=== PATIENT | female | born 1960 | race African-American/Black ===

== ENCOUNTER 2016-09-12 05:47 | Inpatient (IN) | payer OTHER, MEDICARE ==
[~2016-09-12] VITALS: Ht 162.6 cm; Wt 112.7 kg
[~2016-09-12 05:47] MED LIST: ARIP400P IM; BENZ1TAB PO; IBUP400T20 PO; LITH300 PO; NAPR500 PO; Patient Own Medication IM
--- NOTE | 2016-09-12 05:53 | PD ---
HPI Chief Complaint: confusion Time Seen by Provider: 05:49 Travel History International Travel<30 days: No Contact w/Intl Traveler<30days: No History of Present Illness HPI This is a 56-year-old female who has a history of schizophrenia who presents to the emergency department having recently been admitted to [facility] and discharged to a mcc. The mcc called the ambulance because at 448 this morning the house managers woke up to a bloodcurdling scream. The patient was very upset and tearful. The patient is unable to provide any history and reports that the universe is ending, she hasn't seen her family in a long time and that animal spirits love her. PFSH Past Medical History Arthritis: Yes Blood Disorders: No Cancer: No Cardiovascular Problems: Yes Diabetes: No Endocrine: No Gastrointestinal Disorders: No Genitourinary: No Headaches: Yes Hypertension: Yes Immune Disorder: No Musculoskeletal: Yes Neurologic: Yes Psychiatric: Yes (Schizophrenia) Reproductive: No Respiratory: No Seizures: No Past Surgical History Abdominal Surgery: No Cardiac Surgery: No Ear Surgery: No Endocrine Surgery: No Eye Surgery: No Genitourinary Surgery: No Gynecologic Surgery: No Hysterectomy: Yes Neurologic Surgery: No Oral Surgery: Yes (POOR DENTITION) Thoracic Surgery: No Other Surgery: Yes Social History Alcohol Use: No Tobacco Use: No Substance Use: No Allergies-Medications (Allergen,Severity, Reaction): Coded Allergies: Iodine (Unverified Allergy, Unknown, 09/12/16) Penicillin (Unverified Allergy, Unknown, 09/12/16) Reported Meds & Prescriptions Reported Meds & Active Scripts Active [Patient Own Medication] 1 EA Ea 400 Ea IM EVERY MONTH due on or before 01/26/15 Reported [Invega] IM MONTHLY Pantoprazole (Pantoprazole Sodium) 40 Mg Tab 40 Mg PO DAILY Perphenazine 4 Mg Tab 8 Mg PO HS Perphenazine 4 Mg Tab 4 Mg PO DAILY Review of Systems ROS Limitations: Psychotic Physical Exam Narrative GENERAL:Well appearing, no acute distress SKIN: Warm and dry. HEAD: Atraumatic. Normocephalic. EYES: Pupils equal and round. No injection or drainage. ENT: Moist mucous membranes NECK: Trachea midline. CARDIOVASCULAR: Regular rate and rhythm. No murmur appreciated. RESPIRATORY: Clear to auscultation. Breath sounds equal bilaterally. GASTROINTESTINAL: Abdomen soft, non-tender, nondistended. MUSCULOSKELETAL: No obvious deformities. NEUROLOGICAL: Awake and alert. No obvious cranial nerve deficits. Moving all extremities. PSYCHIATRIC: Tearful, tangential with depressed mood and some synagogue preoccupation.. Data Data Last Documented VS Vital Signs Date Time Temp Pulse Resp B/P Pulse Ox O2 Delivery O2 Flow Rate FiO2 09/12/16 05:59 98.0 78 14 113/58 100 Orders Complete Blood Count With Diff (09/12/16 05:49) Basic Metabolic Panel (Bmp) (09/12/16 05:49) Alcohol (Ethanol) (09/12/16 05:49) Drug Screen, Random Urine (09/12/16 05:49) Psych Screen (09/12/16 05:49) Diet Regular Basic (09/12/16 Breakfast) Labs Laboratory Tests Test 09/12/16 06:00 White Blood Count 5.0 TH/MM3 Red Blood Count 4.05 MIL/MM3 Hemoglobin 12.4 GM/DL Hematocrit 37.3 % Mean Corpuscular Volume 92.1 FL Mean Corpuscular Hemoglobin 30.5 PG Mean Corpuscular Hemoglobin 33.1 % Concent Red Cell Distribution Width 14.3 % Platelet Count 287 TH/MM3 Mean Platelet Volume 8.8 FL Neutrophils (%) (Auto) 61.3 % Lymphocytes (%) (Auto) 29.4 % Monocytes (%) (Auto) 8.2 % Eosinophils (%) (Auto) 0.2 % Basophils (%) (Auto) 0.9 % Neutrophils # (Auto) 3.1 TH/MM3 Lymphocytes # (Auto) 1.5 TH/MM3 Monocytes # (Auto) 0.4 TH/MM3 Eosinophils # (Auto) 0.0 TH/MM3 Basophils # (Auto) 0.0 TH/MM3 CBC Comment DIFF FINAL Differential Comment Urine Opiates Screen NEG Urine Barbiturates Screen NEG Urine Amphetamines Screen NEG Urine Benzodiazepines Screen NEG Urine Cocaine Screen NEG Urine Cannabinoids Screen NEG MDM Medical Decision Making Medical Screen Exam Complete: Yes Emergency Medical Condition: Yes Interpretation(s) No leukocytosis Drug screen is negative Differential Diagnosis Schizophrenia, psychosis, drug intoxication Narrative Course This is a 56-year-old female who presents to the emergency department with a history of schizophrenia with disorganized behavior at a mcc she is new to. It appears that this is likely the patient's baseline. Labs were obtained which were reassuring. It seems like this is more of a placement issue than an acute psychiatric issue, as the patient is currently in a m[facility] and likely requires a higher level of care. Patient will be evaluated by the psychiatry team. Marie Sams MD Sep 12, 2016 05:53
[2016-09-12 05:59] VITALS: BP 113/58; PULSE 78; RESP 14; TEMP 98; O2SAT 100
[2016-09-12] MEDS ORDERED: INVEGA IM (06:29)
[2016-09-12] MEDS ORDERED: PERP4TAB8 PO ×2 (06:29)
[2016-09-12] MEDS ORDERED: PANT40TA3 PO (06:29)
[2016-09-12 06:30] LABS: AUTOMATED NEUTROPHIL # 3.1 TH/MM3 (1.8-7.7); BASOPHIL % 0.9 % (0.0-2.0); EOSINOPHIL % 0.2 % (0.0-4.0); HEMATOCRIT 37.3 % (35.0-46.0); HEMO FLAGS DIFF FINAL; LYMPH % 29.4 % (9.0-44.0); LYMPHOCYTE # 1.5 TH/MM3 (1.0-4.8); MEAN CELL VOLUME 92.1 FL (80.0-100.0); MEAN CORPUSCULAR HEMOGLOBIN 30.5 PG (27.0-34.0); MEAN CORPUSCULAR HGB CONC 33.1 % (32.0-36.0); MONO % 8.2 % (0.0-8.0); NEUT % 61.3 % (16.0-70.0); PLATELET COUNT 287 TH/MM3 (150-450); RED BLOOD COUNT 4.05 MIL/MM3 (4.00-5.30); RED CELL DISTRIBUTION WIDTH 14.3 % (11.6-17.2)
[2016-09-12 06:43] LABS: AMPHETAMINE, URINE NEG (NEG); BARBITURATES, URINE NEG (NEG); COCAINE, URINE NEG (NEG)
[2016-09-12 07:12] LABS: ANION GAP 8 MEQ/L (5-15); BICARBONATE 25.1 MEQ/L (21.0-32.0); BLOOD UREA NITROGEN 10 MG/DL (7-18); CHLORIDE 106 MEQ/L (98-107); GLOMERULAR FILTRATION RATE 75 ML/MIN (>89); SODIUM (NA) 139 MEQ/L (136-145)
[2016-09-12 07:15] LABS: POTASSIUM 4.5 MEQ/L (3.5-5.1)
[2016-09-12 08:03] VITALS: BP 115/55; PULSE 72; RESP 18; O2SAT 99
[2016-09-12 13:14] VITALS: BP 124/58; PULSE 70; RESP 18; O2SAT 99
[2016-09-12 18:35] VITALS: BP 119/55; PULSE 74; RESP 18; O2SAT 97
[2016-09-12 22:15] VITALS: BP 101/70; PULSE 82; RESP 18; TEMP 98.7; O2SAT 96
[2016-09-12] MEDS: LORazepam 1 MG TAB PO PRN (23:15)
[2016-09-12] MEDS: diphenhydrAMINE HCL 50 MG CAP - HS PRN PO (23:16)
[2016-09-13 06:00] VITALS: BP 169/71; PULSE 80; RESP 18; TEMP 97.7; O2SAT 99
[2016-09-13] MEDS: PANTOPRAZOLE SOD 40 MG DELAYED RELEASE TAB PO SCH (08:21)
[2016-09-13 08:39] LABS: AUTOMATED NEUTROPHIL # 1.8 TH/MM3 (1.8-7.7); BASOPHIL % 0.5 % (0.0-2.0); HEMATOCRIT 36.3 % (35.0-46.0); HEMO FLAGS DIFF FINAL; LYMPH % 49.2 % (9.0-44.0); LYMPHOCYTE # 2.1 TH/MM3 (1.0-4.8); MEAN CELL VOLUME 91.9 FL (80.0-100.0); MEAN CORPUSCULAR HEMOGLOBIN 31.1 PG (27.0-34.0); MEAN CORPUSCULAR HGB CONC 33.8 % (32.0-36.0); MONO % 8.9 % (0.0-8.0); NEUT % 41.4 % (16.0-70.0); PLATELET COUNT 260 TH/MM3 (150-450); RED BLOOD COUNT 3.94 MIL/MM3 (4.00-5.30); RED CELL DISTRIBUTION WIDTH 14.5 % (11.6-17.2); WHITE BLOOD COUNT 4.3 TH/MM3 (4.0-11.0)
[2016-09-13 08:58] LABS: ANION GAP 10 MEQ/L (5-15); AST (GOT) 16 U/L (15-37); BICARBONATE 24.2 MEQ/L (21.0-32.0); BLOOD UREA NITROGEN 9 MG/DL (7-18); CHLORIDE 102 MEQ/L (98-107); GLOMERULAR FILTRATION RATE 90 ML/MIN (>89); MAGNESIUM 1.9 MG/DL (1.5-2.5); POTASSIUM 3.9 MEQ/L (3.5-5.1); SODIUM (NA) 136 MEQ/L (136-145)
--- NOTE | 2016-09-13 09:14 | HHI.HP ---
Provisional Diagnosis Admission Date Sep 12, 2016 at 21:34 Kula I. History of schizophrenic disorder chronic paranoid type acute exacerbation Kula II. No diagnosis Kula III. Please see the emergency room evaluation Kula IV. Moderate stress difficulty coping Kula V. GAF of 40 Certification of Person's Competence To Provide Express and Informed Consent I have personally examined Sheila DeanJr , a person being served at [facility] on, Sep 13, 2016 09:07. Express and informed consent means consent voluntarily given in writing, by a competent person, after sufficient explanation and disclosure of the subject matter involved to enable the person to make a knowing and willful decision without any element of force, fraud, deceit, duress, or other form of constraint or coercion. This person is 18 years of age or older, is not now known to be incompetent to consent to treatment with a guardian advocate, and does not have a health care surrogate or proxy currently making medical treatment decisions. I have found this person to be one of the following: [x] Competent to provide express and informed consent, as defined above, for voluntary admission to this facility and is competent to provide express and informed consent for treatment. He/she has the consistent capacity to make well reasoned, willful, and knowing decisions concerning his or her medical or mental health treatment. The person fully and consistently understands the purpose of the admission for examination/placement and is fully capable of personally exercising all rights assured under [place] [] Incompetent to provide express and informed consent to voluntary admission, and this is incompetent to provide express and informed consent to treatment. The person must be transferred to involuntary status and a petition for a guardian advocate filed with the Circuit Court. [] Refusing to provide express and informed consent to voluntary admission but is competent to provide express and informed consent for treatment. The person must be discharged or transferred to involuntary status. Form shall be completed within 24 hours of a person's arrival at the receiving facility and filed in the clinical record of each person: 1. Admitted on a voluntary basis 2. Permitted to provide express and informed consent to his/her own treatment 3. Allowed to transfer from involuntary to voluntary status 4. Prior to permitting a person to consent to his or her own treatment after having been previously found incompetent to consent to treatment. History of Present Illness Capacity: Has Capacity HPI This is a 56-year-old black female who came to the emergency room from [place] where she was found screaming loud was psychotic responding to internal stimuli was paranoid talking to herself and was also talking about wanting to be with the Lord and was sensing .. Patient also reported that she wants her age back. She also was talking about being and none and having plenty of children sometimes she did not make any sense. She was recently discharged from [facility] and was placed at the [facility] but now I understand that he cannot she cannot return back to that place and will her to find a new place for her. It' s questionable regarding her compliance in taking medication Review of Systems Except as stated in HPI: all other systems reviewed are Neg Psychiatric: COMPLAINS OF: Confusion, Mood changes, Depression, Hallucinations , Delusions Past Psych History Psychological trauma history Patient denies any physical verbal or sexual abuse growing up but the because of patient's mental status is questionable Violence risk - others (6 mos) Patient denies but sometimes she becomes easily agitated and yells Violence risk - self (6 mos) Patient denies any suicidal ideation intentions or plan but she claimed that she is sensing and wants to be with Lord no plan to harm herself Substance Abuse History Drugs/Alcohol past 12 months Patient denies any alcohol or drug abuse Past Family Social History Coded Allergies: Iodine (Unverified Allergy, Unknown, 09/12/16) Penicillin (Unverified Allergy, Unknown, 09/12/16) Reported Medications [Invega] No Conflict Check Im Monthly 09/12/16 Pantoprazole 40 Mg Tab40 Mg PO DAILY #30 TAB Ref 0 09/12/16 Perphenazine 4 Mg Tab8 Mg PO HS #30 TAB Ref 0 09/12/16 Perphenazine 4 Mg Tab4 Mg PO DAILY #30 TAB Ref 0 09/12/16 Discontinued Scripts [Patient Own Medication] 1 EA EA No Conflict [id number] Ea IM every month due on or before 01/26/15 Prov:Ayana Marks MD 01/11/15 Current Medications Medications (Trade) Dose Ordered Sig/Jeremias Route Start Time Stop Time Status Last Admin (Ativan) 1 mg Q6H PRN PO 09/12/16 22:00 09/12/16 23:15 (Ativan Inj) 1 mg Q6H PRN IM 3/11/17 22:00 (Benadryl) 50 mg HS PRN PO 09/12/16 22:00 09/12/16 23:16 (Benadryl Inj) 50 mg HS PRN IM 09/12/16 22:00 (Tylenol) 650 mg Q4H PRN PO 09/12/16 22:00 (Milk Of Magnesia Liq) 30 ml DAILY PRN PO 09/12/16 22:00 (Mag-Al Plus Susp Liq) 30 ml Q6H PRN PO 09/12/16 22:00 (Trilafon) 8 mg HS PO 09/13/16 21:00 (Protonix) 40 mg DAILY PO 09/13/16 09:00 09/13/16 08:21 Family History Positive for mental illness Social History Patient was born in [facility]. She has 4 brothers but then again patient is not sure however patient denied any physical verbal or sexual abuse growing up. She did claimed that she finished high school and 1 year of college. Patient was unable to provide any meaningful information at this time Patient's Strengths (min. 2) Patient is cooperative and willing to take the medication Physical Exam Please see the emergency room evaluation Vital Signs Vital Signs Date Time Temp Pulse Resp B/P Pulse Ox O2 Delivery O2 Flow Rate FiO2 09/13/16 06:00 97.7 80 18 169/71 99 09/12/16 20:51 Room Air I/O 09/12/16 09/12/16 09/13/16 08:00 16:00 00:00 Intake Total 240 ml 240 ml Balance 240 ml 240 ml Mental Status Examination This is a 56-year-old black overweight female was alert oriented 1 or 2 cooperative but sometimes becoming easily agitated. She was also internally stimulated and sometimes talking to herself and saying things that did not make any sense that she isn't none she has plenty of children she wants her age back she wants to be with Lord but no plan to harm herself. She seems to be of low average intelligence with poor recent memory her insight is limited and her judgment seems to be questionable her fund of knowledge is less than average her gait is normal her concentration is poor Assessment & Plan Problem List: (1) schizoaffective disorder depressed Assessment & Plan Estimated LOS: 5 days. This is a 56-year-old black female with a history of schizoaffective disorder was admitted because she decompensated and was psychotic and responding to internal stimuli and was paranoid and preoccupied about Tawnya and . We will stabilize her on the medication.. Admitted to observe and evaluate and treatment. She will participate in all the therapeutic activity on the floor. Will request social welfare administrator to assist in aftercare and discharge planning. We will resume her medication. Side effect another alternative treatment were explained to the patient. Vital signs every shift. Request HC Surrog/Guard Advoc?: No Brent Hernandez MD Sep 13, 2016 09:14
[2016-09-13 09:24] LABS: ALKALINE PHOSPHATASE 77 U/L (45-117); ALT (GPT) 18 U/L (10-53); CREATINE KINASE 180 U/L (26-192); FREE T4 1.22 NG/DL (0.76-1.46); HDL CHOLESTEROL 57.4 MG/DL (40.0-60.0); LDL CHOLESTEROL 40 MG/DL (0-99); TOTAL BILIRUBIN ADULT 0.2 MG/DL (0.2-1.0); URIC ACID 3.5 MG/DL (2.6-6.0)
[2016-09-13 10:26] LABS: HEMOGLOBIN A1a 0.9 %; HEMOGLOBIN A1b 1.1 %; HEMOGLOBIN Ao 85.8 %; HEMOGLOBIN LA1C 1.9 %; HEMOGLOBIN P3 3.4 %
[2016-09-13 20:26] VITALS: BP 168/84; PULSE 110; TEMP 98.4; O2SAT 99
[2016-09-13] MEDS: PERPHENAZINE 4 MG TAB PO SCH (20:28)
[2016-09-13] MEDS: ACETAMINOPHEN 325 MG TAB PO PRN (21:20)
[2016-09-14] MEDS: diphenhydrAMINE HCL 50 MG CAP - HS PRN PO (00:04)
[2016-09-14] MEDS: LORazepam 1 MG TAB PO PRN (00:05)
[2016-09-14] MEDS: HALOPERIDOL 10 MG TAB PO PRN ×2 (03:22→22:07)
[2016-09-14] MEDS: LORazepam 2 MG/ML VIAL IM PRN (04:04)
[2016-09-14] MEDS: PANTOPRAZOLE SOD 40 MG DELAYED RELEASE TAB PO SCH (09:27)
--- NOTE | 2016-09-14 16:13 | HHI.PYPN ---
Subjective Remarks Patient discussed with treatment team. 7. Patient continues somewhat vigilant towards been somewhat irritable, though compliant medications. It appears her behaviors so out of control that she is not welcome back at her prior placement. For now continue medication no change Review of Systems Except as stated in HPI: all other systems reviewed are Neg Objective Alert: Yes [place]: Person, Place Mood: Anxious, Calm Affect: Labile, Restricted Memory Intact: Comment Hallucinations: Other (very poor denies that times appears to be responding to internal stimuli) Delusions: Yes Delusion Type: Paranoid (vigilant lately), Other Suicidal: Ideation (denies) Homicidal: Ideation (denies) Insight/Judgement Very poor Vitals/IOs Vital Signs Date Time Temp Pulse Resp B/P Pulse Ox O2 Delivery O2 Flow Rate FiO2 09/13/16 20:26 98.4 110 168/84 99 09/13/16 06:00 18 09/12/16 20:51 Room Air Intake and Output 09/13/16 09/13/16 09/14/16 08:00 16:00 00:00 Intake Total 240 ml 2040 ml Balance 240 ml 2040 ml Assessment & Plan Problem List: (1) schizoaffective disorder depressed Assessment & Plan Estimated LOS: da patient remained psychotic somewhat irritable labile. Compliant medications. For now continue treatment Justification for Cont. Inpt. At this time patient decompensate the placed a lower level of care Discharge Planning To be determined Request HC Surrog/Guard Advoc?: No Deacon Israel MD Sep 14, 2016 16:13
[2016-09-14 18:34] VITALS: BP 115/59; PULSE 98; RESP 18; TEMP 97.4; O2SAT 99
[2016-09-14] MEDS: PERPHENAZINE 4 MG TAB PO SCH (20:58)
[2016-09-14] MEDS: ACETAMINOPHEN 325 MG TAB PO PRN (22:47)
[2016-09-15] MEDS: LORazepam 1 MG TAB PO PRN (00:14)
[2016-09-15] MEDS: diphenhydrAMINE HCL 50 MG CAP - HS PRN PO (00:14)
[2016-09-15] MEDS: PANTOPRAZOLE SOD 40 MG DELAYED RELEASE TAB PO SCH (09:22)
--- NOTE | 2016-09-15 11:09 | HHI.PYPN ---
Subjective Remarks Patient seen in day room with nurse Logan, medical student Ly, [facility] patient did recognize me from prior contact. Is calm at this time though acknowledges auditory hallucinations of a somewhat command nature. Staff shared with me though that patient is shown bizarre psychotic behaviors towards evening no less restrictive settings including calling 911 inappropriately. Patient compliant medications. We are attempting to find patient's next due date for her and vague about sustain a injection Review of Systems Except as stated in HPI: all other systems reviewed are Neg Objective Alert: Yes [place]: Person, Place Mood: Anxious, Calm Affect: Labile, Restricted Memory Intact: Comment (fair) Hallucinations: Auditory Delusions: Yes Delusion Type: Paranoid (vigilant lately) Suicidal: Ideation (denies) Homicidal: Ideation (denies) Insight/Judgement Very poor Vitals/IOs Vital Signs Date Time Temp Pulse Resp B/P Pulse Ox O2 Delivery O2 Flow Rate FiO2 09/14/16 18:34 97.4 98 18 115/59 99 09/12/16 20:51 Room Air Intake and Output 09/14/16 09/14/16 09/15/16 08:00 16:00 00:00 Intake Total 720 ml 720 ml 1080 ml Balance 720 ml 720 ml 1080 ml Assessment & Plan Problem List: (1) schizoaffective disorder depressed Assessment & Plan Estimated LOS: days patient continue psychotic and irritable "calm at the present time. She continues to hear the auditory hallucinations of a somewhat command nature. For now continue treatment Justification for Cont. Inpt. At this time patient will decompensate if placed in the lower level of care Discharge Planning To be determined Request HC Surrog/Guard Advoc?: No Deacon Israel MD Sep 15, 2016 11:09
[2016-09-15] MEDS ORDERED: HALOPERIDOL LACTATE 5 MG/ML AMP ONE (15:30)
[2016-09-15] MEDS ORDERED: diphenhydrAMINE HCL 50 MG/ML VIAL IM ONE (15:45)
[2016-09-15] MEDS ORDERED: HALOPERIDOL LACTATE 5 MG/ML AMP IM ONE (15:45)
[2016-09-15] MEDS ORDERED: LORazepam 2 MG/ML VIAL IM ONE (15:45)
[2016-09-15] MEDS: PERPHENAZINE 4 MG TAB PO SCH (20:03)
[2016-09-16] MEDS: ALUMINUM/MAGNESIUM/SIMETH 30 ML CUP PO PRN (02:40)
[2016-09-16 05:40] VITALS: BP 134/74; PULSE 90; RESP 20; TEMP 98.3; O2SAT 97
[2016-09-16] MEDS: PANTOPRAZOLE SOD 40 MG DELAYED RELEASE TAB PO SCH (09:02)
--- NOTE | 2016-09-16 12:57 | HHI.PYPN ---
Subjective Remarks Patient seen in day room with nurse Clare and family practice resident Kyle. Patient eating lunch. Calm pleasant with me though continues to verify auditory hallucinations are somewhat decreased Patient no significant behavioral problems. Will increase at bedtime Trilafon to 10 mg Review of Systems Except as stated in HPI: all other systems reviewed are Neg Objective Alert: Yes [place]: Person, Place Mood: Anxious, Calm Affect: Labile, Restricted (somewhat less restricted) Memory Intact: Comment (fair) Hallucinations: Auditory (but slightly less) Delusions: Yes Delusion Type: Paranoid (vigilant lately) Suicidal: Ideation (denies) Homicidal: Ideation (denies) Insight/Judgement Very poor Vitals/IOs Vital Signs Date Time Temp Pulse Resp B/P Pulse Ox O2 Delivery O2 Flow Rate FiO2 09/16/16 05:40 98.3 90 20 134/74 97 09/12/16 20:51 Room Air Intake and Output 09/15/16 09/15/16 09/16/16 08:00 16:00 00:00 Intake Total 600 ml 1080 ml Balance 600 ml 1080 ml Assessment & Plan Problem List: (1) schizoaffective disorder depressed Assessment & Plan Estimated LOS: days patient remained psychotic though behaviors of softened somewhat voices diminished somewhat. Will increase Trilafon to 10 mg at at bedtime. Justification for Cont. Inpt. At this time patient will decompensate if placed in a lower level of care Discharge Planning To be determined Request HC Surrog/Guard Advoc?: No Deacon Israel MD Sep 16, 2016 12:56
[2016-09-16] MEDS ORDERED: PILL SPLITTER OTHER PRN (13:15)
[2016-09-16 19:02] VITALS: BP 130/75; PULSE 87; RESP 18; TEMP 98.4; O2SAT 99
[2016-09-16] MEDS: diphenhydrAMINE HCL 50 MG CAP - HS PRN PO (20:38)
[2016-09-16] MEDS: HALOPERIDOL 10 MG TAB PO PRN (20:38)
[2016-09-16] MEDS ORDERED: PERPHENAZINE 4 MG TAB PO SCH (21:00)
[2016-09-16] MEDS: ACETAMINOPHEN 325 MG TAB PO PRN (22:36)
[2016-09-17] MEDS: LORazepam 2 MG/ML VIAL IM PRN (04:34)
[2016-09-17 05:58] VITALS: BP 136/63; PULSE 90; RESP 18; TEMP 97.8
[2016-09-17] MEDS: PANTOPRAZOLE SOD 40 MG DELAYED RELEASE TAB PO SCH (08:54)
[2016-09-17] MEDS ORDERED: HALOPERIDOL 10 MG TAB PO SCH (10:30)
--- NOTE | 2016-09-17 10:30 | HHI.PYPN ---
Subjective Remarks Patient seen in dayroom with nurse Logan. Patient needed a when necessary of Haldol last night due to her yelling screaming and agitation. At this time I feel the Trilafon is not able to control patient's behavior we'll discontinue the Trilafon order Haldol 10 mg twice a day in its place. Patient overall compliant medications. Today while making eye contact with me and nodding appropriately remains selectively mute. Patient was noted eating her breakfast this morning with gusto Review of Systems Except as stated in HPI: all other systems reviewed are Neg Objective Alert: Yes [place]: Person, Place Mood: Anxious, Calm Affect: Labile, Restricted Memory Intact: Comment (fair) Hallucinations: Auditory Delusions: Yes Delusion Type: Paranoid (vigilant lately) Suicidal: Ideation (denies) Homicidal: Ideation (denies) Insight/Judgement Very poor Vitals/IOs Vital Signs Date Time Temp Pulse Resp B/P Pulse Ox O2 Delivery O2 Flow Rate FiO2 09/17/16 05:58 97.8 90 18 136/63 09/16/16 19:02 99 Intake and Output 09/16/16 09/16/16 09/17/16 08:00 16:00 00:00 Intake Total 360 ml 960 ml 840 ml Balance 360 ml 960 ml 840 ml Assessment & Plan Problem List: (1) schizoaffective disorder depressed Assessment & Plan Estimated LOS: days patient remained psychotic with behavioral disturbances more towards the evening. Please see medication adjustments above. Patient continues to. We responding to internal stimuli though she, in a somewhat childlike manner, denies voices Justification for Cont. Inpt. At this time patient will decompensate if placed in a lower level of care Discharge Planning To be determined Request HC Surrog/Guard Advoc?: No Deacon Israel MD Sep 17, 2016 10:30
[2016-09-17] MEDS ORDERED: HALOPERIDOL LACTATE 5 MG/ML AMP IM SCH (11:00)
--- NOTE | 2016-09-17 11:03 | HHI.PYPN ---
Subjective Remarks Patient seen by me on unit with nurse Logan. Chart review. Those are progress note dictated by me earlier today that should've been dictated on another patient that was inadvertently dictated on this patient please ignore that progress note. Patient seen today was calm cooperative has been compliant with her medication. She denies any voices or visions at this time though she did have some behavioral issues last night. We'll continue to observe no change in medication at this time Review of Systems Except as stated in HPI: all other systems reviewed are Neg Objective Alert: Yes [place]: Person, Place Mood: Anxious, Calm Affect: Labile, Restricted Memory Intact: Comment (fair) Hallucinations: Auditory Delusions: Yes Delusion Type: Paranoid (vigilant lately) Suicidal: Ideation (denies) Homicidal: Ideation (denies) Insight/Judgement Poor Vitals/IOs Vital Signs Date Time Temp Pulse Resp B/P Pulse Ox O2 Delivery O2 Flow Rate FiO2 09/17/16 05:58 97.8 90 18 136/63 09/16/16 19:02 99 Intake and Output 09/16/16 09/16/16 09/16/16 07:59 15:59 23:59 Intake Total 360 ml 960 ml 840 ml Balance 360 ml 960 ml 840 ml Assessment & Plan Problem List: (1) schizoaffective disorder depressed Assessment & Plan Estimated LOS: days patient continues psychotic but softer, compliant medications, though she did have outburst last night we'll continue to monitor no change in medication at this time Justification for Cont. Inpt. At this time patient will decompensate in place to the lower level of care Discharge Planning To be determined Request HC Surrog/Guard Advoc?: No Deacon Israel MD Sep 17, 2016 11:03
[2016-09-17] MEDS: PERPHENAZINE 4 MG TAB PO SCH (20:55)
[2016-09-18 05:19] VITALS: BP 151/84; PULSE 111; RESP 18; TEMP 97.9; O2SAT 95
[2016-09-18 06:06] VITALS: PULSE 90
[2016-09-18] MEDS: PANTOPRAZOLE SOD 40 MG DELAYED RELEASE TAB PO SCH (08:14)
--- NOTE | 2016-09-18 10:23 | HHI.PYPN ---
Subjective Remarks Patient seen in her room with nurse Desmond. Patient calm. We'll somewhat vigilant with me. States the voices are "winding down" states she slept well last night. Patient compliant with medications. Review of Systems Except as stated in HPI: all other systems reviewed are Neg Objective Alert: Yes [place]: Person, Place Mood: Anxious, Calm Affect: Labile, Restricted Memory Intact: Comment (fair) Hallucinations: Auditory (slowly diminishing) Delusions: Yes Delusion Type: Paranoid (vigilant lately) Suicidal: Ideation (denies) Homicidal: Ideation (denies) Insight/Judgement Poor Vitals/IOs Vital Signs Date Time Temp Pulse Resp B/P Pulse Ox O2 Delivery O2 Flow Rate FiO2 09/18/16 06:06 90 09/18/16 05:19 97.9 18 151/84 95 Intake and Output 09/17/16 09/17/16 09/18/16 08:00 16:00 00:00 Intake Total 240 ml 1200 ml Balance 240 ml 1200 ml Assessment & Plan Problem List: (1) schizoaffective disorder depressed Assessment & Plan Estimated LOS: days patient remained psychotic with slight decrease in auditory hallucinations. Compliant medications. For now continue treatment Justification for Cont. Inpt. At this time patient will decompensate if placed on lower level of care Discharge Planning To be determined Request HC Surrog/Guard Advoc?: No Deacon Israel MD Sep 18, 2016 10:23
[2016-09-18 18:34] VITALS: BP 131/77; PULSE 84; RESP 18; TEMP 97.5; O2SAT 97
[2016-09-18] MEDS: PERPHENAZINE 4 MG TAB PO SCH (20:42)
[2016-09-19] MEDS: ACETAMINOPHEN 325 MG TAB PO PRN ×2 (05:08→09:37)
[2016-09-19 05:55] VITALS: BP 151/82; PULSE 85; RESP 16; TEMP 98.4; O2SAT 98
[2016-09-19] MEDS: PANTOPRAZOLE SOD 40 MG DELAYED RELEASE TAB PO SCH (09:11)
--- NOTE | 2016-09-19 14:01 | HHI.PYPN ---
Subjective Remarks Pt seen and discussed with staff. Pt has been engaging in bizarre behavior such as giving herself facials with toothpaste and barrier cream. She told RN this morning that there was a computer in her ear telling her that "mission impossible is over". She also stated that she was an "intergenerational fighter for the nation." She is pleasant and cooperative with care and compliant with medications. She reports that she is tolerating medications without side effects and feels that they are helpful. "I've been able to relieve all of the waste that was clinging to body because of the medications." She presented a copy of her will to staff that was consisted of highly disorganized writing and bequests of several million dollars to various entities and individuals. She denies SI/HI. Review of Systems Psychiatric: COMPLAINS OF: Hallucinations, Delusions Objective Alert: Yes [place]: Person, Place Mood: Calm Affect: Restricted Memory Intact: Comment (fair) Hallucinations: Auditory (computers in ear) Delusions: Yes Delusion Type: Paranoid, Other (bizarre, anabaptism) Suicidal: Ideation (denies) Homicidal: Ideation (denies) Insight/Judgement poor Vitals/IOs Vital Signs Date Time Temp Pulse Resp B/P Pulse Ox O2 Delivery O2 Flow Rate FiO2 09/19/16 05:55 98.4 85 16 151/82 98 Intake and Output 09/18/16 09/18/16 09/19/16 08:00 16:00 00:00 Intake Total 280 ml 3360 ml Balance 280 ml 3360 ml Assessment & Plan Problem List: (1) schizoaffective disorder depressed Assessment & Plan Continue current tx plan. Pt is improving. Estimated LOS: days Justification for Cont. Inpt. impairments in reality construction. Request HC Surrog/Guard Advoc?: Ana Maria Wilson MD Sep 19, 2016 14:01
[2016-09-19] MEDS: PERPHENAZINE 4 MG TAB PO SCH (20:37)
[2016-09-20 06:00] VITALS: BP 146/56; PULSE 98; RESP 18; TEMP 97.4; O2SAT 96
[2016-09-20] MEDS: PANTOPRAZOLE SOD 40 MG DELAYED RELEASE TAB PO SCH (08:49)
--- NOTE | 2016-09-20 14:48 | HHI.PYPN ---
Subjective Remarks Pt seen and discussed with staff. She was labile last night and yelling on unit , "The dam broke!" She has been compliant with medications and denies side effects. Today she has been less intrusive but remains delusional and religiously preoccupied. No SI/HI. Objective Alert: Yes [place]: Person, Place Mood: Calm Affect: Restricted Memory Intact: Comment (fair) Hallucinations: Auditory (computers in ear) Delusions: Yes Delusion Type: Paranoid, Other (bizarre, sabianist) Suicidal: Ideation (denies) Homicidal: Ideation (denies) Insight/Judgement poor Vitals/IOs Vital Signs Date Time Temp Pulse Resp B/P Pulse Ox O2 Delivery O2 Flow Rate FiO2 09/20/16 06:00 97.4 98 18 146/56 96 Intake and Output 09/19/16 09/19/16 09/20/16 08:00 16:00 00:00 Intake Total 480 ml 1440 ml Balance 480 ml 1440 ml Assessment & Plan Problem List: (1) schizoaffective disorder depressed Assessment & Plan Continue current tx plan. Estimated LOS: days Justification for Cont. Inpt. impairments in reality construction Request HC Surrog/Guard Advoc?: No Ana Maria Toscano MD Sep 20, 2016 14:48
[2016-09-20 18:13] VITALS: BP 130/71; PULSE 68; RESP 17; TEMP 97.7; O2SAT 97
[2016-09-20] MEDS: PERPHENAZINE 4 MG TAB PO SCH (20:33)
[2016-09-21 05:43] VITALS: BP 143/88; PULSE 85; RESP 16; TEMP 97.7; O2SAT 97
[2016-09-21] MEDS: PANTOPRAZOLE SOD 40 MG DELAYED RELEASE TAB PO SCH (09:22)
--- NOTE | 2016-09-21 15:10 | HHI.PYPN ---
Subjective Remarks Patient discussed with treatment team, chart reviewed, patient seen on unit, patient remains delusional irritable somewhat paranoid and labile. Will increase perphenazine to 10 mg twice a day Review of Systems Except as stated in HPI: all other systems reviewed are Neg Objective Alert: Yes [place]: Person, Place Mood: Agitated, Calm Affect: Labile, Restricted Memory Intact: Comment (fair) Hallucinations: Auditory (computers in ear) Delusions: Yes Delusion Type: Paranoid, Other (bizarre, hoahaoism) Suicidal: Ideation (denies) Homicidal: Ideation (denies) Insight/Judgement Very poor Vitals/IOs Vital Signs Date Time Temp Pulse Resp B/P Pulse Ox O2 Delivery O2 Flow Rate FiO2 09/21/16 05:43 97.7 85 16 143/88 97 Intake and Output 09/20/16 09/20/16 09/21/16 08:00 16:00 00:00 Intake Total 880 ml 720 ml Balance 880 ml 720 ml Assessment & Plan Problem List: (1) schizoaffective disorder depressed Assessment & Plan Estimated LOS: days patient continue psychotic labile and irritable please see medication adjustments above Justification for Cont. Inpt. At this time patient will decompensate placed in the lower level of care Discharge Planning To be determined Request HC Surrog/Guard Advoc?: No Deacon Israel MD Sep 21, 2016 15:10
[2016-09-21] MEDS ORDERED: PILL SPLITTER OTHER PRN (15:30)
[2016-09-21 18:46] VITALS: BP 140/78; PULSE 71; RESP 18; TEMP 98.7; O2SAT 97
[2016-09-21] MEDS: PERPHENAZINE 4 MG TAB PO SCH (21:03)
[2016-09-21] MEDS: LORazepam 1 MG TAB PO PRN (23:46)
[2016-09-21] MEDS: diphenhydrAMINE HCL 50 MG CAP - HS PRN PO (23:46)
[2016-09-22] MEDS: ACETAMINOPHEN 325 MG TAB PO PRN ×3 (01:17→23:01)
[2016-09-22 06:05] VITALS: BP 146/70; PULSE 94; RESP 17; TEMP 97.6; O2SAT 94
[2016-09-22] MEDS: PERPHENAZINE 4 MG TAB PO SCH ×2 (09:15→21:37)
[2016-09-22] MEDS: PANTOPRAZOLE SOD 40 MG DELAYED RELEASE TAB PO SCH (09:15)
--- NOTE | 2016-09-22 09:23 | HHI.PYPN ---
Subjective Remarks Patient seen in her room with nurse Desmond, after breakfast patient in bed with covers to her chin. Staff states the patient showed some dyscontrol last night she was wandering the halls with diaper over her head saying that her room was "contaminated" she also only slept about 1 hour last night. Today patient is somewhat disorganized attempting to describe what happened last night she appears to responding somewhat more to internal stimuli today. Will continue Trilafon at 10 mg the morning though increase the bedtime dose to 20 mg Review of Systems Except as stated in HPI: all other systems reviewed are Neg Objective Alert: Yes [place]: Person, Place Mood: Agitated, Calm Affect: Labile, Restricted Memory Intact: Comment (fair) Hallucinations: Auditory (computers in ear) Delusions: Yes Delusion Type: Paranoid, Other (bizarre, anabaptist) Suicidal: Ideation (denies) Homicidal: Ideation (denies) Insight/Judgement Very poor Vitals/IOs Vital Signs Date Time Temp Pulse Resp B/P Pulse Ox O2 Delivery O2 Flow Rate FiO2 09/22/16 06:05 97.6 94 17 146/70 94 Intake and Output 09/21/16 09/21/16 09/22/16 08:00 16:00 00:00 Intake Total 1440 ml Balance 1440 ml Assessment & Plan Problem List: (1) schizoaffective disorder depressed Assessment & Plan Estimated LOS: days she continues quite psychotic and delusional, also somewhat aroused. Please see medication adjustment about Justification for Cont. Inpt. At this time patient will decompensate if placed in a lower level of care Discharge Planning To be determined Request HC Surrog/Guard Advoc?: No Deacon Israel MD Sep 22, 2016 09:23
[2016-09-22] MEDS: ALUMINUM/MAGNESIUM/SIMETH 30 ML CUP PO PRN (23:00)
[2016-09-22] MEDS: diphenhydrAMINE HCL 50 MG CAP - HS PRN PO (23:01)
[2016-09-23] MEDS: ACETAMINOPHEN 325 MG TAB PO PRN ×3 (03:07→20:20)
[2016-09-23 05:51] VITALS: BP 117/65; PULSE 67; RESP 16; TEMP 98.4; O2SAT 96
[2016-09-23] MEDS: PANTOPRAZOLE SOD 40 MG DELAYED RELEASE TAB PO SCH (09:33)
[2016-09-23] MEDS: PERPHENAZINE 4 MG TAB PO SCH ×2 (09:33→20:19)
--- NOTE | 2016-09-23 11:59 | HHI.PYPN ---
Subjective Remarks Patient discussed with treatment team including medications, behaviors, recommendations, and discharge planning. Patient seen on unit. Patient continues markedly disorganized psychotic, delusional. Stating she thinks her sister put a baby in the oven. Patient compliant medications. For now continue treatment Review of Systems Except as stated in HPI: all other systems reviewed are Neg Objective Alert: Yes [place]: Person, Place Mood: Calm Affect: Labile (decreased), Restricted Memory Intact: Comment (fair) Hallucinations: Auditory (computers in ear) Delusions: Yes Delusion Type: Paranoid, Other (bizarre, rastafarian) Suicidal: Ideation (denies) Homicidal: Ideation (denies) Insight/Judgement Poor Vitals/IOs Vital Signs Date Time Temp Pulse Resp B/P Pulse Ox O2 Delivery O2 Flow Rate FiO2 09/23/16 05:51 98.4 67 16 117/65 96 Intake and Output 09/22/16 09/22/16 09/22/16 07:59 15:59 23:59 Intake Total 840 ml 1110 ml Balance 840 ml 1110 ml Assessment & Plan Problem List: (1) schizoaffective disorder depressed Assessment & Plan Estimated LOS: days patient continue psychotic paranoid, this time there is no behavior problems noted. Patient compliant medications Justification for Cont. Inpt. At this time patient will decompensate if placed in a lower level of care Discharge Planning To be determined Request HC Surrog/Guard Advoc?: Deacon Moreau MD Sep 23, 2016 11:58
[2016-09-23 19:53] VITALS: BP 133/78; PULSE 75; RESP 18; TEMP 97.9; O2SAT 97
[2016-09-24] MEDS: ACETAMINOPHEN 325 MG TAB PO PRN ×3 (00:35→20:14)
[2016-09-24] MEDS: LORazepam 1 MG TAB PO PRN (00:52)
[2016-09-24] MEDS: diphenhydrAMINE HCL 50 MG CAP - HS PRN PO (00:52)
[2016-09-24 06:25] VITALS: BP 96/67; PULSE 85; RESP 16; TEMP 97.5; O2SAT 95
[2016-09-24] MEDS: PANTOPRAZOLE SOD 40 MG DELAYED RELEASE TAB PO SCH (09:03)
[2016-09-24] MEDS: PERPHENAZINE 4 MG TAB PO SCH ×2 (09:03→20:14)
--- NOTE | 2016-09-24 11:42 | HHI.PYPN ---
Subjective Remarks Patient seen in day room with nurse Demetrice, chart reviewed. Patient continues disorganized delusional and psychotic. Making confusing statements related to her family, was also noted last night to be eating soap. Patient compliant with medications. Patient compliant medications for now continue treatment Review of Systems Except as stated in HPI: all other systems reviewed are Neg Objective Alert: Yes [place]: Person, Place Mood: Calm Affect: Labile (decreased), Restricted Memory Intact: Comment (fair) Hallucinations: Auditory (computers in ear) Delusions: Yes Delusion Type: Paranoid, Other (bizarre, denominational) Suicidal: Ideation (denies) Homicidal: Ideation (denies) Insight/Judgement Poor Vitals/IOs Vital Signs Date Time Temp Pulse Resp B/P Pulse Ox O2 Delivery O2 Flow Rate FiO2 09/24/16 06:25 97.5 85 16 96/67 95 Intake and Output 09/23/16 09/23/16 09/24/16 08:00 16:00 00:00 Intake Total 720 ml Balance 720 ml Assessment & Plan Problem List: (1) schizoaffective disorder depressed Assessment & Plan Estimated LOS: days patient continue psychotic somewhat labile and irritable. Compliant medications. For now continue treatment, need to consider adjustment of the Trilafon and perhaps addition of a second generation at at bedtime Justification for Cont. Inpt. At this time patient will decompensate placed in the lower level of care Discharge Planning To be determined Request HC Surrog/Guard Advoc?: No Deacon Israel MD Sep 24, 2016 11:41
[2016-09-24] MEDS: LORazepam 2 MG/ML VIAL IM PRN (12:35)
[2016-09-25] MEDS: ACETAMINOPHEN 325 MG TAB PO PRN (05:30)
[2016-09-25 05:59] VITALS: BP 153/75; PULSE 76; RESP 17; TEMP 98.1
[2016-09-25] MEDS: PERPHENAZINE 4 MG TAB PO SCH ×2 (09:39→21:29)
[2016-09-25] MEDS: PANTOPRAZOLE SOD 40 MG DELAYED RELEASE TAB PO SCH (09:40)
--- NOTE | 2016-09-25 14:45 | HHI.PYPN ---
Subjective Remarks Patient seen in dayroom with floor staff, patient somewhat calmer and more pleasant with me. Though she still remains quite psychotic delusional and disorganized. Compliant medications. For now continue treatment Review of Systems Except as stated in HPI: all other systems reviewed are Neg Objective Alert: Yes [place]: Person, Place Mood: Calm Affect: Labile (decreased), Restricted Memory Intact: Comment (fair) Hallucinations: Auditory (computers in ear) Delusions: Yes Delusion Type: Paranoid, Other (bizarre, muslim) Suicidal: Ideation (denies) Homicidal: Ideation (denies) Insight/Judgement Very poor Vitals/IOs Vital Signs Date Time Temp Pulse Resp B/P Pulse Ox O2 Delivery O2 Flow Rate FiO2 09/25/16 05:59 98.1 76 17 153/75 09/24/16 06:25 95 Intake and Output 09/24/16 09/24/16 09/25/16 08:00 16:00 00:00 Intake Total 0 ml 240 ml 720 ml Balance 0 ml 240 ml 720 ml Assessment & Plan Problem List: (1) schizoaffective disorder depressed Assessment & Plan Estimated LOS: days patient continue psychotic and delusional. Compliant medications. For now continue treatment Justification for Cont. Inpt. At this time patient will decompensate if placed in a lower level of care Discharge Planning To be determined Request HC Surrog/Guard Advoc?: No Deacon Israel MD Sep 25, 2016 14:45
[2016-09-25 18:00] VITALS: BP 129/60; PULSE 79; RESP 17; TEMP 99.4; O2SAT 98
[2016-09-26] MEDS: ACETAMINOPHEN 325 MG TAB PO PRN ×2 (04:37→14:52)
[2016-09-26 04:57] VITALS: BP 146/88; PULSE 84; RESP 18; TEMP 97.1; O2SAT 100
[2016-09-26] MEDS: PERPHENAZINE 4 MG TAB PO SCH ×2 (09:00→21:54)
[2016-09-26] MEDS: PANTOPRAZOLE SOD 40 MG DELAYED RELEASE TAB PO SCH (09:00)
--- NOTE | 2016-09-26 12:40 | HHI.PYPN ---
Subjective Remarks Patient was seen and case discussed with nursing. Patient remains elevated and intrusive. Making various inappropriate comments. She is however alert and oriented 3. She is disheveled with poor insight. He denies auditory visual hallucinations. Thought processes tangential. Compliant with medications Objective Alert: Yes [place]: Person, Place Mood: Calm Affect: Labile (decreased), Restricted Memory Intact: Comment (fair) Hallucinations: Auditory (computers in ear) Delusions: Yes Delusion Type: Paranoid, Other (bizarre, yazdanism) Suicidal: Ideation (denies) Homicidal: Ideation (denies) Insight/Judgement Poor Vitals/IOs Vital Signs Date Time Temp Pulse Resp B/P Pulse Ox O2 Delivery O2 Flow Rate FiO2 09/26/16 04:57 97.1 84 18 146/88 100 Intake and Output 09/25/16 09/25/16 09/26/16 08:00 16:00 00:00 Intake Total 480 ml 360 ml Balance 480 ml 360 ml Assessment & Plan Problem List: (1) schizoaffective disorder depressed Assessment & Plan Continue current treatment plan Justification for Cont. Inpt. Patient will decompensate Request HC Surrog/Guard Advoc?: No John Winters DO Sep 26, 2016 12:40
[2016-09-26 18:40] VITALS: BP 196/85; PULSE 68; RESP 18; TEMP 97.7; O2SAT 97
[2016-09-26 20:45] VITALS: BP 134/79; PULSE 77
[2016-09-26] MEDS: LORazepam 1 MG TAB PO PRN (23:35)
[2016-09-26] MEDS: diphenhydrAMINE HCL 50 MG CAP - HS PRN PO (23:35)
[2016-09-27] MEDS: ACETAMINOPHEN 325 MG TAB PO PRN ×4 (03:00→23:48)
[2016-09-27 07:40] VITALS: BP 136/68; PULSE 86; RESP 18; TEMP 97.9; O2SAT 97
[2016-09-27] MEDS: PERPHENAZINE 4 MG TAB PO SCH ×2 (09:02→22:05)
[2016-09-27] MEDS: PANTOPRAZOLE SOD 40 MG DELAYED RELEASE TAB PO SCH (09:02)
--- NOTE | 2016-09-27 11:17 | HHI.PYPN ---
Subjective Remarks Patient was seen and case discussed with nursing. Patient remains psychotic with various bizarre delusions. Thinking computers are out to get her, the room is contaminated, that she is actually the color yellow. Responding to internal stimuli and hallucinations but cannot tell me what they are saying. She has a towel in her head because she put lotion in her hair Objective Alert: Yes [place]: Person Mood: Happy Affect: Labile Memory Intact: Comment (not tested) Hallucinations: Auditory (computers in ear) Delusions: Yes Delusion Type: Paranoid (various bizarre delusions) Suicidal: Ideation (denies) Homicidal: Ideation (denies) Insight/Judgement Poor Vitals/IOs Vital Signs Date Time Temp Pulse Resp B/P Pulse Ox O2 Delivery O2 Flow Rate FiO2 09/27/16 07:40 97.9 86 18 136/68 97 Intake and Output 09/26/16 09/26/16 09/27/16 08:00 16:00 00:00 Intake Total 360 ml 1320 ml 720 ml Balance 360 ml 1320 ml 720 ml Assessment & Plan Problem List: (1) schizoaffective disorder depressed Assessment & Plan Continue current treatment plan Justification for Cont. Inpt. Patient will decompensate in a less restrictive setting Request HC Surrog/Guard Advoc?: No John Winters DO Sep 27, 2016 11:17
[2016-09-27 18:56] VITALS: BP 167/82; PULSE 84; RESP 19; TEMP 99.1; O2SAT 97
[2016-09-27] MEDS: diphenhydrAMINE HCL 50 MG CAP - HS PRN PO (23:44)
[2016-09-27] MEDS: LORazepam 1 MG TAB PO PRN (23:44)
[2016-09-28 05:42] VITALS: BP 136/78; PULSE 82; RESP 16; TEMP 97.6; O2SAT 97
[2016-09-28] MEDS: PANTOPRAZOLE SOD 40 MG DELAYED RELEASE TAB PO SCH (09:11)
[2016-09-28] MEDS: PERPHENAZINE 4 MG TAB PO SCH ×2 (09:11→21:38)
[2016-09-28] MEDS: ACETAMINOPHEN 325 MG TAB PO PRN (15:16)
[2016-09-28] MEDS: LORazepam 1 MG TAB PO PRN (15:16)
--- NOTE | 2016-09-28 15:57 | HHI.PYPN ---
Subjective Remarks Patient discussed with treatment team, chart reviewed, patient seen on unit. Patient calm though continues markedly delusional somewhat grandiose and at times silly. Will increase a.m. Trilafon to 15 mg continue H his dose no change Review of Systems Except as stated in HPI: all other systems reviewed are Neg Objective Alert: Yes [place]: Person Mood: Happy Affect: Labile Memory Intact: Comment (not tested) Hallucinations: Auditory (computers in ear) Delusions: Yes Delusion Type: Paranoid (various bizarre delusions) Suicidal: Ideation (denies) Homicidal: Ideation (denies) Insight/Judgement Very poor Vitals/IOs Vital Signs Date Time Temp Pulse Resp B/P Pulse Ox O2 Delivery O2 Flow Rate FiO2 09/28/16 05:42 97.6 82 16 136/78 97 Intake and Output 09/27/16 09/27/16 09/28/16 08:00 16:00 00:00 Intake Total 600 ml 840 ml Balance 600 ml 840 ml Assessment & Plan Problem List: (1) schizoaffective disorder depressed Assessment & Plan Estimated LOS: days patient continues somewhat delusional and psychotic, though no significant behavior problems noted at this time. See medication adjustments above Justification for Cont. Inpt. At this time patient will decompensate if placed in a lower level of care Discharge Planning To be determined Request HC Surrog/Guard Advoc?: No Deacon Israel MD Sep 28, 2016 15:57
[2016-09-28 18:00] VITALS: BP 141/83; PULSE 76; RESP 18; TEMP 98.1; O2SAT 98
[2016-09-28] MEDS: LORazepam 2 MG/ML VIAL IM PRN (23:17)
[2016-09-28] MEDS: diphenhydrAMINE HCL 50 MG/ML VIAL - HS PRN IM (23:17)
[2016-09-28] MEDS ORDERED: ZIPRASIDONE MESYLATE 20 MG VIAL IM ONE ×2 (23:49→23:54)
[2016-09-29] MEDS: PERPHENAZINE 4 MG TAB PO SCH ×2 (09:00→21:03)
[2016-09-29] MEDS: PANTOPRAZOLE SOD 40 MG DELAYED RELEASE TAB PO SCH (09:37)
[2016-09-29] MEDS: ACETAMINOPHEN 325 MG TAB PO PRN (09:37)
--- NOTE | 2016-09-29 15:09 | HHI.PYPN ---
Subjective Remarks Patient seen on unit with nurse Logan, patient calm though somewhat superficial today and silly showing delusional ideation stating her feet were cut off and then reattached. Also appears patient had a very poor night last night not sleeping at all. And was aggressive towards floor staff. We'll add trazodone 50 mg at at bedtime Review of Systems Except as stated in HPI: all other systems reviewed are Neg Objective Alert: Yes [place]: Person Mood: Happy Affect: Labile Memory Intact: Comment (not tested) Hallucinations: Auditory (computers in ear) Delusions: Yes Delusion Type: Paranoid (various bizarre delusions) Suicidal: Ideation (denies) Homicidal: Ideation (denies) Insight/Judgement Very poor Vitals/IOs Vital Signs Date Time Temp Pulse Resp B/P Pulse Ox O2 Delivery O2 Flow Rate FiO2 09/28/16 18:00 98.1 76 18 141/83 98 Intake and Output 09/28/16 09/28/16 09/29/16 08:00 16:00 00:00 Intake Total 480 ml 960 ml 720 ml Balance 480 ml 960 ml 720 ml Assessment & Plan Problem List: (1) schizoaffective disorder depressed Assessment & Plan Estimated LOS: days patient continue psychotic irritable and aggressive with poor sleep. See medication adjustment above Justification for Cont. Inpt. At this time patient will decompensate if placed in a lower level of care Discharge Planning Be determined Request HC Surrog/Guard Advoc?: No Deacon Israel MD Sep 29, 2016 15:09
[2016-09-29] MEDS: LORazepam 1 MG TAB PO PRN ×2 (16:03→22:56)
[2016-09-29] MEDS: diphenhydrAMINE HCL 50 MG CAP - HS PRN PO (21:02)
[2016-09-29] MEDS: traZODone HCL 50 MG TAB PO SCH (21:03)
[2016-09-30 05:26] VITALS: BP 157/74; PULSE 82; RESP 18; TEMP 97.9; O2SAT 98
[2016-09-30] MEDS: PERPHENAZINE 4 MG TAB PO SCH ×2 (09:25→21:10)
[2016-09-30] MEDS: PANTOPRAZOLE SOD 40 MG DELAYED RELEASE TAB PO SCH (09:26)
--- NOTE | 2016-09-30 11:02 | HHI.PYPN ---
Subjective Remarks Patient seen in her room with nurse Araceli and family practice resident titi. Chart reviewed. Patient continues delusional psychotic with bizarre statements about family placement, also made statements thinking that she may be and that she is 24 years old. Will increase Trilafon to 20 mg twice a day. Review of Systems Except as stated in HPI: all other systems reviewed are Neg Objective Alert: Yes [place]: Person Mood: Happy Affect: Labile Memory Intact: Comment (not tested) Hallucinations: Auditory (computers in ear) Delusions: Yes Delusion Type: Paranoid (various bizarre delusions) Suicidal: Ideation (denies) Homicidal: Ideation (denies) Insight/Judgement Very poor Vitals/IOs Vital Signs Date Time Temp Pulse Resp B/P Pulse Ox O2 Delivery O2 Flow Rate FiO2 09/30/16 05:26 97.9 82 18 157/74 98 Intake and Output 09/29/16 09/29/16 09/30/16 08:00 16:00 00:00 Intake Total 0 ml 660 ml Balance 0 ml 660 ml Assessment & Plan Problem List: (1) schizoaffective disorder depressed Assessment & Plan Estimated LOS: days patient continue psychotic and delusional, appears have somewhat better behavior recently. Will increase Trilafon to 20 mg twice a day Justification for Cont. Inpt. At this time patient will decompensate if placed in the lower level of care Discharge Planning To be determined Request HC Surrog/Guard Advoc?: No Deacon Israel MD Sep 30, 2016 11:02
[2016-09-30] MEDS: ACETAMINOPHEN 325 MG TAB PO PRN ×2 (14:17→22:42)
[2016-09-30] MEDS: MAGNESIUM HYDROXIDE SUSP 30 ML CUP PO PRN (17:30)
[2016-09-30 18:52] VITALS: BP 146/95; PULSE 71; RESP 16; TEMP 97.6; O2SAT 97
[2016-09-30] MEDS: traZODone HCL 50 MG TAB PO SCH (21:10)
[2016-09-30] MEDS: diphenhydrAMINE HCL 50 MG CAP - HS PRN PO (22:43)
[2016-10-01] MEDS: ACETAMINOPHEN 325 MG TAB PO PRN (03:16)
[2016-10-01] MEDS: LORazepam 1 MG TAB PO PRN ×2 (04:14→19:47)
[2016-10-01 05:27] VITALS: BP 145/79; PULSE 78; RESP 18; TEMP 97.3
[2016-10-01] MEDS: PANTOPRAZOLE SOD 40 MG DELAYED RELEASE TAB PO SCH (08:29)
[2016-10-01] MEDS: PERPHENAZINE 4 MG TAB PO SCH ×2 (08:30→20:55)
--- NOTE | 2016-10-01 15:18 | HHI.PYPN ---
Subjective Remarks Patient seen in her room with nurse Clare, chart review, patient somewhat calmer more focused today discussed possible placement after discharge she stating she wishes to back to her own place with a friend helping her. However this seems to be delusional component to this though her affect is showing good range of motion intensity. She acknowledges continued auditory hallucinations. Staff states she is only slept 4 hours last night. Will increase at bedtime trazodone to 75 mg Review of Systems Except as stated in HPI: all other systems reviewed are Neg Objective Alert: Yes [place]: Person Mood: Happy Affect: Labile Memory Intact: Comment (not tested) Hallucinations: Auditory (computers in ear) Delusions: Yes Delusion Type: Paranoid (various bizarre delusions) Suicidal: Ideation (denies) Homicidal: Ideation (denies) Insight/Judgement Very poor Vitals/IOs Vital Signs Date Time Temp Pulse Resp B/P Pulse Ox O2 Delivery O2 Flow Rate FiO2 10/01/16 05:27 97.3 78 18 145/79 09/30/16 18:52 97 Intake and Output 09/30/16 09/30/16 10/01/16 08:00 16:00 00:00 Intake Total 480 ml 960 ml 240 ml Balance 480 ml 960 ml 240 ml Assessment & Plan Problem List: (1) schizoaffective disorder depressed Assessment & Plan Estimated LOS: days patient continue psychotic, the behaviors have softened somewhat. Sleep is still poor. See medication adjustment above Justification for Cont. Inpt. At this time patient will decompensate and placed in the lower level of care Discharge Planning To be determined Request HC Surrog/Guard Advoc?: No Deacon Israel MD Oct 01, 2016 15:18
[2016-10-01 18:02] VITALS: BP 115/61; PULSE 78; RESP 18; TEMP 97.5; O2SAT 96
[2016-10-01] MEDS: traZODone HCL 50 MG TAB PO SCH (20:54)
[2016-10-02] MEDS: ACETAMINOPHEN 325 MG TAB PO PRN ×2 (00:53→11:37)
[2016-10-02] MEDS: LORazepam 1 MG TAB PO PRN (04:07)
[2016-10-02 05:07] VITALS: BP 113/67; PULSE 77; RESP 16; TEMP 98.6; O2SAT 98
[2016-10-02] MEDS: PANTOPRAZOLE SOD 40 MG DELAYED RELEASE TAB PO SCH (09:21)
[2016-10-02] MEDS: PERPHENAZINE 4 MG TAB PO SCH ×2 (09:22→20:56)
--- NOTE | 2016-10-02 12:56 | HHI.PYPN ---
Subjective Remarks Patient seen in her room with nurse Desmond. Chart reviewed. Patient continues somewhat disorganized delusional, though less intense. Compliant medications. For now continue treatment Review of Systems Except as stated in HPI: all other systems reviewed are Neg Objective Alert: Yes [place]: Person Mood: Happy Affect: Labile Memory Intact: Comment (not tested) Hallucinations: Auditory (computers in ear) Delusions: Yes Delusion Type: Paranoid (various bizarre delusions) Suicidal: Ideation (denies) Homicidal: Ideation (denies) Insight/Judgement Very poor Vitals/IOs Vital Signs Date Time Temp Pulse Resp B/P Pulse Ox O2 Delivery O2 Flow Rate FiO2 10/02/16 05:07 98.6 77 16 113/67 98 Intake and Output 10/01/16 10/01/16 10/02/16 08:00 16:00 00:00 Intake Total 120 ml 600 ml 960 ml Balance 120 ml 600 ml 960 ml Assessment & Plan Problem List: (1) schizoaffective disorder depressed Assessment & Plan Estimated LOS: days patient continue psychotic, delusional, low compliant medications. For now continue treatment Justification for Cont. Inpt. At this time the patient will decompensate if placed in a lower level of care Discharge Planning To be determined Request HC Surrog/Guard Advoc?: No Deacon Israel MD Oct 02, 2016 12:56
[2016-10-02 17:45] VITALS: BP 125/67; PULSE 84; RESP 18; TEMP 98.7; O2SAT 99
[2016-10-02 19:17] VITALS: BP 125/67; PULSE 84; RESP 18; TEMP 98.7; O2SAT 99
[2016-10-02] MEDS: traZODone HCL 50 MG TAB PO SCH (20:56)
[2016-10-03] MEDS: ACETAMINOPHEN 325 MG TAB PO PRN ×2 (05:18→21:35)
[2016-10-03 06:20] VITALS: BP_SYST 125; BP_DIAS 69; BP_DIAS 74; PULSE 94; RESP 17; TEMP 97.9; O2SAT 94
[2016-10-03] MEDS: PANTOPRAZOLE SOD 40 MG DELAYED RELEASE TAB PO SCH (08:53)
[2016-10-03] MEDS: PERPHENAZINE 4 MG TAB PO SCH ×2 (08:57→21:14)
--- NOTE | 2016-10-03 14:32 | HHI.PYPN ---
Subjective Remarks Pt seen and discussed with staff. She has been seclusive to her room for most of morning. She remains religiously preoccupied and talks extensively about getting communication from spirits and that her mood is a product of the spirit world. She was arguing with [facility] staff earlier in the day due to mu-ism preoccupation. NO SI/HI. Medication compliant. No SI/HI Objective Alert: Yes [place]: Person Mood: Calm Affect: Restricted Memory Intact: Comment (fair) Hallucinations: Auditory (spirits communicating with her) Delusions: Yes Delusion Type: Paranoid (various bizarre delusions), Other (mu-ism) Suicidal: Ideation (denies) Homicidal: Ideation (denies) Insight/Judgement poor Vitals/IOs Vital Signs Date Time Temp Pulse Resp B/P Pulse Ox O2 Delivery O2 Flow Rate FiO2 10/03/16 06:20 97.9 94 17 125/69 94 Intake and Output 10/02/16 10/02/16 10/03/16 08:00 16:00 00:00 Intake Total 120 ml 1220 ml 1320 ml Balance 120 ml 1220 ml 1320 ml Assessment & Plan Problem List: (1) schizoaffective disorder depressed Assessment & Plan Estimated LOS: days Justification for Cont. Inpt. Continue current tx plan. Discharge Planning impairments in relaity construction and self care Request HC Surrog/Guard Advoc?: Ana Maria Wilson MD Oct 03, 2016 14:32
[2016-10-03 21:07] VITALS: BP 117/73; PULSE 79; TEMP 96.9; O2SAT 100
[2016-10-03] MEDS: diphenhydrAMINE HCL 50 MG CAP - HS PRN PO (21:13)
[2016-10-03] MEDS: traZODone HCL 50 MG TAB PO SCH (21:14)
[2016-10-03] MEDS: LORazepam 1 MG TAB PO PRN (23:08)
[2016-10-04] MEDS: ACETAMINOPHEN 325 MG TAB PO PRN ×3 (03:34→20:19)
[2016-10-04 05:20] VITALS: BP 132/65; PULSE 80; RESP 18; TEMP 98.6; O2SAT 100
[2016-10-04] MEDS: PERPHENAZINE 4 MG TAB PO SCH ×2 (08:36→20:46)
[2016-10-04] MEDS: LORazepam 1 MG TAB PO PRN ×2 (08:37→20:16)
[2016-10-04] MEDS: PANTOPRAZOLE SOD 40 MG DELAYED RELEASE TAB PO SCH (08:38)
--- NOTE | 2016-10-04 16:02 | HHI.PYPN ---
Subjective Remarks Pt seen and discussed with staff. She has been labile today and making derogatory statements to staff. She states that her sisters have kidnapped her parents and she is a virgin for the universe, not the generation. She is compliant with medications. No SI/HI. Review of Systems Psychiatric: COMPLAINS OF: Delusions Objective Alert: Yes [place]: Person Mood: Anxious Affect: Other (congruent) Memory Intact: Comment (fair) Hallucinations: Auditory (spirits communicating with her) Delusions: Yes Delusion Type: Paranoid (various bizarre delusions), Other (religion) Suicidal: Ideation (denies) Homicidal: Ideation (denies) Insight/Judgement poor Vitals/IOs Vital Signs Date Time Temp Pulse Resp B/P Pulse Ox O2 Delivery O2 Flow Rate FiO2 10/04/16 05:20 98.6 80 18 132/65 100 Intake and Output 10/03/16 10/03/16 10/04/16 08:00 16:00 00:00 Intake Total 360 ml 1320 ml 720 ml Balance 360 ml 1320 ml 720 ml Assessment & Plan Problem List: (1) schizoaffective disorder depressed Assessment & Plan Continue current tx plan. Estimated LOS: days Justification for Cont. Inpt. impairments in reality testing and self care Request HC Surrog/Guard Advoc?: Ana Maria Wilson MD Oct 04, 2016 4:02 pm
[2016-10-04 19:27] VITALS: BP 123/66; PULSE 99; RESP 16; TEMP 98.6; O2SAT 100
[2016-10-04] MEDS: traZODone HCL 50 MG TAB PO SCH (20:45)
[2016-10-04] MEDS: diphenhydrAMINE HCL 50 MG CAP - HS PRN PO (20:46)
[2016-10-05] MEDS: ACETAMINOPHEN 325 MG TAB PO PRN (00:33)
[2016-10-05] MEDS: LORazepam 1 MG TAB PO PRN ×2 (01:58→23:03)
[2016-10-05] MEDS: PANTOPRAZOLE SOD 40 MG DELAYED RELEASE TAB PO SCH (08:49)
[2016-10-05] MEDS: PERPHENAZINE 4 MG TAB PO SCH (08:49)
[2016-10-05 16:37] VITALS: BP 153/65; PULSE 64; RESP 18; TEMP 97.4; O2SAT 97
--- NOTE | 2016-10-05 17:17 | HHI.PYPN ---
Subjective Remarks Patient discussed with treatment team, chart reviewed, patient seen on unit floor staff. Patient complaining of severe sedation in the a.m. with her medication. Will change Loxitane to 4 PM and 10 PM. Patient still somewhat grandiose delusional with a spiritual type emphasis Review of Systems Except as stated in HPI: all other systems reviewed are Neg Objective Alert: Yes [place]: Person Mood: Anxious Affect: Other (congruent) Memory Intact: Comment (fair) Hallucinations: Auditory (spirits communicating with her) Delusions: Yes Delusion Type: Paranoid (various bizarre delusions), Other (hoahaoism) Suicidal: Ideation (denies) Homicidal: Ideation (denies) Insight/Judgement Poor Vitals/IOs Vital Signs Date Time Temp Pulse Resp B/P Pulse Ox O2 Delivery O2 Flow Rate FiO2 10/05/16 16:37 97.4 64 18 153/65 97 Intake and Output 10/04/16 10/04/16 10/05/16 08:00 16:00 00:00 Intake Total 360 ml 1320 ml 720 ml Balance 360 ml 1320 ml 720 ml Assessment & Plan Problem List: (1) schizoaffective disorder depressed Assessment & Plan Estimated LOS: days patient continues delusional and psychotic with a hyper hoahaoism flavor. She medication adjustments above Justification for Cont. Inpt. At this time patient will decompensate if placed on the lower level of care Discharge Planning To be determined Request HC Surrog/Guard Advoc?: No Deacon Israel MD Oct 05, 2016 17:17
[2016-10-05] MEDS: traZODone HCL 50 MG TAB PO SCH (20:48)
[2016-10-06] MEDS: ACETAMINOPHEN 325 MG TAB PO PRN (05:25)
[2016-10-06 06:15] VITALS: BP 129/83; PULSE 80; RESP 18; TEMP 98.2; O2SAT 96
[2016-10-06] MEDS: PANTOPRAZOLE SOD 40 MG DELAYED RELEASE TAB PO SCH (08:38)
--- NOTE | 2016-10-06 14:47 | HHI.PYPN ---
Subjective Remarks Patient seen in her room with nurse Tamiko, patient continues somewhat intense superficial silly in at times somewhat childlike. She is still also somewhat grandiose, and acknowledges continued auditory hallucinations perhaps with a spiritual component. We'll continue with the adjustment of the Trilafon as noted yesterday Review of Systems Except as stated in HPI: all other systems reviewed are Neg Objective Alert: Yes [place]: Person Mood: Anxious Affect: Other (congruent) Memory Intact: Comment (fair) Hallucinations: Auditory (spirits communicating with her) Delusions: Yes Delusion Type: Paranoid (various bizarre delusions), Other (yazidi) Suicidal: Ideation (denies) Homicidal: Ideation (denies) Insight/Judgement Poor Vitals/IOs Vital Signs Date Time Temp Pulse Resp B/P Pulse Ox O2 Delivery O2 Flow Rate FiO2 10/06/16 06:15 98.2 80 18 129/83 96 Intake and Output 10/05/16 10/05/16 10/06/16 08:00 16:00 00:00 Intake Total 360 ml 2140 ml Balance 360 ml 2140 ml Assessment & Plan Problem List: (1) schizoaffective disorder depressed Assessment & Plan Estimated LOS: days patient remains psychotic and somewhat delusional, compliant medications Justification for Cont. Inpt. At this time patient will decompensate if placed in a lower level of care Discharge Planning To be determined Request HC Surrog/Guard Advoc?: Deacon Moreau MD Oct 06, 2016 14:47
[2016-10-06] MEDS: PERPHENAZINE 4 MG TAB PO SCH ×2 (16:00→20:00)
[2016-10-06] MEDS ORDERED: PERPHENAZINE 4 MG TAB PO SCH (16:00)
[2016-10-06 18:13] VITALS: BP 164/79; PULSE 109; RESP 18; TEMP 98; O2SAT 96
[2016-10-06] MEDS: traZODone HCL 50 MG TAB PO SCH (20:32)
[2016-10-07] MEDS: LORazepam 1 MG TAB PO PRN ×3 (00:34→15:59)
[2016-10-07] MEDS: ACETAMINOPHEN 325 MG TAB PO PRN ×2 (00:34→19:40)
[2016-10-07 06:00] VITALS: BP 127/62; PULSE 97; RESP 18; TEMP 97.6; O2SAT 97
[2016-10-07] MEDS: PANTOPRAZOLE SOD 40 MG DELAYED RELEASE TAB PO SCH (08:04)
--- NOTE | 2016-10-07 14:52 | HHI.PYPN ---
Subjective Remarks Patient discussed with treatment team, chart reviewed, patient seen on unit with nurse Shahram and counselor Leena. Patient continues delusional but somewhat spiritual orientation today stating "I got a Román baby, one year old , who is a medical device sales representative" however patient is no behavioral problem, has been compliant with her medications. Review of Systems Except as stated in HPI: all other systems reviewed are Neg Objective Alert: Yes [place]: Person Mood: Anxious Affect: Other (congruent) Memory Intact: Comment (fair) Hallucinations: Auditory (spirits communicating with her) Delusions: Yes Delusion Type: Paranoid (various bizarre delusions), Other (mosque) Suicidal: Ideation (denies) Homicidal: Ideation (denies) Insight/Judgement Very poor Vitals/IOs Vital Signs Date Time Temp Pulse Resp B/P Pulse Ox O2 Delivery O2 Flow Rate FiO2 10/07/16 06:00 97.6 97 18 127/62 97 Intake and Output 10/06/16 10/06/16 10/07/16 08:00 16:00 00:00 Intake Total 600 ml 960 ml Balance 600 ml 960 ml Assessment & Plan Problem List: (1) schizoaffective disorder depressed Assessment & Plan Estimated LOS: days patient continues delusional somewhat psychotic, though no behavioral problems. Compliant medications. For now continue treatment Justification for Cont. Inpt. At this time patient will decompensate if placed in a lower level of care Discharge Planning To be determined Request HC Surrog/Guard Advoc?: No Deacon Israel MD Oct 07, 2016 14:52
[2016-10-07] MEDS: PERPHENAZINE 4 MG TAB PO SCH ×2 (16:01→19:43)
[2016-10-07] MEDS ORDERED: HALOPERIDOL LACTATE 5 MG/ML AMP IM STA (16:11)
[2016-10-07] MEDS ORDERED: HALOPERIDOL LACTATE 5 MG/ML AMP ONE (16:14)
[2016-10-07] MEDS ORDERED: LORazepam 2 MG/ML VIAL ONE (16:14)
[2016-10-07] MEDS ORDERED: diphenhydrAMINE HCL 50 MG/ML VIAL IM ONE (16:15)
[2016-10-07] MEDS ORDERED: LORazepam 2 MG/ML VIAL IM ONE (17:00)
[2016-10-07 20:00] VITALS: BP 122/85; PULSE 99; RESP 18; TEMP 97; O2SAT 97
[2016-10-07] MEDS: traZODone HCL 50 MG TAB PO SCH (20:55)
[2016-10-07] MEDS: diphenhydrAMINE HCL 50 MG CAP - HS PRN PO (20:55)
[2016-10-08] MEDS: LORazepam 1 MG TAB PO PRN ×2 (01:01→13:27)
[2016-10-08] MEDS: ACETAMINOPHEN 325 MG TAB PO PRN ×3 (01:02→20:50)
[2016-10-08 06:00] VITALS: BP 133/78; PULSE 88; RESP 16; TEMP 98; O2SAT 100
[2016-10-08] MEDS: PANTOPRAZOLE SOD 40 MG DELAYED RELEASE TAB PO SCH (09:00)
[2016-10-08] MEDS: ALUMINUM/MAGNESIUM/SIMETH 30 ML CUP PO PRN (09:20)
--- NOTE | 2016-10-08 09:39 | HHI.PYPN ---
Subjective Remarks Patient seen in dayroom with nurse Peyton, chart reviewed, patient continues delusional somewhat grandiose and hyperreligious. Pointing of focusing [place] [id number] Patient continue psychotic and delusional. Though she is compliant with medications. Review of Systems Except as stated in HPI: all other systems reviewed are Neg Objective Alert: Yes [place]: Person Mood: Anxious Affect: Other (congruent) Memory Intact: Comment (fair) Hallucinations: Auditory (spirits communicating with her) Delusions: Yes Delusion Type: Paranoid (various bizarre delusions), Other (judaism) Suicidal: Ideation (denies) Homicidal: Ideation (denies) Insight/Judgement Very poor Vitals/IOs Vital Signs Date Time Temp Pulse Resp B/P Pulse Ox O2 Delivery O2 Flow Rate FiO2 10/08/16 06:00 98.0 88 16 133/78 100 Intake and Output 10/07/16 10/07/16 10/08/16 08:00 16:00 00:00 Intake Total 480 ml 0 ml Balance 480 ml 0 ml Assessment & Plan Problem List: (1) schizoaffective disorder depressed Assessment & Plan Estimated LOS: days patient continue psychotic grandiose and delusional. Compliant medications. For now continue treatment Justification for Cont. Inpt. At this time patient will decompensate the placed in a lower level of care Discharge Planning To be determined Request HC Surrog/Guard Advoc?: Deacon Moreau MD Oct 08, 2016 09:39
[2016-10-08] MEDS: PERPHENAZINE 4 MG TAB PO SCH ×2 (16:00→20:00)
[2016-10-08 19:44] VITALS: BP 133/78; PULSE 84; RESP 17; TEMP 98.5; O2SAT 100
[2016-10-08] MEDS: diphenhydrAMINE HCL 50 MG CAP - HS PRN PO (20:33)
[2016-10-08] MEDS: traZODone HCL 50 MG TAB PO SCH (20:33)
[2016-10-09] MEDS: ACETAMINOPHEN 325 MG TAB PO PRN (06:13)
[2016-10-09 06:22] VITALS: BP 133/74; PULSE 70; RESP 18; TEMP 98.9
[2016-10-09] MEDS: PANTOPRAZOLE SOD 40 MG DELAYED RELEASE TAB PO SCH (08:19)
[2016-10-09] MEDS: PERPHENAZINE 4 MG TAB PO SCH ×2 (16:00→20:00)
--- NOTE | 2016-10-09 16:48 | HHI.PYPN ---
Subjective Remarks Patient seen in the day room with nurse Loagn, chart review, patient states "just fine" "wants to be with family". Patient compliant medications still remained somewhat delusional. The no significant behavioral problems at this time Review of Systems Except as stated in HPI: all other systems reviewed are Neg Objective Alert: Yes [place]: Person Mood: Anxious Affect: Other (congruent) Memory Intact: Comment (fair) Hallucinations: Auditory (spirits communicating with her) Delusions: Yes Delusion Type: Paranoid (various bizarre delusions), Other (taoism) Suicidal: Ideation (denies) Homicidal: Ideation (denies) Insight/Judgment Very poor Vitals/IOs Vital Signs Date Time Temp Pulse Resp B/P Pulse Ox O2 Delivery O2 Flow Rate FiO2 10/09/16 06:22 98.9 70 18 133/74 10/08/16 19:44 100 Intake and Output 10/08/16 10/08/16 10/09/16 08:00 16:00 00:00 Intake Total 240 ml 240 ml 240 ml Balance 240 ml 240 ml 240 ml Assessment & Plan Problem List: (1) schizoaffective disorder depressed Assessment & Plan Estimated LOS: days patient continues to isolate, mildly paranoid, and delusional compliant medications. Justification for Cont. Inpt. At this time patient will decompensate if placement lower level of care Discharge Planning To be determined Request HC Surrog/Guard Advoc?: Deacon Moreau MD Oct 09, 2016 16:48
[2016-10-09 19:20] VITALS: BP 133/69; PULSE 78; RESP 18; TEMP 98.5; O2SAT 100
[2016-10-09] MEDS: LORazepam 1 MG TAB PO PRN (19:47)
[2016-10-09] MEDS: traZODone HCL 50 MG TAB PO SCH (20:58)
[2016-10-10] MEDS: diphenhydrAMINE HCL 50 MG CAP - HS PRN PO (00:07)
[2016-10-10] MEDS: ACETAMINOPHEN 325 MG TAB PO PRN ×2 (03:01→09:10)
[2016-10-10] MEDS: LORazepam 1 MG TAB PO PRN ×2 (03:02→19:46)
[2016-10-10 06:19] VITALS: BP 142/77; PULSE 74; RESP 17; TEMP 97.6; O2SAT 96
[2016-10-10] MEDS: PANTOPRAZOLE SOD 40 MG DELAYED RELEASE TAB PO SCH (09:06)
--- NOTE | 2016-10-10 12:45 | HHI.PYPN ---
Subjective Remarks Patient was seen and case discussed with nursing. Patient is quite delusional today. She describes an active conversation with God and is receiving faith messages. She appears guarded and flat. She is paranoid that her ex- is following her. Compliant with her medications. Denies suicidal ideation intent or plan Objective Alert: Yes [place]: Person, Place Mood: Oppositional Affect: Blunted Memory Intact: Comment (fair) Hallucinations: Auditory (messages from God) Delusions: Yes Delusion Type: Paranoid (ex- following her), Other (faith) Suicidal: Ideation (denies) Homicidal: Ideation (denies) Insight/Judgment Poor Vitals/IOs Vital Signs Date Time Temp Pulse Resp B/P Pulse Ox O2 Delivery O2 Flow Rate FiO2 10/10/16 06:19 97.6 74 17 142/77 96 Intake and Output 10/09/16 10/09/16 10/10/16 08:00 16:00 00:00 Intake Total 240 ml 960 ml 1080 ml Output Total 2 ml Balance 240 ml 960 ml 1078 ml Assessment & Plan Problem List: (1) schizoaffective disorder depressed Assessment & Plan Continue current treatment plan Justification for Cont. Inpt. Patient will decompensate in a less restrictive setting Request HC Surrog/Guard Advoc?: No John Winters DO Oct 10, 2016 12:45
[2016-10-10] MEDS: PERPHENAZINE 4 MG TAB PO SCH ×2 (14:31→20:00)
[2016-10-10 18:00] VITALS: BP 136/58; PULSE 80; TEMP 99.2; O2SAT 98
[2016-10-10] MEDS: traZODone HCL 50 MG TAB PO SCH (20:19)
[2016-10-11] MEDS: ACETAMINOPHEN 325 MG TAB PO PRN ×2 (01:37→20:02)
[2016-10-11] MEDS: LORazepam 2 MG/ML VIAL IM PRN (04:35)
[2016-10-11] MEDS: PANTOPRAZOLE SOD 40 MG DELAYED RELEASE TAB PO SCH (09:47)
--- NOTE | 2016-10-11 15:07 | HHI.PYPN ---
Subjective Remarks Patient was seen and case discussed with nursing. Patient remains various bizarre delusions. She has written a detailed 4 page letter to the government about how they can improve [place] minds. Says she gets messages from God and that she will use of being and take control of the solar system. Mood is stable. Denies suicidal ideation intent or plan. Compliant with medications Objective Alert: Yes [place]: Person, Place Mood: Calm Affect: Flat Memory Intact: Comment (not tested) Hallucinations: Auditory (messages from God) Delusions: Yes Delusion Type: Paranoid (bizarre delusions) Suicidal: Ideation (denies) Homicidal: Ideation (denies) Insight/Judgment Poor Vitals/IOs Vital Signs Date Time Temp Pulse Resp B/P Pulse Ox O2 Delivery O2 Flow Rate FiO2 10/10/16 18:00 99.2 80 136/58 98 10/10/16 06:19 17 Intake and Output 10/10/16 10/10/16 10/11/16 08:00 16:00 00:00 Intake Total 840 ml 550 ml Balance 840 ml 550 ml Assessment & Plan Problem List: (1) schizoaffective disorder depressed Assessment & Plan Continue current treatment plan Justification for Cont. Inpt. Patient will decompensate in a less restrictive setting Request HC Surrog/Guard Advoc?: No John Winters DO Oct 11, 2016 15:07
[2016-10-11] MEDS: PERPHENAZINE 4 MG TAB PO SCH ×2 (17:37→20:00)
[2016-10-11] MEDS: traZODone HCL 50 MG TAB PO SCH (20:02)
[2016-10-11 20:33] VITALS: BP 113/56; PULSE 87; RESP 17; TEMP 98.2; O2SAT 94
[2016-10-12 06:42] VITALS: BP 131/75; PULSE 92; RESP 17; TEMP 98.7; O2SAT 98
[2016-10-12] MEDS: ACETAMINOPHEN 325 MG TAB PO PRN ×2 (09:22→18:27)
[2016-10-12] MEDS: PANTOPRAZOLE SOD 40 MG DELAYED RELEASE TAB PO SCH (09:22)
--- NOTE | 2016-10-12 13:50 | HHI.PYPN ---
Subjective Remarks Patient discussed with treatment team, chart review, seen on unit. A patient somewhat calmer less paranoid and intrusive she remains quite delusional and grandiose, compliant medications Review of Systems Except as stated in HPI: all other systems reviewed are Neg Objective Alert: Yes [place]: Person, Place Mood: Calm Affect: Flat Memory Intact: Comment (not tested) Hallucinations: Auditory (messages from God) Delusions: Yes Delusion Type: Paranoid (bizarre delusions) Suicidal: Ideation (denies) Homicidal: Ideation (denies) Insight/Judgment Very poor Vitals/IOs Vital Signs Date Time Temp Pulse Resp B/P Pulse Ox O2 Delivery O2 Flow Rate FiO2 10/12/16 06:42 98.7 92 17 131/75 98 Intake and Output 10/11/16 10/11/16 10/12/16 08:00 16:00 00:00 Intake Total 1030 ml 840 ml 720 ml Balance 1030 ml 840 ml 720 ml Assessment & Plan Problem List: (1) schizoaffective disorder depressed Assessment & Plan Estimated LOS: days patient continues quite psychotic and delusional. Does not seem to be responding as I would like to the increase in the Trilafon. Need to consider perhaps changing to a different antipsychotic Justification for Cont. Inpt. At this time patient will decompensate if placed in the lower level of care Discharge Planning To be determined Request HC Surrog/Guard Advoc?: Deacon Moreau MD Oct 12, 2016 13:50
[2016-10-12] MEDS: LORazepam 1 MG TAB PO PRN (15:36)
[2016-10-12] MEDS: PERPHENAZINE 4 MG TAB PO SCH ×2 (17:16→20:00)
[2016-10-12] MEDS: traZODone HCL 50 MG TAB PO SCH (20:56)
[2016-10-12] MEDS: LORazepam 2 MG/ML VIAL IM PRN (22:52)
[2016-10-12] MEDS: diphenhydrAMINE HCL 50 MG/ML VIAL - HS PRN IM (22:52)
[2016-10-13] MEDS ORDERED: HALOPERIDOL LACTATE 5 MG/ML AMP ONE (03:27)
[2016-10-13] MEDS ORDERED: HALOPERIDOL LACTATE 5 MG/ML AMP IM ONE (03:30)
[2016-10-13] MEDS ORDERED: diphenhydrAMINE HCL 50 MG/ML VIAL IM ONE (03:45)
[2016-10-13] MEDS: PANTOPRAZOLE SOD 40 MG DELAYED RELEASE TAB PO SCH (09:25)
--- NOTE | 2016-10-13 13:51 | HHI.PYPN ---
Subjective Remarks Patient seen in her room with nurse Natty, it appears patient was somewhat out of control last night needing various ETO loose including Ativan and Haldol. Will discontinue the at bedtime trazodone and and Zyprexa Zydis 15 mg at at bedtime. We will change the timing of the Loxitane to noon and 4 PM Review of Systems Except as stated in HPI: all other systems reviewed are Neg Objective Alert: Yes [place]: Person, Place Mood: Calm Affect: Flat Memory Intact: Comment (not tested) Hallucinations: Auditory (messages from God) Delusions: Yes Delusion Type: Paranoid (bizarre delusions) Suicidal: Ideation (denies) Homicidal: Ideation (denies) Insight/Judgment Very poor Vitals/IOs Vital Signs Date Time Temp Pulse Resp B/P Pulse Ox O2 Delivery O2 Flow Rate FiO2 10/12/16 06:42 98.7 92 17 131/75 98 Intake and Output 10/12/16 10/12/16 10/13/16 08:00 16:00 00:00 Intake Total 720 ml Balance 720 ml Assessment & Plan Problem List: (1) schizoaffective disorder depressed Assessment & Plan Estimated LOS: days patient remained psychotic, with significant behavioral issues towards late evening. See medication adjustments about Justification for Cont. Inpt. At this time patient will decompensate placed in the lower level of care Discharge Planning To be determined Request HC Surrog/Guard Advoc?: Deacon Moreau MD Oct 13, 2016 13:51
[2016-10-13] MEDS: PERPHENAZINE 4 MG TAB PO SCH (16:00)
[2016-10-13] MEDS: diphenhydrAMINE HCL 50 MG CAP - HS PRN PO (20:30)
[2016-10-13] MEDS: LORazepam 1 MG TAB PO PRN (20:30)
[2016-10-13] MEDS: OLANZapine ODT 15 MG TAB PO SCH (21:00)
[2016-10-14] MEDS ORDERED: clonazePAM 1 MG TAB PO ONE (00:37)
[2016-10-14] MEDS ORDERED: HALOPERIDOL LACTATE 5 MG/ML AMP ONE (00:40)
[2016-10-14] MEDS ORDERED: HALOPERIDOL LACTATE 5 MG/ML AMP IM ONE (00:45)
[2016-10-14] MEDS ORDERED: LORazepam 2 MG/ML VIAL IM ONE (00:45)
[2016-10-14] MEDS: PANTOPRAZOLE SOD 40 MG DELAYED RELEASE TAB PO SCH (10:17)
[2016-10-14] MEDS: PERPHENAZINE 4 MG TAB PO SCH ×2 (12:00→16:00)
[2016-10-14] MEDS: ACETAMINOPHEN 325 MG TAB PO PRN ×2 (13:03→20:53)
--- NOTE | 2016-10-14 14:39 | HHI.PYPN ---
Subjective Remarks Patient discussed with treatment team, chart reviewed, patient seen on unit. Patient remained psychotic somewhat delusional and grandiose. Compliant medications. Still some more difficult behaviors noted towards late evening and nighttime. For now continue treatment Review of Systems Except as stated in HPI: all other systems reviewed are Neg Objective Alert: Yes [place]: Person, Place Mood: Calm Affect: Flat Memory Intact: Comment (not tested) Hallucinations: Auditory (messages from God) Delusions: Yes Delusion Type: Paranoid (bizarre delusions) Suicidal: Ideation (denies) Homicidal: Ideation (denies) Insight/Judgment Very poor Vitals/IOs Vital Signs Date Time Temp Pulse Resp B/P Pulse Ox O2 Delivery O2 Flow Rate FiO2 10/12/16 06:42 98.7 92 17 131/75 98 Intake and Output 10/13/16 10/13/16 10/14/16 08:00 16:00 00:00 Intake Total 0 ml 540 ml Balance 0 ml 540 ml Assessment & Plan Problem List: (1) schizoaffective disorder depressed Assessment & Plan Estimated LOS: days patient remained psychotic delusional paranoid, for now continue treatment Justification for Cont. Inpt. At this time patient will decompensate if placed in a lower level of care Discharge Planning To be determined Request HC Surrog/Guard Advoc?: No Deacon Israel MD Oct 14, 2016 14:39
[2016-10-14 18:00] VITALS: BP 121/74; PULSE 84; RESP 17; TEMP 99; O2SAT 97
[2016-10-14] MEDS: OLANZapine ODT 15 MG TAB PO SCH (20:52)
[2016-10-14] MEDS: LORazepam 1 MG TAB PO PRN (21:55)
[2016-10-14] MEDS: diphenhydrAMINE HCL 50 MG CAP - HS PRN PO (21:55)
[2016-10-15] MEDS: LORazepam 1 MG TAB PO PRN ×3 (03:42→22:23)
[2016-10-15 06:00] VITALS: BP 167/84; PULSE 81; RESP 18; TEMP 98.2
[2016-10-15] MEDS: ACETAMINOPHEN 325 MG TAB PO PRN ×3 (06:26→22:23)
[2016-10-15] MEDS: PANTOPRAZOLE SOD 40 MG DELAYED RELEASE TAB PO SCH (08:33)
--- NOTE | 2016-10-15 10:59 | HHI.PYPN ---
Subjective Remarks Patient seen in day room with nurse Kyle, patient continues delusional now states she needs to go to her children and her . It appears patient continues with poor sleep habits was up most of last night, needed when necessary medication. Will increase at bedtime Zyprexa to 20 mg Review of Systems Except as stated in HPI: all other systems reviewed are Neg Objective Alert: Yes [place]: Person, Place Mood: Calm Affect: Flat Memory Intact: Comment (not tested) Hallucinations: Auditory (messages from God) Delusions: Yes Delusion Type: Paranoid (bizarre delusions) Suicidal: Ideation (denies) Homicidal: Ideation (denies) Insight/Judgment Very poor Vitals/IOs Vital Signs Date Time Temp Pulse Resp B/P Pulse Ox O2 Delivery O2 Flow Rate FiO2 10/15/16 06:00 98.2 81 18 167/84 10/14/16 18:00 97 Intake and Output 10/14/16 10/14/16 10/15/16 08:00 16:00 00:00 Intake Total 240 ml 480 ml 1060 ml Output Total 960 ml Balance 240 ml -480 ml 1060 ml Assessment & Plan Problem List: (1) schizoaffective disorder depressed Assessment & Plan Estimated LOS: days patient continues delusional and psychotic, with very poor sleep habits. See medication adjustment above Justification for Cont. Inpt. At this time patient will decompensate if placed in a lower level of care Discharge Planning To be determined Request HC Surrog/Guard Advoc?: No Deacon Israel MD Oct 15, 2016 10:59
[2016-10-15] MEDS: PERPHENAZINE 4 MG TAB PO SCH ×2 (12:00→16:00)
[2016-10-15 19:23] VITALS: BP 160/76; PULSE 77; RESP 17; TEMP 98.6
[2016-10-15] MEDS: OLANZapine ODT 20 MG TAB PO SCH (21:00)
[2016-10-15] MEDS: diphenhydrAMINE HCL 50 MG CAP - HS PRN PO (22:23)
[2016-10-16] MEDS ORDERED: LORazepam 2 MG/ML VIAL IM ONE (01:00)
[2016-10-16] MEDS ORDERED: diphenhydrAMINE HCL 50 MG/ML VIAL IM ONE (01:00)
[2016-10-16] MEDS ORDERED: HALOPERIDOL LACTATE 5 MG/ML AMP IM ONE (01:00)
[2016-10-16 06:52] VITALS: BP 117/67; PULSE 91; RESP 16; TEMP 98.3; O2SAT 91
--- NOTE | 2016-10-16 09:22 | HHI.PYPN ---
Subjective Remarks Very agitated again last night. Medications have not been working well and were changed today. This physician started clonazepam 2 mg by mouth daily at bedtime. Patient remains on Zyprexa and Trilafon. She is complaining of bowel difficulties. It is believed if she responds to benzodiazepine therapy, she will not need Benadryl which is likely causing constipation. Review of Systems ROS Limitations: Clinical Condition Except as stated in HPI: all other systems reviewed are Neg Objective Alert: Yes [place]: Person, Place Mood: Agitated Affect: Labile, Flat Memory Intact: Comment (not tested) Hallucinations: Auditory (messages from God) Delusions: Yes Delusion Type: Paranoid (bizarre delusions) Suicidal: Ideation (denies) Homicidal: Ideation (denies) Insight/Judgment Impaired Vitals/IOs Vital Signs Date Time Temp Pulse Resp B/P Pulse Ox O2 Delivery O2 Flow Rate FiO2 10/16/16 06:52 98.3 91 16 117/67 91 Intake and Output 10/15/16 10/15/16 10/16/16 08:00 16:00 00:00 Intake Total 480 ml 720 ml Balance 480 ml 720 ml Assessment & Plan Problem List: (1) schizoaffective disorder depressed Assessment & Plan Estimated LOS: 7 days patient continues to be unstable and has not adequately responded to medication therapies. She is easily agitated and aggressive. This physician will continue the modulation of her medication management in order to hopefully stabilize her impulsivity and emotional lability. Justification for Cont. Inpt. Unable to care for self. Request HC Surrog/Guard Advoc?: No Chris Butler MD Oct 16, 2016 09:21
[2016-10-16] MEDS: ACETAMINOPHEN 325 MG TAB PO PRN ×2 (09:43→15:45)
[2016-10-16] MEDS: PANTOPRAZOLE SOD 40 MG DELAYED RELEASE TAB PO SCH (09:43)
[2016-10-16] MEDS: LORazepam 1 MG TAB PO PRN (09:43)
[2016-10-16] MEDS: PERPHENAZINE 4 MG TAB PO SCH ×2 (12:00→15:44)
[2016-10-16] MEDS: diphenhydrAMINE HCL 50 MG CAP - HS PRN PO (20:00)
[2016-10-16] MEDS: clonazePAM 1 MG TAB PO SCH (21:00)
[2016-10-16] MEDS: OLANZapine ODT 20 MG TAB PO SCH (21:00)
[2016-10-17] MEDS: LORazepam 2 MG/ML VIAL IM PRN (01:00)
[2016-10-17] MEDS: PANTOPRAZOLE SOD 40 MG DELAYED RELEASE TAB PO SCH (10:09)
[2016-10-17] MEDS: ACETAMINOPHEN 325 MG TAB PO PRN ×2 (12:01→23:00)
[2016-10-17] MEDS: PERPHENAZINE 4 MG TAB PO SCH ×2 (12:07→17:28)
--- NOTE | 2016-10-17 18:53 | HHI.PYPN ---
Subjective Remarks Pt seen and discussed with staff. She has been less agitated and intrusive today. She is writing a list that she describes as different ways to fast which outlines a litany of payments and rewards for fasting including "a million dollar check" and "mansion [place]". No medication side effects. Objective Alert: Yes [place]: Person, Place Mood: Calm Affect: Flat Memory Intact: Comment (fair) Hallucinations: Auditory (messages from God) Delusions: Yes Delusion Type: Paranoid (bizarre delusions) Suicidal: Ideation (denies) Homicidal: Ideation (denies) Insight/Judgment poor Vitals/IOs Vital Signs Date Time Temp Pulse Resp B/P Pulse Ox O2 Delivery O2 Flow Rate FiO2 10/16/16 06:52 98.3 91 16 117/67 91 Intake and Output 10/16/16 10/16/16 10/17/16 08:00 16:00 00:00 Intake Total 240 ml 1920 ml 720 ml Balance 240 ml 1920 ml 720 ml Assessment & Plan Problem List: (1) schizoaffective disorder depressed Assessment & Plan Continue current tx plan. Estimated LOS: days Justification for Cont. Inpt. impairments in reality construction Request HC Surrog/Guard Advoc?: Ana Maria Wilson MD Oct 17, 2016 18:52
[2016-10-17 20:00] VITALS: BP 138/67; PULSE 94; TEMP 97.9; O2SAT 100
[2016-10-17] MEDS: OLANZapine ODT 20 MG TAB PO SCH (21:00)
[2016-10-17] MEDS: clonazePAM 1 MG TAB PO SCH (21:33)
[2016-10-17] MEDS: diphenhydrAMINE HCL 50 MG CAP - HS PRN PO (21:34)
[2016-10-18] MEDS: LORazepam 1 MG TAB PO PRN (02:29)
[2016-10-18] MEDS: ACETAMINOPHEN 325 MG TAB PO PRN ×2 (02:30→18:42)
[2016-10-18 05:36] VITALS: BP 168/91; PULSE 100; RESP 18; TEMP 97.7
[2016-10-18] MEDS: PANTOPRAZOLE SOD 40 MG DELAYED RELEASE TAB PO SCH (10:03)
[2016-10-18] MEDS: PERPHENAZINE 4 MG TAB PO SCH ×2 (12:27→16:00)
[2016-10-18 18:00] VITALS: BP 154/70; PULSE 73; RESP 18; TEMP 97.9; O2SAT 100
--- NOTE | 2016-10-18 20:17 | HHI.PYPN ---
Subjective Remarks Pt seen and discussed with staff. Pt gave RN a handwritten letter filled with disorganized writing and delusional content. No aggression or agitation today. Compliant with medications and denies side effects. No SI/HI Objective Alert: Yes [place]: Person, Place Mood: Calm Affect: Flat Memory Intact: Comment (fair) Hallucinations: Auditory Delusions: Yes Delusion Type: Paranoid (bizarre delusions) Suicidal: Ideation (denies) Homicidal: Ideation (denies) Insight/Judgment poor Vitals/IOs Vital Signs Date Time Temp Pulse Resp B/P Pulse Ox O2 Delivery O2 Flow Rate FiO2 10/18/16 18:00 97.9 73 18 154/70 100 Intake and Output 10/17/16 10/17/16 10/18/16 08:00 16:00 00:00 Intake Total 720 ml Balance 720 ml Assessment & Plan Problem List: (1) schizoaffective disorder depressed Assessment & Plan Continue current tx plan. Estimated LOS: days Justification for Cont. Inpt. impairments in reality testing. Request HC Surrog/Guard Advoc?: Ana Maria Wilson MD Oct 18, 2016 20:17
[2016-10-18] MEDS: diphenhydrAMINE HCL 50 MG CAP - HS PRN PO (20:53)
[2016-10-18] MEDS: clonazePAM 1 MG TAB PO SCH (20:53)
[2016-10-18] MEDS: OLANZapine ODT 20 MG TAB PO SCH (20:53)
[2016-10-19] MEDS: ACETAMINOPHEN 325 MG TAB PO PRN ×3 (02:06→21:10)
[2016-10-19] MEDS: PANTOPRAZOLE SOD 40 MG DELAYED RELEASE TAB PO SCH (10:04)
[2016-10-19] MEDS: PERPHENAZINE 4 MG TAB PO SCH ×2 (12:00→16:00)
--- NOTE | 2016-10-19 16:35 | HHI.PYPN ---
Subjective Remarks Patient discussed with treatment team, chart review, patient seen on unit with floor staff. She continues delusional with psychotic features. A somewhat softer and less intense and less intrusive. Compliant medications Review of Systems Except as stated in HPI: all other systems reviewed are Neg Objective Alert: Yes [place]: Person, Place Mood: Calm Affect: Flat Memory Intact: Comment (fair) Hallucinations: Auditory Delusions: Yes Delusion Type: Paranoid (bizarre delusions) Suicidal: Ideation (denies) Homicidal: Ideation (denies) Insight/Judgment Very poor Vitals/IOs Vital Signs Date Time Temp Pulse Resp B/P Pulse Ox O2 Delivery O2 Flow Rate FiO2 10/18/16 18:00 97.9 73 18 154/70 100 Intake and Output 10/18/16 10/18/16 10/19/16 08:00 16:00 00:00 Intake Total 320 ml 1680 ml 480 ml Balance 320 ml 1680 ml 480 ml Assessment & Plan Problem List: (1) schizoaffective disorder depressed Assessment & Plan Estimated LOS: days patient continue psychotic and delusional, though somewhat softer in its intensity. Compliant medications. For now continue treatment Justification for Cont. Inpt. At this time patient will decompensate if placed in a lower level of care Discharge Planning To be determined Request HC Surrog/Guard Advoc?: No Deacon Israel MD Oct 19, 2016 16:35
[2016-10-19 18:00] VITALS: BP 99/64; RESP 18; TEMP 97.8; O2SAT 98
[2016-10-19] MEDS: clonazePAM 1 MG TAB PO SCH (20:24)
[2016-10-19] MEDS: OLANZapine ODT 20 MG TAB PO SCH (20:26)
[2016-10-19] MEDS: diphenhydrAMINE HCL 50 MG CAP - HS PRN PO (21:12)
[2016-10-20] MEDS: ACETAMINOPHEN 325 MG TAB PO PRN ×2 (02:00→19:58)
[2016-10-20] MEDS: PANTOPRAZOLE SOD 40 MG DELAYED RELEASE TAB PO SCH (09:15)
[2016-10-20] MEDS: PERPHENAZINE 4 MG TAB PO SCH ×2 (12:00→16:00)
--- NOTE | 2016-10-20 14:43 | HHI.PYPN ---
Subjective Remarks Patient seen in her room with nurse Natty, chart reviewed. Patient remains delusional and somewhat confused. She admits to continued auditory hallucinations though she calls them "pretty good" "I can make it if I try" patient compliant medications. Will increase patient's Trilafon to 28 mg twice a day Review of Systems Except as stated in HPI: all other systems reviewed are Neg Objective Alert: Yes [place]: Person, Place Mood: Calm Affect: Flat Memory Intact: Comment (fair) Hallucinations: Auditory Delusions: Yes Delusion Type: Paranoid (bizarre delusions) Suicidal: Ideation (denies) Homicidal: Ideation (denies) Insight/Judgment Poor Vitals/IOs Vital Signs Date Time Temp Pulse Resp B/P Pulse Ox O2 Delivery O2 Flow Rate FiO2 10/20/16 06:38 20 10/19/16 18:00 97.8 99/64 98 10/18/16 18:00 73 Intake and Output 10/19/16 10/19/16 10/20/16 08:00 16:00 00:00 Intake Total 550 ml 600 ml 1320 ml Balance 550 ml 600 ml 1320 ml Assessment & Plan Problem List: (1) schizoaffective disorder depressed Assessment & Plan Estimated LOS: days patient continues psychotic and delusional see medication adjustments above Justification for Cont. Inpt. At this time patient will decompensate if placed in a lower level of care Discharge Planning To be determined Request HC Surrog/Guard Advoc?: No Deacon Israel MD Oct 20, 2016 14:43
[2016-10-20 18:04] VITALS: BP 123/71; PULSE 84; RESP 18; TEMP 96.8; O2SAT 98
[2016-10-20] MEDS: diphenhydrAMINE HCL 50 MG CAP - HS PRN PO (20:17)
[2016-10-20] MEDS: clonazePAM 1 MG TAB PO SCH (20:17)
[2016-10-20] MEDS: OLANZapine ODT 20 MG TAB PO SCH (20:17)
[2016-10-20] MEDS: LORazepam 1 MG TAB PO PRN (22:24)
[2016-10-21 05:16] VITALS: BP 155/95; PULSE 88; RESP 16; TEMP 98.1; O2SAT 99
[2016-10-21] MEDS: PANTOPRAZOLE SOD 40 MG DELAYED RELEASE TAB PO SCH (08:46)
[2016-10-21] MEDS: PERPHENAZINE 4 MG TAB PO SCH ×2 (12:00→16:00)
--- NOTE | 2016-10-21 13:12 | HHI.PYPN ---
Subjective Remarks Patient seen in day room sitting in chair, patient alert calm though continues diffusely confused, today some vague spirituality in her comments Review of Systems Except as stated in HPI: all other systems reviewed are Neg Objective Alert: Yes [place]: Person, Place Mood: Calm Affect: Flat Memory Intact: Comment (fair) Hallucinations: Auditory Delusions: Yes Delusion Type: Paranoid (bizarre delusions) Suicidal: Ideation (denies) Homicidal: Ideation (denies) Insight/Judgment Very poor Vitals/IOs Vital Signs Date Time Temp Pulse Resp B/P Pulse Ox O2 Delivery O2 Flow Rate FiO2 10/21/16 05:16 98.1 88 16 155/95 99 Intake and Output 10/20/16 10/20/16 10/21/16 08:00 16:00 00:00 Intake Total 840 ml 720 ml Balance 840 ml 720 ml Assessment & Plan Problem List: (1) schizoaffective disorder depressed Assessment & Plan Estimated LOS: days patient continues psychotic though today her mood and affect are somewhat decreased. Compliant medications. Continue somewhat psychotic/delusional Justification for Cont. Inpt. At this time patient will decompensate if placed in the lower level of care Discharge Planning To be determined Request HC Surrog/Guard Advoc?: No Deacon Israel MD Oct 21, 2016 13:12
[2016-10-21 18:00] VITALS: BP 134/75; PULSE 85; RESP 16; TEMP 98.2; O2SAT 94
[2016-10-21] MEDS: ACETAMINOPHEN 325 MG TAB PO PRN (19:32)
[2016-10-21] MEDS: clonazePAM 1 MG TAB PO SCH (20:20)
[2016-10-21] MEDS: diphenhydrAMINE HCL 50 MG CAP - HS PRN PO (20:20)
[2016-10-21] MEDS: OLANZapine ODT 20 MG TAB PO SCH (20:20)
[2016-10-22] MEDS: LORazepam 1 MG TAB PO PRN ×3 (01:45→22:00)
[2016-10-22] MEDS: ACETAMINOPHEN 325 MG TAB PO PRN ×3 (01:45→22:01)
[2016-10-22 05:50] VITALS: BP 137/70; PULSE 84; RESP 17; TEMP 97.8; O2SAT 97
[2016-10-22] MEDS: PANTOPRAZOLE SOD 40 MG DELAYED RELEASE TAB PO SCH (09:22)
--- NOTE | 2016-10-22 11:44 | HHI.PYPN ---
Subjective Remarks Patient seen in her room with nurse Peyton. Patient calmer today somewhat less delusional less focusing on spiritual type topics. Compliant medication. For now continue treatment Review of Systems Except as stated in HPI: all other systems reviewed are Neg Objective Alert: Yes [place]: Person, Place Mood: Calm Affect: Flat Memory Intact: Comment (fair) Hallucinations: Auditory Delusions: Yes Delusion Type: Paranoid (bizarre delusions) Suicidal: Ideation (denies) Homicidal: Ideation (denies) Insight/Judgment Poor Vitals/IOs Vital Signs Date Time Temp Pulse Resp B/P Pulse Ox O2 Delivery O2 Flow Rate FiO2 10/22/16 05:50 97.8 84 17 137/70 97 Intake and Output 10/21/16 10/21/16 10/22/16 08:00 16:00 00:00 Intake Total 360 ml 1080 ml Balance 360 ml 1080 ml Assessment & Plan Problem List: (1) schizoaffective disorder depressed Assessment & Plan Estimated LOS: days patient continues somewhat delusional, although softer, less paranoia today Justification for Cont. Inpt. At this time patient will decompensate and placed in a lower level of care Discharge Planning To be determined Request HC Surrog/Guard Advoc?: No Deacon Israel MD Oct 22, 2016 11:44
[2016-10-22] MEDS: PERPHENAZINE 4 MG TAB PO SCH ×2 (12:00→16:39)
[2016-10-22 19:36] VITALS: BP 128/63; PULSE 89; RESP 18; TEMP 98.3; O2SAT 99
[2016-10-22] MEDS: OLANZapine ODT 20 MG TAB PO SCH (21:00)
[2016-10-22] MEDS: clonazePAM 1 MG TAB PO SCH (21:33)
[2016-10-23] MEDS: LORazepam 1 MG TAB PO PRN ×2 (03:00→23:55)
[2016-10-23] MEDS: diphenhydrAMINE HCL 50 MG CAP - HS PRN PO ×2 (03:00→23:55)
[2016-10-23 06:28] VITALS: BP 173/81; PULSE 95; RESP 17; TEMP 97.9; O2SAT 97
--- NOTE | 2016-10-23 09:02 | HHI.PYPN ---
Subjective Remarks Patient seen in day room with nurse Peyton, patient calm pleasant with me. Is somewhat vague about auditory hallucinations though she said the voices were "hard last night". Compliant medications Review of Systems Except as stated in HPI: all other systems reviewed are Neg Objective Alert: Yes [place]: Person, Place Mood: Calm Affect: Flat Memory Intact: Comment (fair) Hallucinations: Auditory Delusions: Yes Delusion Type: Paranoid (bizarre delusions) Suicidal: Ideation (denies) Homicidal: Ideation (denies) Insight/Judgment Poor Vitals/IOs Vital Signs Date Time Temp Pulse Resp B/P Pulse Ox O2 Delivery O2 Flow Rate FiO2 10/23/16 06:28 97.9 95 17 173/81 97 Intake and Output 10/22/16 10/22/16 10/23/16 08:00 16:00 00:00 Intake Total 240 ml 360 ml 1320 ml Balance 240 ml 360 ml 1320 ml Assessment & Plan Problem List: (1) schizoaffective disorder depressed Assessment & Plan Estimated LOS: days patient continues somewhat psychotic though the intensity of her affect and irritability and guardedness have softened. For now continue treatment Justification for Cont. Inpt. At this time patient will decompensate if place to the lower level of care Request HC Surrog/Guard Advoc?: No Deacon Israel MD Oct 23, 2016 09:02
[2016-10-23] MEDS: PANTOPRAZOLE SOD 40 MG DELAYED RELEASE TAB PO SCH (09:56)
[2016-10-23] MEDS: PERPHENAZINE 4 MG TAB PO SCH ×2 (12:58→16:49)
[2016-10-23] MEDS: ACETAMINOPHEN 325 MG TAB PO PRN ×2 (15:37→22:01)
[2016-10-23 18:42] VITALS: BP 109/54; PULSE 71; RESP 18; TEMP 98.7; O2SAT 97
[2016-10-23] MEDS: clonazePAM 1 MG TAB PO SCH (21:15)
[2016-10-23] MEDS: OLANZapine ODT 20 MG TAB PO SCH (21:16)
[2016-10-24] MEDS: ACETAMINOPHEN 325 MG TAB PO PRN ×2 (03:36→09:24)
[2016-10-24 06:27] VITALS: BP 125/72; PULSE 80; RESP 18; TEMP 98.4; O2SAT 96
[2016-10-24] MEDS: PANTOPRAZOLE SOD 40 MG DELAYED RELEASE TAB PO SCH (08:44)
[2016-10-24] MEDS: LORazepam 1 MG TAB PO PRN (11:16)
[2016-10-24] MEDS: PERPHENAZINE 4 MG TAB PO SCH ×2 (12:00→16:00)
--- NOTE | 2016-10-24 12:31 | HHI.PYPN ---
Subjective Remarks Patient was seen and case discussed with nursing. Patient is labile and euphoric. She is laughing inappropriately. Said that her food was talking to her she is drinking tea to avoid evil spirits. Per nursing she is sleeping well. Continues to get messages from God Objective Alert: Yes [place]: Person, Place Mood: Other (euphoric) Affect: Manic Memory Intact: Comment (fair) Hallucinations: Auditory Delusions: Yes Delusion Type: Paranoid (bizarre delusions) Suicidal: Ideation (denies) Homicidal: Ideation (denies) Insight/Judgment Poor Vitals/IOs Vital Signs Date Time Temp Pulse Resp B/P Pulse Ox O2 Delivery O2 Flow Rate FiO2 10/24/16 06:27 98.4 80 18 125/72 96 Intake and Output 10/23/16 10/23/16 10/24/16 08:00 16:00 00:00 Intake Total 360 ml 960 ml 600 ml Balance 360 ml 960 ml 600 ml Assessment & Plan Problem List: (1) schizoaffective disorder depressed Assessment & Plan Continue current treatment plan Justification for Cont. Inpt. Patient will decompensate in a less restrictive setting Request HC Surrog/Guard Advoc?: No John Winters DO Oct 24, 2016 12:31
[2016-10-24 16:57] VITALS: BP 160/74; PULSE 106; RESP 16; TEMP 97.9; O2SAT 98
[2016-10-24] MEDS: OLANZapine ODT 20 MG TAB PO SCH (21:25)
[2016-10-24] MEDS: clonazePAM 1 MG TAB PO SCH (21:25)
[2016-10-25] MEDS: LORazepam 1 MG TAB PO PRN (01:13)
[2016-10-25] MEDS: diphenhydrAMINE HCL 50 MG CAP - HS PRN PO ×2 (01:13→21:51)
[2016-10-25 06:39] VITALS: BP 134/74; PULSE 85; RESP 16; TEMP 97.4; O2SAT 97
[2016-10-25] MEDS: PANTOPRAZOLE SOD 40 MG DELAYED RELEASE TAB PO SCH (10:00)
--- NOTE | 2016-10-25 12:19 | HHI.PYPN ---
Subjective Remarks Patient was seen and case discussed with nursing. Patient remains elevated and expansive. However, less so compared to yesterday. Denies any auditory hallucinations at this time. She believes that she is being discharged today. Compliant with her medications. Her long letter to somebody named Dr. Li. When speaking with nurses singing. Objective Alert: Yes [place]: Person, Place Mood: Other (euphoric) Affect: Labile Memory Intact: Comment (not tested) Hallucinations: Auditory (denies today) Delusions: Yes Delusion Type: Paranoid (no delusions elicited today) Suicidal: Ideation (denies) Homicidal: Ideation (denies) Insight/Judgment Poor Vitals/IOs Vital Signs Date Time Temp Pulse Resp B/P Pulse Ox O2 Delivery O2 Flow Rate FiO2 10/25/16 06:39 97.4 85 16 134/74 97 Intake and Output 10/24/16 10/24/16 10/25/16 08:00 16:00 00:00 Intake Total 720 ml 720 ml 600 ml Balance 720 ml 720 ml 600 ml Assessment & Plan Problem List: (1) schizoaffective disorder depressed Assessment & Plan Continue current treatment plan Justification for Cont. Inpt. Patient will decompensate in the less restrictive setting Request HC Surrog/Guard Advoc?: No John Winters DO Oct 25, 2016 12:19
[2016-10-25] MEDS: PERPHENAZINE 4 MG TAB PO SCH ×2 (13:34→16:00)
[2016-10-25] MEDS ORDERED: PADIMATE (CHAPSTICK) 4.5 GM TUBE TOPICAL PRN (16:30)
[2016-10-25] MEDS: ALUMINUM/MAGNESIUM/SIMETH 30 ML CUP PO PRN (17:56)
[2016-10-25] MEDS: ACETAMINOPHEN 325 MG TAB PO PRN (18:16)
[2016-10-25 21:33] VITALS: BP 168/103; PULSE 92; RESP 16; TEMP 96.8; O2SAT 96
[2016-10-25] MEDS: clonazePAM 1 MG TAB PO SCH (21:51)
[2016-10-25] MEDS: OLANZapine ODT 20 MG TAB PO SCH (21:51)
[2016-10-26] MEDS: LORazepam 2 MG/ML VIAL IM PRN (01:10)
[2016-10-26 01:20] VITALS: BP 132/73; PULSE 90; RESP 20; TEMP 97.4; O2SAT 96
[2016-10-26 02:40] VITALS: BP 125/75; PULSE 85; RESP 20; TEMP 97.4; O2SAT 95
[2016-10-26 06:09] VITALS: BP 121/75; PULSE 80; RESP 18; TEMP 97.5; O2SAT 96
[2016-10-26] MEDS: LORazepam 1 MG TAB PO PRN ×2 (09:14→20:28)
[2016-10-26] MEDS: PANTOPRAZOLE SOD 40 MG DELAYED RELEASE TAB PO SCH (09:14)
[2016-10-26] MEDS: PERPHENAZINE 4 MG TAB PO SCH ×2 (12:00→16:00)
[2016-10-26] MEDS: ACETAMINOPHEN 325 MG TAB PO PRN (13:14)
--- NOTE | 2016-10-26 16:16 | HHI.PYPN ---
Subjective Remarks Patient seen and examined with nurse. Chart reviewed. Case discussed with nursing staff who reports patient continues to act out behaviorally at times, for example screaming at one of the behavioral health technicians. On my examination today, the patient complains of pain around her left knee of about the last day's duration as near as I can tell. No SI or HI voiced. Denies side effects from medications. No other issues noted. Review of Systems ROS Limitations: Poor Historian Except as stated in HPI: all other systems reviewed are Neg Objective Alert: Yes [place]: Person, Place Mood: Calm (presently calm) Affect: Blunted Memory Intact: Comment (not formally assessed) Hallucinations: Other (No reported AVH) Delusions: No Delusion Type: Other (no delusions elicited today) Suicidal: Ideation (no SI) Homicidal: Ideation (no HI) Insight/Judgment Poor Remarks No abnormal motor movements noted. No calf swelling on the left, no tenderness to palpation, no palpable cord, no erythema. I do note a small area of excoriation on the medial aspect of the left knee, and the patient reports that this area is somewhat pruritic. Labs Labs reviewed. Vitals/IOs Vital Signs Date Time Temp Pulse Resp B/P Pulse Ox O2 Delivery O2 Flow Rate FiO2 10/26/16 06:09 97.5 80 18 121/75 96 Intake and Output 10/25/16 10/25/16 10/26/16 08:00 16:00 00:00 Intake Total 600 ml 1200 ml 720 ml Balance 600 ml 1200 ml 720 ml Assessment & Plan Problem List: (1) Schizoaffective disorder ICD Code: F25.9 Assessment & Plan Continue current psychotropics as ordered. I will order some hydrocortisone cream for the pruritic area at the knee. I will check an updated [facility] in the morning. Continue to monitor on the inpatient unit. Continue other medications and care as ordered. Justification for Cont. Inpt. High risk for decompensation in a restrictive environment Discharge Planning Patient requires placement Problem Qualifiers (1) Schizoaffective disorder: Qualified Code: F25.1 - Schizoaffective disorder, depressive type Ryley Lund MD Oct 26, 2016 16:16
[2016-10-26 20:25] VITALS: BP 118/66; PULSE 92; RESP 20; TEMP 98.3; O2SAT 97
[2016-10-26] MEDS: diphenhydrAMINE HCL 50 MG CAP - HS PRN PO (20:28)
[2016-10-26] MEDS: clonazePAM 1 MG TAB PO SCH (20:28)
[2016-10-26] MEDS: OLANZapine ODT 20 MG TAB PO SCH (20:29)
[2016-10-27 06:21] VITALS: BP 129/75; PULSE 81; RESP 20; TEMP 98.2; O2SAT 95
[2016-10-27] MEDS: PANTOPRAZOLE SOD 40 MG DELAYED RELEASE TAB PO SCH (08:52)
[2016-10-27] MEDS: HYDROCORTISONE 1% CREAM 30 GM TOPICAL SCH (08:52)
[2016-10-27 09:29] LABS: AUTOMATED NEUTROPHIL # 2.2 TH/MM3 (1.8-7.7); BASOPHIL % 0.6 % (0.0-2.0); EOSINOPHIL % 0.3 % (0.0-4.0); HEMO FLAGS DIFF FINAL; LYMPH % 42.5 % (9.0-44.0); MEAN CORPUSCULAR HEMOGLOBIN 30.1 PG (27.0-34.0); MEAN CORPUSCULAR HGB CONC 33.4 % (32.0-36.0); MONO % 10.8 % (0.0-8.0); NEUT % 45.8 % (16.0-70.0); PLATELET COUNT 284 TH/MM3 (150-450); RED BLOOD COUNT 4.22 MIL/MM3 (4.00-5.30); RED CELL DISTRIBUTION WIDTH 14.2 % (11.6-17.2); WHITE BLOOD COUNT 4.8 TH/MM3 (4.0-11.0)
[2016-10-27 10:09] LABS: ALKALINE PHOSPHATASE 91 U/L (45-117); ALT (GPT) 30 U/L (10-53); ANION GAP 10 MEQ/L (5-15); AST (GOT) 41 U/L (15-37); BICARBONATE 25.4 MEQ/L (21.0-32.0); BLOOD UREA NITROGEN 18 MG/DL (7-18); CHLORIDE 106 MEQ/L (98-107); GLOMERULAR FILTRATION RATE 87 ML/MIN (>89); POTASSIUM 4.1 MEQ/L (3.5-5.1); SODIUM (NA) 141 MEQ/L (136-145); TOTAL BILIRUBIN ADULT LESS THAN 0.1 MG/DL (0.2-1.0)
--- NOTE | 2016-10-27 10:26 | HHI.PYPN ---
Subjective Remarks Continues to be very mcknight and irritable. Multiple somatic complaints, primarily centered around pain in her joints. Continues to act out with staff and is oftentimes rude, demanding and unreasonable. Remains paranoid. Review of Systems ROS Limitations: Clinical Condition Objective Alert: Yes [place]: Person, Place Mood: Calm (presently calm) Affect: Blunted Memory Intact: Comment (not formally assessed) Hallucinations: Other (No reported AVH) Delusions: No Delusion Type: Paranoid, Other (no delusions elicited today) Suicidal: Ideation (no SI) Homicidal: Ideation (no HI) Insight/Judgment Impaired Labs Test 10/27/16 08:48 White Blood Count 4.8 TH/MM3 Red Blood Count 4.22 MIL/MM3 Hemoglobin 12.7 GM/DL Hematocrit 38.0 % Mean Corpuscular Volume 90.0 FL Mean Corpuscular Hemoglobin 30.1 PG Mean Corpuscular Hemoglobin 33.4 % Concent Red Cell Distribution Width 14.2 % Platelet Count 284 TH/MM3 Mean Platelet Volume 8.4 FL Neutrophils (%) (Auto) 45.8 % Lymphocytes (%) (Auto) 42.5 % Monocytes (%) (Auto) 10.8 % Eosinophils (%) (Auto) 0.3 % Basophils (%) (Auto) 0.6 % Neutrophils # (Auto) 2.2 TH/MM3 Lymphocytes # (Auto) 2.0 TH/MM3 Monocytes # (Auto) 0.5 TH/MM3 Eosinophils # (Auto) 0.0 TH/MM3 Basophils # (Auto) 0.0 TH/MM3 CBC Comment DIFF FINAL Differential Comment Sodium Level 141 MEQ/L Potassium Level 4.1 MEQ/L Chloride Level 106 MEQ/L Carbon Dioxide Level 25.4 MEQ/L Anion Gap 10 MEQ/L Blood Urea Nitrogen 18 MG/DL Creatinine 0.82 MG/DL Estimat Glomerular Filtration 87 ML/MIN Rate Random Glucose 86 MG/DL Calcium Level 8.9 MG/DL Total Bilirubin LESS THAN 0.1 MG/DL Aspartate Amino Transf 41 U/L (AST/SGOT) Alanine Aminotransferase 30 U/L (ALT/SGPT) Alkaline Phosphatase 91 U/L Total Protein 7.8 GM/DL Albumin 3.7 GM/DL Vitals/IOs Vital Signs Date Time Temp Pulse Resp B/P Pulse Ox O2 Delivery O2 Flow Rate FiO2 10/27/16 06:21 98.2 81 20 129/75 95 Intake and Output 10/26/16 10/26/16 10/27/16 08:00 16:00 00:00 Intake Total 360 ml Balance 360 ml Assessment & Plan Problem List: (1) Schizoaffective disorder ICD Code: F25.9 Assessment & Plan Estimated LOS: 3 days patient continues to require more time stabilizing on current antipsychotic medication. However, this physician spoke to her about imminent discharge later this week. Justification for Cont. Inpt. Will decompensate without this level of care. Problem Qualifiers (1) Schizoaffective disorder: Qualified Code: F25.1 - Schizoaffective disorder, depressive type Chris Butler MD Oct 27, 2016 10:26
[2016-10-27] MEDS: PERPHENAZINE 4 MG TAB PO SCH ×2 (12:30→17:00)
[2016-10-27 20:00] VITALS: BP 124/66; PULSE 84; RESP 18; TEMP 98.4
[2016-10-27] MEDS: clonazePAM 1 MG TAB PO SCH (20:58)
[2016-10-27] MEDS: diphenhydrAMINE HCL 50 MG CAP - HS PRN PO (21:00)
[2016-10-27] MEDS: OLANZapine ODT 20 MG TAB PO SCH (21:00)
[2016-10-27] MEDS: LORazepam 1 MG TAB PO PRN (23:51)
[2016-10-27] MEDS: ACETAMINOPHEN 325 MG TAB PO PRN (23:51)
[2016-10-28] MEDS: HYDROCORTISONE 1% CREAM 30 GM TOPICAL SCH (08:38)
[2016-10-28] MEDS: PANTOPRAZOLE SOD 40 MG DELAYED RELEASE TAB PO SCH (08:38)
[2016-10-28] MEDS: PERPHENAZINE 4 MG TAB PO SCH ×2 (12:00→16:00)
[2016-10-28] MEDS: ALUMINUM/MAGNESIUM/SIMETH 30 ML CUP PO PRN (13:10)
[2016-10-28] MEDS: ACETAMINOPHEN 325 MG TAB PO PRN (13:10)
[2016-10-28] MEDS: LORazepam 1 MG TAB PO PRN (18:26)
[2016-10-28 18:38] VITALS: BP 163/105; PULSE 100; RESP 20; TEMP 97.6; O2SAT 96
[2016-10-28] MEDS: clonazePAM 1 MG TAB PO SCH (20:24)
[2016-10-28] MEDS: OLANZapine ODT 20 MG TAB PO SCH (20:25)
[2016-10-29] MEDS: ACETAMINOPHEN 325 MG TAB PO PRN ×2 (05:05→22:19)
[2016-10-29 06:14] VITALS: BP 149/73; PULSE 103; RESP 18; TEMP 98.2; O2SAT 98
[2016-10-29] MEDS: PANTOPRAZOLE SOD 40 MG DELAYED RELEASE TAB PO SCH (08:46)
[2016-10-29] MEDS: HYDROCORTISONE 1% CREAM 30 GM TOPICAL SCH (08:48)
--- NOTE | 2016-10-29 12:33 | HHI.PYPN ---
Subjective Remarks This is the progress note for 10/28/2016. Remains delusional, paranoid with limited insight. Demonstrates poor judgment in her inability to care for herself or take her medicines compliantly. Review of Systems ROS Limitations: Clinical Condition Except as stated in HPI: all other systems reviewed are Neg Objective Alert: Yes [place]: Person, Place Mood: Calm (presently calm) Affect: Blunted Memory Intact: Comment (not formally assessed) Hallucinations: Other (No reported AVH) Delusions: No Delusion Type: Paranoid, Other (no delusions elicited today) Suicidal: Ideation (no SI) Homicidal: Ideation (no HI) Insight/Judgment Poor Vitals/IOs Vital Signs Date Time Temp Pulse Resp B/P Pulse Ox O2 Delivery O2 Flow Rate FiO2 10/29/16 06:14 98.2 103 18 149/73 98 Assessment & Plan Problem List: (1) Schizoaffective disorder ICD Code: F25.9 Assessment & Plan Estimated LOS: 7 days patient continues to need more time on antipsychotic medication. She remains delusional, with impaired insight and judgment, and unable to care for self. Justification for Cont. Inpt. Likely did decompensate at lower level of care. Problem Qualifiers (1) Schizoaffective disorder: Qualified Code: F25.1 - Schizoaffective disorder, depressive type Chris Butler MD Oct 29, 2016 12:33
--- NOTE | 2016-10-29 12:36 | HHI.PYPN ---
Subjective Remarks Remains rather depressed and delusional. Still paranoid about staff trying to harm her. Needs more time on current antipsychotic medication. Review of Systems ROS Limitations: Clinical Condition Objective Alert: Yes [place]: Person, Place Mood: Calm (presently calm) Affect: Blunted Memory Intact: Comment (not formally assessed) Hallucinations: Other (No reported AVH) Delusions: Yes Delusion Type: Paranoid, Other (no delusions elicited today) Suicidal: Ideation (no SI) Homicidal: Ideation (no HI) Insight/Judgment Impaired. Vitals/IOs Vital Signs Date Time Temp Pulse Resp B/P Pulse Ox O2 Delivery O2 Flow Rate FiO2 10/29/16 06:14 98.2 103 18 149/73 98 Assessment & Plan Problem List: (1) Schizoaffective disorder ICD Code: F25.9 Assessment & Plan Estimated LOS: 5 days patient beginning to respond to Zyprexa 20 mg by mouth daily. This physician instituted Klonopin 2 mg at bedtime to help with sleep and anxiety. Justification for Cont. Inpt. Patient very likely to decompensate at lower level of care. Problem Qualifiers (1) Schizoaffective disorder: Qualified Code: F25.1 - Schizoaffective disorder, depressive type Chris Butler MD Oct 29, 2016 12:36
[2016-10-29] MEDS: PERPHENAZINE 4 MG TAB PO SCH ×2 (12:39→15:42)
[2016-10-29 19:31] VITALS: BP 118/75; PULSE 97; RESP 17; TEMP 98.1; O2SAT 97
[2016-10-29] MEDS: OLANZapine ODT 20 MG TAB PO SCH (21:09)
[2016-10-29] MEDS: clonazePAM 1 MG TAB PO SCH (21:09)
[2016-10-29] MEDS: diphenhydrAMINE HCL 50 MG CAP - HS PRN PO (22:19)
[2016-10-30] MEDS: LORazepam 1 MG TAB PO PRN ×3 (02:38→17:43)
[2016-10-30] MEDS ORDERED: HALOPERIDOL LACTATE 5 MG/ML AMP IM STA (02:47)
[2016-10-30] MEDS ORDERED: LORazepam 2 MG/ML VIAL IM ONE (03:00)
[2016-10-30] MEDS ORDERED: diphenhydrAMINE HCL 50 MG/ML VIAL IM ONE (03:00)
[2016-10-30] MEDS ORDERED: HALOPERIDOL LACTATE 5 MG/ML AMP IM PRN (04:00)
[2016-10-30 06:16] VITALS: BP 148/69; PULSE 78; RESP 18; TEMP 97.5; O2SAT 95
[2016-10-30] MEDS: PANTOPRAZOLE SOD 40 MG DELAYED RELEASE TAB PO SCH (08:52)
[2016-10-30] MEDS: HYDROCORTISONE 1% CREAM 30 GM TOPICAL SCH (09:00)
[2016-10-30] MEDS: ACETAMINOPHEN 325 MG TAB PO PRN ×2 (11:25→17:43)
[2016-10-30] MEDS: PERPHENAZINE 4 MG TAB PO SCH ×2 (11:26→17:41)
--- NOTE | 2016-10-30 14:46 | HHI.PYPN ---
Subjective Remarks Patient seen and examined. Chart reviewed. I did give and order as the doc refrigerated national truck driver for [employer] overnight for agitation. Case discussed with nursing staff. On my examination today, patient sitting calmly in the day area. Denies AVH but appears internally preoccupied. Thought process somewhat disorganized. When I discuss one of her other doctors, she perseverates on his name, "Dr. Toussaint, Dr. Toussaint, Dr. BUSH, etc." Says something about "hypnosis missing" that is difficult to follow. Denies side effects from meds. Review of Systems ROS Limitations: Psychotic, Poor Historian Except as stated in HPI: all other systems reviewed are Neg Objective Alert: Yes [place]: Person, Place Mood: Calm Affect: Blunted Memory Intact: Comment (not assessed) Hallucinations: Other (denies AVH but appears internally preoccupied) Delusions: No Delusion Type: Other (no delusional material) Suicidal: Ideation (no SI voiced) Homicidal: Ideation (no HI voiced) Insight/Judgment Poor Remarks Thought process somewhat disorganized. Speech rambling. No motor abnormalities noted. Labs Labs reviewed. Recent CBC and CMP fairly unremarkable. Vitals/IOs Vital Signs Date Time Temp Pulse Resp B/P Pulse Ox O2 Delivery O2 Flow Rate FiO2 10/30/16 06:16 97.5 78 18 148/69 95 Assessment & Plan Problem List: (1) Schizoaffective disorder ICD Code: F25.9 Assessment & Plan Continue current psychotropics as ordered. Could consider titrating psychotropics to target periodic agitation, but I am told by nursing staff that this is chiefly behavioral, and the patient is already on a robust amount of medication. Continue to monitor on the inpatient unit. Continue other medications and care as ordered. Justification for Cont. Inpt. Impairment in reality construction. Impairment in social function. High risk for decompensation in a less restrictive environment. Discharge Planning Pending psychiatric stabilization Problem Qualifiers (1) Schizoaffective disorder: Qualified Code: F25.1 - Schizoaffective disorder, depressive type Ryley Lund MD Oct 30, 2016 14:46
[2016-10-30 18:00] VITALS: BP 107/65; PULSE 82; RESP 18; TEMP 97.9; O2SAT 96
[2016-10-30] MEDS: clonazePAM 1 MG TAB PO SCH (22:04)
[2016-10-30] MEDS: OLANZapine ODT 20 MG TAB PO SCH (22:04)
[2016-10-30] MEDS: diphenhydrAMINE HCL 50 MG CAP - HS PRN PO (22:04)
[2016-10-31 06:27] VITALS: BP 131/74; PULSE 99; RESP 16; TEMP 98.1; O2SAT 98
[2016-10-31] MEDS: PANTOPRAZOLE SOD 40 MG DELAYED RELEASE TAB PO SCH (08:34)
[2016-10-31] MEDS: HYDROCORTISONE 1% CREAM 30 GM TOPICAL SCH (08:34)
--- NOTE | 2016-10-31 11:42 | HHI.PYPN ---
Subjective Remarks Pt seen and discussed with staff. Pt has been less disruptive on unit and has been cooperative with care. She remains delusional and has been reporting to staff that her brain is being sucked out of her head. She states that God has blessed her with her who lives two floors up. (pt is single). No SI/HI Objective Alert: Yes [place]: Person, Place Mood: Calm Affect: Flat Memory Intact: Comment (fair) Hallucinations: Other (internally preoccupied) Delusions: No Delusion Type: Other (no delusional material) Suicidal: Ideation (no SI voiced) Homicidal: Ideation (no HI voiced) Insight/Judgment poor Vitals/IOs Vital Signs Date Time Temp Pulse Resp B/P Pulse Ox O2 Delivery O2 Flow Rate FiO2 10/31/16 06:27 98.1 99 16 131/74 98 Intake and Output 10/30/16 10/30/16 10/31/16 08:00 16:00 00:00 Intake Total 0 ml 480 ml Balance 0 ml 480 ml Assessment & Plan Problem List: (1) Schizoaffective disorder ICD Code: F25.9 Assessment & Plan Continue current tx plan. Estimated LOS: days Justification for Cont. Inpt. impairments in reality construction, risk of decompensation Problem Qualifiers (1) Schizoaffective disorder: Qualified Code: F25.1 - Schizoaffective disorder, depressive type Ana Maria Toscano MD Oct 31, 2016 11:42
[2016-10-31] MEDS: PERPHENAZINE 4 MG TAB PO SCH ×2 (12:00→16:00)
[2016-10-31] MEDS: ACETAMINOPHEN 325 MG TAB PO PRN ×2 (14:29→23:21)
[2016-10-31 18:11] VITALS: BP 126/64; PULSE 93; RESP 18; TEMP 98.2; O2SAT 95
[2016-10-31] MEDS: OLANZapine ODT 20 MG TAB PO SCH (21:20)
[2016-10-31] MEDS: clonazePAM 1 MG TAB PO SCH (21:20)
[2016-10-31] MEDS: diphenhydrAMINE HCL 50 MG CAP - HS PRN PO (21:21)
[2016-11-01] MEDS: PANTOPRAZOLE SOD 40 MG DELAYED RELEASE TAB PO SCH (08:28)
[2016-11-01] MEDS: LORazepam 1 MG TAB PO PRN ×2 (08:28→21:58)
[2016-11-01] MEDS: ACETAMINOPHEN 325 MG TAB PO PRN ×2 (08:28→16:00)
[2016-11-01] MEDS: HYDROCORTISONE 1% CREAM 30 GM TOPICAL SCH (08:42)
[2016-11-01] MEDS: PERPHENAZINE 4 MG TAB PO SCH ×2 (12:00→16:00)
--- NOTE | 2016-11-01 12:34 | HHI.PYPN ---
Subjective Remarks Pt seen and discussed with staff. She is disorganized and anxious. She reports that cameras are watching and speaking to her. No SI/HI Objective Alert: Yes [place]: Person, Place Mood: Anxious Affect: Restricted Memory Intact: Comment (fair) Hallucinations: Auditory, Other (internally preoccupied) Delusions: Yes Delusion Type: Paranoid Suicidal: Ideation (no SI voiced) Homicidal: Ideation (no HI voiced) Insight/Judgment poor Vitals/IOs Vital Signs Date Time Temp Pulse Resp B/P Pulse Ox O2 Delivery O2 Flow Rate FiO2 10/31/16 18:11 98.2 93 18 126/64 95 Intake and Output 10/31/16 10/31/16 11/01/16 08:00 16:00 00:00 Intake Total 240 ml 1680 ml Balance 240 ml 1680 ml Assessment & Plan Problem List: (1) Schizoaffective disorder ICD Code: F25.9 Assessment & Plan Continue current tx plan. Estimated LOS: days Justification for Cont. Inpt. impairments in reality construction. risk of decompensation Problem Qualifiers (1) Schizoaffective disorder: Qualified Code: F25.1 - Schizoaffective disorder, depressive type Ana Maria Toscano MD Nov 01, 2016 12:34
[2016-11-01 19:27] VITALS: BP 140/73; PULSE 80; RESP 18; TEMP 97.6
[2016-11-01] MEDS: diphenhydrAMINE HCL 50 MG CAP - HS PRN PO (20:45)
[2016-11-01] MEDS: OLANZapine ODT 20 MG TAB PO SCH (20:45)
[2016-11-01] MEDS: clonazePAM 1 MG TAB PO SCH (20:45)
[2016-11-02 06:00] VITALS: BP 136/77; PULSE 87; RESP 18; TEMP 97.5
[2016-11-02] MEDS: HYDROCORTISONE 1% CREAM 30 GM TOPICAL SCH (09:00)
[2016-11-02] MEDS: PANTOPRAZOLE SOD 40 MG DELAYED RELEASE TAB PO SCH (09:00)
--- NOTE | 2016-11-02 11:35 | HHI.PYPN ---
Subjective Remarks Patient seen and examined. Chart reviewed. Case discussed with nursing staff. On my examination today, patient presents as somewhat anxious and dramatic. Some paranoia present. No evident side effects from medications. No other issues noted. Review of Systems ROS Limitations: Psychotic, Poor Historian Except as stated in HPI: all other systems reviewed are Neg Objective Alert: Yes [place]: Person, Place Mood: Anxious (remains anxious) Affect: Restricted Memory Intact: Comment (fair) Hallucinations: Other (remains internally stimulated) Delusions: Yes Delusion Type: Paranoid Suicidal: Ideation (no SI) Homicidal: Ideation (no HI) Insight/Judgment Poor Remarks No motor abnormalities noted Labs Labs reviewed Vitals/IOs Vital Signs Date Time Temp Pulse Resp B/P Pulse Ox O2 Delivery O2 Flow Rate FiO2 11/02/16 06:00 97.5 87 18 136/77 10/31/16 18:11 95 Intake and Output 11/01/16 11/01/16 11/02/16 08:00 16:00 00:00 Intake Total 1040 ml Balance 1040 ml Assessment & Plan Problem List: (1) Schizoaffective disorder ICD Code: F25.9 Assessment & Plan I will add a small daytime dose of Klonopin to target anxiety. Otherwise, continue current psychotropics as ordered. Continue other medications and care as ordered. Continue to monitor on the inpatient psychiatric unit. Justification for Cont. Inpt. Impairment in reality construction. High risk for decompensation in a less restrictive environment. Discharge Planning Pending psychiatric stabilization. Problem Qualifiers (1) Schizoaffective disorder: Qualified Code: F25.1 - Schizoaffective disorder, depressive type Ryley Lund MD November 02, 2016 11:35
[2016-11-02] MEDS: PERPHENAZINE 4 MG TAB PO SCH ×2 (12:00→16:00)
[2016-11-02 18:00] VITALS: BP 130/92; PULSE 88; RESP 19; TEMP 97.8; O2SAT 98
[2016-11-02] MEDS: diphenhydrAMINE HCL 50 MG CAP - HS PRN PO (21:08)
[2016-11-02] MEDS: clonazePAM 1 MG TAB PO SCH (21:08)
[2016-11-02] MEDS: OLANZapine ODT 20 MG TAB PO SCH (21:08)
[2016-11-03] MEDS: ACETAMINOPHEN 325 MG TAB PO PRN ×2 (00:04→22:24)
[2016-11-03] MEDS: PANTOPRAZOLE SOD 40 MG DELAYED RELEASE TAB PO SCH (08:40)
[2016-11-03] MEDS: clonazePAM 1 MG TAB PO SCH ×2 (08:40→20:17)
[2016-11-03] MEDS: HYDROCORTISONE 1% CREAM 30 GM TOPICAL SCH (08:41)
--- NOTE | 2016-11-03 10:19 | HHI.PYPN ---
Subjective Remarks Patient seen and examined with counselor and nurse. Chart reviewed. Case discussed with nurse, counselor and recreation therapist in treatment team. Per nursing staff, the patient made an offhand comment this morning about needing "to find a pimp to make some money." She was also reportedly trying to drink mouthwash "because it makes me feel better," and this was confiscated. Recreation therapist notes that the patient will come out for groups with considerable encouragement. On my examination today, the patient is in good spirits. She says that she is excited about the future. She seems less anxious today. She says that she is going to be to her fiance Brandie Long, who apparently resides somewhere in the hospital. Denies side effects from medications. No other issues noted. Review of Systems ROS Limitations: Psychotic, Poor Historian Except as stated in HPI: all other systems reviewed are Neg Objective Alert: Yes [place]: Person, Place Mood: Calm Affect: Euthymic Memory Intact: Comment (not formally assessed) Hallucinations: Other (internally preoccupied) Delusions: Yes Delusion Type: Paranoid Suicidal: Ideation (no SI) Homicidal: Ideation (no HI) Insight/Judgment Poor Remarks No motor abnormalities noted. Speech somewhat rambling. Thought process somewhat disorganized. Labs Labs reviewed. No new labs. Vitals/IOs Vital Signs Date Time Temp Pulse Resp B/P Pulse Ox O2 Delivery O2 Flow Rate FiO2 11/02/16 18:00 97.8 88 19 130/92 98 Intake and Output 11/02/16 11/02/16 11/03/16 08:00 16:00 00:00 Intake Total 240 ml 360 ml 1440 ml Balance 240 ml 360 ml 1440 ml Assessment & Plan Problem List: (1) Schizoaffective disorder ICD Code: F25.9 Assessment & Plan Continue current psychotropics as ordered. Continue to monitor on the inpatient unit. Continue other medications and care as ordered. Justification for Cont. Inpt. Impairment in reality construction. High risk for decompensation in a less restrictive environment. Discharge Planning Counselor plans to initiate 3 new assisted living facility referrals today. Problem Qualifiers (1) Schizoaffective disorder: Qualified Code: F25.1 - Schizoaffective disorder, depressive type Ryley Lund MD November 03, 2016 10:19
[2016-11-03] MEDS: PERPHENAZINE 4 MG TAB PO SCH ×2 (13:51→16:00)
[2016-11-03 18:00] VITALS: BP 154/74; PULSE 95; RESP 18; TEMP 98; O2SAT 99
[2016-11-03] MEDS: OLANZapine ODT 20 MG TAB PO SCH (20:17)
[2016-11-03] MEDS: diphenhydrAMINE HCL 50 MG CAP - HS PRN PO (22:24)
[2016-11-04] MEDS: LORazepam 1 MG TAB PO PRN (01:46)
[2016-11-04 05:25] VITALS: BP 130/69; PULSE 94; RESP 17; TEMP 97.5; O2SAT 97
[2016-11-04] MEDS: PANTOPRAZOLE SOD 40 MG DELAYED RELEASE TAB PO SCH (08:13)
[2016-11-04] MEDS: clonazePAM 1 MG TAB PO SCH ×2 (08:13→20:37)
[2016-11-04] MEDS: HYDROCORTISONE 1% CREAM 30 GM TOPICAL SCH (08:20)
--- NOTE | 2016-11-04 11:37 | HHI.PYPN ---
Subjective Remarks Patient seen and examined with counselor and nurse. Chart reviewed. Case discussed with nursing staff reports the patient has been no behavioral problem. On my examination today, the patient is in good spirits. She says that she has met with representatives from assisted living facility but is interested in taking her on as a resident. She is hopeful regarding the placement and says that she plans to send her fictive , Mr. Long, to go investigate the place. She does feel like she has " spirits behind me here " but also believes that she can leave these spirits here at the hospital with her when she goes to her assisted living facility so that she can make a new start. She denies side effects from medications. Review of Systems ROS Limitations: Psychotic, Poor Historian Except as stated in HPI: all other systems reviewed are Neg Objective Alert: Yes [place]: Person, Place Mood: Calm Affect: Euthymic (remains euthymic) Memory Intact: Comment (not assessed) Hallucinations: Other (remains somewhat internally preoccupied) Delusions: Yes Delusion Type: Paranoid (regarding spirits as above) Suicidal: Ideation (no SI) Homicidal: Ideation (no HI) Insight/Judgment Poor, likely chronically so Remarks Grooming and hygiene fair. No motor abnormalities noted. Labs Labs reviewed. Vitals/IOs Vital Signs Date Time Temp Pulse Resp B/P Pulse Ox O2 Delivery O2 Flow Rate FiO2 11/04/16 05:25 97.5 94 17 130/69 97 Intake and Output 11/03/16 11/03/16 11/03/16 07:59 15:59 23:59 Intake Total 840 ml 2130 ml Balance 840 ml 2130 ml Assessment & Plan Problem List: (1) Schizoaffective disorder ICD Code: F25.9 Assessment & Plan Continue current psychotropics as ordered. Continue other medications and care as ordered. Justification for Cont. Inpt. Risk for decompensation. Impairment in reality construction. Discharge Planning Patient has been accepted at [facility], and counselor is filing the necessary paperwork. Discharge to [facility] once PASRR completed. Problem Qualifiers (1) Schizoaffective disorder: Qualified Code: F25.1 - Schizoaffective disorder, depressive type Ryley Lund MD November 04, 2016 11:37
[2016-11-04] MEDS: PERPHENAZINE 4 MG TAB PO SCH ×2 (12:00→16:00)
[2016-11-04 16:39] VITALS: BP 147/66; PULSE 90; RESP 16; TEMP 97.6
[2016-11-04] MEDS: OLANZapine ODT 20 MG TAB PO SCH (20:37)
[2016-11-04] MEDS: diphenhydrAMINE HCL 50 MG CAP - HS PRN PO (20:38)
[2016-11-05 05:28] VITALS: BP 109/63; PULSE 98; RESP 18; TEMP 98.1; O2SAT 100
[2016-11-05] MEDS: LORazepam 2 MG/ML VIAL IM PRN (05:39)
[2016-11-05] MEDS: PANTOPRAZOLE SOD 40 MG DELAYED RELEASE TAB PO SCH (09:20)
[2016-11-05] MEDS: clonazePAM 1 MG TAB PO SCH ×2 (09:23→20:58)
[2016-11-05] MEDS: HYDROCORTISONE 1% CREAM 30 GM TOPICAL SCH (09:23)
[2016-11-05] MEDS: PERPHENAZINE 4 MG TAB PO SCH ×2 (12:54→16:34)
[2016-11-05] MEDS: ACETAMINOPHEN 325 MG TAB PO PRN (13:09)
--- NOTE | 2016-11-05 13:45 | HHI.PYPN ---
Subjective Remarks Patient seen and examined. Chart reviewed. Case discussed with nursing staff reports the patient has been calm and in good behavioral control. For me today , the patient is indeed sitting calmly in the day area. She remains delusional telling me for example, "I think the whole world is on fire. I need to back up into the future. I been in this solar system for too long." She also notes that her right leg is paralyzed, even as she moves it freely to demonstrate. Denies side effects from medications. Review of Systems ROS Limitations: Psychotic, Poor Historian Except as stated in HPI: all other systems reviewed are Neg Objective Alert: Yes [place]: Person, Place Mood: Calm Affect: Blunted Memory Intact: Comment (not assessed) Hallucinations: Other (Int stim) Delusions: Yes Delusion Type: Paranoid (and bizarre) Suicidal: Ideation (no SI) Homicidal: Ideation (no HI) Insight/Judgment Poor Remarks No motor abnormalities noted. Speech somewhat rambling. Labs Labs reviewed. Vitals/IOs Vital Signs Date Time Temp Pulse Resp B/P Pulse Ox O2 Delivery O2 Flow Rate FiO2 11/05/16 05:28 98.1 98 18 109/63 100 Intake and Output 11/04/16 11/04/16 11/05/16 08:00 16:00 00:00 Intake Total 240 ml 1200 ml 2040 ml Balance 240 ml 1200 ml 2040 ml Assessment & Plan Problem List: (1) Schizoaffective disorder ICD Code: F25.9 Assessment & Plan Continue current psychotropics as ordered. Continue to monitor on the inpatient psychiatric unit. Continue other medications and care as ordered. Justification for Cont. Inpt. Impairment in reality construction. High risk for decompensation in a restrictive environment. Discharge Planning Placement, hopefully before the end of the week. Problem Qualifiers (1) Schizoaffective disorder: Qualified Code: F25.1 - Schizoaffective disorder, depressive type Ryley Lund MD November 05, 2016 13:44
[2016-11-05 19:30] VITALS: BP 133/83; PULSE 97; RESP 19; TEMP 96.9
[2016-11-05] MEDS: diphenhydrAMINE HCL 50 MG CAP - HS PRN PO (20:58)
[2016-11-05] MEDS: OLANZapine ODT 20 MG TAB PO SCH (20:58)
[2016-11-06 05:52] VITALS: BP 120/73; PULSE 82; RESP 18; TEMP 97.1; O2SAT 96
[2016-11-06] MEDS: clonazePAM 1 MG TAB PO SCH ×2 (10:09→21:52)
[2016-11-06] MEDS: HYDROCORTISONE 1% CREAM 30 GM TOPICAL SCH (10:09)
[2016-11-06] MEDS: PANTOPRAZOLE SOD 40 MG DELAYED RELEASE TAB PO SCH (10:09)
[2016-11-06] MEDS: PERPHENAZINE 4 MG TAB PO SCH ×2 (12:49→17:29)
--- NOTE | 2016-11-06 12:54 | HHI.PYPN ---
Subjective Remarks Patient seen and examined. Chart reviewed. Case discussed with nursing staff. On my examination today, the patient remains delusional but calm. She tells me, somewhat conspiratorially that "I'm the genie looking for the weather report." She has produced a letter with close, disorganized writing and a drawing of a beaker with a smiling face on it. Denies side effects from medications. Review of Systems ROS Limitations: Psychotic, Poor Historian Except as stated in HPI: all other systems reviewed are Neg Objective Alert: Yes [place]: Person, Place Mood: Calm Affect: Blunted Memory Intact: Comment (not assessed) Hallucinations: Other (remains somewhat internally preoccupied) Delusions: Yes Delusion Type: Paranoid Suicidal: Ideation (no SI) Homicidal: Ideation (no HI) Insight/Judgment Poor Remarks No motor abnormalities noted. Ambulating around the unit with walker. Labs Labs reviewed. Vitals/IOs Vital Signs Date Time Temp Pulse Resp B/P Pulse Ox O2 Delivery O2 Flow Rate FiO2 11/06/16 05:52 97.1 82 18 120/73 96 Intake and Output 11/05/16 11/05/16 11/06/16 08:00 16:00 00:00 Intake Total 360 ml 600 ml Balance 360 ml 600 ml Assessment & Plan Problem List: (1) Schizoaffective disorder ICD Code: F25.9 Assessment & Plan Continue current psychiatric medications as ordered. Continue other medications and care as ordered. Justification for Cont. Inpt. Impairment in reality construction. High risk for decompensation in a restrictive environment. Discharge Planning Patient has [facility] placement and we are waiting for completion of PASRR level 2. Problem Qualifiers (1) Schizoaffective disorder: Qualified Code: F25.1 - Schizoaffective disorder, depressive type Ryley Lund MD November 06, 2016 12:54
[2016-11-06] MEDS: ACETAMINOPHEN 325 MG TAB PO PRN ×2 (14:58→21:52)
[2016-11-06 18:48] VITALS: BP 110/70; PULSE 94; RESP 18; TEMP 97.9; O2SAT 97
[2016-11-06] MEDS: OLANZapine ODT 20 MG TAB PO SCH (21:51)
[2016-11-07] MEDS: LORazepam 1 MG TAB PO PRN (01:16)
[2016-11-07] MEDS: diphenhydrAMINE HCL 50 MG CAP - HS PRN PO (01:16)
[2016-11-07 05:54] VITALS: BP 121/72; PULSE 80; RESP 16; TEMP 97; O2SAT 95
[2016-11-07] MEDS: PANTOPRAZOLE SOD 40 MG DELAYED RELEASE TAB PO SCH (08:47)
[2016-11-07] MEDS: clonazePAM 1 MG TAB PO SCH ×2 (08:47→22:06)
[2016-11-07] MEDS: HYDROCORTISONE 1% CREAM 30 GM TOPICAL SCH (08:48)
--- NOTE | 2016-11-07 12:58 | HHI.PYPN ---
Subjective Remarks Patient was seen and case discussed with nursing. Patient remains delusional and disorganized. Aniceto used to think that a 26-year-old man will be marrying her. His compliant with medications and behaving well on the unit. She is less hyperverbal and hyperactive compared to our last visit. Compliant with medications Objective Alert: Yes [place]: Person, Place Mood: Calm Affect: Restricted Memory Intact: Comment (not assessed) Hallucinations: Other (remains somewhat internally preoccupied) Delusions: Yes Delusion Type: Paranoid Suicidal: Ideation (no SI) Homicidal: Ideation (no HI) Insight/Judgment Poor Vitals/IOs Vital Signs Date Time Temp Pulse Resp B/P Pulse Ox O2 Delivery O2 Flow Rate FiO2 11/07/16 05:54 97.0 80 16 121/72 95 Intake and Output 11/06/16 11/06/16 11/07/16 08:00 16:00 00:00 Intake Total 600 ml 360 ml 480 ml Balance 600 ml 360 ml 480 ml Assessment & Plan Problem List: (1) Schizoaffective disorder ICD Code: F25.9 Assessment & Plan Continue current treatment plan Justification for Cont. Inpt. Patient will decompensate in a less restrictive setting Problem Qualifiers (1) Schizoaffective disorder: Qualified Code: F25.1 - Schizoaffective disorder, depressive type John Winters DO November 07, 2016 12:58
[2016-11-07] MEDS: PERPHENAZINE 4 MG TAB PO SCH ×2 (13:08→17:18)
[2016-11-07] MEDS: OLANZapine ODT 20 MG TAB PO SCH (22:06)
[2016-11-08] MEDS: diphenhydrAMINE HCL 50 MG CAP - HS PRN PO ×2 (00:31→21:04)
[2016-11-08] MEDS: LORazepam 1 MG TAB PO PRN (00:31)
[2016-11-08 06:42] VITALS: BP 131/58; PULSE 89; RESP 18; TEMP 96.5; O2SAT 96
[2016-11-08] MEDS: HYDROCORTISONE 1% CREAM 30 GM TOPICAL SCH (08:49)
[2016-11-08] MEDS: PANTOPRAZOLE SOD 40 MG DELAYED RELEASE TAB PO SCH (08:49)
[2016-11-08] MEDS: clonazePAM 1 MG TAB PO SCH ×2 (08:49→21:04)
--- NOTE | 2016-11-08 10:09 | HHI.PYPN ---
Subjective Remarks Patient was seen and case discussed with nursing. Patient remains bizarre and disorganized. Makes various bizarre statements such as she worked hears she was 3 years old. She walks along the hallway making a [place] dropping tissues on the floor. Continues to have messages from God. She is well behaved on the unit, compliant with medications Objective Alert: Yes [place]: Person, Place Mood: Calm Affect: Labile Memory Intact: Comment (not assessed) Hallucinations: Other (remains somewhat internally preoccupied) Delusions: Yes Delusion Type: Paranoid (bizarre) Suicidal: Ideation (no SI) Homicidal: Ideation (no HI) Insight/Judgment Poor Vitals/IOs Vital Signs Date Time Temp Pulse Resp B/P Pulse Ox O2 Delivery O2 Flow Rate FiO2 11/08/16 06:42 96.5 89 18 131/58 96 Intake and Output 11/07/16 11/07/16 11/08/16 08:00 16:00 00:00 Intake Total 0 ml 3080 ml Balance 0 ml 3080 ml Assessment & Plan Problem List: (1) Schizoaffective disorder ICD Code: F25.9 Assessment & Plan Continue current treatment plan Justification for Cont. Inpt. Patient will decompensate in a less restrictive setting Problem Qualifiers (1) Schizoaffective disorder: Qualified Code: F25.1 - Schizoaffective disorder, depressive type John Winters DO November 08, 2016 10:09
[2016-11-08] MEDS: PERPHENAZINE 4 MG TAB PO SCH ×2 (12:54→17:05)
[2016-11-08] MEDS: ACETAMINOPHEN 325 MG TAB PO PRN ×2 (17:05→21:08)
[2016-11-08 18:23] VITALS: BP 136/71; PULSE 87; RESP 18; TEMP 96.8
[2016-11-08] MEDS: OLANZapine ODT 20 MG TAB PO SCH (21:04)
[2016-11-09] MEDS: PANTOPRAZOLE SOD 40 MG DELAYED RELEASE TAB PO SCH (09:12)
[2016-11-09] MEDS: HYDROCORTISONE 1% CREAM 30 GM TOPICAL SCH (09:12)
[2016-11-09] MEDS: clonazePAM 1 MG TAB PO SCH ×2 (09:13→21:00)
--- NOTE | 2016-11-09 12:00 | HHI.PYPN ---
Subjective Remarks Patient seen and examined. Chart reviewed. Case discussed with nursing staff who reports the patient has been in very good behavioral control, and nurses note that the patient was pleasant even with a staff member overnight whom she has previously intensely disliked for unclear reasons. On my examination today , the patient is ambulating around the unit with her walker. She tells me that she is trying to be "busy, busy, busy as a bee. Trying to see what the devil has on me." No SI/HI. No side effects from medications. Review of Systems ROS Limitations: Psychotic, Poor Historian Except as stated in HPI: all other systems reviewed are Neg Objective Alert: Yes [place]: Person, Place Mood: Calm Affect: Blunted Memory Intact: Comment (not assessed) Hallucinations: Other (int stim) Delusions: Yes Delusion Type: Paranoid Suicidal: Ideation (no SI) Homicidal: Ideation (no HI) Insight/Judgment Poor Remarks No abnormal motor movements noted. Labs Labs reviewed. Vitals/IOs Vital Signs Date Time Temp Pulse Resp B/P Pulse Ox O2 Delivery O2 Flow Rate FiO2 11/08/16 18:23 96.8 87 18 136/71 11/08/16 06:42 96 Intake and Output 11/08/16 11/08/16 11/08/16 07:59 15:59 23:59 Intake Total 240 ml 720 ml 600 ml Balance 240 ml 720 ml 600 ml Assessment & Plan Problem List: (1) Schizoaffective disorder ICD Code: F25.9 Assessment & Plan Continue current psychotropics as ordered. Continue to monitor on the inpatient unit. Continue other medications and care as ordered. Justification for Cont. Inpt. Impairment in reality construction. High risk for decompensation in a restrictive environment. Discharge Planning Patient has a bed at [facility]. We are waiting on completion of PASRR level 2 by the state. Hopeful for d/c to facility middle of this week. Problem Qualifiers (1) Schizoaffective disorder: Qualified Code: F25.1 - Schizoaffective disorder, depressive type Ryley Lund MD November 09, 2016 12:00
[2016-11-09] MEDS: PERPHENAZINE 4 MG TAB PO SCH ×2 (13:31→16:55)
[2016-11-09 18:59] VITALS: BP 141/65; PULSE 78; RESP 18; TEMP 97.2
[2016-11-09] MEDS: ACETAMINOPHEN 325 MG TAB PO PRN ×2 (18:59→22:39)
[2016-11-09] MEDS: diphenhydrAMINE HCL 50 MG CAP - HS PRN PO (21:00)
[2016-11-09] MEDS: OLANZapine ODT 20 MG TAB PO SCH (21:00)
[2016-11-09] MEDS: LORazepam 1 MG TAB PO PRN (22:23)
[2016-11-10 05:29] VITALS: BP 117/66; PULSE 87; RESP 18; TEMP 97.3; O2SAT 97
[2016-11-10] MEDS: PANTOPRAZOLE SOD 40 MG DELAYED RELEASE TAB PO SCH (10:14)
[2016-11-10] MEDS: HYDROCORTISONE 1% CREAM 30 GM TOPICAL SCH (10:14)
[2016-11-10] MEDS: clonazePAM 1 MG TAB PO SCH ×2 (10:14→20:21)
--- NOTE | 2016-11-10 12:24 | HHI.PYPN ---
Subjective Remarks Patient seen in day room with nurse Logan, chart reviewed. Patient remained somewhat psychotic and disorganized she is overall calmer more focused. At this time she is no behavioral problem. She is vague about persistent auditory hallucinations. Patient compliant with her medications. For now continue treatment Review of Systems Except as stated in HPI: all other systems reviewed are Neg Objective Alert: Yes [place]: Person, Place Mood: Calm Affect: Blunted Memory Intact: Comment (not assessed) Hallucinations: Other (int stim) Delusions: Yes Delusion Type: Paranoid Suicidal: Ideation (no SI) Homicidal: Ideation (no HI) Insight/Judgment Poor Vitals/IOs Vital Signs Date Time Temp Pulse Resp B/P Pulse Ox O2 Delivery O2 Flow Rate FiO2 11/10/16 05:29 97.3 87 18 117/66 97 Intake and Output 11/09/16 11/09/16 11/09/16 07:59 15:59 23:59 Intake Total 480 ml 240 ml 360 ml Output Total 960 ml Balance 480 ml -720 ml 360 ml Assessment & Plan Problem List: (1) Schizoaffective disorder ICD Code: F25.9 Assessment & Plan Estimated LOS: days patient remains somewhat psychotic but behaviors have calm , she is more cooperative. Compliant medications Justification for Cont. Inpt. If this time patient will decompensate the place the lower level of care Discharge Planning To be determined Problem Qualifiers (1) Schizoaffective disorder: Qualified Code: F25.1 - Schizoaffective disorder, depressive type Deacon Israel MD November 10, 2016 12:24
[2016-11-10] MEDS: PERPHENAZINE 4 MG TAB PO SCH ×2 (12:35→16:10)
[2016-11-10 20:00] VITALS: BP 131/82; PULSE 80; RESP 18
[2016-11-10] MEDS: diphenhydrAMINE HCL 50 MG CAP - HS PRN PO (20:22)
[2016-11-10] MEDS: OLANZapine ODT 20 MG TAB PO SCH (20:22)
[2016-11-11] MEDS: LORazepam 2 MG/ML VIAL IM PRN (01:25)
[2016-11-11 05:55] VITALS: BP 152/70; PULSE 95; RESP 18; TEMP 98.8
[2016-11-11] MEDS: PANTOPRAZOLE SOD 40 MG DELAYED RELEASE TAB PO SCH (09:00)
[2016-11-11] MEDS: clonazePAM 1 MG TAB PO SCH ×2 (09:00→20:55)
[2016-11-11] MEDS: HYDROCORTISONE 1% CREAM 30 GM TOPICAL SCH (09:00)
[2016-11-11] MEDS: PERPHENAZINE 4 MG TAB PO SCH ×2 (12:00→16:00)
--- NOTE | 2016-11-11 15:40 | HHI.PYPN ---
Subjective Remarks Patient seen in her room with nurse Clare, chart review, patient continues to isolate this afternoon seems somewhat sad, will decrease affect, still feels she may have 700 baby is in her. Compliant medications. No other significant behavioral problems noted, compliant medications Review of Systems Except as stated in HPI: all other systems reviewed are Neg Objective Alert: Yes [place]: Person, Place Mood: Calm Affect: Blunted Memory Intact: Comment (not assessed) Hallucinations: Other (int stim) Delusions: Yes Delusion Type: Paranoid Suicidal: Ideation (no SI) Homicidal: Ideation (no HI) Insight/Judgment Very poor Vitals/IOs Vital Signs Date Time Temp Pulse Resp B/P Pulse Ox O2 Delivery O2 Flow Rate FiO2 11/11/16 05:55 98.8 95 18 152/70 11/10/16 05:29 97 Intake and Output 11/10/16 11/10/16 11/11/16 08:00 16:00 00:00 Intake Total 1200 ml 600 ml Balance 1200 ml 600 ml Assessment & Plan Problem List: (1) Schizoaffective disorder ICD Code: F25.9 Assessment & Plan Estimated LOS: days patient continue somewhat psychotic no significant behavioral problems. Continues to isolate Justification for Cont. Inpt. At this time patient will decompensate placed in the lower level of care Discharge Planning To be determined Problem Qualifiers (1) Schizoaffective disorder: Qualified Code: F25.1 - Schizoaffective disorder, depressive type Deacon Israel MD November 11, 2016 15:40
[2016-11-11 17:30] VITALS: BP 132/66; PULSE 86; RESP 16; TEMP 98.5; O2SAT 97
[2016-11-11] MEDS: OLANZapine ODT 20 MG TAB PO SCH (20:55)
[2016-11-12 05:33] VITALS: BP 110/64; PULSE 96; RESP 18; TEMP 97.2
[2016-11-12 06:00] VITALS: BP 110/64; PULSE 96; RESP 18; TEMP 97.2; O2SAT 98
[2016-11-12] MEDS: PANTOPRAZOLE SOD 40 MG DELAYED RELEASE TAB PO SCH (09:01)
[2016-11-12] MEDS: clonazePAM 1 MG TAB PO SCH ×2 (09:01→21:30)
[2016-11-12] MEDS: HYDROCORTISONE 1% CREAM 30 GM TOPICAL SCH (09:01)
[2016-11-12] MEDS: PERPHENAZINE 4 MG TAB PO SCH ×2 (12:38→15:52)
--- NOTE | 2016-11-12 15:07 | HHI.PYPN ---
Subjective Remarks Patient seen in [place] with nurse Winnie, patient using walker she appears more alert and focused today though continues quite psychotic. Today stating that her visited her in her room last night. Compliant medications Review of Systems Except as stated in HPI: all other systems reviewed are Neg Objective Alert: Yes [place]: Person, Place Mood: Calm Affect: Blunted Memory Intact: Comment (not assessed) Hallucinations: Visual (patient states she had visit from her in her room last night), Other (int stim) Delusions: Yes Delusion Type: Paranoid Suicidal: Ideation (no SI) Homicidal: Ideation (no HI) Insight/Judgment Very poor Vitals/IOs Vital Signs Date Time Temp Pulse Resp B/P Pulse Ox O2 Delivery O2 Flow Rate FiO2 11/12/16 06:00 97.2 96 18 110/64 98 Intake and Output 11/11/16 11/11/16 11/11/16 07:59 15:59 23:59 Intake Total 240 ml 1200 ml Balance 240 ml 1200 ml Assessment & Plan Problem List: (1) Schizoaffective disorder ICD Code: F25.9 Assessment & Plan Estimated LOS: days patient continues quite psychotic and delusional, compliant medications. For now continue treatment Justification for Cont. Inpt. At this time patient will decompensate if placed in a lower level of care Discharge Planning To be determined Problem Qualifiers (1) Schizoaffective disorder: Qualified Code: F25.1 - Schizoaffective disorder, depressive type Deacon Israel MD November 12, 2016 15:07
[2016-11-12] MEDS: LORazepam 1 MG TAB PO PRN (15:52)
[2016-11-12 17:22] VITALS: BP 112/62; PULSE 82; RESP 20; TEMP 97.4
[2016-11-12] MEDS: OLANZapine ODT 20 MG TAB PO SCH (21:30)
[2016-11-12] MEDS: diphenhydrAMINE HCL 50 MG CAP - HS PRN PO (21:30)
[2016-11-13 06:48] VITALS: BP 146/78; PULSE 81; RESP 16; TEMP 97.9; O2SAT 97
[2016-11-13] MEDS: PANTOPRAZOLE SOD 40 MG DELAYED RELEASE TAB PO SCH (09:00)
[2016-11-13] MEDS: clonazePAM 1 MG TAB PO SCH ×2 (09:00→20:55)
[2016-11-13] MEDS: HYDROCORTISONE 1% CREAM 30 GM TOPICAL SCH (09:00)
[2016-11-13] MEDS: PERPHENAZINE 4 MG TAB PO SCH ×2 (12:00→16:00)
--- NOTE | 2016-11-13 12:42 | HHI.PYPN ---
Subjective Remarks Patient seen in her bed with nurse Clare present, chart reviewed. Patient continues to show signs of psychosis and delusions stating her visited her again last night. Compliant medications. For now continue treatment Review of Systems Except as stated in HPI: all other systems reviewed are Neg Objective Alert: Yes [place]: Person, Place Mood: Calm Affect: Blunted Memory Intact: Comment (not assessed) Hallucinations: Visual (patient states she had visit from her in her room last night), Other (int stim) Delusions: Yes Delusion Type: Paranoid Suicidal: Ideation (no SI) Homicidal: Ideation (no HI) Insight/Judgment Poor Vitals/IOs Vital Signs Date Time Temp Pulse Resp B/P Pulse Ox O2 Delivery O2 Flow Rate FiO2 11/13/16 06:48 97.9 81 16 146/78 97 Intake and Output 11/12/16 11/12/16 11/13/16 08:00 16:00 00:00 Intake Total 240 ml 360 ml 640 ml Balance 240 ml 360 ml 640 ml Assessment & Plan Problem List: (1) Schizoaffective disorder ICD Code: F25.9 Assessment & Plan Estimated LOS: days patient continue psychotic and isolating. Compliant medications. Placement continues to be quite problematic Justification for Cont. Inpt. At this time patient will decompensate in place to the lower level of care Discharge Planning To be determined Problem Qualifiers (1) Schizoaffective disorder: Qualified Code: F25.1 - Schizoaffective disorder, depressive type Deacon Israel MD November 13, 2016 12:42
[2016-11-13] MEDS: LORazepam 1 MG TAB PO PRN (14:37)
[2016-11-13 18:20] VITALS: BP 156/56; PULSE 94; RESP 18; TEMP 99
[2016-11-13] MEDS: OLANZapine ODT 20 MG TAB PO SCH (20:55)
[2016-11-13] MEDS: ACETAMINOPHEN 325 MG TAB PO PRN (23:05)
[2016-11-14 06:48] VITALS: BP 146/84; PULSE 83; RESP 18; TEMP 97.4; O2SAT 98
--- NOTE | 2016-11-14 10:10 | HHI.PYPN ---
Subjective Remarks Patient seen and examined with nursing staff in weekend coverage. Chart reviewed. Case discussed with nursing staff who reports patient remains delusional but no behavioral problem. For me today, the patient tells me "food woke me up. They need to put on their thinking caps." Remains delusional regarding . No side effects from meds. C/o chronic arthritic pain but no other physical complaints. Review of Systems ROS Limitations: Poor Historian Except as stated in HPI: all other systems reviewed are Neg Objective Alert: Yes [place]: Person, Place Mood: Calm Affect: Blunted (remains fairly blunted) Memory Intact: Comment (not formally assessed) Hallucinations: Other (no AVH reported) Delusions: Yes Delusion Type: Paranoid Suicidal: Ideation (no SI) Homicidal: Ideation (no HI) Insight/Judgment Poor Remarks No motor abnormalities noted Labs Labs reviewed Vitals/IOs Vital Signs Date Time Temp Pulse Resp B/P Pulse Ox O2 Delivery O2 Flow Rate FiO2 11/14/16 06:48 97.4 83 18 146/84 98 Intake and Output 11/13/16 11/13/16 11/14/16 08:00 16:00 00:00 Intake Total 840 ml 960 ml 480 ml Balance 840 ml 960 ml 480 ml Assessment & Plan Problem List: (1) Schizoaffective disorder ICD Code: F25.9 Assessment & Plan Continue current psychiatric medications as ordered. Continue to monitor on the inpatient unit. Continue other medications and care as ordered. Justification for Cont. Inpt. Impairment in reality construction. High risk for decompensation in a less restrictive environment. Discharge Planning Per Dr. Israel Problem Qualifiers (1) Schizoaffective disorder: Qualified Code: F25.1 - Schizoaffective disorder, depressive type Ryley Lund MD November 14, 2016 10:10
[2016-11-14] MEDS: PANTOPRAZOLE SOD 40 MG DELAYED RELEASE TAB PO SCH (11:02)
[2016-11-14] MEDS: clonazePAM 1 MG TAB PO SCH ×2 (11:02→23:02)
[2016-11-14] MEDS: PERPHENAZINE 4 MG TAB PO SCH ×2 (12:51→16:00)
[2016-11-14] MEDS: HYDROCORTISONE 1% CREAM 30 GM TOPICAL SCH (12:53)
[2016-11-14] MEDS: ALUMINUM/MAGNESIUM/SIMETH 30 ML CUP PO PRN (12:56)
[2016-11-14 19:23] VITALS: BP 144/67; PULSE 89; TEMP 97.3; O2SAT 97
[2016-11-14] MEDS: OLANZapine ODT 20 MG TAB PO SCH (23:02)
[2016-11-14] MEDS: diphenhydrAMINE HCL 50 MG CAP - HS PRN PO (23:02)
[2016-11-14] MEDS: LORazepam 1 MG TAB PO PRN (23:02)
[2016-11-15] MEDS: ACETAMINOPHEN 325 MG TAB PO PRN ×2 (01:02→16:04)
[2016-11-15 05:45] VITALS: BP 106/61; PULSE 60; RESP 18; TEMP 97.8; O2SAT 96
[2016-11-15 05:47] VITALS: BP 158/75; PULSE 82; RESP 16; TEMP 96.8; O2SAT 97
[2016-11-15] MEDS: PANTOPRAZOLE SOD 40 MG DELAYED RELEASE TAB PO SCH (08:48)
[2016-11-15] MEDS: HYDROCORTISONE 1% CREAM 30 GM TOPICAL SCH (08:49)
[2016-11-15] MEDS: clonazePAM 1 MG TAB PO SCH ×2 (08:49→21:00)
[2016-11-15] MEDS: PERPHENAZINE 4 MG TAB PO SCH ×2 (12:46→16:00)
--- NOTE | 2016-11-15 13:02 | HHI.PYPN ---
Subjective Remarks Patient was seen for psychiatric reevaluation today, patient says that she is doing fine, she says that she has been preoccupied due to her high blood pressure, she is a little bit disorganized, religiously preoccupied, however, oriented 3, she denies depression, she denies suicidal and homicidal ideation, she denies visual and auditory hallucinations. Patient has been fully compliant with medications, no significant side effects. No agitation, no aggressive behavior, no restlessness reported. Review of Systems Other No somatic complaints Objective Alert: Yes [place]: Person, Place, Date Mood: Calm Affect: Appropriate Memory Intact: Comment (not formally assessed) Hallucinations: Other (no AVH reported) Delusions: Yes Delusion Type: Paranoid Suicidal: Ideation (no SI) Homicidal: Ideation (no HI) Insight/Judgment fair Vitals/IOs Vital Signs Date Time Temp Pulse Resp B/P Pulse Ox O2 Delivery O2 Flow Rate FiO2 11/15/16 05:47 96.8 82 16 158/75 97 Intake and Output 11/14/16 11/14/16 11/15/16 08:00 16:00 00:00 Intake Total 720 ml 1560 ml Balance 720 ml 1560 ml Assessment & Plan Problem List: (1) Schizoaffective disorder ICD Code: F25.9 Assessment & Plan Estimated LOS: days Justification for Cont. Inpt. Patient will easily decompensate in a lower level of care Problem Qualifiers (1) Schizoaffective disorder: Qualified Code: F25.1 - Schizoaffective disorder, depressive type Alejandro Rock MD November 15, 2016 13:02
[2016-11-15 20:45] VITALS: BP 142/66; PULSE 80; RESP 17; TEMP 96.8; O2SAT 96
[2016-11-15] MEDS: OLANZapine ODT 20 MG TAB PO SCH (21:00)
[2016-11-16] MEDS: LORazepam 1 MG TAB PO PRN (01:01)
[2016-11-16 05:35] VITALS: BP 160/92; PULSE 80; RESP 18; TEMP 97.9
[2016-11-16] MEDS: PANTOPRAZOLE SOD 40 MG DELAYED RELEASE TAB PO SCH (08:37)
[2016-11-16] MEDS: clonazePAM 1 MG TAB PO SCH ×2 (08:37→21:09)
[2016-11-16] MEDS: HYDROCORTISONE 1% CREAM 30 GM TOPICAL SCH (08:37)
[2016-11-16] MEDS: PERPHENAZINE 4 MG TAB PO SCH ×2 (12:00→16:00)
--- NOTE | 2016-11-16 16:50 | HHI.PYPN ---
Subjective Remarks Patient seen in day room, patient calm with me though continues disorganized confused continued delusional referring to 's visiting her, compliant medications Review of Systems Except as stated in HPI: all other systems reviewed are Neg Objective Alert: Yes [place]: Person, Place, Date Mood: Calm Affect: Appropriate Memory Intact: Comment (not formally assessed) Hallucinations: Other (no AVH reported) Delusions: Yes Delusion Type: Paranoid Suicidal: Ideation (no SI) Homicidal: Ideation (no HI) Insight/Judgment Very poor Vitals/IOs Vital Signs Date Time Temp Pulse Resp B/P Pulse Ox O2 Delivery O2 Flow Rate FiO2 11/16/16 05:35 97.9 80 18 160/92 11/15/16 20:45 96 Intake and Output 11/15/16 11/15/16 11/16/16 08:00 16:00 00:00 Intake Total 240 ml 720 ml 240 ml Balance 240 ml 720 ml 240 ml Assessment & Plan Problem List: (1) Schizoaffective disorder ICD Code: F25.9 Assessment & Plan Estimated LOS: days patient continue psychotic and delusional, compliant medications Justification for Cont. Inpt. At this time patient will decompensate his place to the lower level of care Discharge Planning To be determined Problem Qualifiers (1) Schizoaffective disorder: Qualified Code: F25.1 - Schizoaffective disorder, depressive type Deacon Israel MD November 16, 2016 16:50
[2016-11-16 19:48] VITALS: BP 109/58; PULSE 93; RESP 18; TEMP 97.3; O2SAT 98
[2016-11-16] MEDS: OLANZapine ODT 20 MG TAB PO SCH (21:09)
[2016-11-16] MEDS: diphenhydrAMINE HCL 50 MG CAP - HS PRN PO (21:09)
[2016-11-17 05:18] VITALS: BP 142/84; PULSE 98; RESP 16; TEMP 98.3; O2SAT 95
[2016-11-17] MEDS: PANTOPRAZOLE SOD 40 MG DELAYED RELEASE TAB PO SCH (08:50)
[2016-11-17] MEDS: HYDROCORTISONE 1% CREAM 30 GM TOPICAL SCH (08:50)
[2016-11-17] MEDS: clonazePAM 1 MG TAB PO SCH ×2 (08:50→20:41)
[2016-11-17] MEDS: PERPHENAZINE 4 MG TAB PO SCH ×2 (12:00→16:00)
--- NOTE | 2016-11-17 14:27 | HHI.PYPN ---
Subjective Remarks Patient seen in her room, continues somewhat vigilant paranoid and suspicious though no significant behavioral problems, compliant medications Review of Systems Except as stated in HPI: all other systems reviewed are Neg Objective Alert: Yes [place]: Person, Place, Date Mood: Calm Affect: Appropriate Memory Intact: Comment (not formally assessed) Hallucinations: Other (no AVH reported) Delusions: Yes Delusion Type: Paranoid Suicidal: Ideation (no SI) Homicidal: Ideation (no HI) Insight/Judgment Very poor Vitals/IOs Vital Signs Date Time Temp Pulse Resp B/P Pulse Ox O2 Delivery O2 Flow Rate FiO2 11/17/16 05:18 98.3 98 16 142/84 95 Intake and Output 11/16/16 11/16/16 11/16/16 07:59 15:59 23:59 Intake Total 860 ml 720 ml Balance 860 ml 720 ml Assessment & Plan Problem List: (1) Schizoaffective disorder ICD Code: F25.9 Assessment & Plan Estimated LOS: days patient continues somewhat suspicious and vigilant, compliant medication, no behavior problems at this time Justification for Cont. Inpt. At this time patient decompensate if placed in a lower level of care Discharge Planning To be determined Problem Qualifiers (1) Schizoaffective disorder: Qualified Code: F25.1 - Schizoaffective disorder, depressive type Deacon Israel MD November 17, 2016 14:27
[2016-11-17 19:42] VITALS: BP 116/77; PULSE 85; RESP 16; TEMP 97.6; O2SAT 97
[2016-11-17] MEDS: ACETAMINOPHEN 325 MG TAB PO PRN (20:41)
[2016-11-17] MEDS: OLANZapine ODT 20 MG TAB PO SCH (20:41)
[2016-11-18] MEDS: ACETAMINOPHEN 325 MG TAB PO PRN (03:08)
[2016-11-18 05:44] VITALS: BP 105/57; PULSE 84; RESP 19; TEMP 98.2; O2SAT 99
[2016-11-18] MEDS: clonazePAM 1 MG TAB PO SCH ×2 (09:30→21:29)
[2016-11-18] MEDS: PANTOPRAZOLE SOD 40 MG DELAYED RELEASE TAB PO SCH (09:30)
[2016-11-18] MEDS: HYDROCORTISONE 1% CREAM 30 GM TOPICAL SCH (09:31)
--- NOTE | 2016-11-18 09:51 | HHI.PYPN ---
Subjective Remarks Patient seen in day room with nurse Araceli, chart reviewed. Patient compliant medications. Patient remains quite delusional continues to state she is having visits with her , most recently last night. Otherwise patient no behavioral problems. For now continue treatment Review of Systems Except as stated in HPI: all other systems reviewed are Neg Objective Alert: Yes [place]: Person, Place, Date Mood: Calm Affect: Appropriate Memory Intact: Comment (not formally assessed) Hallucinations: Other (no AVH reported) Delusions: Yes Delusion Type: Paranoid Suicidal: Ideation (no SI) Homicidal: Ideation (no HI) Insight/Judgment Poor Vitals/IOs Vital Signs Date Time Temp Pulse Resp B/P Pulse Ox O2 Delivery O2 Flow Rate FiO2 11/18/16 05:44 98.2 84 19 105/57 99 Intake and Output 11/17/16 11/17/16 11/18/16 08:00 16:00 00:00 Intake Total 1920 ml Balance 1920 ml Assessment & Plan Problem List: (1) Schizoaffective disorder ICD Code: F25.9 Assessment & Plan Estimated LOS: days patient remained psychotic and delusional, compliant medications. Though no significant behavioral problems Justification for Cont. Inpt. At this time patient will decompensate if placed in a lower level of care Discharge Planning To be determined Problem Qualifiers (1) Schizoaffective disorder: Qualified Code: F25.1 - Schizoaffective disorder, depressive type Deacon Israel MD November 18, 2016 09:51
[2016-11-18] MEDS: PERPHENAZINE 4 MG TAB PO SCH ×2 (12:00→16:00)
[2016-11-18 16:00] VITALS: BP 158/107; PULSE 84; RESP 18; TEMP 97.3; O2SAT 98
[2016-11-18] MEDS: OLANZapine ODT 20 MG TAB PO SCH (21:29)
[2016-11-18] MEDS: diphenhydrAMINE HCL 50 MG CAP - HS PRN PO (21:29)
[2016-11-18] MEDS: LORazepam 1 MG TAB PO PRN (23:27)
[2016-11-19 05:30] VITALS: BP 133/76; PULSE 92; RESP 18; TEMP 98.1
[2016-11-19] MEDS: clonazePAM 1 MG TAB PO SCH ×2 (08:58→20:59)
[2016-11-19] MEDS: PANTOPRAZOLE SOD 40 MG DELAYED RELEASE TAB PO SCH (08:58)
[2016-11-19] MEDS: HYDROCORTISONE 1% CREAM 30 GM TOPICAL SCH (08:58)
--- NOTE | 2016-11-19 12:37 | HHI.PYPN ---
Subjective Remarks Patient seen in dayroom with floor staff, patient continues delusional or grandiose related to relationship with her and seeing her . Compliant medications. For now continue treatment Review of Systems Except as stated in HPI: all other systems reviewed are Neg Objective Alert: Yes [place]: Person, Place, Date Mood: Calm Affect: Appropriate Memory Intact: Comment (not formally assessed) Hallucinations: Other (no AVH reported) Delusions: Yes Delusion Type: Paranoid Suicidal: Ideation (no SI) Homicidal: Ideation (no HI) Insight/Judgment Very poor Vitals/IOs Vital Signs Date Time Temp Pulse Resp B/P Pulse Ox O2 Delivery O2 Flow Rate FiO2 11/19/16 05:30 98.1 92 18 133/76 11/18/16 16:00 98 Intake and Output 11/18/16 11/18/16 11/19/16 08:00 16:00 00:00 Intake Total 600 ml Balance 600 ml Assessment & Plan Problem List: (1) Schizoaffective disorder ICD Code: F25.9 Assessment & Plan Estimated LOS: days patient continues paranoid and delusional, but no significant behavioral problems. Compliant medications Justification for Cont. Inpt. This time patient will decompensate the placed in a lower level of care Discharge Planning To be determined Problem Qualifiers (1) Schizoaffective disorder: Qualified Code: F25.1 - Schizoaffective disorder, depressive type Deacon Israel MD November 19, 2016 12:37
[2016-11-19] MEDS: PERPHENAZINE 4 MG TAB PO SCH ×2 (13:03→16:00)
[2016-11-19 17:58] VITALS: BP 114/62; PULSE 96; RESP 17; TEMP 98.7; O2SAT 97
[2016-11-19] MEDS: OLANZapine ODT 20 MG TAB PO SCH (20:59)
[2016-11-19] MEDS: diphenhydrAMINE HCL 50 MG CAP - HS PRN PO (21:00)
[2016-11-19] MEDS: LORazepam 1 MG TAB PO PRN (23:06)
[2016-11-20 05:46] VITALS: BP 140/89; PULSE 82; RESP 17; TEMP 98.5; O2SAT 96
[2016-11-20] MEDS: clonazePAM 1 MG TAB PO SCH ×2 (09:36→21:00)
[2016-11-20] MEDS: HYDROCORTISONE 1% CREAM 30 GM TOPICAL SCH (09:36)
[2016-11-20] MEDS: PANTOPRAZOLE SOD 40 MG DELAYED RELEASE TAB PO SCH (09:36)
--- NOTE | 2016-11-20 10:33 | HHI.PYPN ---
Subjective Remarks Patient seen in day room and floor staff, chart reviewed, patient continues delusional with us somewhat intrusive labile. However its noted by staff the patient was up most of the night last night intrusive and loud. Will increase at bedtime Zyprexa to 30 mg. Continue other medications no change Review of Systems Except as stated in HPI: all other systems reviewed are Neg Objective Alert: Yes [place]: Person, Place, Date Mood: Calm Affect: Appropriate Memory Intact: Comment (not formally assessed) Hallucinations: Other (no AVH reported) Delusions: Yes Delusion Type: Paranoid Suicidal: Ideation (no SI) Homicidal: Ideation (no HI) Insight/Judgment Poor Vitals/IOs Vital Signs Date Time Temp Pulse Resp B/P Pulse Ox O2 Delivery O2 Flow Rate FiO2 11/20/16 05:46 98.5 82 17 140/89 96 Intake and Output 11/19/16 11/19/16 11/20/16 08:00 16:00 00:00 Intake Total 240 ml 960 ml 1080 ml Balance 240 ml 960 ml 1080 ml Assessment & Plan Problem List: (1) Schizoaffective disorder ICD Code: F25.9 Assessment & Plan Estimated LOS: days patient continue psychotic with increased behavior issues towards bedtime and through night will increase at bedtime Zyprexa to 30 mg Justification for Cont. Inpt. At this time patient would decompensate if place to the lower level of care Discharge Planning To be determined Problem Qualifiers (1) Schizoaffective disorder: Qualified Code: F25.1 - Schizoaffective disorder, depressive type Deacon Israel MD November 20, 2016 10:33
[2016-11-20] MEDS: ACETAMINOPHEN 325 MG TAB PO PRN (10:43)
[2016-11-20] MEDS: PERPHENAZINE 4 MG TAB PO SCH ×2 (12:00→16:00)
[2016-11-20 17:41] VITALS: BP 115/72; PULSE 94; RESP 16; TEMP 97.8; O2SAT 98
[2016-11-20] MEDS: OLANZapine ODT 15 MG TAB PO SCH (21:00)
[2016-11-21] MEDS: ACETAMINOPHEN 325 MG TAB PO PRN (01:39)
[2016-11-21 05:32] VITALS: BP 132/78; PULSE 87; RESP 16; TEMP 97.3; O2SAT 94
[2016-11-21] MEDS: HYDROCORTISONE 1% CREAM 30 GM TOPICAL SCH (09:00)
[2016-11-21] MEDS: clonazePAM 1 MG TAB PO SCH ×3 (09:17→21:00)
[2016-11-21] MEDS: PANTOPRAZOLE SOD 40 MG DELAYED RELEASE TAB PO SCH (09:17)
--- NOTE | 2016-11-21 11:53 | HHI.PYPN ---
Subjective Remarks Patient was seen and case discussed with nursing. Patient is pleasant and cooperative with exam. Easily engaged for the interview. When asked about hallucinations or messages from God she says "it has slowed down." She appears less internally stimulated compared to her last meeting. No longer elated. Alert and oriented 3. Compliant with medications Objective Alert: Yes [place]: Person, Place, Date Mood: Calm Affect: Appropriate Memory Intact: Comment (not formally assessed) Hallucinations: Other (no AVH reported) Delusions: Yes Delusion Type: Paranoid Suicidal: Ideation (no SI) Homicidal: Ideation (no HI) Insight/Judgment Poor Vitals/IOs Vital Signs Date Time Temp Pulse Resp B/P Pulse Ox O2 Delivery O2 Flow Rate FiO2 11/21/16 05:32 97.3 87 16 132/78 94 Intake and Output 11/20/16 11/20/16 11/21/16 08:00 16:00 00:00 Intake Total 840 ml 1320 ml 2040 ml Balance 840 ml 1320 ml 2040 ml Assessment & Plan Problem List: (1) Schizoaffective disorder ICD Code: F25.9 Assessment & Plan Continue current treatment plan Justification for Cont. Inpt. Patient will decompensate in a less restrictive setting Problem Qualifiers (1) Schizoaffective disorder: Qualified Code: F25.1 - Schizoaffective disorder, depressive type John Winters DO November 21, 2016 11:53
[2016-11-21] MEDS: PERPHENAZINE 4 MG TAB PO SCH ×2 (12:00→16:00)
[2016-11-21 18:00] VITALS: BP 126/68; PULSE 76; TEMP 97.1; O2SAT 100
[2016-11-21] MEDS: diphenhydrAMINE HCL 50 MG CAP - HS PRN PO (20:55)
[2016-11-21] MEDS: OLANZapine ODT 15 MG TAB PO SCH ×2 (20:55→21:00)
[2016-11-21] MEDS: LORazepam 1 MG TAB PO PRN (20:55)
[2016-11-22 05:59] VITALS: BP 114/66; PULSE 85; RESP 20; TEMP 97.3; O2SAT 97
[2016-11-22] MEDS: PANTOPRAZOLE SOD 40 MG DELAYED RELEASE TAB PO SCH (08:50)
[2016-11-22] MEDS: clonazePAM 1 MG TAB PO SCH ×2 (08:50→21:44)
[2016-11-22] MEDS: ACETAMINOPHEN 325 MG TAB PO PRN (08:57)
[2016-11-22] MEDS: HYDROCORTISONE 1% CREAM 30 GM TOPICAL SCH (09:00)
--- NOTE | 2016-11-22 12:08 | HHI.PYPN ---
Subjective Remarks Patient was seen and case discussed with nursing. The patient refused her medications last night. Reason that she said made her sleepy. Psychoeducation was done with medication is more than just for sleep. Fear to show understanding and says she will take her medications from now on. Remains somewhat internally preoccupied. Does deny auditory visual hallucinations or messages from God Objective Alert: Yes [place]: Person, Place, Date Mood: Calm Affect: Appropriate Memory Intact: Comment (not formally assessed) Hallucinations: Other (no AVH reported) Delusions: Yes Delusion Type: Paranoid Suicidal: Ideation (no SI) Homicidal: Ideation (no HI) Insight/Judgment Fair Vitals/IOs Vital Signs Date Time Temp Pulse Resp B/P Pulse Ox O2 Delivery O2 Flow Rate FiO2 11/22/16 05:59 97.3 85 20 114/66 97 Intake and Output 11/21/16 11/21/16 11/22/16 08:00 16:00 00:00 Intake Total 720 ml 1440 ml Balance 720 ml 1440 ml Assessment & Plan Problem List: (1) Schizoaffective disorder ICD Code: F25.9 Assessment & Plan Continue current treatment plan Justification for Cont. Inpt. Patient will decompensate in a less restrictive setting Problem Qualifiers (1) Schizoaffective disorder: Qualified Code: F25.1 - Schizoaffective disorder, depressive type John Winters DO November 22, 2016 12:08
[2016-11-22] MEDS: PERPHENAZINE 4 MG TAB PO SCH ×2 (12:15→16:00)
[2016-11-22 20:12] VITALS: BP 132/67; PULSE 77; RESP 18; TEMP 97.9; O2SAT 95
[2016-11-22] MEDS: OLANZapine ODT 15 MG TAB PO SCH (21:00)
[2016-11-23 06:43] VITALS: BP 139/62; PULSE 82; RESP 20; TEMP 98.1; O2SAT 96
[2016-11-23] MEDS: PANTOPRAZOLE SOD 40 MG DELAYED RELEASE TAB PO SCH (09:52)
[2016-11-23] MEDS: HYDROCORTISONE 1% CREAM 30 GM TOPICAL SCH (09:52)
[2016-11-23] MEDS: clonazePAM 1 MG TAB PO SCH ×2 (09:52→22:07)
--- NOTE | 2016-11-23 12:53 | HHI.PYPN ---
Subjective Remarks Patient seen in day room using walker seen with nurse Peyton today patient stated "ready to go to [facility] in [place]" stating her mother and father made reservations for her there. Patient showing no insight into her disease, continues disorganized and isolating. Review of Systems Except as stated in HPI: all other systems reviewed are Neg Objective Alert: Yes [place]: Person, Place, Date Mood: Calm Affect: Appropriate Memory Intact: Comment (not formally assessed) Hallucinations: Other (no AVH reported) Delusions: Yes Delusion Type: Paranoid Suicidal: Ideation (no SI) Homicidal: Ideation (no HI) Insight/Judgment Very poor Vitals/IOs Vital Signs Date Time Temp Pulse Resp B/P Pulse Ox O2 Delivery O2 Flow Rate FiO2 11/23/16 06:43 98.1 82 20 139/62 96 Intake and Output 11/22/16 11/22/16 11/22/16 07:59 15:59 23:59 Intake Total 480 ml 1440 ml 840 ml Balance 480 ml 1440 ml 840 ml Assessment & Plan Problem List: (1) Schizoaffective disorder ICD Code: F25.9 Assessment & Plan Estimated LOS: days patient remained psychotic and delusional, but no significant behavior problems. Justification for Cont. Inpt. At this time patient will decompensate placed a lower level of care Discharge Planning To be determined Problem Qualifiers (1) Schizoaffective disorder: Qualified Code: F25.1 - Schizoaffective disorder, depressive type Deacon Israel MD November 23, 2016 12:53
[2016-11-23] MEDS: PERPHENAZINE 4 MG TAB PO SCH ×2 (13:31→16:00)
[2016-11-23 17:00] VITALS: BP 143/82; PULSE 80; RESP 18; TEMP 97
[2016-11-23] MEDS: OLANZapine ODT 15 MG TAB PO SCH (22:09)
[2016-11-24 06:00] VITALS: BP 122/73; PULSE 82; RESP 20; TEMP 97.9; O2SAT 95
[2016-11-24] MEDS: PANTOPRAZOLE SOD 40 MG DELAYED RELEASE TAB PO SCH (09:00)
[2016-11-24] MEDS: clonazePAM 1 MG TAB PO SCH ×2 (10:13→21:20)
[2016-11-24] MEDS: HYDROCORTISONE 1% CREAM 30 GM TOPICAL SCH (10:14)
[2016-11-24] MEDS: PERPHENAZINE 4 MG TAB PO SCH ×2 (12:00→16:00)
--- NOTE | 2016-11-24 16:21 | HHI.PYPN ---
Subjective Remarks Patient seen in day room with nurse Logan, patient continues markedly delusional psychotic though no significant behavioral problems. Continues to feel she is being visited by her . Compliant medications Review of Systems Except as stated in HPI: all other systems reviewed are Neg Objective Alert: Yes [place]: Person, Place, Date Mood: Calm Affect: Appropriate Memory Intact: Comment (not formally assessed) Hallucinations: Other (no AVH reported) Delusions: Yes Delusion Type: Paranoid Suicidal: Ideation (no SI) Homicidal: Ideation (no HI) Insight/Judgment Very poor Vitals/IOs Vital Signs Date Time Temp Pulse Resp B/P Pulse Ox O2 Delivery O2 Flow Rate FiO2 11/24/16 06:00 97.9 82 20 122/73 95 Intake and Output 11/23/16 11/23/16 11/23/16 07:59 15:59 23:59 Intake Total 1680 ml 660 ml Balance 1680 ml 660 ml Assessment & Plan Problem List: (1) Schizoaffective disorder ICD Code: F25.9 Assessment & Plan Estimated LOS: days patient continue psychotic and delusional, though no behavior problems. For now continue treatment Justification for Cont. Inpt. At this time patient will decompensate the place to the lower level of care Discharge Planning To be determined Problem Qualifiers (1) Schizoaffective disorder: Qualified Code: F25.1 - Schizoaffective disorder, depressive type Deacon Israel MD November 24, 2016 16:21
[2016-11-24 18:23] VITALS: BP 140/70; PULSE 88; RESP 16; TEMP 98.3; O2SAT 98
[2016-11-24] MEDS: OLANZapine ODT 15 MG TAB PO SCH (21:00)
[2016-11-25 05:32] VITALS: BP 150/89; PULSE 78; RESP 18; TEMP 97.3; O2SAT 96
[2016-11-25] MEDS: PANTOPRAZOLE SOD 40 MG DELAYED RELEASE TAB PO SCH (09:15)
[2016-11-25] MEDS: HYDROCORTISONE 1% CREAM 30 GM TOPICAL SCH (09:15)
[2016-11-25] MEDS: clonazePAM 1 MG TAB PO SCH ×2 (09:15→21:32)
--- NOTE | 2016-11-25 09:52 | HHI.PYPN ---
Subjective Remarks Patient seen in day room with nurse Clare, chart reviewed. Patient continues delusional, though no behavioral problems, continues at times to isolate in room. Continues to have the delusion that her is alive and visiting her.. For now continue treatment Review of Systems Except as stated in HPI: all other systems reviewed are Neg Objective Alert: Yes [place]: Person, Place, Date Mood: Calm Affect: Appropriate Memory Intact: Comment (not formally assessed) Hallucinations: Other (no AVH reported) Delusions: Yes Delusion Type: Paranoid Suicidal: Ideation (no SI) Homicidal: Ideation (no HI) Insight/Judgment Very poor Vitals/IOs Vital Signs Date Time Temp Pulse Resp B/P Pulse Ox O2 Delivery O2 Flow Rate FiO2 11/25/16 05:32 97.3 78 18 150/89 96 Intake and Output 11/24/16 11/24/16 11/25/16 08:00 16:00 00:00 Intake Total 720 ml 3480 ml 720 ml Balance 720 ml 3480 ml 720 ml Assessment & Plan Problem List: (1) Schizoaffective disorder ICD Code: F25.9 Assessment & Plan Estimated LOS: days patient continues delusional, [place] behavioral problems. Compliant medications. Justification for Cont. Inpt. At this time patient will decompensate placed in a lower level of care Discharge Planning To be determined Problem Qualifiers (1) Schizoaffective disorder: Qualified Code: F25.1 - Schizoaffective disorder, depressive type Deacon Israel MD November 25, 2016 09:52
[2016-11-25] MEDS ORDERED: PANT40TA3 PO (10:08)
[2016-11-25] MEDS ORDERED: PERP16TA6 PO (10:08)
[2016-11-25] MEDS ORDERED: OLANZ15 PO (10:08)
[2016-11-25] MEDS ORDERED: CLON1 PO ×2 (10:08)
--- NOTE | 2016-11-25 10:23 | HHI.DS ---
Psychiatry Discharge Summary Inpatient Psychiatric care?: Yes Advance Directive: No Reason Not Provided: Due to Patient Condition Mental Health AdvanceDirective: No Health Care Proxy: No Admission Admission Date Sep 12, 2016 at 21:34 Admission Diagnosis: (1) schizoaffective disorder depressed Brief History This is a 56-year-old black female who came to the emergency room from [place] where she was found screaming loud was psychotic responding to internal stimuli was paranoid talking to herself and was also talking about wanting to be with the Lord and was sensing .. Patient also reported that she wants her age back. She also was talking about being and none and having plenty of children sometimes she did not make any sense. She was recently discharged from [facility] and was placed at the [facility] but now I understand that he cannot she cannot return back to that place and will her to find a new place for her. It' s questionable regarding her compliance in taking medication Tobacco Use In Past 30 Days: No Tobacco Past 30 Days Alcohol Use: Monthly or Less Hospital Course Patient hospital course was somewhat long and chaotic her psychosis while softening persist to some extent. However she is been compliant with medications has been through various trials of medication. She has no significant behavioral problems. At this time I feel patient is met maximum benefit of this hospitalization. It appears she said [facility] and rehabilitation as a bed available for further willing to accept her to their program. Thus patient be discharged today on her schedule medications. The only adjustment being increase of her perphenazine from 28-32 mg daily to help with compliance patient follow-up with services through that facility Results Blood Pressure 150 / 89 Vital Signs Date Time Temp Pulse Resp B/P Pulse Ox O2 Delivery O2 Flow Rate FiO2 11/25/16 05:32 97.3 78 18 150/89 96 Urine toxicology negative Summary of Procedures None done Pending results at discharge: No Medications # of Antipsychotic meds at D/C: 2 Appropriate >1 Antipsych meds?: 1 Approp Antipsych med options 1 - Minimum of three failed multiple trials of monotherapy. 2 - Documented plan to taper to monotherapy due to previous use of multiple meds OR cross-taper in progress at D/C. 3 - Documentation of augmentation of Clozapine. 4 - Justification other than those listed in allowable values 1-3, document here : Discharge Discharge Date: November 25, 2016 Discharge Diagnosis: (1) schizoaffective disorder depressed Diagnosis: Principal Mental Status Exam at Disch Alert oriented [place] female, patient normoactive walking with a walker, mood is somewhat restricted to at times somewhat irritable affect show slight increase intensity decreased range speech rate and rhythm her somewhat slow but is tangential circumstantial, though auditory hallucinations there are some persistent delusions who somewhat paranoid in nature, insight and judgment is poor cognition grossly intact Pt Condition on Discharge: Stable Discharge Disposition: Rehab Inpatient Discharge Instructions Diet Instructions: As Tolerated, No Restrictions Activities you can perform: Regular-No Restrictions Scheduled Appointment: [facility] Discharge Time > 30 minutes Discharge/Advance Care Plan Health Problems: (1) Schizoaffective disorder Goals to promote your health * To prevent worsening of your condition and complications * To maintain your health at the optimal level Directions to meet your goals Take your medications as prescribed Follow your dietary instruction Follow activity as directed Keep your appointments as scheduled Take your immunizations and boosters as scheduled If your symptoms worsen call your PCP, if no PCP go to Urgent Care Center or Emergency Room For 25/01 questions related to your inpatient stay or results of tests pending at discharge, please contact Dr. Deacon Israel at Smoking is Dangerous to Your Health. Avoid second hand smoking Deacon Israel MD November 25, 2016 10:22
[2016-11-25] MEDS: PERPHENAZINE 4 MG TAB PO SCH ×2 (12:27→17:14)
[2016-11-25 16:00] VITALS: BP 124/72; PULSE 91; RESP 20; TEMP 98.4; O2SAT 96
[2016-11-25] MEDS: OLANZapine ODT 15 MG TAB PO SCH (21:00)
[2016-11-25] MEDS: diphenhydrAMINE HCL 50 MG CAP - HS PRN PO (21:33)
[2016-11-26 05:30] VITALS: BP 127/78; PULSE 90; RESP 18; TEMP 98.4
[2016-11-26] MEDS: clonazePAM 1 MG TAB PO SCH ×2 (08:49→20:50)
[2016-11-26] MEDS: HYDROCORTISONE 1% CREAM 30 GM TOPICAL SCH (08:50)
[2016-11-26] MEDS: PANTOPRAZOLE SOD 40 MG DELAYED RELEASE TAB PO SCH (08:50)
[2016-11-26] MEDS: PERPHENAZINE 4 MG TAB PO SCH ×2 (12:00→16:00)
--- NOTE | 2016-11-26 15:25 | HHI.PYPN ---
Subjective Remarks Patient seen in day room with nurse Clare, chart reviewed. Patient no behavioral problems, though she appears to be delusional focusing somewhat on family and . We continue to wait word from placement. For now continue treatment Review of Systems Except as stated in HPI: all other systems reviewed are Neg Objective Alert: Yes [place]: Person, Place, Date Mood: Calm Affect: Appropriate Memory Intact: Comment (not formally assessed) Hallucinations: Other (no AVH reported) Delusions: Yes Delusion Type: Paranoid Suicidal: Ideation (no SI) Homicidal: Ideation (no HI) Insight/Judgment Very poor Vitals/IOs Vital Signs Date Time Temp Pulse Resp B/P Pulse Ox O2 Delivery O2 Flow Rate FiO2 11/26/16 05:30 98.4 90 18 127/78 11/25/16 16:00 96 Intake and Output 11/25/16 11/25/16 11/26/16 08:00 16:00 00:00 Intake Total 720 ml 1800 ml 1350 ml Balance 720 ml 1800 ml 1350 ml Assessment & Plan Problem List: (1) Schizoaffective disorder ICD Code: F25.9 Assessment & Plan Estimated LOS: days patient continue psychotic and delusional, though no behavioral problems. Compliant medications Justification for Cont. Inpt. At this time patient will decompensate the placed on a lower level of care Discharge Planning To be determined Problem Qualifiers (1) Schizoaffective disorder: Qualified Code: F25.1 - Schizoaffective disorder, depressive type Deacon Israel MD November 26, 2016 15:25
[2016-11-26 17:35] VITALS: BP 128/73; PULSE 77; RESP 18; TEMP 98.7; O2SAT 99
[2016-11-26] MEDS: diphenhydrAMINE HCL 50 MG CAP - HS PRN PO (20:51)
[2016-11-26] MEDS: OLANZapine ODT 15 MG TAB PO SCH (20:52)
[2016-11-26] MEDS: ACETAMINOPHEN 325 MG TAB PO PRN (22:06)
[2016-11-27 06:49] VITALS: BP 115/67; PULSE 89; RESP 17; TEMP 97.6; O2SAT 99
[2016-11-27] MEDS: HYDROCORTISONE 1% CREAM 30 GM TOPICAL SCH (09:45)
[2016-11-27] MEDS: PANTOPRAZOLE SOD 40 MG DELAYED RELEASE TAB PO SCH (09:45)
[2016-11-27] MEDS: clonazePAM 1 MG TAB PO SCH ×2 (09:45→21:05)
[2016-11-27] MEDS: PERPHENAZINE 4 MG TAB PO SCH ×2 (12:00→16:00)
--- NOTE | 2016-11-27 12:47 | HHI.PYPN ---
Subjective Remarks Patient seen in day room, with floor staff, patient continues calm cooperative though delusional. Patient no behavioral issues. Compliant with medication. For now continue treatment Review of Systems Except as stated in HPI: all other systems reviewed are Neg Objective Alert: Yes [place]: Person, Place, Date Mood: Calm Affect: Appropriate Memory Intact: Comment (not formally assessed) Hallucinations: Other (no AVH reported) Delusions: Yes Delusion Type: Paranoid Suicidal: Ideation (no SI) Homicidal: Ideation (no HI) Insight/Judgment Very poor Vitals/IOs Vital Signs Date Time Temp Pulse Resp B/P Pulse Ox O2 Delivery O2 Flow Rate FiO2 11/27/16 06:49 97.6 89 17 115/67 99 Intake and Output 11/26/16 11/26/16 11/27/16 08:00 16:00 00:00 Intake Total 750 ml Balance 750 ml Assessment & Plan Problem List: (1) Schizoaffective disorder ICD Code: F25.9 Assessment & Plan Estimated LOS: days patient continues confused though behaviors and somewhat. Compliant medication. For now continue treatment Justification for Cont. Inpt. At this time patient will decompensate the placed on lower level of care Discharge Planning To be determined Problem Qualifiers (1) Schizoaffective disorder: Qualified Code: F25.1 - Schizoaffective disorder, depressive type Deacon Israel MD November 27, 2016 12:47
[2016-11-27 17:49] VITALS: BP 153/70; PULSE 90; RESP 19; TEMP 98.9; O2SAT 95
[2016-11-27] MEDS: OLANZapine ODT 15 MG TAB PO SCH (21:00)
[2016-11-27] MEDS: diphenhydrAMINE HCL 50 MG CAP - HS PRN PO (21:05)
[2016-11-28 06:00] VITALS: BP 134/81; PULSE 80; RESP 16; TEMP 97.9
[2016-11-28] MEDS: PANTOPRAZOLE SOD 40 MG DELAYED RELEASE TAB PO SCH (08:45)
[2016-11-28] MEDS: clonazePAM 1 MG TAB PO SCH ×2 (08:45→20:32)
[2016-11-28] MEDS: HYDROCORTISONE 1% CREAM 30 GM TOPICAL SCH (08:46)
[2016-11-28] MEDS: PERPHENAZINE 4 MG TAB PO SCH ×2 (12:00→16:00)
--- NOTE | 2016-11-28 12:06 | HHI.PYPN ---
Subjective Remarks Pt seen and discussed with staff. Pt has been cooperative with treatment and denies medication side effects. She remains delusional and states that she has been communicating with people who are trying to hurt themselves via hypnosis. No SI/HI Objective Alert: Yes [place]: Person, Place, Date Mood: Calm Affect: Restricted Memory Intact: Comment (fiar) Hallucinations: Other (no AVH reported) Delusions: Yes Delusion Type: Paranoid Suicidal: Ideation (no SI) Homicidal: Ideation (no HI) Insight/Judgment poor Vitals/IOs Vital Signs Date Time Temp Pulse Resp B/P Pulse Ox O2 Delivery O2 Flow Rate FiO2 11/28/16 06:00 97.9 80 16 134/81 11/27/16 17:49 95 Intake and Output 11/27/16 11/27/16 11/28/16 08:00 16:00 00:00 Intake Total 240 ml 1440 ml 1800 ml Balance 240 ml 1440 ml 1800 ml Assessment & Plan Problem List: (1) Schizoaffective disorder ICD Code: F25.9 Assessment & Plan Continue current tx plan. Estimated LOS: days Justification for Cont. Inpt. impairments in self-care secondary to impairments in reality construction Problem Qualifiers (1) Schizoaffective disorder: Qualified Code: F25.1 - Schizoaffective disorder, depressive type Ana Maria Toscano MD November 28, 2016 12:06
[2016-11-28 18:00] VITALS: BP 130/71; PULSE 89; RESP 17; TEMP 98.2; O2SAT 98
[2016-11-28] MEDS: OLANZapine ODT 15 MG TAB PO SCH (20:33)
[2016-11-28] MEDS: diphenhydrAMINE HCL 50 MG CAP - HS PRN PO ×2 (21:24→22:38)
[2016-11-29] MEDS: ACETAMINOPHEN 325 MG TAB PO PRN (00:18)
[2016-11-29 06:14] VITALS: BP 111/59; PULSE 78; RESP 18; TEMP 98.2; O2SAT 96
[2016-11-29] MEDS: HYDROCORTISONE 1% CREAM 30 GM TOPICAL SCH (09:21)
[2016-11-29] MEDS: PANTOPRAZOLE SOD 40 MG DELAYED RELEASE TAB PO SCH (09:21)
[2016-11-29] MEDS: clonazePAM 1 MG TAB PO SCH ×2 (09:21→21:17)
[2016-11-29] MEDS: PERPHENAZINE 4 MG TAB PO SCH ×2 (12:00→16:00)
--- NOTE | 2016-11-29 13:21 | HHI.PYPN ---
Subjective Remarks Pt seen and discussed with staff. She remains paranoid and delusional. Speech is rambling. Compliant with medications and tolerating without side effects. No SI/HI Objective Alert: Yes [place]: Person, Place, Date Mood: Calm Affect: Restricted Memory Intact: Comment (fiar) Hallucinations: Other (no AVH reported) Delusions: Yes Delusion Type: Paranoid Suicidal: Ideation (no SI) Homicidal: Ideation (no HI) Insight/Judgment poor Vitals/IOs Vital Signs Date Time Temp Pulse Resp B/P Pulse Ox O2 Delivery O2 Flow Rate FiO2 11/29/16 06:14 98.2 78 18 111/59 96 Intake and Output 11/28/16 11/28/16 11/29/16 08:00 16:00 00:00 Intake Total 480 ml 240 ml 1320 ml Balance 480 ml 240 ml 1320 ml Assessment & Plan Problem List: (1) Schizoaffective disorder ICD Code: F25.9 Assessment & Plan Continue current tx plan. Estimated LOS: days Justification for Cont. Inpt. impairments in reality testing and self care Problem Qualifiers (1) Schizoaffective disorder: Qualified Code: F25.1 - Schizoaffective disorder, depressive type Ana Maria Toscano MD November 29, 2016 1:21 pm
[2016-11-29 20:02] VITALS: BP 122/64; PULSE 79; RESP 18; TEMP 98.2; O2SAT 100
[2016-11-29] MEDS: LORazepam 1 MG TAB PO PRN (23:35)
[2016-11-29] MEDS: OLANZapine ODT 15 MG TAB PO SCH (23:37)
[2016-11-30] MEDS: ACETAMINOPHEN 325 MG TAB PO PRN ×2 (02:52→16:31)
[2016-11-30 05:42] VITALS: BP 152/69; PULSE 88; RESP 20; TEMP 98.5; O2SAT 98
[2016-11-30] MEDS: HYDROCORTISONE 1% CREAM 30 GM TOPICAL SCH (08:30)
[2016-11-30] MEDS: clonazePAM 1 MG TAB PO SCH ×2 (08:30→21:28)
[2016-11-30] MEDS: PANTOPRAZOLE SOD 40 MG DELAYED RELEASE TAB PO SCH (08:30)
--- NOTE | 2016-11-30 09:26 | HHI.PYPN ---
Subjective Remarks Patient seen in dayroom the floor staff, patient calm cooperative with me. Continues to voice statements about her visiting her in taking care of her stating this occurred last night when he helped her clean her "front and back". Compliant medications. No significant behavioral problems Review of Systems Except as stated in HPI: all other systems reviewed are Neg Objective Alert: Yes [place]: Person, Place, Date Mood: Calm Affect: Restricted Memory Intact: Comment (fiar) Hallucinations: Other (no AVH reported) Delusions: Yes Delusion Type: Paranoid Suicidal: Ideation (no SI) Homicidal: Ideation (no HI) Insight/Judgment Poor Vitals/IOs Vital Signs Date Time Temp Pulse Resp B/P Pulse Ox O2 Delivery O2 Flow Rate FiO2 11/30/16 05:42 98.5 88 20 152/69 98 Intake and Output 11/29/16 11/29/16 11/30/16 08:00 16:00 00:00 Intake Total 360 ml 1080 ml 480 ml Balance 360 ml 1080 ml 480 ml Assessment & Plan Problem List: (1) Schizoaffective disorder ICD Code: F25.9 Assessment & Plan Estimated LOS: days patient is calm but psychotic, no behavior problems. Compliant medications. Justification for Cont. Inpt. At this time patient will decompensate if placed in a lower level of care Discharge Planning To be determined Problem Qualifiers (1) Schizoaffective disorder: Qualified Code: F25.1 - Schizoaffective disorder, depressive type Deacon Israel MD November 30, 2016 09:26
[2016-11-30] MEDS: PERPHENAZINE 4 MG TAB PO SCH ×2 (12:00→16:00)
[2016-11-30 18:26] VITALS: BP 150/97; PULSE 84; RESP 19; TEMP 98.7; O2SAT 99
[2016-11-30] MEDS: OLANZapine ODT 15 MG TAB PO SCH (21:00)
[2016-11-30] MEDS: diphenhydrAMINE HCL 50 MG CAP - HS PRN PO (21:28)
[2016-12-01] MEDS: ACETAMINOPHEN 325 MG TAB PO PRN ×2 (03:02→22:42)
[2016-12-01 06:12] VITALS: BP 122/53; PULSE 88; RESP 22; TEMP 97.9; O2SAT 100
[2016-12-01] MEDS: LORazepam 1 MG TAB PO PRN (06:13)
[2016-12-01] MEDS: clonazePAM 1 MG TAB PO SCH ×2 (09:00→21:17)
[2016-12-01] MEDS: HYDROCORTISONE 1% CREAM 30 GM TOPICAL SCH (09:00)
[2016-12-01] MEDS: PANTOPRAZOLE SOD 40 MG DELAYED RELEASE TAB PO SCH (09:00)
[2016-12-01] MEDS: PERPHENAZINE 4 MG TAB PO SCH ×2 (12:00→16:00)
--- NOTE | 2016-12-01 14:53 | HHI.PYPN ---
Subjective Remarks Patient seen in day room with floor staff patient continues calm cooperative pleasant, though she also continues psychotic and delusional focusing primarily with her . She is compliant medications showing no behavioral issues Review of Systems Except as stated in HPI: all other systems reviewed are Neg Objective Alert: Yes [place]: Person, Place, Date Mood: Calm Affect: Restricted Memory Intact: Comment (fiar) Hallucinations: Other (no AVH reported) Delusions: Yes Delusion Type: Paranoid Suicidal: Ideation (no SI) Homicidal: Ideation (no HI) Insight/Judgment Very poor Vitals/IOs Vital Signs Date Time Temp Pulse Resp B/P Pulse Ox O2 Delivery O2 Flow Rate FiO2 12/01/16 06:12 97.9 88 22 122/53 100 Intake and Output 11/30/16 11/30/16 11/30/16 07:59 15:59 23:59 Intake Total 1320 ml 2190 ml Balance 1320 ml 2190 ml Assessment & Plan Problem List: (1) Schizoaffective disorder ICD Code: F25.9 Assessment & Plan Estimated LOS: days patient continue psychotic and delusional, compliant medications, no behavioral issues. For now continue treatment Justification for Cont. Inpt. At this time patient will decompensate if placed in a lower level of care Discharge Planning To be determined Problem Qualifiers (1) Schizoaffective disorder: Qualified Code: F25.1 - Schizoaffective disorder, depressive type Deacon Israel MD December 01, 2016 14:53
[2016-12-01 17:22] VITALS: BP 131/78; PULSE 87; RESP 18; TEMP 97.3
[2016-12-01] MEDS: OLANZapine ODT 15 MG TAB PO SCH (21:00)
[2016-12-01] MEDS: diphenhydrAMINE HCL 50 MG CAP - HS PRN PO (21:18)
[2016-12-02] MEDS: LORazepam 1 MG TAB PO PRN (01:18)
[2016-12-02 05:56] VITALS: BP 137/85; PULSE 85; RESP 18; TEMP 97.6; O2SAT 98
[2016-12-02] MEDS: ACETAMINOPHEN 325 MG TAB PO PRN (06:48)
[2016-12-02] MEDS: clonazePAM 1 MG TAB PO SCH ×2 (09:02→21:16)
[2016-12-02] MEDS: PANTOPRAZOLE SOD 40 MG DELAYED RELEASE TAB PO SCH (09:02)
[2016-12-02] MEDS: HYDROCORTISONE 1% CREAM 30 GM TOPICAL SCH (09:02)
[2016-12-02] MEDS: PERPHENAZINE 4 MG TAB PO SCH ×2 (12:00→16:00)
--- NOTE | 2016-12-02 16:30 | HHI.PYPN ---
Subjective Remarks Patient seen in [place] with floor staff. Chart reviewed. Patient continues delusional related to placement and going to an apartment with her . Though she showing no behavioral issues. Compliant medication Review of Systems Except as stated in HPI: all other systems reviewed are Neg Objective Alert: Yes [place]: Person, Place, Date Mood: Calm Affect: Restricted Memory Intact: Comment (fiar) Hallucinations: Other (no AVH reported) Delusions: Yes Delusion Type: Paranoid Suicidal: Ideation (no SI) Homicidal: Ideation (no HI) Insight/Judgment Very poor Vitals/IOs Vital Signs Date Time Temp Pulse Resp B/P Pulse Ox O2 Delivery O2 Flow Rate FiO2 12/02/16 05:56 97.6 85 18 137/85 98 Intake and Output 12/01/16 12/01/16 12/02/16 08:00 16:00 00:00 Intake Total 630 ml Balance 630 ml Assessment & Plan Problem List: (1) Schizoaffective disorder ICD Code: F25.9 Assessment & Plan Estimated LOS: days patient continue psychotic though no behavioral issues at this time. Compliant medications Justification for Cont. Inpt. At this time patient will decompensate if placed in the lower level of care Discharge Planning To be determined Problem Qualifiers (1) Schizoaffective disorder: Qualified Code: F25.1 - Schizoaffective disorder, depressive type Deacon Israel MD December 02, 2016 16:30
[2016-12-02] MEDS: OLANZapine ODT 15 MG TAB PO SCH (21:00)
[2016-12-03 05:19] VITALS: BP 130/89; PULSE 100; RESP 18; TEMP 98.3; O2SAT 96
--- NOTE | 2016-12-03 08:49 | HHI.PYPN ---
Subjective Remarks Patient seen in [place] with floor staff, patient continues calm also continues to focus on discharge will be friend of hers picking her up today. Patient however is no behavioral issues. For now continue treatment Review of Systems Except as stated in HPI: all other systems reviewed are Neg Objective Alert: Yes [place]: Person, Place, Date Mood: Calm Affect: Restricted Memory Intact: Comment (fiar) Hallucinations: Other (no AVH reported) Delusions: Yes Delusion Type: Paranoid Suicidal: Ideation (no SI) Homicidal: Ideation (no HI) Insight/Judgment Poor Vitals/IOs Vital Signs Date Time Temp Pulse Resp B/P Pulse Ox O2 Delivery O2 Flow Rate FiO2 12/03/16 05:19 98.3 100 18 130/89 96 Intake and Output 12/02/16 12/02/16 12/03/16 08:00 16:00 00:00 Intake Total 630 ml 960 ml 1080 ml Balance 630 ml 960 ml 1080 ml Assessment & Plan Problem List: (1) Schizoaffective disorder ICD Code: F25.9 Assessment & Plan Estimated LOS: days patient continues psychotic delusional, though no significant behavioral problems. Compliant medication Justification for Cont. Inpt. At this time patient would decompensate if placed in a lower level of care Discharge Planning To be determined Problem Qualifiers (1) Schizoaffective disorder: Qualified Code: F25.1 - Schizoaffective disorder, depressive type Deacon Israel MD Dec 03, 2016 08:49
[2016-12-03] MEDS: PANTOPRAZOLE SOD 40 MG DELAYED RELEASE TAB PO SCH (09:42)
[2016-12-03] MEDS: clonazePAM 1 MG TAB PO SCH ×2 (09:42→22:03)
[2016-12-03] MEDS: HYDROCORTISONE 1% CREAM 30 GM TOPICAL SCH (09:42)
[2016-12-03] MEDS: ACETAMINOPHEN 325 MG TAB PO PRN (11:18)
[2016-12-03] MEDS: PERPHENAZINE 4 MG TAB PO SCH ×2 (13:32→16:44)
[2016-12-03 18:00] VITALS: BP 117/78; PULSE 82; RESP 17; TEMP 98.3; O2SAT 100
[2016-12-03] MEDS: OLANZapine ODT 15 MG TAB PO SCH (21:00)
[2016-12-03] MEDS: NYSTATIN 100,000 U/GM PWD 15 GM BTL TOPICAL SCH (21:00)
[2016-12-04] MEDS: LORazepam 1 MG TAB PO PRN (01:11)
[2016-12-04] MEDS: ACETAMINOPHEN 325 MG TAB PO PRN ×2 (01:12→16:35)
[2016-12-04 06:00] VITALS: BP 128/82; PULSE 85; RESP 17; TEMP 97.8
[2016-12-04] MEDS: clonazePAM 1 MG TAB PO SCH ×2 (09:00→21:29)
[2016-12-04] MEDS: PANTOPRAZOLE SOD 40 MG DELAYED RELEASE TAB PO SCH (10:00)
[2016-12-04] MEDS: NYSTATIN 100,000 U/GM PWD 15 GM BTL TOPICAL SCH ×2 (10:01→21:29)
[2016-12-04] MEDS: HYDROCORTISONE 1% CREAM 30 GM TOPICAL SCH (10:02)
[2016-12-04] MEDS: PERPHENAZINE 4 MG TAB PO SCH ×2 (12:00→16:33)
--- NOTE | 2016-12-04 13:45 | HHI.PYPN ---
Subjective Remarks Patient seen in dayroom with floor staff, chart review, patient showing some mixed compliance medication today. Patient delusions related to her and family placement continue though she has no significant behavioral issues. For now continue treatment Review of Systems Except as stated in HPI: all other systems reviewed are Neg Objective Alert: Yes [place]: Person, Place, Date Mood: Calm Affect: Restricted Memory Intact: Comment (fiar) Hallucinations: Other (no AVH reported) Delusions: Yes Delusion Type: Paranoid Suicidal: Ideation (no SI) Homicidal: Ideation (no HI) Insight/Judgment Poor Vitals/IOs Vital Signs Date Time Temp Pulse Resp B/P Pulse Ox O2 Delivery O2 Flow Rate FiO2 12/04/16 06:00 97.8 85 17 128/82 12/03/16 18:00 100 Intake and Output 12/03/16 12/03/16 12/04/16 08:00 16:00 00:00 Intake Total 600 ml 960 ml 1440 ml Balance 600 ml 960 ml 1440 ml Assessment & Plan Problem List: (1) Schizoaffective disorder ICD Code: F25.9 Assessment & Plan Estimated LOS: days patient continues psychotic/delusional, though no significant behavioral problems. Compliant medications and is somewhat spotty Justification for Cont. Inpt. At this time patient will decompensate if placed on the lower level of care Discharge Planning To be determined Problem Qualifiers (1) Schizoaffective disorder: Qualified Code: F25.1 - Schizoaffective disorder, depressive type Deacon Israel MD Dec 04, 2016 13:45
[2016-12-04 19:31] VITALS: BP 126/86; PULSE 94; RESP 18; TEMP 98.4; O2SAT 98
[2016-12-04] MEDS: OLANZapine ODT 15 MG TAB PO SCH (21:29)
[2016-12-05 05:42] VITALS: BP 116/56; PULSE 87; RESP 18; TEMP 97.2; O2SAT 96
[2016-12-05] MEDS: HYDROCORTISONE 1% CREAM 30 GM TOPICAL SCH (09:19)
[2016-12-05] MEDS: clonazePAM 1 MG TAB PO SCH ×2 (09:19→21:28)
[2016-12-05] MEDS: PANTOPRAZOLE SOD 40 MG DELAYED RELEASE TAB PO SCH (09:19)
[2016-12-05] MEDS: NYSTATIN 100,000 U/GM PWD 15 GM BTL TOPICAL SCH ×2 (09:19→21:29)
[2016-12-05] MEDS: PERPHENAZINE 4 MG TAB PO SCH ×2 (12:00→16:00)
--- NOTE | 2016-12-05 14:19 | HHI.PYPN ---
Subjective Remarks Pt seen and discussed with staff. She has been pleasant and cooperative with staff. She presented RN with a letter featuring disorganized, bizarre writing. "Jackelyn had a baby. She was and he lived in [facility]" "THe wisdom Goat left and Bless this 17 year old 9-10 year old child" "Blessed Loza out of throat in the form of Blood and the Communion could presvent disease". Objective Alert: Yes [place]: Person, Place, Date Mood: Calm Affect: Restricted Memory Intact: Comment (fiar) Hallucinations: Other (no AVH reported) Delusions: Yes Delusion Type: Paranoid Suicidal: Ideation (no SI) Homicidal: Ideation (no HI) Insight/Judgment poor Vitals/IOs Vital Signs Date Time Temp Pulse Resp B/P Pulse Ox O2 Delivery O2 Flow Rate FiO2 12/05/16 05:42 97.2 87 18 116/56 96 Intake and Output 12/04/16 12/04/16 12/05/16 08:00 16:00 00:00 Intake Total 720 ml Balance 720 ml Assessment & Plan Problem List: (1) Schizoaffective disorder ICD Code: F25.9 Assessment & Plan continue current tx plan. Estimated LOS: days Justification for Cont. Inpt. impairments in reality constructiona nd self care Problem Qualifiers (1) Schizoaffective disorder: Qualified Code: F25.1 - Schizoaffective disorder, depressive type Ana Maria Toscano MD Dec 05, 2016 14:19
[2016-12-05 18:00] VITALS: BP 120/59; PULSE 86; RESP 18; TEMP 98; O2SAT 98
[2016-12-05] MEDS: OLANZapine ODT 15 MG TAB PO SCH (21:28)
[2016-12-05] MEDS: ACETAMINOPHEN 325 MG TAB PO PRN (21:29)
[2016-12-06] MEDS: diphenhydrAMINE HCL 50 MG CAP - HS PRN PO (00:10)
[2016-12-06] MEDS: ACETAMINOPHEN 325 MG TAB PO PRN ×2 (05:02→09:07)
[2016-12-06 06:00] VITALS: BP 125/58; PULSE 85; RESP 17; TEMP 97.7; O2SAT 97
[2016-12-06] MEDS: HYDROCORTISONE 1% CREAM 30 GM TOPICAL SCH (09:00)
[2016-12-06] MEDS: PANTOPRAZOLE SOD 40 MG DELAYED RELEASE TAB PO SCH (09:03)
[2016-12-06] MEDS: clonazePAM 1 MG TAB PO SCH ×2 (09:03→21:08)
[2016-12-06] MEDS: NYSTATIN 100,000 U/GM PWD 15 GM BTL TOPICAL SCH ×2 (09:09→21:08)
[2016-12-06] MEDS: PERPHENAZINE 4 MG TAB PO SCH ×2 (12:00→16:00)
--- NOTE | 2016-12-06 12:19 | HHI.PYPN ---
Subjective Remarks Pt seen and discussed with staff. She has not been agitated and cooperative with care. She remains highly delusional and psychotic. She states that AH are "all good things." No SI/HI Objective Alert: Yes [place]: Person, Place, Date Mood: Calm Affect: Restricted Memory Intact: Comment (fiar) Hallucinations: Other (internal stimulation) Delusions: Yes Delusion Type: Paranoid Suicidal: Ideation (no SI) Homicidal: Ideation (no HI) Insight/Judgment poor Vitals/IOs Vital Signs Date Time Temp Pulse Resp B/P Pulse Ox O2 Delivery O2 Flow Rate FiO2 12/06/16 06:00 97.7 85 17 125/58 97 Intake and Output 12/05/16 12/05/16 12/06/16 08:00 16:00 00:00 Intake Total 480 ml 720 ml 1590 ml Balance 480 ml 720 ml 1590 ml Assessment & Plan Problem List: (1) Schizoaffective disorder ICD Code: F25.9 Assessment & Plan Continue current tx plan. Estimated LOS: days Justification for Cont. Inpt. impairments in self care secondary to impairments in reality construction Problem Qualifiers (1) Schizoaffective disorder: Qualified Code: F25.1 - Schizoaffective disorder, depressive type Ana Maria Toscano MD Dec 06, 2016 12:19
[2016-12-06 18:55] VITALS: BP 133/76; PULSE 78; RESP 16; TEMP 98
[2016-12-06] MEDS: OLANZapine ODT 15 MG TAB PO SCH (21:08)
[2016-12-07] MEDS: diphenhydrAMINE HCL 50 MG CAP - HS PRN PO (01:12)
[2016-12-07] MEDS: LORazepam 1 MG TAB PO PRN (01:12)
[2016-12-07] MEDS: ACETAMINOPHEN 325 MG TAB PO PRN (01:21)
[2016-12-07 06:11] VITALS: BP 136/68; PULSE 72; RESP 20; TEMP 97.8; O2SAT 95
[2016-12-07] MEDS: PANTOPRAZOLE SOD 40 MG DELAYED RELEASE TAB PO SCH (11:16)
[2016-12-07] MEDS: NYSTATIN 100,000 U/GM PWD 15 GM BTL TOPICAL SCH ×2 (11:17→21:00)
[2016-12-07] MEDS: HYDROCORTISONE 1% CREAM 30 GM TOPICAL SCH (11:17)
[2016-12-07] MEDS: clonazePAM 1 MG TAB PO SCH ×2 (11:27→21:08)
--- NOTE | 2016-12-07 11:27 | PD.TTN ---
Present for Treatment Team Treatment Team Staff: Provider (Dr. Israel), Nurse (Peyton), Psych Therapist ( Praveena), Other (Apryl VANEGAS) Patient Problems 1. Discharge planning 2. Medication compliance 3. Knowledge deficit 4. Lack of coping skills Progress Toward Goals Provider Input: Patient has been medication compliant on the unit and has had some delusions in regards to "spirits" Nurse Input: Patient has had some behavioral issues, such as needing more snakcs and focusing on "spirits being in bed" and having difficulties going to sleep. Psych Therapist Input: Patient is pleasant and cooperative with minor internal stimuli. Counselor is working with Anna from [facility] for placement but insurance is an issue. Counselor also spoke with sister in regards to finacial aspect for placement. Ancillary Staff Input: Group Program Specalist Apryl Mello states patient does not attend group often. Praveena Arguello RMI Dec 07, 2016 11:27
[2016-12-07] MEDS: PERPHENAZINE 4 MG TAB PO SCH ×2 (12:50→16:05)
--- NOTE | 2016-12-07 15:41 | HHI.PYPN ---
Subjective Remarks Patient discussed with treatment team, patient seen on unit, chart review, patient compliant medication. Patient continues delusional having some slight increase somatic complaints especially about some diffuse pain in both lower legs. We'll have hospice consult was to assess that and make recommendations Review of Systems Except as stated in HPI: all other systems reviewed are Neg Objective Alert: Yes [place]: Person, Place, Date Mood: Calm Affect: Restricted Memory Intact: Comment (fiar) Hallucinations: Other (internal stimulation) Delusions: Yes Delusion Type: Paranoid Suicidal: Ideation (no SI) Homicidal: Ideation (no HI) Insight/Judgment Very poor Vitals/IOs Vital Signs Date Time Temp Pulse Resp B/P Pulse Ox O2 Delivery O2 Flow Rate FiO2 12/07/16 06:11 97.8 72 20 136/68 95 Intake and Output 12/06/16 12/06/16 12/07/16 08:00 16:00 00:00 Intake Total 480 ml 1920 ml 1020 ml Balance 480 ml 1920 ml 1020 ml Assessment & Plan Problem List: (1) Schizoaffective disorder ICD Code: F25.9 Assessment & Plan Estimated LOS: days patient continue psychotic and delusional. Some vague somatic complaints related to her lower legs. Level hospitalist consult Justification for Cont. Inpt. At this time patient will decompensate if placed on a lower level of care Discharge Planning To be determined Problem Qualifiers (1) Schizoaffective disorder: Qualified Code: F25.1 - Schizoaffective disorder, depressive type Deacon Israel MD Dec 07, 2016 15:40
[2016-12-07 18:00] VITALS: BP 132/71; PULSE 95; RESP 18; TEMP 97.9; O2SAT 99
--- NOTE | 2016-12-07 18:23 | PD.CONS ---
HPI Service [facility] Hospitalists Consult Requested By Dr. Israel Reason for Consult Long hospitalization, medical assessment and evaluation Primary Care Physician Martinez Johns M.D. Diagnoses: (1) Obesity (2) HTN (hypertension) (3) Schizoaffective disorder History of Present Illness Written by Becca Garza, acting as scribe for Dr. Gutiérrez on 12/07/16 at 18:18. Ms. Dean is a 56-year-old female patient with a known history of schizophrenia who presented to the hospital in September after a paranoid, psychotic episode of screaming and internal stimulation. Patient has been managed by Psychiatry. Hospitalist team has been consulted for medical management, assessment and evaluation due to long hospitalization and for any further recommendations in medical treatment. Patient seen and examined in psych unit 2500. Patient sitting in her room in a chair comfortably, no apparent distress. Patient has many somatic complaints such as generalized pain , aching in nature, and currently a 4/10 on pain scale, aggravated by walking. No lower extremity edema noted. Denies any recent trauma. Patient seems to have flight of ideas and was difficult to obtain accurate medical information. Medical records reviewed as well. Denies any recent fever, chills, cough, headache, dizziness, shortness of breath, abdominal pain, n/v or dysuria. Patient states "she is ready to get out of here". Is pleasantly confused. Following commands appropriately. Afebrile. VSS. Review of Systems Musculoskeletal: COMPLAINS OF: Muscle aches Psychiatric: COMPLAINS OF: Delusions Except as stated in HPI: all other systems reviewed are Neg Past Family Social History Allergies: Coded Allergies: Iodine (Unverified Allergy, Unknown, 09/12/16) Penicillin (Unverified Allergy, Unknown, 09/12/16) Past Medical History Schizophrenia with psychosis Hypertension Arthritis Migraine headaches Past Surgical History Patient denies any prior surgeries. Reported Medications Active Perphenazine 16 Mg Tab 16 Mg PO 2 HS Pantoprazole (Pantoprazole Sodium) 40 Mg Tab 40 Mg PO DAILY Zyprexa Zydis (Olanzapine) 15 Mg Tab 30 Mg PO 2 PO HS Klonopin (Clonazepam) 1 Mg Tab 2 Mg PO HS Klonopin (Clonazepam) 1 Mg Tab 1 Mg PO DAILY Reported [Invega] IM MONTHLY Pantoprazole (Pantoprazole Sodium) 40 Mg Tab 40 Mg PO DAILY Perphenazine 4 Mg Tab 8 Mg PO HS Perphenazine 4 Mg Tab 4 Mg PO DAILY Active Ordered Medications Current Medications Medications (Trade) Dose Ordered Sig/Jeremias Route Start Time Stop Time Status Last Admin (Ativan) 1 mg Q6H PRN PO 09/12/16 22:00 12/07/16 01:12 (Ativan Inj) 1 mg Q6H PRN IM 09/12/16 22:00 11/05/16 05:39 (Benadryl) 50 mg HS PRN PO 09/12/16 22:00 12/07/16 01:12 (Tylenol) 650 mg Q4H PRN PO 09/12/16 22:00 12/07/16 01:21 (Milk Of Magnesia Liq) 30 ml DAILY PRN PO 09/12/16 22:00 09/30/16 17:30 (Mag-Al Plus Susp Liq) 30 ml Q6H PRN PO 09/12/16 22:00 11/14/16 12:56 (Protonix) 40 mg DAILY PO 09/13/16 09:00 12/07/16 11:16 (Pill Splitter) 1 ea UNSCH PRN OTHER 09/21/16 15:30 (KlonoPIN) 2 mg HS PO 10/16/16 21:00 12/06/16 21:08 (Trilafon) 28 mg DAILY@12,16 PO 10/20/16 16:00 12/07/16 16:05 (Chapstick) 1 applic Q2H PRN TOPICAL 10/25/16 16:30 (Hydrocortisone 1% Cream) 1 applic DAILY TOPICAL 10/27/16 09:00 12/07/16 11:17 (KlonoPIN) 1 mg DAILY PO 11/03/16 09:00 12/07/16 11:27 (ZyPREXA ZYDIS ODT) 30 mg HS PO 11/20/16 21:00 12/06/16 21:08 (Mycostatin Powder) 1 applic Q12HR TOPICAL 12/03/16 21:00 12/07/16 11:17 Family History Patient questioned regarding significant family medical history, patient states "it is undercover". Unable to obtain any meaningful information. Social History Denies any past or present tobacco use. Denies any alcohol use. Denies any illicit drug use. Physical Exam Vital Signs Vital Signs Date Time Temp Pulse Resp B/P Pulse Ox O2 Delivery O2 Flow Rate FiO2 12/07/16 06:11 97.8 72 20 136/68 95 12/06/16 18:55 98.0 78 16 133/76 Physical Exam GENERAL: An obese, female patient, sitting in chair in no apparent distress. SKIN: No rashes, ecchymoses or lesions. Warm and dry. HEENT: Atraumatic. Normocephalic. No temporal or scalp tenderness. Pupils equal round and reactive. Extraocular motions intact. No scleral icterus. No injection or drainage. Nose without bleeding, purulent drainage or septal hematoma. Throat without erythema, tonsillar hypertrophy or exudate. Uvula midline. Airway patent. NECK: Trachea midline. No JVD. Supple. CARDIOVASCULAR: Regular rate and rhythm. No murmur appreciated. RESPIRATORY: Clear to auscultation. Breath sounds equal bilaterally. No wheezes , rales, or rhonchi. GASTROINTESTINAL: Abdomen soft, obese, non-tender, nondistended. No guarding. MUSCULOSKELETAL: Extremities without clubbing, cyanosis, or edema. No joint tenderness, effusion, or edema noted. NEUROLOGICAL: Awake and alert. Cranial nerves II through XII intact. Motor and sensory grossly within normal limits. Five out of 5 muscle strength in all muscle groups. Normal speech. Assessment and Plan Assessment and Plan Ms. Dean is a 56-year-old female patient with a known history of schizophrenia who presented to the hospital in September after a paranoid, psychotic episode of screaming and internal stimulation. Patient has been managed by Psychiatry. Hospitalist team has been consulted for medical management, assessment and evaluation due to long hospitalization and for any further recommendations in medical treatment. Schizophrenia with psychosis: Management per psychiatry team. Continue medication regimen. Hypertension, chronic: Stable at this time. Monitor. Arthritis, chronic: Complains of generalized aching and somatic complaints. Start Ibuprofen 600 mg PO Q6hr PRN per pain scale. Will consult PT for evaluation and treatment. Other chronic medical problems include migraine headaches and are stable at this time. DVT prophylaxis: Encourage ambulation. Thank you for this consult. Patient seen. No further recommendations at this time. Reconsult if needed. This note was transcribed by aria Garza. I, Dr. El Gutiérrez personally performed the history, physical exam, and medical decision making; and confirmed the accuracy of the information in the transcribed note. Authenticated by Dr. El Gutiérrez on 12/07/16 at 18:18. Code Status Full code Discussed Condition With Patient Problem Qualifiers (1) Schizoaffective disorder: Qualified Code: F25.1 - Schizoaffective disorder, depressive type Becca Garza Dec 07, 2016 18:23 El Gutiérrez MD Dec 07, 2016 18:30
[2016-12-07] MEDS: OLANZapine ODT 15 MG TAB PO SCH (21:00)
[2016-12-08] MEDS: ACETAMINOPHEN 325 MG TAB PO PRN (00:20)
[2016-12-08 05:50] VITALS: BP 135/65; PULSE 80; RESP 18; TEMP 98; O2SAT 97
[2016-12-08] MEDS: IBUPROFEN 600 MG TAB PO PRN ×2 (06:14→16:24)
[2016-12-08 07:48] LABS: AUTOMATED NEUTROPHIL # 2.1 TH/MM3 (1.8-7.7); BASOPHIL % 0.3 % (0.0-2.0); EOSINOPHIL % 0.1 % (0.0-4.0); HEMATOCRIT 37.5 % (35.0-46.0); HEMO FLAGS DIFF FINAL; LYMPHOCYTE # 2.5 TH/MM3 (1.0-4.8); MEAN CELL VOLUME 89.9 FL (80.0-100.0); MEAN CORPUSCULAR HEMOGLOBIN 30.4 PG (27.0-34.0); MEAN CORPUSCULAR HGB CONC 33.8 % (32.0-36.0); NEUT % 41.6 % (16.0-70.0); PLATELET COUNT 262 TH/MM3 (150-450); RED BLOOD COUNT 4.17 MIL/MM3 (4.00-5.30); RED CELL DISTRIBUTION WIDTH 13.6 % (11.6-17.2); WHITE BLOOD COUNT 5.1 TH/MM3 (4.0-11.0)
[2016-12-08 08:08] LABS: POTASSIUM 3.9 MEQ/L (3.5-5.1)
[2016-12-08] MEDS: PANTOPRAZOLE SOD 40 MG DELAYED RELEASE TAB PO SCH (09:01)
[2016-12-08] MEDS: clonazePAM 1 MG TAB PO SCH ×2 (09:01→20:45)
[2016-12-08] MEDS: NYSTATIN 100,000 U/GM PWD 15 GM BTL TOPICAL SCH ×2 (09:01→20:45)
[2016-12-08] MEDS: HYDROCORTISONE 1% CREAM 30 GM TOPICAL SCH (09:01)
[2016-12-08] MEDS: PERPHENAZINE 4 MG TAB PO SCH ×2 (12:36→16:16)
--- NOTE | 2016-12-08 13:32 | HHI.PYPN ---
Subjective Remarks Patient seen in dayroom eating lunch, patient calm cooperative pleasant with me though continues delusional stated that again her visited her last night. Patient no significant behavior problems with this and compliant with medications Review of Systems Except as stated in HPI: all other systems reviewed are Neg Objective Alert: Yes [place]: Person, Place, Date Mood: Calm Affect: Restricted Memory Intact: Comment (fiar) Hallucinations: Other (internal stimulation) Delusions: Yes Delusion Type: Paranoid Suicidal: Ideation (no SI) Homicidal: Ideation (no HI) Insight/Judgment Very poor Labs Test 12/08/16 06:43 White Blood Count 5.1 TH/MM3 Red Blood Count 4.17 MIL/MM3 Hemoglobin 12.7 GM/DL Hematocrit 37.5 % Mean Corpuscular Volume 89.9 FL Mean Corpuscular Hemoglobin 30.4 PG Mean Corpuscular Hemoglobin 33.8 % Concent Red Cell Distribution Width 13.6 % Platelet Count 262 TH/MM3 Mean Platelet Volume 8.5 FL Neutrophils (%) (Auto) 41.6 % Lymphocytes (%) (Auto) 49.0 % Monocytes (%) (Auto) 9.0 % Eosinophils (%) (Auto) 0.1 % Basophils (%) (Auto) 0.3 % Neutrophils # (Auto) 2.1 TH/MM3 Lymphocytes # (Auto) 2.5 TH/MM3 Monocytes # (Auto) 0.5 TH/MM3 Eosinophils # (Auto) 0.0 TH/MM3 Basophils # (Auto) 0.0 TH/MM3 CBC Comment DIFF FINAL Differential Comment Sodium Level 141 MEQ/L Potassium Level 3.9 MEQ/L Chloride Level 106 MEQ/L Carbon Dioxide Level 29.0 MEQ/L Anion Gap 6 MEQ/L Blood Urea Nitrogen 13 MG/DL Creatinine 0.80 MG/DL Estimat Glomerular Filtration 90 ML/MIN Rate Random Glucose 81 MG/DL Calcium Level 8.9 MG/DL Vitals/IOs Vital Signs Date Time Temp Pulse Resp B/P Pulse Ox O2 Delivery O2 Flow Rate FiO2 12/08/16 05:50 98.0 80 18 135/65 97 Intake and Output 12/07/16 12/07/16 12/07/16 07:59 15:59 23:59 Intake Total 240 ml 1800 ml 960 ml Balance 240 ml 1800 ml 960 ml Assessment & Plan Problem List: (1) Schizoaffective disorder ICD Code: F25.9 Assessment & Plan Estimated LOS: days patient continue psychotic, delusional. Compliant medications. Continues to isolate somewhat, but no behavioral issues. For now continue treatment Justification for Cont. Inpt. At this time patient will decompensate if placed on a lower level of care Discharge Planning To be determined Problem Qualifiers (1) Schizoaffective disorder: Qualified Code: F25.1 - Schizoaffective disorder, depressive type Deacon Israel MD Dec 08, 2016 13:32
[2016-12-08 18:03] VITALS: BP 143/82; PULSE 89; RESP 18; TEMP 98.2; O2SAT 100
[2016-12-08] MEDS: OLANZapine ODT 15 MG TAB PO SCH (20:45)
[2016-12-09] MEDS: diphenhydrAMINE HCL 50 MG CAP - HS PRN PO ×2 (00:24→20:25)
[2016-12-09] MEDS: IBUPROFEN 600 MG TAB PO PRN (00:24)
[2016-12-09 05:31] VITALS: BP 106/55; PULSE 76; RESP 18; TEMP 97.2; O2SAT 98
[2016-12-09] MEDS: HYDROCORTISONE 1% CREAM 30 GM TOPICAL SCH (09:00)
[2016-12-09] MEDS: NYSTATIN 100,000 U/GM PWD 15 GM BTL TOPICAL SCH ×2 (09:33→20:26)
[2016-12-09] MEDS: clonazePAM 1 MG TAB PO SCH ×2 (09:33→20:26)
[2016-12-09] MEDS: PANTOPRAZOLE SOD 40 MG DELAYED RELEASE TAB PO SCH (09:33)
--- NOTE | 2016-12-09 09:55 | HHI.PYPN ---
Subjective Remarks Patient seen in dayroom with floor staff, chart reviewed, patient compliant medications. She remains delusional, though no behavioral problems. Review of Systems Except as stated in HPI: all other systems reviewed are Neg Objective Alert: Yes [place]: Person, Place, Date Mood: Calm Affect: Restricted Memory Intact: Comment (fiar) Hallucinations: Other (internal stimulation) Delusions: Yes Delusion Type: Paranoid Suicidal: Ideation (no SI) Homicidal: Ideation (no HI) Insight/Judgment Very poor Vitals/IOs Vital Signs Date Time Temp Pulse Resp B/P Pulse Ox O2 Delivery O2 Flow Rate FiO2 12/09/16 05:31 97.2 76 18 106/55 98 Intake and Output 12/08/16 12/08/16 12/09/16 08:00 16:00 00:00 Intake Total 240 ml 480 ml Balance 240 ml 480 ml Assessment & Plan Problem List: (1) Schizoaffective disorder ICD Code: F25.9 Assessment & Plan Estimated LOS: days patient is confusion psychotic, delusional. But no behavioral problems Justification for Cont. Inpt. At this time patient will decompensate then placed in a lower level of care Discharge Planning To be determined Problem Qualifiers (1) Schizoaffective disorder: Qualified Code: F25.1 - Schizoaffective disorder, depressive type Deacon Israel MD Dec 09, 2016 09:55
[2016-12-09] MEDS: PERPHENAZINE 4 MG TAB PO SCH ×2 (12:00→16:00)
--- NOTE | 2016-12-09 13:34 | HHI.PR ---
Subjective Remarks Follow-up on patient with schizophrenia, hypertension, migraine headaches, and chronic arthritis. Patient seen and examined today. administrative aide brought to attention patient's been having increased swelling in the right upper extremity as well as both lower extremities. Patient complains of pain in both lower extremities. She also limitation in movement in the left shoulder but denies any associated pain. Patient denies any other complaints of fever or chills. No nausea vomiting or abdominal pain. No chest pain or shortness of breath. Objective Vitals Vital Signs Date Time Temp Pulse Resp B/P Pulse Ox O2 Delivery O2 Flow Rate FiO2 12/09/16 05:31 97.2 76 18 106/55 98 12/08/16 18:03 98.2 89 18 143/82 100 I/O 12/08/16 12/08/16 12/08/16 12/09/16 12/09/16 12/09/16 07:00 15:00 23:00 07:00 15:00 23:00 Intake Total 240 ml 480 ml 480 ml Balance 240 ml 480 ml 480 ml Intake Oral 240 ml 480 ml Oral Supplement 480 ml # Voids 2 2 2 Result Diagram: 12/08/1643 12/08/16 0643 Objective Remarks GENERAL: Well-nourished, well-developed patient in NAD. Sitting calmly in her chair in her room. Appears comfortable. SKIN: Warm and dry. No rash. HEENT: Normocephalic. Atraumatic. EOMI. MMM. CARDIOVASCULAR: Regular rate and rhythm. S1, S2 noted. No murmur appreciated. RESPIRATORY: No accessory muscle use. Clear to auscultation. Breath sounds equal bilaterally. GASTROINTESTINAL: Abdomen soft, non-tender, nondistended. Normoactive bowel sounds x4. MUSCULOSKELETAL: No obvious deformities. Extremities without clubbing or cyanosis. Right upper extremity does appear larger in comparison to the left although this may be due to more subcutaneous fat on the right side. Right upper extremity is nontender to palpation. She has good range of motion in all planes of the right shoulder. There is limitation in range of motion of the left shoulder especially with reaching overhead. Abduction limited on the left to about 70. Mild nonpitting edema noted in both lower extremities and in the right slightly more so than the left. (+)Tenderness elicited to palpation bilateral calves which are supple. NEUROLOGICAL: Awake and alert. No obvious cranial nerve deficits. Motor grossly within normal limits. 5/5 muscle strength in bilateral upper and lower extremities. Normal speech. PSYCHIATRIC: Appropriate mood and affect; insight and judgment normal. Medications and IVs Current Medications Medications (Trade) Dose Ordered Sig/Jeremias Route Start Time Stop Time Status Last Admin (Ativan) 1 mg Q6H PRN PO 09/12/16 22:00 12/07/16 01:12 (Ativan Inj) 1 mg Q6H PRN IM 09/12/16 22:00 11/05/16 05:39 (Benadryl) 50 mg HS PRN PO 09/12/16 22:00 12/09/16 00:24 (Tylenol) 650 mg Q4H PRN PO 09/12/16 22:00 12/08/16 00:20 (Milk Of Magnesia Liq) 30 ml DAILY PRN PO 09/12/16 22:00 09/30/16 17:30 (Mag-Al Plus Susp Liq) 30 ml Q6H PRN PO 09/12/16 22:00 11/14/16 12:56 (Protonix) 40 mg DAILY PO 09/13/16 09:00 12/09/16 09:33 (Pill Splitter) 1 ea UNSCH PRN OTHER 09/21/16 15:30 (KlonoPIN) 2 mg HS PO 10/16/16 21:00 12/08/16 20:45 (Trilafon) 28 mg DAILY@12,16 PO 10/20/16 16:00 12/09/16 12:00 (Chapstick) 1 applic Q2H PRN TOPICAL 10/25/16 16:30 (Hydrocortisone 1% Cream) 1 applic DAILY TOPICAL 10/27/16 09:00 12/08/16 09:01 (KlonoPIN) 1 mg DAILY PO 11/03/16 09:00 12/09/16 09:33 (ZyPREXA ZYDIS ODT) 30 mg HS PO 11/20/16 21:00 12/08/16 20:45 (Mycostatin Powder) 1 applic Q12HR TOPICAL 12/03/16 21:00 12/09/16 09:33 (Motrin) 600 mg Q8H PRN PO 12/07/16 18:30 12/09/16 00:24 A/P Problem List: (1) Obesity ICD Code: E66.9 Status: Acute (2) HTN (hypertension) ICD Code: I10 Status: Acute (3) Schizoaffective disorder ICD Code: F25.9 Status: Acute Assessment and Plan Ms. Dean is a 56-year-old female patient with a known history of schizophrenia who presented to the hospital in September after a paranoid, psychotic episode of screaming and internal stimulation. Patient has been managed by Psychiatry. Hospitalist team has been consulted for medical management, assessment and evaluation due to long hospitalization and for any further recommendations in medical treatment. Schizophrenia with psychosis: Management per psychiatry team. Continue medication regimen. Hypertension, chronic: Soft BP 106/55 this am otherwise BP is stable. Continue to monitor blood pressure off any antihypertensive medications Arthritis, chronic: No complaints of pain today. Continue Ibuprofen 600 mg PO Q6hr PRN per pain scale. Continue participation with PT. Limited ROM in LUE Suspect rotator cuff pathology Recommend follow-up with orthopedist as outpatient Edema right upper extremity and bilateral lower extremities Doppler ultrasound ruled out DVT Follow up on results Other chronic medical problems include migraine headaches and are stable at this time. DVT prophylaxis: Encourage ambulation. Discussed with nursing staff, patient and Dr. Willingham Problem Qualifiers (1) Schizoaffective disorder: Qualified Code: F25.1 - Schizoaffective disorder, depressive type Мария Boggs Dec 09, 2016 13:34
--- NOTE | 2016-12-09 17:16 | RADRPT ---
EXAM DATE/TIME: 12/09/2016 16:15 [facility] COMPARISON: No previous studies available for comparison. INDICATIONS : Bilateral leg swelling and pain. MEDICAL HISTORY : Hypertension. Arthritis. Schizophrenia. Depression. SURGICAL HISTORY : Hysterectomy. ENCOUNTER: Initial ACUITY: 1 day PAIN SCORE: 3/10 LOCATION: Bilateral legs. TECHNIQUE: Venous ultrasound of the left and right leg was performed from the inguinal ligament to the proximal calf. Real-time, color Doppler and spectral tracing, compression and augmentation techniques were us ed. FINDINGS: RIGHT LEG: There is normal compressibility of the deep venous system from the inguinal region to the proximal ca lf. No echogenic clot is seen in the lumen of the common femoral, femoral, popliteal, and posterior tibial veins. There is a normal response of the venous system to proximal and distal augmentation an d respiration. LEFT LEG: There is normal compressibility of the deep venous system from the inguinal region to the proximal ca lf. No echogenic clot is seen in the lumen of the common femoral, femoral, popliteal, and posterior tibial veins. There is a normal response of the venous system to proximal and distal augmentation an d respiration. CONCLUSION: 1. No DVT identified. Gee Sutton MD on December 09, 2016 at 17:14 Board Certified Radiologist. This report was verified electronically.
--- NOTE | 2016-12-09 17:19 | RADRPT ---
EXAM DATE/TIME: 12/09/2016 16:33 [facility] COMPARISON: US LEG BILATERAL VENOUS DOPPLER, December 09, 2016, 16:15. INDICATIONS : Right arm swelling. MEDICAL HISTORY : Hypertension. Arthritis. Schizophrenia. Depression. SURGICAL HISTORY : Hysterectomy. ENCOUNTER: Initial ACUITY: 1 day PAIN SCORE: 3/10 LOCATION: Right arm. FINDINGS: There is spontaneous flow documented in the brachial, basilic, cephalic, axillary, and subclavian vei ns. The vessels are compressible and augmentation response is documented. No filling defects are se en. The flow is phasic with respiration. Direction of flow in the jugular vein is caudal. CONCLUSION: 1. Negative examination. Gee Sutton MD on December 09, 2016 at 17:16 Board Certified Radiologist. This report was verified electronically.
[2016-12-09 19:49] VITALS: BP 152/70; PULSE 89; RESP 18; TEMP 98.2
[2016-12-09] MEDS: OLANZapine ODT 15 MG TAB PO SCH (20:25)
[2016-12-10 05:00] VITALS: BP 133/74; PULSE 92; RESP 17; TEMP 98; O2SAT 98
--- NOTE | 2016-12-10 08:09 | PD.TTN ---
Present for Treatment Team Treatment Team Staff: Provider (Dr. Israel), Nurse (Noreen), Psych Therapist (Praveena) Patient Problems 1. Discharge planning 2. Medication compliance 3. Knowledge deficit 4. Lack of coping skills Progress Toward Goals Provider Input: No change in baseline. patient is medication compliant. Nurse Input: No behavioral issues on unit. Patient writing letters but no issues and is semi appropriate with staff Psych Therapist Input: Patient is has fixed delusions that continue. Place is still issue. Praveena Arguello [facility] Dec 10, 2016 08:09
[2016-12-10] MEDS: HYDROCORTISONE 1% CREAM 30 GM TOPICAL SCH (08:13)
[2016-12-10] MEDS: clonazePAM 1 MG TAB PO SCH ×2 (08:13→20:18)
[2016-12-10] MEDS: PANTOPRAZOLE SOD 40 MG DELAYED RELEASE TAB PO SCH (08:13)
[2016-12-10] MEDS: NYSTATIN 100,000 U/GM PWD 15 GM BTL TOPICAL SCH ×2 (08:13→20:19)
--- NOTE | 2016-12-10 11:11 | HHI.PYPN ---
Subjective Remarks Patient seen in day room with nurse Noreen, chart reviewed, patient compliant medications. Patient continues no behavioral problem, though she still remains delusional stating that her was here last night and talk to her in bed. Today she is also stating that throughout [place] devices out there to help keep oral peace Review of Systems Except as stated in HPI: all other systems reviewed are Neg Objective Alert: Yes [place]: Person, Place, Date Mood: Calm Affect: Restricted Memory Intact: Comment (fiar) Hallucinations: Other (internal stimulation) Delusions: Yes Delusion Type: Paranoid Suicidal: Ideation (no SI) Homicidal: Ideation (no HI) Insight/Judgment Very poor Vitals/IOs Vital Signs Date Time Temp Pulse Resp B/P Pulse Ox O2 Delivery O2 Flow Rate FiO2 12/10/16 05:00 98.0 92 17 133/74 98 Intake and Output 12/09/16 12/09/16 12/10/16 08:00 16:00 00:00 Intake Total 240 ml 1200 ml 1470 ml Balance 240 ml 1200 ml 1470 ml Assessment & Plan Problem List: (1) Schizoaffective disorder ICD Code: F25.9 Assessment & Plan Estimated LOS: days patient continues psychotic and delusional, though no behavior problems, compliant medications. For now continue treatment Justification for Cont. Inpt. At this time patient will decompensate if placed on the lower level of care Discharge Planning To be determined Problem Qualifiers (1) Schizoaffective disorder: Qualified Code: F25.1 - Schizoaffective disorder, depressive type Deacon Israel MD Dec 10, 2016 11:11
[2016-12-10] MEDS: PERPHENAZINE 4 MG TAB PO SCH ×2 (11:23→16:00)
[2016-12-10] MEDS: IBUPROFEN 600 MG TAB PO PRN (11:23)
--- NOTE | 2016-12-10 15:39 | HHI.PR ---
Addendum to Inpatient Note Additional Information Chart reviewed. Dopplers negative for DVT. Patient medically stable. Will sign off for now. Please reconsult if needed. Discussed with Dr. Maulik Boggs,Мария FREED Dec 10, 2016 15:39
[2016-12-10 18:00] VITALS: BP 124/83; PULSE 86; RESP 18; TEMP 98.4; O2SAT 98
[2016-12-10] MEDS: OLANZapine ODT 15 MG TAB PO SCH (20:18)
[2016-12-10] MEDS: diphenhydrAMINE HCL 50 MG CAP - HS PRN PO (20:19)
[2016-12-10] MEDS: ACETAMINOPHEN 325 MG TAB PO PRN (23:35)
[2016-12-11 05:00] VITALS: BP 133/80; PULSE 84; RESP 18; TEMP 96.8; O2SAT 97
[2016-12-11] MEDS: NYSTATIN 100,000 U/GM PWD 15 GM BTL TOPICAL SCH ×2 (09:00→21:00)
[2016-12-11] MEDS: PANTOPRAZOLE SOD 40 MG DELAYED RELEASE TAB PO SCH (09:07)
[2016-12-11] MEDS: clonazePAM 1 MG TAB PO SCH ×2 (09:08→20:18)
[2016-12-11] MEDS: HYDROCORTISONE 1% CREAM 30 GM TOPICAL SCH (09:09)
--- NOTE | 2016-12-11 11:26 | HHI.PYPN ---
Subjective Remarks Patient seen in day room sitting in Jacquie chair, patient seen with nurse Gilbert, chart review, patient compliant medications. Patient continues delusional stating that her visit her again last night. Patient continues to show no insight into her disease. The delusions persist. For now continue treatment Review of Systems Except as stated in HPI: all other systems reviewed are Neg Objective Alert: Yes [place]: Person, Place, Date Mood: Calm Affect: Restricted Memory Intact: Comment (fiar) Hallucinations: Other (internal stimulation) Delusions: Yes Delusion Type: Paranoid Suicidal: Ideation (no SI) Homicidal: Ideation (no HI) Insight/Judgment Very poor Vitals/IOs Vital Signs Date Time Temp Pulse Resp B/P Pulse Ox O2 Delivery O2 Flow Rate FiO2 12/11/16 05:00 96.8 84 18 133/80 97 Intake and Output 12/10/16 12/10/16 12/10/16 07:59 15:59 23:59 Intake Total 240 ml 2520 ml 1260 ml Balance 240 ml 2520 ml 1260 ml Assessment & Plan Problem List: (1) Schizoaffective disorder ICD Code: F25.9 Assessment & Plan Estimated LOS: days patient continues psychotic and delusional, compliant medications, no behavioral problems. Justification for Cont. Inpt. At this time patient will decompensate the placed in a lower level of care Discharge Planning To be determined Problem Qualifiers (1) Schizoaffective disorder: Qualified Code: F25.1 - Schizoaffective disorder, depressive type Deacon Israel MD Dec 11, 2016 11:26
[2016-12-11] MEDS: PERPHENAZINE 4 MG TAB PO SCH ×2 (12:51→16:26)
[2016-12-11 17:36] VITALS: BP 142/87; PULSE 90; RESP 20; TEMP 97.8
[2016-12-11] MEDS: MAGNESIUM HYDROXIDE SUSP 30 ML CUP PO PRN (17:43)
[2016-12-11 18:09] VITALS: BP 142/87; PULSE 90; RESP 20; TEMP 97.8; O2SAT 100
[2016-12-11] MEDS: ALUMINUM/MAGNESIUM/SIMETH 30 ML CUP PO PRN (20:17)
[2016-12-11] MEDS: OLANZapine ODT 15 MG TAB PO SCH (20:18)
[2016-12-11] MEDS: IBUPROFEN 600 MG TAB PO PRN (20:18)
[2016-12-12] MEDS: LORazepam 1 MG TAB PO PRN (03:09)
[2016-12-12] MEDS: IBUPROFEN 600 MG TAB PO PRN ×3 (03:45→20:40)
[2016-12-12 05:54] VITALS: BP 135/65; PULSE 77; RESP 56; TEMP 97.8; O2SAT 97
[2016-12-12] MEDS: NYSTATIN 100,000 U/GM PWD 15 GM BTL TOPICAL SCH ×3 (09:00→20:42)
[2016-12-12] MEDS: PANTOPRAZOLE SOD 40 MG DELAYED RELEASE TAB PO SCH (09:32)
[2016-12-12] MEDS: clonazePAM 1 MG TAB PO SCH ×2 (09:32→20:39)
[2016-12-12] MEDS: HYDROCORTISONE 1% CREAM 30 GM TOPICAL SCH (09:34)
[2016-12-12] MEDS: PERPHENAZINE 4 MG TAB PO SCH ×2 (12:30→16:24)
--- NOTE | 2016-12-12 13:53 | HHI.PYPN ---
Subjective Remarks Patient remains delusional and disorganized. Patient says she stayed up all night because she is fighting the "cams." These are computer set up by the [place] in the [place] to control people's minds. Continues to get messages from God" the people below area" mood is pleasant and somewhat elevated. Compliant with medications Objective Alert: Yes [place]: Person, Place, Date Mood: Calm Affect: Blunted Memory Intact: Comment (fiar) Hallucinations: Auditory (messages from God), Other (internal stimulation) Delusions: Yes Delusion Type: Paranoid (bizarre delusions) Suicidal: Ideation (no SI) Homicidal: Ideation (no HI) Insight/Judgment Poor Vitals/IOs Vital Signs Date Time Temp Pulse Resp B/P Pulse Ox O2 Delivery O2 Flow Rate FiO2 12/12/16 05:54 97.8 77 56 135/65 97 Intake and Output 12/11/16 12/11/16 12/12/16 08:00 16:00 00:00 Intake Total 480 ml 1680 ml 1320 ml Balance 480 ml 1680 ml 1320 ml Assessment & Plan Problem List: (1) Schizoaffective disorder ICD Code: F25.9 Assessment & Plan Continue current treatment plan Justification for Cont. Inpt. Patient will decompensate in a less restrictive setting Problem Qualifiers (1) Schizoaffective disorder: Qualified Code: F25.1 - Schizoaffective disorder, depressive type John Winters DO Dec 12, 2016 13:53
[2016-12-12 18:00] VITALS: BP 116/57; PULSE 88; RESP 16; TEMP 97.5; O2SAT 99
[2016-12-12] MEDS: OLANZapine ODT 15 MG TAB PO SCH (20:40)
[2016-12-13 06:40] VITALS: BP 150/74; PULSE 92; RESP 18; TEMP 97.8; O2SAT 100
[2016-12-13] MEDS: clonazePAM 1 MG TAB PO SCH ×2 (09:20→20:20)
[2016-12-13] MEDS: PANTOPRAZOLE SOD 40 MG DELAYED RELEASE TAB PO SCH (09:20)
[2016-12-13] MEDS: NYSTATIN 100,000 U/GM PWD 15 GM BTL TOPICAL SCH ×2 (09:21→20:22)
[2016-12-13] MEDS: HYDROCORTISONE 1% CREAM 30 GM TOPICAL SCH (09:22)
--- NOTE | 2016-12-13 12:45 | HHI.PYPN ---
Subjective Remarks Patient was seen and case discussed with nursing. Patient is sleepy today after waking up at 4:30 AM last night and asking for food. She remains less psychotic and only discusses her delusions after being asked. His compliant with her medications and behaving well on the unit. Denies suicidal ideation intent or plan Objective Alert: Yes [place]: Person, Place, Date Mood: Calm Affect: Blunted Memory Intact: Comment (fiar) Hallucinations: Auditory (messages from God), Other (internal stimulation) Delusions: Yes Delusion Type: Paranoid (bizarre delusions) Suicidal: Ideation (no SI) Homicidal: Ideation (no HI) Insight/Judgment Poor Vitals/IOs Vital Signs Date Time Temp Pulse Resp B/P Pulse Ox O2 Delivery O2 Flow Rate FiO2 12/13/16 06:40 97.8 92 18 150/74 100 Intake and Output 12/12/16 12/12/16 12/13/16 08:00 16:00 00:00 Intake Total 0 ml 1320 ml 1200 ml Balance 0 ml 1320 ml 1200 ml Assessment & Plan Problem List: (1) Schizoaffective disorder ICD Code: F25.9 Assessment & Plan Continue current treatment plan Justification for Cont. Inpt. Patient will decompensate in a less restrictive setting Problem Qualifiers (1) Schizoaffective disorder: Qualified Code: F25.1 - Schizoaffective disorder, depressive type John Winters DO Dec 13, 2016 12:45
[2016-12-13] MEDS: PERPHENAZINE 4 MG TAB PO SCH ×2 (12:46→15:55)
[2016-12-13 20:00] VITALS: BP 116/65; PULSE 89; RESP 16; TEMP 97.8
[2016-12-13] MEDS: OLANZapine ODT 15 MG TAB PO SCH (20:21)
[2016-12-13] MEDS: IBUPROFEN 600 MG TAB PO PRN (20:21)
[2016-12-14] MEDS: ACETAMINOPHEN 325 MG TAB PO PRN ×4 (02:45→15:36)
[2016-12-14 05:57] VITALS: BP 106/51; PULSE 84; RESP 18; TEMP 96.2; O2SAT 96
[2016-12-14] MEDS: clonazePAM 1 MG TAB PO SCH ×2 (10:28→20:51)
[2016-12-14] MEDS: PANTOPRAZOLE SOD 40 MG DELAYED RELEASE TAB PO SCH (10:29)
[2016-12-14] MEDS: HYDROCORTISONE 1% CREAM 30 GM TOPICAL SCH (10:29)
[2016-12-14] MEDS: NYSTATIN 100,000 U/GM PWD 15 GM BTL TOPICAL SCH ×2 (10:30→20:51)
--- NOTE | 2016-12-14 11:52 | PD.TTN ---
Present for Treatment Team Treatment Team Staff: Provider (Dr. Israel), Psych Therapist (Leena Brewer), Other Clinician (rec. Apryl therapy) Patient Problems 1. Discharge planning 2. Medication compliance 3. Knowledge deficit 4. Lack of coping skills Progress Toward Goals Provider Input: Dr. Israel reported the patient's status remains unchanged. Psych Therapist Input: Counselor reported the patient remains oriented to person at least. She remains comliant with medications and in good behavioral control. [place] continues to report delusions that she is and her will be coming to pick her up today. Patient reported that she will be going to the [facility] to see her parents. Patient lacks insight into her mental illnes and appears to coping appropriately. Other Clinican Input: rec. Apryl therapy, reported the patient has become more withdrawn and is refusing to participate in group activities. Documentation Scribe: DANIS Ramirez Date Resolved: Dec 14, 2016 Leena BrewerJana Dec 14, 2016 11:52
[2016-12-14] MEDS: PERPHENAZINE 4 MG TAB PO SCH ×2 (12:48→15:41)
--- NOTE | 2016-12-14 14:03 | HHI.PYPN ---
Subjective Remarks Patient seen in her room with nurse Desmond. Patient saying she is resting at this time. Continues delusional stating her visit her again last night is ready to take her home today. Patient compliant medications. For now continue treatment Review of Systems Except as stated in HPI: all other systems reviewed are Neg Objective Alert: Yes [place]: Person, Place, Date Mood: Calm Affect: Blunted Memory Intact: Comment (fiar) Hallucinations: Auditory (messages from God), Other (internal stimulation) Delusions: Yes Delusion Type: Paranoid (bizarre delusions) Suicidal: Ideation (no SI) Homicidal: Ideation (no HI) Insight/Judgment Poor Vitals/IOs Vital Signs Date Time Temp Pulse Resp B/P Pulse Ox O2 Delivery O2 Flow Rate FiO2 12/14/16 05:57 96.2 84 18 106/51 96 Intake and Output 12/13/16 12/13/16 12/14/16 08:00 16:00 00:00 Intake Total 2640 ml 1080 ml Balance 2640 ml 1080 ml Assessment & Plan Problem List: (1) Schizoaffective disorder ICD Code: F25.9 Assessment & Plan Estimated LOS: days patient continues delusional and psychotic, but no behavioral problems. For now continue treatment Justification for Cont. Inpt. This time patient will decompensate if placed in a lower level of care Discharge Planning To be determined Problem Qualifiers (1) Schizoaffective disorder: Qualified Code: F25.1 - Schizoaffective disorder, depressive type Deacon Israel MD Dec 14, 2016 14:03
[2016-12-14 18:21] VITALS: BP 109/56; PULSE 80; RESP 18; TEMP 97.9; O2SAT 96
[2016-12-14] MEDS: OLANZapine ODT 15 MG TAB PO SCH (20:51)
[2016-12-14] MEDS: diphenhydrAMINE HCL 50 MG CAP - HS PRN PO (20:51)
[2016-12-14] MEDS: IBUPROFEN 600 MG TAB PO PRN (20:56)
[2016-12-15 06:18] VITALS: BP 138/87; PULSE 80; RESP 17; TEMP 98.6; O2SAT 100
[2016-12-15] MEDS: clonazePAM 1 MG TAB PO SCH (09:07)
[2016-12-15] MEDS: PANTOPRAZOLE SOD 40 MG DELAYED RELEASE TAB PO SCH (09:07)
[2016-12-15] MEDS: IBUPROFEN 600 MG TAB PO PRN (09:13)
[2016-12-15] MEDS: NYSTATIN 100,000 U/GM PWD 15 GM BTL TOPICAL SCH (09:16)
[2016-12-15] MEDS: HYDROCORTISONE 1% CREAM 30 GM TOPICAL SCH (09:16)
[2016-12-15] MEDS: PERPHENAZINE 4 MG TAB PO SCH (12:16)
--- NOTE | 2016-12-15 13:28 | HHI.PYPN ---
Subjective Remarks Patient seen in floor staff, chart reviewed. Patient continues somewhat delusional no behavior problems. It appears as a bed available today and [place] [facility]. At this medical patient issue maximum benefit of this hospitalization thus will be discharged today to that facility. I with dictated an addendum also on the discharge summary today get on 11/25 Review of Systems Except as stated in HPI: all other systems reviewed are Neg Objective Alert: Yes [place]: Person, Place, Date Mood: Calm Affect: Blunted Memory Intact: Comment (fiar) Hallucinations: Auditory (messages from God), Other (internal stimulation) Delusions: Yes Delusion Type: Paranoid (bizarre delusions) Suicidal: Ideation (no SI) Homicidal: Ideation (no HI) Insight/Judgment Very poor Vitals/IOs Vital Signs Date Time Temp Pulse Resp B/P Pulse Ox O2 Delivery O2 Flow Rate FiO2 12/15/16 06:18 98.6 80 17 138/87 100 Intake and Output 12/14/16 12/14/16 12/15/16 08:00 16:00 00:00 Intake Total 360 ml 2460 ml Balance 360 ml 2460 ml Assessment & Plan Problem List: (1) Schizoaffective disorder ICD Code: F25.9 Assessment & Plan Estimated LOS: days patient to be discharged today to see some health and rehabilitation Rx 1 month follow-up services through that facility Justification for Cont. Inpt. Patient to be discharged today Discharge Planning Discharge status she said health and rehabilitation Problem Qualifiers (1) Schizoaffective disorder: Qualified Code: F25.1 - Schizoaffective disorder, depressive type Deacon Israel MD Dec 15, 2016 13:28
== END 2016-12-15 15:05 | DRG 885 ==
LOC: NEPC 05:47 → NEDA 21:34 → H250 21:55 → H260 10-26 15:31 → H250 10-30 03:43
PROVIDERS: ADMIT Psychiatry & Neurology Psychiatry; ATTEND Psychiatry & Neurology Psychiatry
DX: F25.1 Schizoaffective disorder, depressive type (principal); Z68.41 Body mass index [BMI] 40.0-44.9, adult; I10 Essential (primary) hypertension; E66.9 Obesity, unspecified; M19.90 Unspecified osteoarthritis, unspecified site; G43.909 Migraine, unspecified, not intractable, without status migrainosus; R60.9 Edema, unspecified
CPT/HCPCS: 80048; 80053; 80061; 80307; 82306; 82550; 82607; 83036; 83735; 84100; 84439; 84443; 84550; 85025; 93970; 93971; 99285; J1200; J1630; J2060; J3486; Q0163; Q0175

== ENCOUNTER 2017-08-05 13:47 | Inpatient (IN) | payer MEDICARE, OTHER ==
[~2017-08-05] VITALS: Ht 165.1 cm; Wt 124.8 kg
[~2017-08-05 13:47] MED LIST changes: -ARIP400P IM; -BENZ1TAB PO; +CLON1 PO; -IBUP400T20 PO; +INVEGA IM; -LITH300 PO; -NAPR500 PO; +OLANZ15 PO; +PANT40TA3 PO; +PERP16TA6 PO; +PERP4TAB8 PO; -Patient Own Medication IM
[2017-08-05 13:59] VITALS: BP 114/56; PULSE 113; RESP 20; TEMP 98.3; O2SAT 100
[2017-08-05] MEDS ORDERED: MOBI7.5T PO (14:09)
[2017-08-05] MEDS ORDERED: TUMS500C CHEW (14:09)
[2017-08-05] MEDS ORDERED: PERP16TA6 PO (14:09)
[2017-08-05] MEDS ORDERED: MULTTAB67 PO (14:09)
[2017-08-05] MEDS ORDERED: LORA-474 PO (14:09)
[2017-08-05] MEDS ORDERED: AMAN100UDC PO (14:09)
[2017-08-05] MEDS ORDERED: BACT800T5 PO (14:09)
[2017-08-05] MEDS ORDERED: TRAM50TA PO (14:09)
[2017-08-05] MEDS ORDERED: VITA250C3 CHEW (14:09)
[2017-08-05] MEDS ORDERED: ZYPR15TA PO (14:10)
--- NOTE | 2017-08-05 15:05 | RADRPT ---
EXAM DATE/TIME: 08/05/2017 14:29 [facility] COMPARISON: CHEST SINGLE AP, June 07, 2014, 15:59. INDICATIONS : Shortness of breath, coughing, wheezing, and congestion. MEDICAL HISTORY : Hypertension. Arthritis. Schizophrenia. Depression. SURGICAL HISTORY : Hysterectomy. ENCOUNTER: Initial ACUITY: 3 days PAIN SCORE: 0/10 LOCATION: Bilateral chest FINDINGS: A single view of the chest demonstrates the lungs to be symmetrically aerated without evidence of mas s, infiltrate or effusion. The cardiomediastinal contours are unremarkable. Osseous structures are intact. CONCLUSION: No acute disease. El Mchugh MD on August 05, 2017 at 15:01 Board Certified Radiologist. This report was verified electronically.
[2017-08-05 16:49] VITALS: BP 144/69; PULSE 112; RESP 17; O2SAT 96
[2017-08-05] MEDS ORDERED: KETOROLAC TROMETHAMINE 30 MG/ML (IVP) VIAL IV PUSH ONE (17:45)
[2017-08-05] MEDS ORDERED: LIDOCAINE HCL 1% 50 ML VIAL INFIL ONE (17:45)
[2017-08-05] MEDS ORDERED: VANCOMYCIN INJ 2,200 MG in SODIUM CHLORID 0.9% 500 ML INJ 500 ML IV ONE (17:45)
--- NOTE | 2017-08-05 17:51 | PD ---
HPI Chief Complaint: Skin Problem Time Seen by Provider: 17:10 Travel History International Travel<30 days: No Contact w/Intl Traveler<30days: No Traveled to known affect area: No History of Present Illness HPI 57-year-old female presents to the emergency room from assisted living facility for evaluation of wound with surrounding redness on her left, backside of it started yesterday. According to custodial staff, the patient had a small lesion yesterday and it significantly worsened overnight. She was started on Bactrim yesterday. They state she has been febrile. Patient has history of schizophrenia and can provide no meaningful history. PFSH Past Medical History Arthritis: Yes Blood Disorders: No Cancer: No Cardiovascular Problems: Yes Diabetes: No Endocrine: No Gastrointestinal Disorders: No Genitourinary: No Headaches: Yes Hypertension: Yes Immune Disorder: No Implanted Vascular Access Dvce: No Musculoskeletal: Yes Neurologic: Yes Psychiatric: Yes (Yes- Schizophrenia) Reproductive: No Respiratory: No Immunizations Current: Yes Schizophrenia: Yes Seizures: No Past Surgical History Abdominal Surgery: No Cardiac Surgery: No Ear Surgery: No Endocrine Surgery: No Eye Surgery: No Genitourinary Surgery: No Gynecologic Surgery: No Hysterectomy: Yes Neurologic Surgery: No Oral Surgery: Yes (POOR DENTITION) Thoracic Surgery: No Other Surgery: Yes Social History Alcohol Use: No Tobacco Use: No Substance Use: No Allergies-Medications (Allergen,Severity, Reaction): Coded Allergies: iodine (Unverified Allergy, Unknown, 02/16/17) penicillin G (Unverified Allergy, Unknown, 02/16/17) potassium iodide (Unverified Allergy, Unknown, 02/16/17) povidone-iodine (Unverified Allergy, Unknown, 02/16/17) sodium iodide (Unverified Allergy, Unknown, 02/16/17) sodium iodide (Unverified Allergy, Unknown, 02/16/17) Reported Meds & Prescriptions Reported Meds & Active Scripts Active Klonopin (Clonazepam) 1 Mg Tab 2 Mg PO HS Klonopin (Clonazepam) 1 Mg Tab 1 Mg PO DAILY Reported Zyprexa (Olanzapine) 15 Mg Tab 30 Mg PO HS Vitamin C (Ascorbic Acid) 250 Mg Chew 250 Mg CHEW DAILY Tums (Calcium Carbonate (Antacid)) 500 Mg Chew 2 Tab CHEW Q4HR PRN Tramadol (Tramadol HCl) 50 Mg Tab 50 Mg PO Q12HR PRN Perphenazine 16 Mg Tab 32 Mg PO HS Multiple Vitamin 1 Tab 1 Tab PO DAILY Mobic (Meloxicam) 7.5 Mg Tab 7.5 Mg PO DAILY Bactrim DS (Sulfamethoxazole-Trimethoprim) 800-160 Mg Tab 1 Tab PO BID Ativan (Lorazepam) 1 Mg Tab 1 Mg PO Q8H PRN Amantadine Liq (Amantadine HCl) 50 Mg/5 Ml Soln 100 Mg PO BID Review of Systems Except as stated in HPI: all other systems reviewed are Neg Physical Exam Narrative GENERAL: Well-nourished, morbidly obese female in no acute distress. Afebrile. Ambulatory. SKIN: Focused skin assessment warm/dry. There is an indurated area in the left posterior thigh which measures about 8 cm in diameter. It is fluctuant but there with pointing and purulent drainage. There is a significant zone of inflammation around it but no lymphangitis. HEAD: Normocephalic. EYES: No scleral icterus. No injection or drainage. NECK: Supple, trachea midline. No JVD or lymphadenopathy. CARDIOVASCULAR: Regular rate and rhythm without murmurs, gallops, or rubs. RESPIRATORY: Breath sounds equal bilaterally. No accessory muscle use. MUSCULOSKELETAL: No cyanosis, or edema. Data Data Last Documented VS Vital Signs Date Time Temp Pulse Resp B/P (MAP) Pulse Ox O2 Delivery O2 Flow Rate FiO2 08/05/17 16:49 112 17 144/69 (94) 96 08/05/17 13:59 98.3 Orders Orders Sepsis Workup Initiated (08/05/17 ) Complete Blood Count With Diff (08/05/17 14:01) Comprehensive Metabolic Panel (08/05/17 14:01) Lactic Acid Sepsis Protocol (08/05/17 14:01) Blood Culture (08/05/17 14:01) Iv Access Insert/Monitor (08/05/17 14:01) Oxygen Administration (08/05/17 14:01) Oximetry (08/05/17 14:01) Chest, Single Ap (08/05/17 ) Wound Culture And Gram Stain (08/05/17 17:37) Lidocaine 1% Inj (50 Ml) (Xylocaine 1% I (08/05/17 17:45) Vancomycin Inj (Vancomycin Inj) (08/05/17 17:45) Ketorolac Inj (Toradol Inj) (08/05/17 17:45) Lidocaine 1% Inj (Xylocaine 1% Inj) (08/05/17 18:00) Sodium Chlor 0.9% 1000 Ml Inj (Ns 1000 M (08/05/17 18:30) Clindamycin Inj (Cleocin Inj) (08/05/17 18:30) Admit Order (Ed Use Only) (08/05/17 18:28) Labs Laboratory Tests Test 08/05/17 17:20 White Blood Count 23.1 TH/MM3 Red Blood Count 3.83 MIL/MM3 Hemoglobin 11.7 GM/DL Hematocrit 34.8 % Mean Corpuscular Volume 90.8 FL Mean Corpuscular Hemoglobin 30.6 PG Mean Corpuscular Hemoglobin Concent 33.7 % Red Cell Distribution Width 13.9 % Platelet Count 259 TH/MM3 Mean Platelet Volume 9.0 FL Neutrophils (%) (Auto) 80.4 % Lymphocytes (%) (Auto) 9.4 % Monocytes (%) (Auto) 9.2 % Eosinophils (%) (Auto) 0.8 % Basophils (%) (Auto) 0.2 % Neutrophils # (Auto) 18.6 TH/MM3 Lymphocytes # (Auto) 2.2 TH/MM3 Monocytes # (Auto) 2.1 TH/MM3 Eosinophils # (Auto) 0.2 TH/MM3 Basophils # (Auto) 0.0 TH/MM3 CBC Comment AUTO DIFF Differential Total Cells Counted 100 Neutrophils % (Manual) 64 % Band Neutrophils % 13 % Lymphocytes % 8 % Monocytes % 15 % Neutrophils # (Manual) 17.8 TH/MM3 Differential Comment FINAL DIFF MANUAL Toxic Vacuolation PRESENT Platelet Estimate NORMAL Platelet Morphology Comment NORMAL Blood Urea Nitrogen 18 MG/DL Creatinine 1.36 MG/DL Random Glucose 102 MG/DL Total Protein 7.7 GM/DL Albumin 2.4 GM/DL Calcium Level 8.7 MG/DL Alkaline Phosphatase 142 U/L Aspartate Amino Transf (AST/SGOT) 60 U/L Alanine Aminotransferase (ALT/SGPT) 48 U/L Total Bilirubin 0.4 MG/DL Sodium Level 127 MEQ/L Potassium Level 3.6 MEQ/L Chloride Level 93 MEQ/L Carbon Dioxide Level 26.2 MEQ/L Anion Gap 8 MEQ/L Estimat Glomerular Filtration Rate 48 ML/MIN Lactic Acid Level 2.0 mmol/L [facility] Medical Decision Making Medical Screen Exam Complete: Yes Emergency Medical Condition: Yes Medical Record Reviewed: Yes Differential Diagnosis Abscess, Cellulitis, sepsis, Narrative Course 57-year-old female with history of schizophrenia presents to the emergency room from a custodial for evaluation of infection to her left leg. Patient can provide no meaningful history. Per custodial report, patient developed a wound to her left posterior thigh yesterday. She was started on Bactrim. At significantly increased today. Patient was febrile at the custodial but has remained afebrile in the ED. Physical exam reveals significant induration, erythema, and spontaneous drainage of an abscess to the left posterior thigh. No lymphangitis. The area was outlined and purple marker. Abscess was enlarged and packing was placed. Patient was started on vancomycin and clindamycin. Patient has leukocytosis of 23.1. CMP is remarkable for hyponatremia and elevated creatinine. Patient was given 1 L of fluids. Lactic acid is 2.0. She is given Toradol for pain initially. After procedure she was given Lortab. She will be admitted to hospitalist service for IV antibiotics. Procedures Procedure Narrative INCISION AND DRAINAGE OF ABSCESS: The area was prepped. A subcutaneous wheal of 1% lidocaine with a total number 5 mL was used to anesthetize the area properly. A number 11 scalpel was used to make a 1 cm incision across the area of the abscess. The abscess was drained, complex loculations were broken down, and irrigated with normal saline. Cultures were obtained. Quarter inch iodoform packing was placed in the wound. Sterile dressing applied. Patient advised to have packing removed in two days. Diagnosis Primary Impression: Cellulitis and abscess of left leg Admitting Information Admitting Physician Requests: Admit Condition: Stable Lisette Velasco Aug 05, 2017 17:51
[2017-08-05 17:59] LABS: AUTOMATED NEUTROPHIL # 18.6 TH/MM3 (1.8-7.7); BASOPHIL % 0.2 % (0.0-2.0); EOSINOPHIL # 0.2 TH/MM3 (0-0.4); EOSINOPHIL % 0.8 % (0.0-4.0); HEMATOCRIT 34.8 % (35.0-46.0); HEMOGLOBIN 11.7 GM/DL (11.6-15.3); LYMPH % 9.4 % (9.0-44.0); LYMPHOCYTE # 2.2 TH/MM3 (1.0-4.8); MEAN CELL VOLUME 90.8 FL (80.0-100.0); MEAN CORPUSCULAR HEMOGLOBIN 30.6 PG (27.0-34.0); MEAN CORPUSCULAR HGB CONC 33.7 % (32.0-36.0); MONO % 9.2 % (0.0-8.0); MONOCYTE # 2.1 TH/MM3 (0-0.9); NEUT % 80.4 % (16.0-70.0); PLATELET COUNT 259 TH/MM3 (150-450); RED BLOOD COUNT 3.83 MIL/MM3 (4.00-5.30); RED CELL DISTRIBUTION WIDTH 13.9 % (11.6-17.2); WHITE BLOOD COUNT 23.1 TH/MM3 (4.0-11.0)
[2017-08-05] MEDS ORDERED: LIDOCAINE HCL 1% 30 ML VIAL INFIL ONE (18:00)
[2017-08-05 18:05] LABS: ALBUMIN 2.4 GM/DL (3.4-5.0); AST (GOT) 60 U/L (15-37); BICARBONATE 26.2 MEQ/L (21.0-32.0); BLOOD UREA NITROGEN 18 MG/DL (7-18); CALCIUM 8.7 MG/DL (8.5-10.1); CHLORIDE 93 MEQ/L (98-107); CREATININE 1.36 MG/DL (0.50-1.00); GLOMERULAR FILTRATION RATE 48 ML/MIN (>89); GLUCOSE,RANDOM 102 MG/DL (74-106); SODIUM (NA) 127 MEQ/L (136-145)
[2017-08-05 18:06] LABS: ALT (GPT) 48 U/L (10-53)
[2017-08-05 18:08] LABS: ALKALINE PHOSPHATASE 142 U/L (45-117); TOTAL BILIRUBIN ADULT 0.4 MG/DL (0.2-1.0); TOTAL PROTEIN 7.7 GM/DL (6.4-8.2)
[2017-08-05] MEDS ORDERED: SODIUM CHLOR 0.9% 1000 ML INJ 1,000 ML IV ONE (18:30)
[2017-08-05] MEDS ORDERED: CLINDAMYCIN INJ 900 MG in SODIUM CHLORIDE 0.9% INJ 100 ML IV ONE (18:30)
[2017-08-05 18:52] LABS: BANDS 13 % (0-6); LYMPHOCYTES 8 % (9-44); MONOCYTES 15 % (0-8); NEUTROPHIL # MANUAL DIFF 17.8 TH/MM3 (1.8-7.7); POLYS (SEG NEUTROPHILS) 64 % (16-70)
[2017-08-05 18:53] LABS: TOXIC VACUOLATION PRESENT (NONE SEEN)
[2017-08-05] MEDS: SODIUM CHLOR 0.9% 1000 ML INJ 1,000 ML IV SCH (19:47)
[2017-08-05] MEDS ORDERED: LACTULOSE SYRUP 20 GM/30 ML CUP PO PRN (20:00)
[2017-08-05] MEDS ORDERED: MAGNESIUM HYDROXIDE SUSP 30 ML CUP PO PRN (20:00)
[2017-08-05] MEDS ORDERED: Vancomycin Consult Pharmacy 1 EA OTHER SCH (20:00)
[2017-08-05] MEDS ORDERED: ONDANSETRON HCL 4 MG/2 ML VIAL IVP PRN (20:00)
[2017-08-05] MEDS ORDERED: BISACODYL 10 MG SUPP RECTAL PRN (20:00)
[2017-08-05] MEDS ORDERED: ACETAMINOPHEN 325 MG TAB PO PRN (20:00)
[2017-08-05] MEDS ORDERED: SODIUM CHLORIDE 0.9% FLUSH 10 ML FLUSH IV FLUSH PRN (20:00)
[2017-08-05] MEDS ORDERED: SENNOSIDES 8.6 MG TAB PO PRN (20:00)
[2017-08-05] MEDS ORDERED: NALOXONE HCL 0.4 MG/ML AMP IV PUSH PRN (20:00)
[2017-08-05] MEDS ORDERED: ACETAMINOPHEN/HYDROcodone 325 MG/5 MG TAB PO PRN (20:15)
[2017-08-05] MEDS ORDERED: MORPHINE SULFATE 2 MG/ML INJ IV PUSH PRN (20:15)
--- NOTE | 2017-08-05 20:39 | HHI.HP ---
HPI Service [facility] Primary Care Physician Unknown Admission Diagnosis cellulitis Diagnoses: Travel History International Travel<30 Days: No Contact w/Intl Traveler <30 Da: No Traveled to Known Affected Are: No History of Present Illness 57-year-old female with a past medical history significant for schizophrenia since to the emergency department from her assisted living facility for evaluation of worsening of left posterior thigh wound. The patient can provide no meaningful history. Per ED notes, the patient developed a wound to her left posterior thigh yesterday and was started on Bactrim. The area of the wound was significantly increased today with surrounding erythema and fluctuance. An incision and drainage of the abscess was performed in the emergency department and the patient was started on IV antibiotics. This time, the patient denies fever/chills. She denies pain anywhere except for at the wound site itself. Review of Systems Except as stated in HPI: all other systems reviewed are Neg Past Family Social History Past Medical History Schizophrenia Past Surgical History Unable to obtain secondary to patient's clinical condition Reported Medications Reported Meds & Active Scripts Active Klonopin (Clonazepam) 1 Mg Tab 2 Mg PO HS Klonopin (Clonazepam) 1 Mg Tab 1 Mg PO DAILY Reported Zyprexa (Olanzapine) 15 Mg Tab 30 Mg PO HS Vitamin C (Ascorbic Acid) 250 Mg Chew 250 Mg CHEW DAILY Tums (Calcium Carbonate (Antacid)) 500 Mg Chew 2 Tab CHEW Q4HR PRN Tramadol (Tramadol HCl) 50 Mg Tab 50 Mg PO Q12HR PRN Perphenazine 16 Mg Tab 32 Mg PO HS Multiple Vitamin 1 Tab 1 Tab PO DAILY Mobic (Meloxicam) 7.5 Mg Tab 7.5 Mg PO DAILY Bactrim DS (Sulfamethoxazole-Trimethoprim) 800-160 Mg Tab 1 Tab PO BID Ativan (Lorazepam) 1 Mg Tab 1 Mg PO Q8H PRN Amantadine Liq (Amantadine HCl) 50 Mg/5 Ml Soln 100 Mg PO BID Allergies: Coded Allergies: iodine (Unverified Allergy, Unknown, 02/16/17) penicillin G (Unverified Allergy, Unknown, 02/16/17) potassium iodide (Unverified Allergy, Unknown, 02/16/17) povidone-iodine (Unverified Allergy, Unknown, 02/16/17) sodium iodide (Unverified Allergy, Unknown, 02/16/17) sodium iodide (Unverified Allergy, Unknown, 02/16/17) Family History Patient does not know Social History Denies alcohol, tobacco and illicit drugs Physical Exam Vital Signs Vital Signs Date Time Temp Pulse Resp B/P (MAP) Pulse Ox O2 Delivery O2 Flow Rate FiO2 08/05/17 16:49 112 17 144/69 (94) 96 08/05/17 13:59 98.3 113 20 114/56 (75) 100 Physical Exam GENERAL: female lying in bed SKIN: 8 cm area of erythema and edema on posterior thigh status post I&D with purulent drainage and packing present. HEAD: Atraumatic. Normocephalic. No temporal or scalp tenderness. EYES: Pupils equal round and reactive. Extraocular motions intact. No scleral icterus. No injection or drainage. ENT: Nose without bleeding, purulent drainage or septal hematoma. Throat without erythema, tonsillar hypertrophy or exudate. Uvula midline. Airway patent. NECK: Trachea midline. No JVD or lymphadenopathy. Supple, nontender, no meningeal signs. CARDIOVASCULAR: Regular rate and rhythm without murmurs, gallops, or rubs. RESPIRATORY: Clear to auscultation. Breath sounds equal bilaterally. No wheezes , rales, or rhonchi. GASTROINTESTINAL: Abdomen soft, non-tender, nondistended. No hepato-splenomegaly , or palpable masses. No guarding. MUSCULOSKELETAL: Extremities without clubbing, cyanosis, or edema. No joint tenderness, effusion, or edema noted. No calf tenderness. NEUROLOGICAL: Awake and alert. Cranial nerves II through XII intact. Motor and sensory grossly within normal limits. Normal speech. Laboratory Laboratory Tests Test 08/05/17 17:20 White Blood Count 23.1 Red Blood Count 3.83 Hemoglobin 11.7 Hematocrit 34.8 Mean Corpuscular Volume 90.8 Mean Corpuscular Hemoglobin 30.6 Mean Corpuscular Hemoglobin Concent 33.7 Red Cell Distribution Width 13.9 Platelet Count 259 Mean Platelet Volume 9.0 Neutrophils (%) (Auto) 80.4 Lymphocytes (%) (Auto) 9.4 Monocytes (%) (Auto) 9.2 Eosinophils (%) (Auto) 0.8 Basophils (%) (Auto) 0.2 Neutrophils # (Auto) 18.6 Lymphocytes # (Auto) 2.2 Monocytes # (Auto) 2.1 Eosinophils # (Auto) 0.2 Basophils # (Auto) 0.0 CBC Comment AUTO DIFF Differential Total Cells Counted 100 Neutrophils % (Manual) 64 Band Neutrophils % 13 Lymphocytes % 8 Monocytes % 15 Neutrophils # (Manual) 17.8 Differential Comment FINAL DIFF MANUAL Toxic Vacuolation PRESENT Platelet Estimate NORMAL Platelet Morphology Comment NORMAL Blood Urea Nitrogen 18 Creatinine 1.36 Random Glucose 102 Total Protein 7.7 Albumin 2.4 Calcium Level 8.7 Alkaline Phosphatase 142 Aspartate Amino Transf (AST/SGOT) 60 Alanine Aminotransferase (ALT/SGPT) 48 Total Bilirubin 0.4 Sodium Level 127 Potassium Level 3.6 Chloride Level 93 Carbon Dioxide Level 26.2 Anion Gap 8 Estimat Glomerular Filtration Rate 48 Lactic Acid Level 2.0 Date/Time Source Procedure Growth Status 08/05/17 17:20 Blood Peripheral Aerobic Blood Culture Pending Received 08/05/17 17:20 Blood Peripheral Anaerobic Blood Culture Pending Received Result Diagram: 08/05/17 1720 08/05/17 1720 Caprini VTE Risk Assessment Caprini VTE Risk Assessment: No/Low Risk (score <= 1) Caprini Risk Assessment Model Point Value = 1 Point Value = 2 Point Value = 3 Point Value = 5 Age 41-60 Minor surgery BMI > 25 kg/m2 Swollen legs Varicose veins or History of unexplained or recurrent spontaneous Oral contraceptives or hormone replacement Sepsis (< 1 month) Serious lung disease, including pneumonia (< 1 month) Abnormal pulmonary function Acute myocardial infarction Congestive heart failure (< 1 month) History of inflammatory bowel disease Medical patient at bed rest Age 61-74 Arthroscopic surgery Major open surgery (> 45 min) Laparoscopic surgery (> 45 min) Malignancy Confined to bed (> 72 hours) Immobilizing plaster cast Central venous access Age >= 75 History of VTE Family history of VTE Factor V Leiden Prothrombin [id number] Lupus anticoagulant Anticardiolipin antibodies Elevated serum homocysteine Heparin-induced thrombocytopenia Other congenital or acquired thrombophilia Stroke (< 1 month) Elective arthroplasty Hip, pelvis, or leg fracture Acute spinal cord injury (< 1 month) Prophylaxis Regimen Total Risk Factor Score Risk Level Prophylaxis Regimen 0-1 Low Early ambulation 2 Moderate Order ONE of the following: *Sequential Compression Device (SCD) *Heparin 5000 units SQ BID 3-4 Higher Order ONE of the following medications: *Heparin 5000 units SQ TID *Enoxaparin/Lovenox 40 mg SQ daily (WT < 150 kg, CrCl > 30 mL/min) *Enoxaparin/Lovenox 30 mg SQ daily (WT < 150 kg, CrCl > 10-29 mL/min) *Enoxaparin/Lovenox 30 mg SQ BID (WT < 150 kg, CrCl > 30 mL/min) AND/OR *Sequential Compression Device (SCD) 5 or more Highest Order ONE of the following medications: *Heparin 5000 units SQ TID (Preferred with Epidurals) *Enoxaparin/Lovenox 40 mg SQ daily (WT < 150 kg, CrCl > 30 mL/min) *Enoxaparin/Lovenox 30 mg SQ daily (WT < 150 kg, CrCl > 10-29 mL/min) *Enoxaparin/Lovenox 30 mg SQ BID (WT < 150 kg, CrCl > 30 mL/min) AND *Sequential Compression Device (SCD) Assessment and Plan Assessment and Plan Assessment/plan: 1. Left posterior thigh cellulitis/abscess, sepsis Patient tachycardic with leukocytosis Status post incision and drainage of left posterior thigh abscess in the emergency department Vancomycin and cefepime Infectious disease consulted, appreciate recommendations Monitor for signs of shock 2. Hyponatremia Normal saline Fluid restriction Monitor BMP 3. Acute kidney injury Creatinine 1.36, baseline 0.80 IV fluid hydration Monitor renal function 4. Schizophrenia Continue home medications FEN Regular diet with fluid restriction Electrolytes: monitor and replete prn NS at 100 cc/hr Physician Certification 2 Midnight Certification Type: Admission for Inpatient Services Order for Inpatient Services The services are ordered in accordance with Medicare regulations or non- Medicare payer requirements, as applicable. In the case of services not specified as inpatient-only, they are appropriately provided as inpatient services in accordance with the 2-midnight benchmark. Estimated LOS (days): 2 2 days is the estimated time the patient will need to remain in the hospital, assuming treatment plan goals are met and no additional complications. Post-Hospital Plan: Not yet determined Demetrice Bill MD Aug 05, 2017 20:39
[2017-08-05 20:40] VITALS: BP 159/66; PULSE 88; RESP 20; O2SAT 97
[2017-08-05] MEDS ORDERED: PERPHENAZINE 16 MG PO SCH (21:00)
[2017-08-05 22:00] VITALS: BP 103/58; PULSE 112; RESP 18; TEMP 98.8; O2SAT 100
[2017-08-05] MEDS: clonazePAM 1 MG TAB PO SCH (23:31)
[2017-08-05] MEDS: CEFEPIME INJ 1,000 MG in SODIUM CHLORIDE 0.9% INJ 100 ML IV SCH (23:31)
[2017-08-05] MEDS: SODIUM CHLORIDE 0.9% FLUSH 10 ML FLUSH IV FLUSH SCH (23:33)
[2017-08-05 23:45] VITALS: BP 105/68; PULSE 121; RESP 20; TEMP 98; O2SAT 99
[2017-08-06] VITALS (10 sets, daily range): BP systolic 99–140; BP diastolic 51–83; PULSE 95–121; RESP 19–24; TEMP 97–101.9; O2SAT 93–97
[2017-08-06] MEDS ORDERED: VANCOMYCIN 1 GM/200 ML PREMIX IV ONE
[2017-08-06] MEDS: AMANTADINE HCL SOLN 100 MG/10 ML UDC PO SCH ×3 (00:27→22:03)
[2017-08-06] MEDS: ACETAMINOPHEN/HYDROcodone 325 MG/10 MG TAB PO PRN (02:04)
[2017-08-06 05:06] LABS: AUTOMATED NEUTROPHIL # 18.4 TH/MM3 (1.8-7.7); BASOPHIL # 0.1 TH/MM3 (0-0.2); BASOPHIL % 0.3 % (0.0-2.0); EOSINOPHIL # 0.2 TH/MM3 (0-0.4); EOSINOPHIL % 1.1 % (0.0-4.0); HEMATOCRIT 31.3 % (35.0-46.0); HEMOGLOBIN 10.6 GM/DL (11.6-15.3); LYMPH % 9.8 % (9.0-44.0); LYMPHOCYTE # 2.3 TH/MM3 (1.0-4.8); MEAN CELL VOLUME 90.5 FL (80.0-100.0); MEAN CORPUSCULAR HEMOGLOBIN 30.8 PG (27.0-34.0); MEAN PLATELET VOLUME 8.8 FL (7.0-11.0); MONOCYTE # 2.1 TH/MM3 (0-0.9); NEUT % 79.8 % (16.0-70.0); PLATELET COUNT 217 TH/MM3 (150-450); RED BLOOD COUNT 3.45 MIL/MM3 (4.00-5.30); RED CELL DISTRIBUTION WIDTH 14.1 % (11.6-17.2)
[2017-08-06 05:40] LABS: BICARBONATE 20.7 MEQ/L (21.0-32.0); CALCIUM 8.2 MG/DL (8.5-10.1); CREATININE 1.1 MG/DL (0.50-1.00)
[2017-08-06] MEDS: SODIUM CHLOR 0.9% 1000 ML INJ 1,000 ML IV SCH ×2 (05:47→22:04)
[2017-08-06] MEDS: CEFEPIME INJ 1,000 MG in SODIUM CHLORIDE 0.9% INJ 100 ML IV SCH ×3 (06:04→23:15)
[2017-08-06 07:15] LABS: BANDS 17 % (0-6); LYMPHOCYTES 9 % (9-44); MONOCYTES 7 % (0-8); NEUTROPHIL # MANUAL DIFF 18.9 TH/MM3 (1.8-7.7); POLYS (SEG NEUTROPHILS) 65 % (16-70)
[2017-08-06 07:17] LABS: TOXIC VACUOLATION PRESENT (NONE SEEN)
[2017-08-06] MEDS: SODIUM CHLORIDE 0.9% FLUSH 10 ML FLUSH IV FLUSH SCH ×2 (09:00→22:04)
[2017-08-06] MEDS: clonazePAM 1 MG TAB PO SCH ×2 (10:09→22:04)
[2017-08-06] MEDS ORDERED: POTASSIUM CHLORIDE 20 MEQ CONTROLLED RELEASE TAB PO ONE (16:00)
--- NOTE | 2017-08-06 16:01 | HHI.PR ---
Subjective Remarks Patient says she is feeling all right. Denies any chest pain or shortness of breath. Reports pain in her right leg continues. Objective Vital Signs Date Time Temp Pulse Resp B/P (MAP) Pulse Ox O2 Delivery O2 Flow Rate FiO2 08/06/17 12:00 97.7 114 19 106/74 (85) 96 08/06/17 08:00 97.0 101 19 103/59 (74) 97 08/06/17 07:59 101 08/06/17 04:27 101.9 117 24 99/51 (67) 93 08/06/17 04:00 115 08/06/17 00:00 115 08/05/17 23:45 98.0 121 20 105/68 (80) 99 08/05/17 22:00 98.8 112 18 103/58 (73) 100 08/05/17 21:07 08/05/17 20:40 88 20 159/66 (97) 97 Room Air 08/05/17 16:49 112 17 144/69 (94) 96 I/O 08/05/17 08/05/17 08/05/17 08/06/17 08/06/17 08/06/17 07:00 15:00 23:00 07:00 15:00 23:00 Intake Total 522 ml 720 ml Output Total 400 ml Balance 522 ml 320 ml Intake Oral 720 ml IV Total 522 ml Output Urine Total 400 ml # Bowel Movements 0 Result Diagram: 08/06/17 0418 08/06/17 0418 Objective Remarks GENERAL: Patient lying in bed. Appears comfortable. SKIN: Warm and dry. HEAD: Normocephalic. EYES: No scleral icterus. No injection or drainage. NECK: Supple, trachea midline. No JVD. CARDIOVASCULAR: Regular rate and rhythm without murmurs, gallops, or rubs. RESPIRATORY: Breath sounds equal bilaterally. No accessory muscle use. GASTROINTESTINAL: Abdomen soft, non-tender, nondistended. MUSCULOSKELETAL: No cyanosis, or edema. BACK: Nontender without obvious deformity. No CVA tenderness. A/P Assessment and Plan //Severe sepsis on admission. //Left posterior thigh cellulitis/abscess, sepsis Patient tachycardic with leukocytosis Status post incision and drainage of left posterior thigh abscess in the emergency department -Acute kidney injury. Creatinine 1.36 from baseline of 0.8. Lactate 2.0 on admission Vancomycin and cefepime Infectious disease consulted, appreciate recommendations Monitor for signs of shock = 2/2. Cultures positive for MRSA. Was on isolation. Continue antibiotics. ID following. Appreciate assistance. //Hyponatremia Normal saline Fluid restriction Monitor BMP = 2/2. Sodium 131. Improved from admission. Continue IV fluids. //Acute kidney injury Creatinine 1.36, baseline 0.80 IV fluid hydration Monitor renal function = Creatinine 1.1, improved from 1.36 on admission. Continue IV fluids. //Schizophrenia Continue home medications Regular diet with fluid restriction Electrolytes: monitor and replete prn NS at 100 cc/hr Discharge Planning inpatient treatment for sepsis pt consult Deangelo Zambrano MD Aug 06, 2017 16:00
[2017-08-06] MEDS ORDERED: SODIUM CHLOR 0.9% 1000 ML INJ 1,000 ML IV ONE (16:30)
[2017-08-06] MEDS ORDERED: PANTOPRAZOLE SOD 20 MG DELAYED RELEASE TAB PO ONE (16:45)
--- NOTE | 2017-08-06 17:53 | PD.ID.CON ---
History of Present Illness Service ID Consult Requested By Reason for Consult Evaluation and management of severe sepsis, left thigh abscess Primary Care Physician Unknown Diagnoses: History of Present Illness Ms. Dean is a 57-year-old male with past medical history significant for frenulum was had multiple visits at the hospital. Other than that I could not find any other significant past medical history on brief review of records. With this background patient presents to the emergency department from her assisted living facility for evaluation of worsening of left posterior thigh wound. It is extremely difficult to obtain history from the patient has patient has schizophrenia as well as is currently in about of cough. Patient reports the area on the left thigh effectively got worse and started showing fluctuance so she presented to the ED. In the emergency department and incision and drainage of the abscess was performed the cultures from which are now growing MRSA susceptibility pending. Patient was initially prescribed Bactrim reportedly despite compliance has continued to worsen. Patient was started on empiric IV antibiotics for sepsis. Patient received fluid bolus and due to persistent hypotension this afternoon she again has received another bolus at this time. Patient denied any fever or chills on admission but throughout this admission she continues to have high-grade fevers with tachycardia and periods of low blood pressure suggestive of severe sepsis. While in the hospital she has had these bouts of cough. She endorses a history of acid reflux denies any history of smoking or prior known asthma or COPD. She denies any cough with expectoration, hemoptysis or chest pain. On further questioning patient reports she's had chills or upper respiratory symptoms and now this persistent nagging cough for the last 3 days. Upon review of records it appears that there is a flu antigen sent but pending at this time. Patient has also been started on Tessalon cough drops in addition to GERD treatment and a flu antigen test is pending. At the time of my evaluation a surgical consult is pending for further incision and drainage of the abscess. Infectious disease is consulted for evaluation and management of severe sepsis secondary to left thigh abscess. Review of Systems ROS Limitations: Clinical Condition Past Family Social History Allergies: Coded Allergies: iodine (Unverified Allergy, Unknown, 02/16/17) penicillin G (Unverified Allergy, Unknown, 02/16/17) potassium iodide (Unverified Allergy, Unknown, 02/16/17) povidone-iodine (Unverified Allergy, Unknown, 02/16/17) sodium iodide (Unverified Allergy, Unknown, 02/16/17) sodium iodide (Unverified Allergy, Unknown, 02/16/17) Past Medical History Schizophrenia Past Surgical History None per patient Reported Medications Reported Meds & Active Scripts Active Klonopin (Clonazepam) 1 Mg Tab 2 Mg PO HS Klonopin (Clonazepam) 1 Mg Tab 1 Mg PO DAILY Reported Zyprexa (Olanzapine) 15 Mg Tab 30 Mg PO HS Vitamin C (Ascorbic Acid) 250 Mg Chew 250 Mg CHEW DAILY Tums (Calcium Carbonate (Antacid)) 500 Mg Chew 2 Tab CHEW Q4HR PRN Tramadol (Tramadol HCl) 50 Mg Tab 50 Mg PO Q12HR PRN Perphenazine 16 Mg Tab 32 Mg PO HS Multiple Vitamin 1 Tab 1 Tab PO DAILY Mobic (Meloxicam) 7.5 Mg Tab 7.5 Mg PO DAILY Bactrim DS (Sulfamethoxazole-Trimethoprim) 800-160 Mg Tab 1 Tab PO BID Ativan (Lorazepam) 1 Mg Tab 1 Mg PO Q8H PRN Amantadine Liq (Amantadine HCl) 50 Mg/5 Ml Soln 100 Mg PO BID Active Ordered Medications Current Medications Medications (Trade) Dose Ordered Sig/Jeremias Route Start Time Stop Time Status Last Admin Sodium Chloride 1,000 ml @ 100 mls/hr Q10H IV 08/05/17 19:47 08/06/17 05:47 (NS Flush) 2 ml UNSCH PRN IV FLUSH 08/05/17 20:00 (NS Flush) 2 ml BID IV FLUSH 08/05/17 21:00 08/05/17 23:33 (Tylenol) 650 mg Q4H PRN PO 08/05/17 20:00 08/06/17 06:03 (Zofran Inj) 4 mg Q6H PRN IVP 08/05/17 20:00 (Narcan Inj) 0.4 mg UNSCH PRN IV PUSH 08/05/17 20:00 (Milk Of Magnesia Liq) 30 ml Q12H PRN PO 08/05/17 20:00 (Senokot) 17.2 mg Q12H PRN PO 08/05/17 20:00 08/05/17 23:31 (Dulcolax Supp) 10 mg DAILY PRN RECTAL 08/05/17 20:00 (Lactulose Liq) 30 ml DAILY PRN PO 08/05/17 20:00 Pharmacy Profile Note 0 ml @ 0 mls/hr UNSCH OTHER 08/05/17 20:00 (Symmetrel Liq) 100 mg BID PO 08/05/17 21:00 08/06/17 10:10 (KlonoPIN) 1 mg DAILY PO 08/06/17 09:00 08/06/17 10:09 (KlonoPIN) 2 mg HS PO 08/05/17 21:00 08/05/17 23:31 (ZyPREXA) 30 mg HS PO 08/05/17 21:00 08/05/17 23:38 Patient Own Medication PT OWN MED: PERPHENAZINE 1... HS PO 08/05/17 21:00 Future Hold Cefepime HCl 1000 mg/Sodium Chloride 100 ml @ 200 mls/hr Q8H IV 08/05/17 23:00 08/06/17 17:25 ([place] 5-325 Mg) 1 tab Q4H PRN PO 08/05/17 20:15 ([place] 10-325 Mg) 1 tab Q4H PRN PO 08/05/17 20:15 08/06/17 02:04 (Morphine Inj) 2 mg Q3H PRN IV PUSH 08/05/17 20:15 Vancomycin HCl 2000 mg/Sodium Chloride 520 ml @ 250 mls/hr Q18H IV 08/06/17 18:00 Miscellaneous Information SPECIFIC LAB TO BE [facility]... ONCE ONCE .XX 08/08/17 05:45 08/08/17 05:46 (Protonix) 20 mg DAILY PO 08/07/17 09:00 (Tessalon) 100 mg TID PRN PO 08/06/17 16:15 Family History Could not be obtained Social History Could not be obtained. She only reports that she lives in [place] by herself in an CUSTODIAL. Physical Exam Vital Signs Vital Signs Date Time Temp Pulse Resp B/P (MAP) Pulse Ox O2 Delivery O2 Flow Rate FiO2 08/06/17 16:00 99.1 118 23 140/83 (102) 96 08/06/17 12:00 97.7 114 19 106/74 (85) 96 08/06/17 08:00 97.0 101 19 103/59 (74) 97 08/06/17 07:59 101 2/2/18 04:27 101.9 117 24 99/51 (67) 93 08/06/17 04:00 115 08/06/17 00:00 115 08/05/17 23:45 98.0 121 20 105/68 (80) 99 08/05/17 22:00 98.8 112 18 103/58 (73) 100 08/05/17 21:07 08/05/17 20:40 88 20 159/66 (97) 97 Room Air Physical Exam GENERAL: This is a well-nourished, well-developed patient, in no apparent distress. SKIN: No rashes, ecchymoses or lesions. Cool and dry. HEAD: Atraumatic. Normocephalic. No temporal or scalp tenderness. EYES: Pupils equal round and reactive. Extraocular motions intact. No scleral icterus. No injection or drainage. ENT: Nose without bleeding, purulent drainage or septal hematoma. Throat without erythema, tonsillar hypertrophy or exudate. Uvula midline. Airway patent. NECK: Trachea midline. No JVD or lymphadenopathy. Supple, nontender, no meningeal signs. CARDIOVASCULAR: Regular rate and rhythm without murmurs, gallops, or rubs. RESPIRATORY: Clear to auscultation. Breath sounds equal bilaterally. No wheezes , rales, or rhonchi. GASTROINTESTINAL: Abdomen soft, non-tender, nondistended. MUSCULOSKELETAL: Left thigh posterior aspect with large area of erythema, induration noted. Dressing in place over site of I&D. NEUROLOGICAL: Awake and alert. Non focal exam. Psych cooperative IV line sites with no e.o infection. Laboratory Laboratory Tests Test 08/06/17 04:18 White Blood Count 23.0 Red Blood Count 3.45 Hemoglobin 10.6 Hematocrit 31.3 Mean Corpuscular Volume 90.5 Mean Corpuscular Hemoglobin 30.8 Mean Corpuscular Hemoglobin Concent 34.0 Red Cell Distribution Width 14.1 Platelet Count 217 Mean Platelet Volume 8.8 Neutrophils (%) (Auto) 79.8 Lymphocytes (%) (Auto) 9.8 Monocytes (%) (Auto) 9.0 Eosinophils (%) (Auto) 1.1 Basophils (%) (Auto) 0.3 Neutrophils # (Auto) 18.4 Lymphocytes # (Auto) 2.3 Monocytes # (Auto) 2.1 Eosinophils # (Auto) 0.2 Basophils # (Auto) 0.1 CBC Comment AUTO DIFF Differential Total Cells Counted 100 Neutrophils % (Manual) 65 Band Neutrophils % 17 Lymphocytes % 9 Monocytes % 7 Eosinophils % 2 Neutrophils # (Manual) 18.9 Differential Comment FINAL DIFF MANUAL Toxic Vacuolation PRESENT Platelet Estimate NORMAL Platelet Morphology Comment NORMAL Red Cell Morphology Comment NORMAL Blood Urea Nitrogen 17 Creatinine 1.10 Random Glucose 95 Calcium Level 8.2 Sodium Level 131 Potassium Level 3.4 Chloride Level 98 Carbon Dioxide Level 20.7 Anion Gap 12 Estimat Glomerular Filtration Rate 62 Total Creatine Kinase 658 Date/Time Source Procedure Growth Status 08/05/17 17:20 Blood Peripheral Aerobic Blood Culture - Preliminary NO GROWTH IN 1 DAY Resulted 08/05/17 17:20 Blood Peripheral Anaerobic Blood Culture - Preliminary NO GROWTH IN 1 DAY Resulted 08/05/17 18:21 Wound Leg Gram Stain - Final Resulted 08/05/17 18:21 Wound Culture - Preliminary S. Aureus Mrsa Resulted Result Diagram: 08/06/17 0418 08/06/17 0418 Imaging Last Impressions Chest X-Ray 08/05/17 0000 Signed Impressions: Service Date/Time: August 14:29 - CONCLUSION: No acute disease. El Mchugh MD Assessment and Plan Assessment and Plan Severe Sepsis Present on admission. Persistent hypotension: ongoing sepsis. Left thigh abscess Schizophrenia Recs Continue Cefepime IV Continue Vanco IV (target sepsis) Start Flagyl oral Follow Flu antigen if positive would meet criteria for Tamiflu. Agree with surgical consult. Difficult to obtain history unsure if she receives any IM Depot shots for Haldol which can cause abscess/osteomyelitis. Will get CT Abd/pelvis to look for depth of infection and if any osteomyelitis. Follow cultures follow clinically. covering for me this weekend. Angelic Harrington MD Aug 06, 2017 17:53
[2017-08-06] MEDS ORDERED: VANCOMYCIN INJ 2,000 MG in SODIUM CHLORID 0.9% 500 ML INJ 500 ML IV SCH (18:00)
--- NOTE | 2017-08-06 20:01 | MB ---
cc: BOUBACAR CORDERO M.D. DATE OF CONSULTATION: 08/06/2017. REASON FOR CONSULTATION: Abscess to the left hip. HISTORY OF PRESENT ILLNESS: This is a 57-year-old female who I am not able to get a history from. I talked to Dr. Harrington, infectious disease, who has seen the patient and we had a conference about her. The patient is a very poor historian and all the records, review of systems and history are really obtained from the medical record as all she says is "I need to eat breakfast" and is it 6:45 p.m. She has schizophrenia and apparently gets some medication. Not sure if she gets IM shots but at any rate she comes into the emergency room and they drained an abscess and from the documentation she got a fair amount of pus out and broke up some loculations. The patient returned complaining of some pain in the hip area. It has been marked with a red marker where the erythema is. PAST MEDICAL HISTORY: Her past medical history will not be repeated because it is all in the computer record but her major thing is she has had schizophrenia and issues including neurologic, cardiac and respiratory. She has a severe cough now and there is some concern she may have the flu. ALLERGIES: Numerous allergies listed in the computer. MEDICATIONS: Listed in the computer. PHYSICAL EXAMINATION: GENERAL: On physical exam, she is an overweight -[place]izen [place] female who has a cough and just repeats, "I'd like to have some breakfast". She has an active cough. ABDOMEN: Her abdomen is obese, soft. EXTREMITIES: Her left thigh has an area of erythema that is marked out with a pen somewhat posteriorly. She has an opening about a cm that has a fair amount of purulent drainage on the bandage. With gentle pressure, a small amount comes out. I do not feel any fluctuance. It is fairly cellulitic and firm. She is able to move her upper and lower extremities, although somewhat slowly. LABORATORY DATA: White count is 23, hemoglobin 10 and hematocrit 31. Chemistry shows sodium 131, potassium 3.4. Her creatinine is improved down to 1.1. RADIOLOGICAL STUDIES: She had a chest x-ray which showed no acute disease. She is scheduled tonight for a CT scan of her abdomen, pelvis and thigh to evaluate this area. ASSESSMENT: Abscess that has been drained in the emergency room with persistent elevation of the white count with persistent drainage of purulent material at least for 24 hours. PLAN AT THIS TIME: I agree with the CT scan that Dr. Harrington has ordered to see the depth of this. She is a robust woman who is difficult to examine. If more fluid is seen on the CT scan, may need formal drainage in the operating room. Ill keep her NPO after midnight just in case she needs to go the OR depending on the CT scan MD LAURI Rust/SHARATH /6:42 PM /7:33 PM BEBA
[2017-08-06] MEDS: metroNIDAZOLE 500 MG TAB PO SCH (22:00)
[2017-08-06] MEDS: VANCOMYCIN INJ 2,000 MG in SODIUM CHLORID 0.9% 500 ML INJ 500 ML IV SCH (22:00)
[2017-08-06] MEDS: BENZONATATE 100 MG CAP PO PRN (22:03)
--- NOTE | 2017-08-06 22:20 | RADRPT ---
EXAM DATE/TIME: 08/06/2017 21:09 [facility] COMPARISON: No previous studies available for comparison. INDICATIONS : Sacral abscess. ORAL CONTRAST: No oral contrast ingested. RADIATION DOSE: 24.19 CTDIvol (mGy) MEDICAL HISTORY : Cardiovascular disease. Hypertension. SURGICAL HISTORY : None. ENCOUNTER: Initial ACUITY: 1 day PAIN SCALE: 5/10 LOCATION: pelvis TECHNIQUE: Volumetric scanning of the abdomen and pelvis was performed. Using automated exposure control and ad justment of the mA and/or kV according to patient size, radiation dose was kept as low as reasonably achievable to obtain optimal diagnostic quality images. DICOM format image data is available electro nically for review and comparison. FINDINGS: LOWER LUNGS: The visualized lower lungs are clear. LIVER: Homogeneous density without lesion. There is no dilation of the biliary tree. No calcified gallston es. SPLEEN: Normal size without lesion. PANCREAS: Within normal limits. KIDNEYS: Normal in size and shape. There is no mass, stone, or hydronephrosis. ADRENAL GLANDS: Within normal limits. VASCULAR: There is no aortic aneurysm. BOWEL/MESENTERY: No definite bowel obstruction is noted. Mild ileus is likely. ABDOMINAL WALL: Within normal limits. RETROPERITONEUM: There is no lymphadenopathy. BLADDER: No wall thickening or mass. REPRODUCTIVE: Within normal limits. INGUINAL: There is no lymphadenopathy or hernia. MUSCULOSKELETAL: There is diffuse soft tissue swelling involving the left upper thigh posterior and laterally. Some ai r is noted within the subcutaneous tissues. CONCLUSION: 1. Diffuse soft tissue swelling and some air within the left upper thigh posterior laterally. 2. Mild diffuse ileus. Ricardo Guthrie MD on August 06, 2017 at 22:13 Board Certified Radiologist. This report was verified electronically.
[2017-08-07] VITALS (11 sets, daily range): BP systolic 99–152; BP diastolic 59–72; PULSE 95–110; RESP 20–24; TEMP 97.2–99.6; O2SAT 99–100
[2017-08-07] MEDS: BENZONATATE 100 MG CAP PO PRN (05:49)
[2017-08-07] MEDS: metroNIDAZOLE 500 MG TAB PO SCH ×3 (05:49→22:05)
[2017-08-07] MEDS: CEFEPIME INJ 1,000 MG in SODIUM CHLORIDE 0.9% INJ 100 ML IV SCH ×3 (05:49→23:00)
[2017-08-07] MEDS: SODIUM CHLORIDE 0.9% FLUSH 10 ML FLUSH IV FLUSH SCH ×2 (09:00→22:05)
[2017-08-07] MEDS: AMANTADINE HCL SOLN 100 MG/10 ML UDC PO SCH ×2 (09:10→22:04)
[2017-08-07] MEDS: clonazePAM 1 MG TAB PO SCH ×2 (09:11→22:04)
[2017-08-07] MEDS: ACETAMINOPHEN/HYDROcodone 325 MG/10 MG TAB PO PRN (09:11)
[2017-08-07] MEDS: PANTOPRAZOLE SOD 20 MG DELAYED RELEASE TAB PO SCH (09:11)
[2017-08-07 09:26] LABS: AUTOMATED NEUTROPHIL # 13.9 TH/MM3 (1.8-7.7); BASOPHIL # 0.1 TH/MM3 (0-0.2); BASOPHIL % 0.4 % (0.0-2.0); EOSINOPHIL # 0.3 TH/MM3 (0-0.4); EOSINOPHIL % 1.5 % (0.0-4.0); HEMATOCRIT 34.2 % (35.0-46.0); HEMOGLOBIN 11.5 GM/DL (11.6-15.3); LYMPH % 13.3 % (9.0-44.0); LYMPHOCYTE # 2.4 TH/MM3 (1.0-4.8); MEAN CELL VOLUME 93.2 FL (80.0-100.0); MEAN CORPUSCULAR HEMOGLOBIN 31.3 PG (27.0-34.0); MEAN CORPUSCULAR HGB CONC 33.6 % (32.0-36.0); MEAN PLATELET VOLUME 8.5 FL (7.0-11.0); MONO % 9.2 % (0.0-8.0); MONOCYTE # 1.7 TH/MM3 (0-0.9); NEUT % 75.6 % (16.0-70.0); PLATELET COUNT 277 TH/MM3 (150-450); RED BLOOD COUNT 3.67 MIL/MM3 (4.00-5.30); RED CELL DISTRIBUTION WIDTH 14.8 % (11.6-17.2); WHITE BLOOD COUNT 18.3 TH/MM3 (4.0-11.0)
[2017-08-07 09:36] LABS: BICARBONATE 24.8 MEQ/L (21.0-32.0); CALCIUM 8.9 MG/DL (8.5-10.1); CREATININE 0.97 MG/DL (0.50-1.00); DIRECT BILIRUBIN ADULT 0.1 MG/DL (0.0-0.2); INDIRECT BILIRUBIN 0.2 MG/DL (0.0-0.8); MAGNESIUM 2.6 MG/DL (1.5-2.5); PHOSPHORUS 2.5 MG/DL (2.5-4.9); TOTAL BILIRUBIN ADULT 0.3 MG/DL (0.2-1.0); TOTAL PROTEIN 7.1 GM/DL (6.4-8.2)
--- NOTE | 2017-08-07 09:51 | HHI.PR ---
cc: Kvng Cordero MD Subjective Subjective Notes DAILY PROGRESS NOTE FOR SURGICAL ATTENDING, DR. KVNG CORDERO Patient says she feels a little better She appears more alert Objective Vitals/I&O Vital Signs Date Time Temp Pulse Resp B/P (MAP) Pulse Ox O2 Delivery O2 Flow Rate FiO2 08/07/17 08:31 98.7 100 22 146/71 (96) 100 08/07/17 00:00 Nasal Cannula 2.00 Labs Laboratory Tests Test 08/07/17 08:54 White Blood Count 18.3 Red Blood Count 3.67 Hemoglobin 11.5 Hematocrit 34.2 Mean Corpuscular Volume 93.2 Mean Corpuscular Hemoglobin 31.3 Mean Corpuscular Hemoglobin Concent 33.6 Red Cell Distribution Width 14.8 Platelet Count 277 Mean Platelet Volume 8.5 Neutrophils (%) (Auto) 75.6 Lymphocytes (%) (Auto) 13.3 Monocytes (%) (Auto) 9.2 Eosinophils (%) (Auto) 1.5 Basophils (%) (Auto) 0.4 Neutrophils # (Auto) 13.9 Lymphocytes # (Auto) 2.4 Monocytes # (Auto) 1.7 Eosinophils # (Auto) 0.3 Basophils # (Auto) 0.1 CBC Comment AUTO DIFF Blood Urea Nitrogen 12 Creatinine 0.97 Random Glucose 76 Total Protein 7.1 Albumin 2.0 Calcium Level 8.9 Phosphorus Level 2.5 Magnesium Level 2.6 Alkaline Phosphatase 100 Aspartate Amino Transf (AST/SGOT) 59 Alanine Aminotransferase (ALT/SGPT) 39 Total Bilirubin 0.3 Direct Bilirubin 0.1 Sodium Level 142 Potassium Level 4.0 Chloride Level 111 Carbon Dioxide Level 24.8 Anion Gap 6 Estimat Glomerular Filtration Rate 72 Indirect Bilirubin 0.2 Date/Time Source Procedure Growth Status 08/05/17 17:20 Blood Peripheral Aerobic Blood Culture - Preliminary NO GROWTH IN 1 DAY Resulted 08/05/17 17:20 Blood Peripheral Anaerobic Blood Culture - Preliminary NO GROWTH IN 1 DAY Resulted 08/06/17 17:42 Nasal Washing Influenza Types A,B Antigen (ERWIN) - Final NEGATIVE FOR FLU A AND B ANTIGEN.... Complete 08/05/17 18:21 Wound Leg Gram Stain - Final Resulted 08/05/17 18:21 Wound Culture - Preliminary S. Aureus Mrsa Resulted Radiology Last Impressions Abdomen/Pelvis CT 08/06/17 0000 Signed Impressions: Service Date/Time: Sunday, August 06, 2017 21:09 - CONCLUSION: 1. Diffuse soft tissue swelling and some air within the left upper thigh posterior laterally. 2. Mild diffuse ileus. Ricardo Guthrie MD Chest X-Ray 08/05/17 0000 Signed Impressions: Service Date/Time: August 14:29 - CONCLUSION: No acute disease. El Mchugh MD Cardiovascular: Regular Abdomen: Non-distended Narrative Exam Wound to the left lateral posterior thigh seems less erythematous last indurated. CT scan reviewed the air is portion of the open wound that was debrided Wound Wound : Wound Location: Left leg (lateral posterior thigh) Appearance: Erythema, Induration Drainage: Cloudy Dressing: Dry A/P Problem List: (1) Cellulitis and abscess of left leg ICD Codes: L03.116 - Cellulitis of left lower limb; L02.416 - Cutaneous abscess of left lower limb Status: Acute (2) MRSA (methicillin resistant staph aureus) culture positive ICD Codes: Z22.322 - Carrier or suspected carrier of Methicillin resistant Staphylococcus aureus Status: Acute (3) Cellulitis of left thigh ICD Codes: L03.116 - Cellulitis of left lower limb Status: Acute (4) schizoaffective disorder depressed Status: Chronic (5) Schizoaffective disorder ICD Codes: F25.9 - Schizoaffective disorder, unspecified Status: Chronic (6) Obesity ICD Codes: E66.9 - Obesity Status: Chronic (7) HTN (hypertension) ICD Codes: I10 - HTN (hypertension) Status: Chronic Assessment and Plan 57-year-old female has a MRSA infection and cellulitis to the left lateral thigh. This was drained in the emergency room ears to have adequate drainage and erythema is improved on IV antibiotics. I suspect with her psychiatric derangement she was not able to take the appropriate antibiotics on an outpatient basis. Continue local wound care and continue aggressive antibiotic therapy Attending Statement NOTE FOR SURGICAL ATTENDING, DR. KVNG CORDERO I agree with above assessment and plan. The exam, history, and the medical decision-making described in the above note were completed with the assistance of the mid-level provider. I reviewed and agree with the findings presented. I attest that I had a [id number] encounter with the patient on the same day, and personally performed and documented my assessment and findings in the medical record. The following services were provided during this hospital visit: Chart data review, vital sign assessments/reviewing monitor data Review of consultations notes if present. Medication orders/review and/or management Ordering and/or reviewing lab tests Ordering and/or interpreting/reviewing x-rays and/or diagnostic studies Care of the patient and discussion of the patient with the care team Documentation time To help prompt me to consider important information that might be impacting today's encounter and assessment, information from prior notes written by myself or my colleagues may have been "brought forward/copy and pasted" into today's note. Problem Qualifiers (1) Schizoaffective disorder: Qualified Codes: F25.0 - Schizoaffective disorder, bipolar type (2) Obesity: (3) HTN (hypertension): Qualified Codes: I10 - Essential (primary) hypertension Kvng Cordero MD Aug 07, 2017 09:51
[2017-08-07 10:00] LABS: BANDS 4 % (0-6); BASOPHILS 1 % (0-2); LYMPHOCYTES 17 % (9-44); MONOCYTES 7 % (0-8); MYELOCYTES 1 % (0-0); NEUTROPHIL # MANUAL DIFF 13.7 TH/MM3 (1.8-7.7); POLYS (SEG NEUTROPHILS) 70 % (16-70)
[2017-08-07] MEDS: SODIUM CHLOR 0.9% 1000 ML INJ 1,000 ML IV SCH (11:49)
--- NOTE | 2017-08-07 14:17 | HHI.IDPN ---
Subjective Subjective Remarks Ms. Dean is a 57-year-old male with past medical history significant for frenulum was had multiple visits at the hospital. Other than that I could not find any other significant past medical history on brief review of records. With this background patient presents to the emergency department from her assisted living facility for evaluation of worsening of left posterior thigh wound. It is extremely difficult to obtain history from the patient has patient has schizophrenia as well as is currently in about of cough. Patient reports the area on the left thigh effectively got worse and started showing fluctuance so she presented to the ED. In the emergency department and incision and drainage of the abscess was performed the cultures from which are now growing MRSA susceptibility pending. Patient was initially prescribed Bactrim reportedly despite compliance has continued to worsen. Patient was started on empiric IV antibiotics for sepsis. Patient received fluid bolus and due to persistent hypotension this afternoon she again has received another bolus at this time. Patient denied any fever or chills on admission but throughout this admission she continues to have high-grade fevers with tachycardia and periods of low blood pressure suggestive of severe sepsis. Infectious disease is consulted for evaluation and management of severe sepsis secondary to left thigh abscess. Notes reviewed Temps ok C/O pain L thigh and some sore throat C/S MRSA Antibiotics Current Medications Vancomycin Cefepime Flagyl Medications (Trade) Dose Ordered Sig/Jeremias Route Start Time Stop Time Status Last Admin Sodium Chloride 1,000 ml @ 100 mls/hr Q10H IV 08/05/17 19:47 08/07/17 11:49 (NS Flush) 2 ml UNSCH PRN IV FLUSH 08/05/17 20:00 (NS Flush) 2 ml BID IV FLUSH 08/05/17 21:00 08/06/17 22:04 (Tylenol) 650 mg Q4H PRN PO 08/05/17 20:00 08/06/17 06:03 (Zofran Inj) 4 mg Q6H PRN IVP 08/05/17 20:00 (Narcan Inj) 0.4 mg UNSCH PRN IV PUSH 08/05/17 20:00 (Milk Of Magnesia Liq) 30 ml Q12H PRN PO 08/05/17 20:00 (Senokot) 17.2 mg Q12H PRN PO 08/05/17 20:00 08/05/17 23:31 (Dulcolax Supp) 10 mg DAILY PRN RECTAL 08/05/17 20:00 (Lactulose Liq) 30 ml DAILY PRN PO 08/05/17 20:00 Pharmacy Profile Note 0 ml @ 0 mls/hr UNSCH OTHER 08/05/17 20:00 (Symmetrel Liq) 100 mg BID PO 08/05/17 21:00 08/07/17 09:10 (KlonoPIN) 1 mg DAILY PO 08/06/17 09:00 08/07/17 09:11 (KlonoPIN) 2 mg HS PO 08/05/17 21:00 08/06/17 22:04 (ZyPREXA) 30 mg HS PO 08/05/17 21:00 08/06/17 21:00 Patient Own Medication PT OWN MED: PERPHENAZINE 1... HS PO 08/05/17 21:00 Future Hold Cefepime HCl 1000 mg/Sodium Chloride 100 ml @ 200 mls/hr Q8H IV 08/05/17 23:00 08/07/17 05:49 ([place] 5-325 Mg) 1 tab Q4H PRN PO 08/05/17 20:15 ([place] 10-325 Mg) 1 tab Q4H PRN PO 08/05/17 20:15 08/07/17 09:11 (Morphine Inj) 2 mg Q3H PRN IV PUSH 08/05/17 20:15 Miscellaneous Information SPECIFIC LAB TO BE [facility]... ONCE ONCE .XX 08/08/17 05:45 08/08/17 05:46 (Protonix) 20 mg DAILY PO 08/07/17 09:00 08/07/17 09:11 (Tessalon) 100 mg TID PRN PO 08/06/17 16:15 08/07/17 05:49 (Flagyl) 500 mg Q8HR PO 08/06/17 22:00 08/07/17 05:49 Vancomycin HCl 2000 mg/Sodium Chloride 520 ml @ 250 mls/hr Q18H IV 08/06/17 22:00 08/06/17 22:00 Lines PIV Past Medical History Schizophrenia Allergies: Coded Allergies: iodine (Unverified Allergy, Unknown, 02/16/17) penicillin G (Unverified Allergy, Unknown, 02/16/17) potassium iodide (Unverified Allergy, Unknown, 02/16/17) povidone-iodine (Unverified Allergy, Unknown, 02/16/17) sodium iodide (Unverified Allergy, Unknown, 02/16/17) sodium iodide (Unverified Allergy, Unknown, 02/16/17) Objective . Vital Signs Date Time Temp Pulse Resp B/P (MAP) Pulse Ox O2 Delivery O2 Flow Rate FiO2 08/07/17 11:50 Nasal Cannula 2.00 08/07/17 09:15 Nasal Cannula 2.00 08/07/17 08:31 98.7 100 22 146/71 (96) 100 08/07/17 08:00 99 08/07/17 04:00 95 08/07/17 03:55 97.7 95 20 99/62 (74) 99 08/07/17 00:05 99.6 109 24 105/59 (74) 99 08/07/17 00:00 110 08/07/17 00:00 98 Nasal Cannula 2.00 08/06/17 20:08 98.2 121 24 110/55 (73) 93 08/06/17 20:00 116 08/06/17 20:00 95 08/06/17 16:01 121 08/06/17 16:00 99.1 118 23 140/83 (102) 96 . Laboratory Tests Test 08/05/17 17:20 08/06/17 04:18 08/07/17 08:54 White Blood Count 23.1 TH/MM3 23.0 TH/MM3 18.3 TH/MM3 Red Blood Count 3.83 MIL/MM3 3.45 MIL/MM3 3.67 MIL/MM3 Hemoglobin 11.7 GM/DL 10.6 GM/DL 11.5 GM/DL Hematocrit 34.8 % 31.3 % 34.2 % Mean Corpuscular Volume 90.8 FL 90.5 FL 93.2 FL Mean Corpuscular Hemoglobin 30.6 PG 30.8 PG 31.3 PG Mean Corpuscular Hemoglobin Concent 33.7 % 34.0 % 33.6 % Red Cell Distribution Width 13.9 % 14.1 % 14.8 % Platelet Count 259 TH/MM3 217 TH/MM3 277 TH/MM3 Mean Platelet Volume 9.0 FL 8.8 FL 8.5 FL Neutrophils (%) (Auto) 80.4 % 79.8 % 75.6 % Lymphocytes (%) (Auto) 9.4 % 9.8 % 13.3 % Monocytes (%) (Auto) 9.2 % 9.0 % 9.2 % Eosinophils (%) (Auto) 0.8 % 1.1 % 1.5 % Basophils (%) (Auto) 0.2 % 0.3 % 0.4 % Neutrophils # (Auto) 18.6 TH/MM3 18.4 TH/MM3 13.9 TH/MM3 Lymphocytes # (Auto) 2.2 TH/MM3 2.3 TH/MM3 2.4 TH/MM3 Monocytes # (Auto) 2.1 TH/MM3 2.1 TH/MM3 1.7 TH/MM3 Eosinophils # (Auto) 0.2 TH/MM3 0.2 TH/MM3 0.3 TH/MM3 Basophils # (Auto) 0.0 TH/MM3 0.1 TH/MM3 0.1 TH/MM3 CBC Comment AUTO DIFF AUTO DIFF AUTO DIFF Differential Total Cells Counted 100 100 100 Neutrophils % (Manual) 64 % 65 % 70 % Band Neutrophils % 13 % 17 % 4 % Lymphocytes % 8 % 9 % 17 % Monocytes % 15 % 7 % 7 % Neutrophils # (Manual) 17.8 TH/MM3 18.9 TH/MM3 13.7 TH/MM3 Differential Comment FINAL DIFF MANUAL FINAL DIFF MANUAL FINAL DIFF MANUAL Toxic Vacuolation PRESENT PRESENT Platelet Estimate NORMAL NORMAL NORMAL Platelet Morphology Comment NORMAL NORMAL NORMAL Eosinophils % 2 % Red Cell Morphology Comment NORMAL NORMAL Basophils % 1 % Myelocytes 1 % Laboratory Tests Test 08/05/17 17:20 08/06/17 04:18 08/07/17 08:54 Blood Urea Nitrogen 18 MG/DL 17 MG/DL 12 MG/DL Creatinine 1.36 MG/DL 1.10 MG/DL 0.97 MG/DL Random Glucose 102 MG/DL 95 MG/DL 76 MG/DL Total Protein 7.7 GM/DL 7.1 GM/DL Albumin 2.4 GM/DL 2.0 GM/DL Calcium Level 8.7 MG/DL 8.2 MG/DL 8.9 MG/DL Alkaline Phosphatase 142 U/L 100 U/L Aspartate Amino Transf (AST/SGOT) 60 U/L 59 U/L Alanine Aminotransferase (ALT/SGPT) 48 U/L 39 U/L Total Bilirubin 0.4 MG/DL 0.3 MG/DL Sodium Level 127 MEQ/L 131 MEQ/L 142 MEQ/L Potassium Level 3.6 MEQ/L 3.4 MEQ/L 4.0 MEQ/L Chloride Level 93 MEQ/L 98 MEQ/L 111 MEQ/L Carbon Dioxide Level 26.2 MEQ/L 20.7 MEQ/L 24.8 MEQ/L Anion Gap 8 MEQ/L 12 MEQ/L 6 MEQ/L Estimat Glomerular Filtration Rate 48 ML/MIN 62 ML/MIN 72 ML/MIN Lactic Acid Level 2.0 mmol/L Total Creatine Kinase 658 U/L Creatine Kinase MB 4.7 NG/ML Creatine Kinase MB % 0.7 % Phosphorus Level 2.5 MG/DL Magnesium Level 2.6 MG/DL Direct Bilirubin 0.1 MG/DL Indirect Bilirubin 0.2 MG/DL Microbiology Date/Time Source Procedure Growth Status 08/05/17 17:20 Blood Peripheral Aerobic Blood Culture - Preliminary NO GROWTH IN 2 DAYS Resulted 08/05/17 17:20 Blood Peripheral Anaerobic Blood Culture - Preliminary NO GROWTH IN 2 DAYS Resulted 08/05/17 17:20 Blood Peripheral Aerobic Blood Culture - Preliminary NO GROWTH IN 2 DAYS Resulted 08/05/17 17:20 Blood Peripheral Anaerobic Blood Culture - Preliminary NO GROWTH IN 2 DAYS Resulted 08/06/17 17:42 Nasal Washing Influenza Types A,B Antigen (ERWIN) - Final NEGATIVE FOR FLU A AND B ANTIGEN.... Complete 08/05/17 18:21 Wound Leg Gram Stain - Final Complete 08/05/17 18:21 Wound Culture - Final S. Aureus Mrsa Complete Imaging Last Impressions Abdomen/Pelvis CT 08/06/17 0000 Signed Impressions: Service Date/Time: Sunday, August 06, 2017 21:09 - CONCLUSION: 1. Diffuse soft tissue swelling and some air within the left upper thigh posterior laterally. 2. Mild diffuse ileus. Ricardo Guthrie MD Chest X-Ray 08/05/17 0000 Signed Impressions: Service Date/Time: August 14:29 - CONCLUSION: No acute disease. El Mchugh MD Physical Exam GENERAL: obese female, NAD SKIN: No rashes, ecchymoses or lesions. Cool and dry. HEAD: Atraumatic. Normocephalic. No temporal or scalp tenderness. EYES: Pupils equal round and reactive. Extraocular motions intact. No scleral icterus. No injection or drainage. ENT: Nose without bleeding, purulent drainage or septal hematoma. Throat without erythema, tonsillar hypertrophy or exudate. Uvula midline. Airway patent. NECK: Trachea midline. No JVD or lymphadenopathy. Supple, nontender, no meningeal signs. CARDIOVASCULAR: Regular rate and rhythm without murmurs, gallops, or rubs. RESPIRATORY: Clear to auscultation. Breath sounds equal bilaterally. No wheezes , rales, or rhonchi. GASTROINTESTINAL: Abdomen soft, non-tender, nondistended. MUSCULOSKELETAL: Left thigh posterior aspect with large area of erythema, induration noted. It is better based on ink markings on the border. Has copious yellow reddish drainage, no odor. NEUROLOGICAL: Awake and alert. Non focal exam. Psych cooperative IV line sites with no e.o infection. Assessment & Plan Remarks IMPRESSION Severe Sepsis Present on admission. Hypotension: ongoing sepsis. Better Left thigh abscess, draining Schizophrenia Recs Continue Cefepime IV Continue Vanco IV (target sepsis) Continue Flagyl oral Monitor progress Will determine when to deescalate Abx Follow CBC Amparo Lund MD Aug 07, 2017 14:17
--- NOTE | 2017-08-07 17:08 | HHI.PR ---
Subjective Remarks Patient seen this morning. Patient denies any chest pain or shortness of breath. Says she is feeling all right. Reports pain is controlled. Objective Vital Signs Date Time Temp Pulse Resp B/P (MAP) Pulse Ox O2 Delivery O2 Flow Rate FiO2 08/07/17 16:08 97.2 99 22 143/72 (95) 99 08/07/17 12:08 98.6 98 22 144/68 (93) 100 08/07/17 11:50 Nasal Cannula 2.00 08/07/17 09:15 Nasal Cannula 2.00 08/07/17 08:31 98.7 100 22 146/71 (96) 100 08/07/17 08:00 99 08/07/17 04:00 95 08/07/17 03:55 97.7 95 20 99/62 (74) 99 08/07/17 00:05 99.6 109 24 105/59 (74) 99 08/07/17 00:00 110 08/07/17 00:00 98 Nasal Cannula 2.00 08/06/17 20:08 98.2 121 24 110/55 (73) 93 08/06/17 20:00 116 08/06/17 20:00 95 I/O 08/06/17 08/06/17 08/06/17 08/07/17 08/07/17 08/07/17 07:00 15:00 23:00 07:00 15:00 23:00 Intake Total 720 ml 720 ml 2340 ml Output Total 400 ml 1700 ml Balance 320 ml 720 ml 640 ml Intake Oral 720 ml 720 ml 720 ml IV Total 1620 ml Output Urine Total 400 ml 1700 ml # Voids 7 # Bowel Movements 0 2 0 Result Diagram: 08/07/17 0854 08/07/17 0854 Objective Remarks GENERAL: Patient lying in bed. Appears comfortable. SKIN: Warm and dry. HEAD: Normocephalic. EYES: No scleral icterus. No injection or drainage. NECK: Supple, trachea midline. No JVD. CARDIOVASCULAR: Regular rate and rhythm without murmurs, gallops, or rubs. RESPIRATORY: Breath sounds equal bilaterally. No accessory muscle use. GASTROINTESTINAL: Abdomen soft, non-tender, nondistended. MUSCULOSKELETAL: No cyanosis, or edema. Left thigh with improving erythema, abscess draining yellow pus. BACK: Nontender without obvious deformity. No CVA tenderness. A/P Assessment and Plan //Severe sepsis on admission. //Left posterior thigh cellulitis/abscess, sepsis Patient tachycardic with leukocytosis Status post incision and drainage of left posterior thigh abscess in the emergency department -Acute kidney injury. Creatinine 1.36 from baseline of 0.8. Lactate 2.0 on admission Vancomycin and cefepime Infectious disease consulted, appreciate recommendations Monitor for signs of shock = 2/2. Cultures positive for MRSA. Was on isolation. Continue antibiotics. ID following. Appreciate assistance. = 2/3. Continues with sepsis, however white count improving 18.3 today. Continue vancomycin as per ID. Appreciate ID and surgery assistance. //Hyponatremia Normal saline Fluid restriction Monitor BMP = 2/2. Sodium 131. Improved from admission. Continue IV fluids. = 2/3. Sodium 142. Start one half normal saline. Today to monitor. //Acute kidney injury Creatinine 1.36, baseline 0.80 IV fluid hydration Monitor renal function = Creatinine 1.1, improved from 1.36 on admission. Continue IV fluids. = Resolved. Continue to monitor in the setting of sepsis. //Schizophrenia Continue home medications Regular diet with fluid restriction Electrolytes: monitor and replete prn 1/2NS at 100 cc/hr Discharge Planning inpatient treatment for sepsis pt consult Deangelo Zambrano MD Aug 07, 2017 17:08
[2017-08-07] MEDS: VANCOMYCIN INJ 2,000 MG in SODIUM CHLORID 0.9% 500 ML INJ 500 ML IV SCH (17:12)
[2017-08-07] MEDS: SODIUM CHLOR 0.45% 1000 ML INJ 1,000 ML IV SCH (17:12)
[2017-08-08] VITALS (11 sets, daily range): BP systolic 128–170; BP diastolic 74–88; PULSE 84–113; RESP 18–20; TEMP 97.6–99.8; O2SAT 95–100
[2017-08-08] MEDS: SODIUM CHLOR 0.45% 1000 ML INJ 1,000 ML IV SCH ×3 (03:15→23:58)
[2017-08-08] MEDS: ACETAMINOPHEN/HYDROcodone 325 MG/10 MG TAB PO PRN (03:58)
[2017-08-08] MEDS ORDERED: PHARMACY ORDERED LAB ONE (05:45)
[2017-08-08] MEDS: metroNIDAZOLE 500 MG TAB PO SCH ×3 (06:02→20:44)
[2017-08-08] MEDS: CEFEPIME INJ 1,000 MG in SODIUM CHLORIDE 0.9% INJ 100 ML IV SCH (06:02)
[2017-08-08 06:08] LABS: BICARBONATE 24.7 MEQ/L (21.0-32.0); CALCIUM 8.5 MG/DL (8.5-10.1); CREATININE 0.8 MG/DL (0.50-1.00); MAGNESIUM 2.2 MG/DL (1.5-2.5)
[2017-08-08 06:12] LABS: PHOSPHORUS 2.9 MG/DL (2.5-4.9); VANCOMYCIN TROUGH 21.5 MCG/ML (5.0-10.0)
[2017-08-08 07:14] LABS: AUTOMATED NEUTROPHIL # 10.4 TH/MM3 (1.8-7.7); BASOPHIL % 0.3 % (0.0-2.0); EOSINOPHIL % 0.2 % (0.0-4.0); HEMOGLOBIN 10.7 GM/DL (11.6-15.3); LYMPH % 14.5 % (9.0-44.0); LYMPHOCYTE # 2.1 TH/MM3 (1.0-4.8); MEAN CELL VOLUME 90.9 FL (80.0-100.0); MEAN CORPUSCULAR HEMOGLOBIN 30.5 PG (27.0-34.0); MEAN CORPUSCULAR HGB CONC 33.6 % (32.0-36.0); MEAN PLATELET VOLUME 8.2 FL (7.0-11.0); MONO % 12.3 % (0.0-8.0); MONOCYTE # 1.8 TH/MM3 (0-0.9); NEUT % 72.7 % (16.0-70.0); PLATELET COUNT 286 TH/MM3 (150-450); RED BLOOD COUNT 3.51 MIL/MM3 (4.00-5.30); RED CELL DISTRIBUTION WIDTH 15.1 % (11.6-17.2); WHITE BLOOD COUNT 14.3 TH/MM3 (4.0-11.0)
[2017-08-08] MEDS: SODIUM CHLORIDE 0.9% FLUSH 10 ML FLUSH IV FLUSH SCH ×2 (08:08→20:44)
[2017-08-08] MEDS: PANTOPRAZOLE SOD 20 MG DELAYED RELEASE TAB PO SCH (08:09)
[2017-08-08] MEDS: clonazePAM 1 MG TAB PO SCH ×2 (08:09→20:44)
[2017-08-08] MEDS: AMANTADINE HCL SOLN 100 MG/10 ML UDC PO SCH ×2 (08:10→20:44)
[2017-08-08 10:05] LABS: BANDS 4 % (0-6); LYMPHOCYTES 18 % (9-44); METAMYELOCYTES 3 % (0-1); MONOCYTES 5 % (0-8); MYELOCYTES 1 % (0-0); POLYS (SEG NEUTROPHILS) 69 % (16-70)
--- NOTE | 2017-08-08 10:16 | HHI.PR ---
Subjective Remarks Patient seen this morning. Says she feels all right. Denies any chest pain or shortness of breath. Denies any pain. no Acute events per nursing. Objective Vital Signs Date Time Temp Pulse Resp B/P (MAP) Pulse Ox O2 Delivery O2 Flow Rate FiO2 08/08/17 09:07 Nasal Cannula 2.00 08/08/17 08:00 91 08/08/17 04:44 99.8 106 20 128/76 (93) 95 08/08/17 04:00 101 08/08/17 00:17 98.8 101 20 147/80 (102) 100 08/08/17 00:00 Nasal Cannula 2.00 08/08/17 00:00 113 08/07/17 20:00 98.7 105 20 152/66 (94) 99 08/07/17 20:00 103 08/07/17 20:00 Nasal Cannula 2.00 08/07/17 17:57 Nasal Cannula 2.00 08/07/17 17:00 97 08/07/17 16:08 97.2 99 22 143/72 (95) 99 08/07/17 12:08 98.6 98 22 144/68 (93) 100 08/07/17 12:00 95 08/07/17 11:50 Nasal Cannula 2.00 I/O 08/07/17 08/07/17 08/07/17 08/08/17 08/08/17 08/08/17 07:00 15:00 23:00 07:00 15:00 23:00 Intake Total 2340 ml 380 ml Output Total 1700 ml 550 ml Balance 640 ml 380 ml -550 ml Intake Oral 720 ml 380 ml IV Total 1620 ml Output Urine Total 1700 ml 550 ml # Voids 3 # Bowel Movements 0 0 1 Result Diagram: 08/08/17 0628 08/08/17 0535 Objective Remarks GENERAL: Patient lying in bed. Sleeping, wakes up for exam. Appears comfortable. SKIN: Warm and dry. HEAD: Normocephalic. EYES: No scleral icterus. No injection or drainage. NECK: Supple, trachea midline. No JVD. CARDIOVASCULAR: Regular rate and rhythm without murmurs, gallops, or rubs. RESPIRATORY: Breath sounds equal bilaterally. No accessory muscle use. GASTROINTESTINAL: Abdomen soft, non-tender, nondistended. MUSCULOSKELETAL: No cyanosis, or edema. Left thigh erythema cont to improve, abscess draining yellow pus still. BACK: Nontender without obvious deformity. No CVA tenderness. A/P Assessment and Plan //Severe sepsis on admission. //Left posterior thigh cellulitis/abscess, sepsis Patient tachycardic with leukocytosis Status post incision and drainage of left posterior thigh abscess in the emergency department -Acute kidney injury. Creatinine 1.36 from baseline of 0.8. Lactate 2.0 on admission Vancomycin and cefepime Infectious disease consulted, appreciate recommendations Monitor for signs of shock = 2/. Cultures positive for MRSA. Was on isolation. Continue antibiotics. ID following. Appreciate assistance. = 2/. Continues with sepsis, however white count improving 18.3 today. Continue vancomycin as per ID. Appreciate ID and surgery assistance. = 2. Sepsis continues with tachycardia, low-grade fever 99.8 this morning. Leukocytosis down to 14.3. Continue IV antibiotics as per infectious disease. //Hyponatremia Normal saline Fluid restriction Monitor BMP = 2/. Sodium 131. Improved from admission. Continue IV fluids. = 2/. Sodium 142. Start one half normal saline. Today to monitor. = 08/08. Hyponatremia has resolved. Sodium 141. Continue half normal saline. //Acute kidney injury Creatinine 1.36, baseline 0.80 IV fluid hydration Monitor renal function = Creatinine 1.1, improved from 1.36 on admission. Continue IV fluids. = Resolved. Creatinine 0.8 Continue to monitor in the setting of sepsis. //Schizophrenia Continue home medications Regular diet with fluid restriction Electrolytes: monitor and replete prn 1/2NS at 100 cc/hr Discharge Planning =inpatient treatment for sepsis =pt recommends rehabilitation. = Likely DC back to SNF when stable. Deangelo Zambrano MD Aug 08, 2017 10:16
--- NOTE | 2017-08-08 10:38 | HHI.PR ---
Subjective Subjective Notes somewhat somnolent, sluggish. C/O pain, but says it is better? Objective Vitals/I&O Vital Signs Date Time Temp Pulse Resp B/P (MAP) Pulse Ox O2 Delivery O2 Flow Rate FiO2 08/08/17 09:07 Nasal Cannula 2.00 08/08/17 08:00 91 08/08/17 04:44 99.8 20 128/76 (93) 95 Labs Laboratory Tests Test 08/08/17 05:35 08/08/17 06:28 Blood Urea Nitrogen 11 Creatinine 0.80 Random Glucose 103 Albumin 2.0 Calcium Level 8.5 Phosphorus Level 2.9 Magnesium Level 2.2 Sodium Level 141 Potassium Level 4.1 Chloride Level 109 Carbon Dioxide Level 24.7 Anion Gap 7 Estimat Glomerular Filtration Rate 89 Total Creatine Kinase 315 Creatine Kinase MB 2.5 Creatine Kinase MB % 0.8 Vancomycin Level Trough 21.5 White Blood Count 14.3 Red Blood Count 3.51 Hemoglobin 10.7 Hematocrit 32.0 Mean Corpuscular Volume 90.9 Mean Corpuscular Hemoglobin 30.5 Mean Corpuscular Hemoglobin Concent 33.6 Red Cell Distribution Width 15.1 Platelet Count 286 Mean Platelet Volume 8.2 Neutrophils (%) (Auto) 72.7 Lymphocytes (%) (Auto) 14.5 Monocytes (%) (Auto) 12.3 Eosinophils (%) (Auto) 0.2 Basophils (%) (Auto) 0.3 Neutrophils # (Auto) 10.4 Lymphocytes # (Auto) 2.1 Monocytes # (Auto) 1.8 Eosinophils # (Auto) 0.0 Basophils # (Auto) 0.0 CBC Comment AUTO DIFF Differential Total Cells Counted 100 Neutrophils % (Manual) 69 Band Neutrophils % 4 Lymphocytes % 18 Monocytes % 5 Neutrophils # (Manual) 11.0 Metamyelocytes 3 Myelocytes 1 Differential Comment FINAL DIFF MANUAL Platelet Estimate NORMAL Platelet Morphology Comment ENLARGED Red Cell Morphology Comment NORMAL Date/Time Source Procedure Growth Status 08/05/17 17:20 Blood Peripheral Aerobic Blood Culture - Preliminary NO GROWTH IN 2 DAYS Resulted 08/05/17 17:20 Blood Peripheral Anaerobic Blood Culture - Preliminary NO GROWTH IN 2 DAYS Resulted 08/06/17 17:42 Nasal Washing Influenza Types A,B Antigen (ERWIN) - Final NEGATIVE FOR FLU A AND B ANTIGEN.... Complete 08/05/17 18:21 Wound Leg Gram Stain - Final Complete 08/05/17 18:21 Wound Culture - Final S. Aureus Mrsa Complete Radiology Last Impressions Abdomen/Pelvis CT 08/06/17 0000 Signed Impressions: Service Date/Time: Sunday, August 06, 2017 21:09 - CONCLUSION: 1. Diffuse soft tissue swelling and some air within the left upper thigh posterior laterally. 2. Mild diffuse ileus. Ricardo Guthrie MD Chest X-Ray 08/05/17 0000 Signed Impressions: Service Date/Time: August 14:29 - CONCLUSION: No acute disease. El Mchugh MD Narrative Exam L hip area with two places where there is exudate, skin, the impression that there is infected necrotic SQ fat beneath it. The marked raea of erythema appears decreased. A/P Problem List: (1) Cellulitis and abscess of left leg ICD Codes: L03.116 - Cellulitis of left lower limb; L02.416 - Cutaneous abscess of left lower limb Status: Acute (2) MRSA (methicillin resistant staph aureus) culture positive ICD Codes: Z22.322 - Carrier or suspected carrier of Methicillin resistant Staphylococcus aureus Status: Acute (3) Cellulitis of left thigh ICD Codes: L03.116 - Cellulitis of left lower limb Status: Acute (4) schizoaffective disorder depressed Status: Chronic (5) Schizoaffective disorder ICD Codes: F25.9 - Schizoaffective disorder, unspecified Status: Chronic (6) Obesity ICD Codes: E66.9 - Obesity Status: Chronic (7) HTN (hypertension) ICD Codes: I10 - HTN (hypertension) Status: Chronic Assessment and Plan L hip cellulitis. abscess. s/p ED I and D. There may be more to debride. The patient just ate. Will make NPO after MN in case Dr Nuñez wants to further debride the area, consider VAC. Problem Qualifiers (1) Schizoaffective disorder: Qualified Codes: F25.0 - Schizoaffective disorder, bipolar type (2) Obesity: (3) HTN (hypertension): Qualified Codes: I10 - Essential (primary) hypertension Ryley Johnson MD Aug 08, 2017 10:38
[2017-08-08] MEDS: ACETAMINOPHEN 1000 MG/100 ML 100 ML IV SCH ×3 (11:00→23:58)
--- NOTE | 2017-08-08 11:35 | HHI.IDPN ---
Subjective Subjective Remarks Ms. Dean is a 57-year-old male with past medical history significant for frenulum was had multiple visits at the hospital. Other than that I could not find any other significant past medical history on brief review of records. With this background patient presents to the emergency department from her assisted living facility for evaluation of worsening of left posterior thigh wound. It is extremely difficult to obtain history from the patient has patient has schizophrenia as well as is currently in about of cough. Patient reports the area on the left thigh effectively got worse and started showing fluctuance so she presented to the ED. In the emergency department and incision and drainage of the abscess was performed the cultures from which are now growing MRSA susceptibility pending. Patient was initially prescribed Bactrim reportedly despite compliance has continued to worsen. Patient was started on empiric IV antibiotics for sepsis. Patient received fluid bolus and due to persistent hypotension this afternoon she again has received another bolus at this time. Patient denied any fever or chills on admission but throughout this admission she continues to have high-grade fevers with tachycardia and periods of low blood pressure suggestive of severe sepsis. Infectious disease is consulted for evaluation and management of severe sepsis secondary to left thigh abscess. Notes reviewed D/W RN Temps 100.8 at 4 am Surgery notes reviewed C/O pain L thigh C/S MRSA WBC improving Antibiotics Current Medications Vancomycin Cefepime Flagyl Medications (Trade) Dose Ordered Sig/Jeremias Route Start Time Stop Time Status Last Admin (NS Flush) 2 ml UNSCH PRN IV FLUSH 08/05/17 20:00 (NS Flush) 2 ml BID IV FLUSH 08/05/17 21:00 08/07/17 22:05 (Tylenol) 650 mg Q4H PRN PO 08/05/17 20:00 08/06/17 06:03 (Zofran Inj) 4 mg Q6H PRN IVP 08/05/17 20:00 (Narcan Inj) 0.4 mg UNSCH PRN IV PUSH 08/05/17 20:00 (Milk Of Magnesia Liq) 30 ml Q12H PRN PO 08/05/17 20:00 (Senokot) 17.2 mg Q12H PRN PO 08/05/17 20:00 08/05/17 23:31 (Dulcolax Supp) 10 mg DAILY PRN RECTAL 08/05/17 20:00 (Lactulose Liq) 30 ml DAILY PRN PO 08/05/17 20:00 Pharmacy Profile Note 0 ml @ 0 mls/hr UNSCH OTHER 08/05/17 20:00 (Symmetrel Liq) 100 mg BID PO 08/05/17 21:00 08/08/17 08:10 (KlonoPIN) 1 mg DAILY PO 08/06/17 09:00 08/08/17 08:09 (KlonoPIN) 2 mg HS PO 08/05/17 21:00 08/07/17 22:04 (ZyPREXA) 30 mg HS PO 08/05/17 21:00 08/07/17 21:00 Patient Own Medication PT OWN MED: PERPHENAZINE 1... HS PO 08/05/17 21:00 Future Hold Cefepime HCl 1000 mg/Sodium Chloride 100 ml @ 200 mls/hr Q8H IV 08/05/17 23:00 08/08/17 06:02 (Graham 5-325 Mg) 1 tab Q4H PRN PO 08/05/17 20:15 (Graham 10-325 Mg) 1 tab Q4H PRN PO 08/05/17 20:15 08/08/17 03:58 (Morphine Inj) 2 mg Q3H PRN IV PUSH 08/05/17 20:15 (Protonix) 20 mg DAILY PO 08/07/17 09:00 08/08/17 08:09 (Tessalon) 100 mg TID PRN PO 08/06/17 16:15 08/07/17 05:49 (Flagyl) 500 mg Q8HR PO 08/06/17 22:00 08/08/17 06:02 Sodium Chloride 1,000 ml @ 100 mls/hr Q10H IV 08/07/17 17:15 08/08/17 09:56 Vancomycin HCl 1750 mg/Sodium Chloride 517.5 ml @ 250 mls/hr Q18H IV 08/09/17 06:00 Miscellaneous Information SPECIFIC LAB TO BE DRAWN:VA... ONCE ONCE .XX 08/11/17 11:45 08/11/17 11:46 (Toradol Inj) 30 mg Q6HR IV PUSH 08/08/17 12:00 08/13/17 11:59 Acetaminophen 100 ml @ 400 mls/hr Q6H IV 08/08/17 11:00 Lines PIV Past Medical History Schizophrenia Allergies: Coded Allergies: iodine (Unverified Allergy, Unknown, 02/16/17) penicillin G (Unverified Allergy, Unknown, 02/16/17) potassium iodide (Unverified Allergy, Unknown, 02/16/17) povidone-iodine (Unverified Allergy, Unknown, 02/16/17) sodium iodide (Unverified Allergy, Unknown, 02/16/17) sodium iodide (Unverified Allergy, Unknown, 02/16/17) Objective . Vital Signs Date Time Temp Pulse Resp B/P (MAP) Pulse Ox O2 Delivery O2 Flow Rate FiO2 08/08/17 09:07 Nasal Cannula 2.00 08/08/17 08:08 97.7 93 19 170/88 (115) 100 08/08/17 08:00 91 08/08/17 04:44 99.8 106 20 128/76 (93) 95 08/08/17 04:00 101 08/08/17 00:17 98.8 101 20 147/80 (102) 100 08/08/17 00:00 Nasal Cannula 2.00 08/08/17 00:00 113 08/07/17 20:00 98.7 105 20 152/66 (94) 99 08/07/17 20:00 103 08/07/17 20:00 Nasal Cannula 2.00 08/07/17 17:57 Nasal Cannula 2.00 08/07/17 17:00 97 08/07/17 16:08 97.2 99 22 143/72 (95) 99 08/07/17 12:08 98.6 98 22 144/68 (93) 100 08/07/17 12:00 95 08/07/17 11:50 Nasal Cannula 2.00 . Laboratory Tests Test 08/07/17 08:54 08/08/17 06:28 White Blood Count 18.3 TH/MM3 14.3 TH/MM3 Red Blood Count 3.67 MIL/MM3 3.51 MIL/MM3 Hemoglobin 11.5 GM/DL 10.7 GM/DL Hematocrit 34.2 % 32.0 % Mean Corpuscular Volume 93.2 FL 90.9 FL Mean Corpuscular Hemoglobin 31.3 PG 30.5 PG Mean Corpuscular Hemoglobin Concent 33.6 % 33.6 % Red Cell Distribution Width 14.8 % 15.1 % Platelet Count 277 TH/MM3 286 TH/MM3 Mean Platelet Volume 8.5 FL 8.2 FL Neutrophils (%) (Auto) 75.6 % 72.7 % Lymphocytes (%) (Auto) 13.3 % 14.5 % Monocytes (%) (Auto) 9.2 % 12.3 % Eosinophils (%) (Auto) 1.5 % 0.2 % Basophils (%) (Auto) 0.4 % 0.3 % Neutrophils # (Auto) 13.9 TH/MM3 10.4 TH/MM3 Lymphocytes # (Auto) 2.4 TH/MM3 2.1 TH/MM3 Monocytes # (Auto) 1.7 TH/MM3 1.8 TH/MM3 Eosinophils # (Auto) 0.3 TH/MM3 0.0 TH/MM3 Basophils # (Auto) 0.1 TH/MM3 0.0 TH/MM3 CBC Comment AUTO DIFF AUTO DIFF Differential Total Cells Counted 100 100 Neutrophils % (Manual) 70 % 69 % Band Neutrophils % 4 % 4 % Lymphocytes % 17 % 18 % Monocytes % 7 % 5 % Basophils % 1 % Neutrophils # (Manual) 13.7 TH/MM3 11.0 TH/MM3 Myelocytes 1 % 1 % Differential Comment FINAL DIFF MANUAL FINAL DIFF MANUAL Platelet Estimate NORMAL NORMAL Platelet Morphology Comment NORMAL ENLARGED Red Cell Morphology Comment NORMAL NORMAL Metamyelocytes 3 % Laboratory Tests Test 08/07/17 08:54 08/08/17 05:35 Blood Urea Nitrogen 12 MG/DL 11 MG/DL Creatinine 0.97 MG/DL 0.80 MG/DL Random Glucose 76 MG/DL 103 MG/DL Total Protein 7.1 GM/DL Albumin 2.0 GM/DL 2.0 GM/DL Calcium Level 8.9 MG/DL 8.5 MG/DL Phosphorus Level 2.5 MG/DL 2.9 MG/DL Magnesium Level 2.6 MG/DL 2.2 MG/DL Alkaline Phosphatase 100 U/L Aspartate Amino Transf (AST/SGOT) 59 U/L Alanine Aminotransferase (ALT/SGPT) 39 U/L Total Bilirubin 0.3 MG/DL Direct Bilirubin 0.1 MG/DL Sodium Level 142 MEQ/L 141 MEQ/L Potassium Level 4.0 MEQ/L 4.1 MEQ/L Chloride Level 111 MEQ/L 109 MEQ/L Carbon Dioxide Level 24.8 MEQ/L 24.7 MEQ/L Anion Gap 6 MEQ/L 7 MEQ/L Estimat Glomerular Filtration Rate 72 ML/MIN 89 ML/MIN Indirect Bilirubin 0.2 MG/DL Total Creatine Kinase 315 U/L Creatine Kinase MB 2.5 NG/ML Creatine Kinase MB % 0.8 % Microbiology Date/Time Source Procedure Growth Status 08/05/17 17:20 Blood Peripheral Aerobic Blood Culture - Preliminary NO GROWTH IN 3 DAYS Resulted 08/05/17 17:20 Blood Peripheral Anaerobic Blood Culture - Preliminary NO GROWTH IN 3 DAYS Resulted 08/05/17 17:20 Blood Peripheral Aerobic Blood Culture - Preliminary NO GROWTH IN 3 DAYS Resulted 08/05/17 17:20 Blood Peripheral Anaerobic Blood Culture - Preliminary NO GROWTH IN 3 DAYS Resulted 08/06/17 17:42 Nasal Washing Influenza Types A,B Antigen (ERWIN) - Final NEGATIVE FOR FLU A AND B ANTIGEN.... Complete 08/05/17 18:21 Wound Leg Gram Stain - Final Complete 08/05/17 18:21 Wound Culture - Final S. Aureus Mrsa Complete Imaging Last Impressions Abdomen/Pelvis CT 08/06/17 0000 Signed Impressions: Service Date/Time: Sunday, August 06, 2017 21:09 - CONCLUSION: 1. Diffuse soft tissue swelling and some air within the left upper thigh posterior laterally. 2. Mild diffuse ileus. Ricardo Guthrie MD Chest X-Ray 08/05/17 0000 Signed Impressions: Service Date/Time: August 14:29 - CONCLUSION: No acute disease. El Mchugh MD Physical Exam GENERAL: obese female, NAD. woke her up from her sleep, sluggish SKIN: No rashes, ecchymoses or lesions. Cool and dry. HEAD: Atraumatic. Normocephalic. No temporal or scalp tenderness. EYES: Pupils equal round and reactive. Extraocular motions intact. No scleral icterus. No injection or drainage. ENT: Nose without bleeding, purulent drainage or septal hematoma. Throat without erythema, tonsillar hypertrophy or exudate. Uvula midline. Airway patent. NECK: Trachea midline. No JVD or lymphadenopathy. Supple, nontender, no meningeal signs. CARDIOVASCULAR: Regular rate and rhythm without murmurs, gallops, or rubs. RESPIRATORY: Clear to auscultation. Breath sounds equal bilaterally. No wheezes , rales, or rhonchi. GASTROINTESTINAL: Abdomen soft, non-tender, nondistended. MUSCULOSKELETAL: Left thigh posterior aspect with large area of erythema, induration noted. It looks worse compared to yesterday as far as intensity of color. However the erythema is still within the markings and less. 2 areas with slough that are both draining blood tinged purulent fluid. No odor NEUROLOGICAL: awaken from her sleep, sluggish/lethargic Psych lethargic today, although she answered all my questions. Not as bright as yesterday IV line sites with no e.o infection. Assessment & Plan Remarks IMPRESSION Severe Sepsis Present on admission. Hypotension: ongoing sepsis. Better Left thigh abscess, draining Schizophrenia Fevers Recs Stop Cefepime IV Continue Vanco IV (target sepsis) Continue Flagyl oral Surgery notes - she will benefit from formal debridement Monitor progress Will determine when to deescalate Abx Follow CBC Amparo Lund MD Aug 08, 2017 11:35
[2017-08-08] MEDS: KETOROLAC TROMETHAMINE 30 MG/ML (IVP) VIAL IV PUSH SCH ×2 (13:56→17:28)
[2017-08-09] VITALS (10 sets, daily range): BP systolic 120–151; BP diastolic 71–92; PULSE 84–110; RESP 16–18; TEMP 97.5–98.6; O2SAT 99–100
[2017-08-09] MEDS ORDERED: SODIUM CHLORID 0.9% 500 ML IV PRN (04:00)
[2017-08-09] MEDS ORDERED: CHLORHEXIDINE GLUCONATE 2 % 1 PACK (2 CLOTHS) TOPICAL PRN (04:00)
[2017-08-09] MEDS ORDERED: LACTATED RINGER'S 1000 ML IV PRN (04:00)
[2017-08-09] MEDS ORDERED: METOPROLOL TARTRATE 25 MG TAB PO PRN (04:00)
[2017-08-09] MEDS: metroNIDAZOLE 500 MG TAB PO SCH (04:53)
[2017-08-09] MEDS: ACETAMINOPHEN 1000 MG/100 ML 100 ML IV SCH ×4 (04:53→23:00)
[2017-08-09] MEDS: KETOROLAC TROMETHAMINE 30 MG/ML (IVP) VIAL IV PUSH SCH ×5 (04:53→23:14)
[2017-08-09] MEDS ORDERED: VANCOMYCIN INJ 1,750 MG in SODIUM CHLORID 0.9% 500 ML INJ 500 ML IV SCH (06:00)
[2017-08-09 08:47] LABS: AUTOMATED NEUTROPHIL # 8.3 TH/MM3 (1.8-7.7); BASOPHIL # 0.1 TH/MM3 (0-0.2); BASOPHIL % 0.6 % (0.0-2.0); EOSINOPHIL % 0.1 % (0.0-4.0); HEMATOCRIT 33.7 % (35.0-46.0); HEMOGLOBIN 11.2 GM/DL (11.6-15.3); MEAN CELL VOLUME 91.4 FL (80.0-100.0); MEAN CORPUSCULAR HEMOGLOBIN 30.4 PG (27.0-34.0); MEAN CORPUSCULAR HGB CONC 33.2 % (32.0-36.0); MEAN PLATELET VOLUME 8.1 FL (7.0-11.0); MONO % 9.9 % (0.0-8.0); MONOCYTE # 1.1 TH/MM3 (0-0.9); NEUT % 72.4 % (16.0-70.0); PLATELET COUNT 319 TH/MM3 (150-450); RED BLOOD COUNT 3.68 MIL/MM3 (4.00-5.30); RED CELL DISTRIBUTION WIDTH 15.1 % (11.6-17.2); WHITE BLOOD COUNT 11.5 TH/MM3 (4.0-11.0)
[2017-08-09] MEDS: AMANTADINE HCL SOLN 100 MG/10 ML UDC PO SCH ×3 (09:00→23:34)
[2017-08-09] MEDS: PANTOPRAZOLE SOD 20 MG DELAYED RELEASE TAB PO SCH ×2 (09:00→09:20)
[2017-08-09] MEDS: SODIUM CHLORIDE 0.9% FLUSH 10 ML FLUSH IV FLUSH SCH ×3 (09:00→21:00)
[2017-08-09] MEDS: clonazePAM 1 MG TAB PO SCH ×3 (09:00→23:34)
[2017-08-09 09:18] LABS: BICARBONATE 25.2 MEQ/L (21.0-32.0); CALCIUM 8.7 MG/DL (8.5-10.1); CREATININE 0.66 MG/DL (0.50-1.00)
[2017-08-09 09:39] LABS: BANDS 18 % (0-6); CORRECTED NUCLEATED RBC 2 /100 WBC (0-0); LYMPHOCYTES 17 % (9-44); METAMYELOCYTES 3 % (0-1); MONOCYTES 8 % (0-8); MYELOCYTES 1 % (0-0); NEUTROPHIL # MANUAL DIFF 8.6 TH/MM3 (1.8-7.7); NUCLEATED RED BLOOD CELL 2 (0-0); POLYS (SEG NEUTROPHILS) 53 % (16-70)
[2017-08-09] MEDS: SODIUM CHLOR 0.45% 1000 ML INJ 1,000 ML IV SCH ×2 (16:10→19:15)
--- NOTE | 2017-08-09 16:36 | HHI.IDPN ---
Subjective Subjective Remarks Ms. Dean is a 57-year-old male with past medical history significant for frenulum was had multiple visits at the hospital. Other than that I could not find any other significant past medical history on brief review of records. With this background patient presents to the emergency department from her assisted living facility for evaluation of worsening of left posterior thigh wound. It is extremely difficult to obtain history from the patient has patient has schizophrenia as well as is currently in about of cough. Patient reports the area on the left thigh effectively got worse and started showing fluctuance so she presented to the ED. In the emergency department and incision and drainage of the abscess was performed the cultures from which are now growing MRSA susceptibility pending. Patient was initially prescribed Bactrim reportedly despite compliance has continued to worsen. Patient was started on empiric IV antibiotics for sepsis. Patient received fluid bolus and due to persistent hypotension this afternoon she again has received another bolus at this time. Patient denied any fever or chills on admission but throughout this admission she continues to have high-grade fevers with tachycardia and periods of low blood pressure suggestive of severe sepsis. Infectious disease is consulted for evaluation and management of severe sepsis secondary to left thigh abscess. Notes reviewed D/W RN No fevers C/O pain L thigh C/S MRSA WBC improving Persistent swelling and induration in thigh. Reviewed Surgery note about plan for OR. Antibiotics Current Medications Vancomycin Cefepime Flagyl Medications (Trade) Dose Ordered Sig/Jeremias Route Start Time Stop Time Status Last Admin (NS Flush) 2 ml UNSCH PRN IV FLUSH 08/05/17 20:00 (NS Flush) 2 ml BID IV FLUSH 08/05/17 21:00 08/07/17 22:05 (Tylenol) 650 mg Q4H PRN PO 08/05/17 20:00 08/06/17 06:03 (Zofran Inj) 4 mg Q6H PRN IVP 08/05/17 20:00 (Narcan Inj) 0.4 mg UNSCH PRN IV PUSH 08/05/17 20:00 (Milk Of Magnesia Liq) 30 ml Q12H PRN PO 08/05/17 20:00 (Senokot) 17.2 mg Q12H PRN PO 08/05/17 20:00 08/05/17 23:31 (Dulcolax Supp) 10 mg DAILY PRN RECTAL 08/05/17 20:00 (Lactulose Liq) 30 ml DAILY PRN PO 08/05/17 20:00 Pharmacy Profile Note 0 ml @ 0 mls/hr UNSCH OTHER 08/05/17 20:00 (Symmetrel Liq) 100 mg BID PO 08/05/17 21:00 08/08/17 08:10 (KlonoPIN) 1 mg DAILY PO 08/06/17 09:00 08/08/17 08:09 (KlonoPIN) 2 mg HS PO 08/05/17 21:00 08/07/17 22:04 (ZyPREXA) 30 mg HS PO 08/05/17 21:00 08/07/17 21:00 Patient Own Medication PT OWN MED: PERPHENAZINE 1... HS PO 08/05/17 21:00 Future Hold Cefepime HCl 1000 mg/Sodium Chloride 100 ml @ 200 mls/hr Q8H IV 08/05/17 23:00 08/08/17 06:02 (Racine 5-325 Mg) 1 tab Q4H PRN PO 08/05/17 20:15 (Racine 10-325 Mg) 1 tab Q4H PRN PO 08/05/17 20:15 08/08/17 03:58 (Morphine Inj) 2 mg Q3H PRN IV PUSH 08/05/17 20:15 (Protonix) 20 mg DAILY PO 08/07/17 09:00 08/08/17 08:09 (Tessalon) 100 mg TID PRN PO 08/06/17 16:15 08/07/17 05:49 (Flagyl) 500 mg Q8HR PO 08/06/17 22:00 08/08/17 06:02 Sodium Chloride 1,000 ml @ 100 mls/hr Q10H IV 08/07/17 17:15 08/08/17 09:56 Vancomycin HCl 1750 mg/Sodium Chloride 517.5 ml @ 250 mls/hr Q18H IV 08/09/17 06:00 Miscellaneous Information SPECIFIC LAB TO BE DRAWN:VA... ONCE ONCE .XX 08/11/17 11:45 08/11/17 11:46 (Toradol Inj) 30 mg Q6HR IV PUSH 08/08/17 12:00 08/13/17 11:59 Acetaminophen 100 ml @ 400 mls/hr Q6H IV 08/08/17 11:00 Lines PIV Past Medical History Schizophrenia Allergies: Coded Allergies: iodine (Unverified Allergy, Unknown, 02/16/17) penicillin G (Unverified Allergy, Unknown, 02/16/17) potassium iodide (Unverified Allergy, Unknown, 02/16/17) povidone-iodine (Unverified Allergy, Unknown, 02/16/17) sodium iodide (Unverified Allergy, Unknown, 02/16/17) sodium iodide (Unverified Allergy, Unknown, 02/16/17) Objective . Vital Signs Date Time Temp Pulse Resp B/P (MAP) Pulse Ox O2 Delivery O2 Flow Rate FiO2 08/09/17 16:14 98.4 87 18 136/75 (95) 100 08/09/17 12:17 08/09/17 08:08 97.5 84 18 142/92 (109) 100 08/09/17 08:00 110 08/09/17 07:00 Nasal Cannula 2.00 08/09/17 04:57 98.6 84 18 134/74 (94) 100 08/09/17 03:56 86 08/09/17 00:57 98.3 92 18 120/71 (87) 99 08/09/17 00:00 Nasal Cannula 2.00 08/09/17 00:00 90 08/08/17 20:00 98.4 86 18 137/74 (95) 98 08/08/17 20:00 Nasal Cannula 2.00 08/08/17 20:00 84 . Laboratory Tests Test 08/08/17 06:28 08/09/17 06:57 White Blood Count 14.3 TH/MM3 11.5 TH/MM3 Red Blood Count 3.51 MIL/MM3 3.68 MIL/MM3 Hemoglobin 10.7 GM/DL 11.2 GM/DL Hematocrit 32.0 % 33.7 % Mean Corpuscular Volume 90.9 FL 91.4 FL Mean Corpuscular Hemoglobin 30.5 PG 30.4 PG Mean Corpuscular Hemoglobin Concent 33.6 % 33.2 % Red Cell Distribution Width 15.1 % 15.1 % Platelet Count 286 TH/MM3 319 TH/MM3 Mean Platelet Volume 8.2 FL 8.1 FL Neutrophils (%) (Auto) 72.7 % 72.4 % Lymphocytes (%) (Auto) 14.5 % 17.0 % Monocytes (%) (Auto) 12.3 % 9.9 % Eosinophils (%) (Auto) 0.2 % 0.1 % Basophils (%) (Auto) 0.3 % 0.6 % Neutrophils # (Auto) 10.4 TH/MM3 8.3 TH/MM3 Lymphocytes # (Auto) 2.1 TH/MM3 2.0 TH/MM3 Monocytes # (Auto) 1.8 TH/MM3 1.1 TH/MM3 Eosinophils # (Auto) 0.0 TH/MM3 0.0 TH/MM3 Basophils # (Auto) 0.0 TH/MM3 0.1 TH/MM3 CBC Comment AUTO DIFF AUTO DIFF Differential Total Cells Counted 100 100 Neutrophils % (Manual) 69 % 53 % Band Neutrophils % 4 % 18 % Lymphocytes % 18 % 17 % Monocytes % 5 % 8 % Neutrophils # (Manual) 11.0 TH/MM3 8.6 TH/MM3 Metamyelocytes 3 % 3 % Myelocytes 1 % 1 % Differential Comment FINAL DIFF MANUAL FINAL DIFF MANUAL Platelet Estimate NORMAL NORMAL Platelet Morphology Comment ENLARGED CLUMPED Red Cell Morphology Comment NORMAL Nucleated Red Blood Cells 2 /100 WBC Laboratory Tests Test 08/08/17 05:35 08/09/17 06:57 Blood Urea Nitrogen 11 MG/DL 9 MG/DL Creatinine 0.80 MG/DL 0.66 MG/DL Random Glucose 103 MG/DL 88 MG/DL Albumin 2.0 GM/DL Calcium Level 8.5 MG/DL 8.7 MG/DL Phosphorus Level 2.9 MG/DL Magnesium Level 2.2 MG/DL Sodium Level 141 MEQ/L 142 MEQ/L Potassium Level 4.1 MEQ/L 4.0 MEQ/L Chloride Level 109 MEQ/L 109 MEQ/L Carbon Dioxide Level 24.7 MEQ/L 25.2 MEQ/L Anion Gap 7 MEQ/L 8 MEQ/L Estimat Glomerular Filtration Rate 89 ML/MIN 112 ML/MIN Total Creatine Kinase 315 U/L Creatine Kinase MB 2.5 NG/ML Creatine Kinase MB % 0.8 % Microbiology Date/Time Source Procedure Growth Status 08/06/17 17:42 Nasal Washing Influenza Types A,B Antigen (ERWIN) - Final NEGATIVE FOR FLU A AND B ANTIGEN.... Complete Imaging Last Impressions Abdomen/Pelvis CT 08/06/17 0000 Signed Impressions: Service Date/Time: Sunday, August 06, 2017 21:09 - CONCLUSION: 1. Diffuse soft tissue swelling and some air within the left upper thigh posterior laterally. 2. Mild diffuse ileus. Ricardo Guthrie MD Chest X-Ray 08/05/17 0000 Signed Impressions: Service Date/Time: August 14:29 - CONCLUSION: No acute disease. El Mchugh MD Physical Exam GENERAL: obese female, NAD. woke her up from her sleep, sluggish SKIN: No rashes, ecchymoses or lesions. Cool and dry. HEAD: Atraumatic. Normocephalic. No temporal or scalp tenderness. EYES: Pupils equal round and reactive. Extraocular motions intact. No scleral icterus. No injection or drainage. ENT: Nose without bleeding, purulent drainage or septal hematoma. Throat without erythema, tonsillar hypertrophy or exudate. Uvula midline. Airway patent. NECK: Trachea midline. No JVD or lymphadenopathy. Supple, nontender, no meningeal signs. CARDIOVASCULAR: Regular rate and rhythm without murmurs, gallops, or rubs. RESPIRATORY: Clear to auscultation. Breath sounds equal bilaterally. No wheezes , rales, or rhonchi. GASTROINTESTINAL: Abdomen soft, non-tender, nondistended. MUSCULOSKELETAL: Left thigh posterior aspect with large area of erythema, induration noted. It looks worse compared to yesterday as far as intensity of color. However the erythema is still within the markings and less. 2 areas with slough that are both draining blood tinged purulent fluid. No odor NEUROLOGICAL: awaken from her sleep, sluggish/lethargic Psych lethargic today, although she answered all my questions. Not as bright as yesterday IV line sites with no e.o infection. Assessment & Plan Remarks IMPRESSION Severe Sepsis Present on admission. Hypotension: ongoing sepsis. Better Left thigh abscess, draining MRSA skin infection Schizophrenia Fevers Recs Continue Vanco IV (target sepsis) DC flagyl no anaerobes identified so far. Reviewed Surgery notes. Follow cultures Follow clinically. d/w Angelic Gibson MD Aug 09, 2017 16:36
--- NOTE | 2017-08-09 17:56 | HHI.PR ---
cc: Kvng Cordero MD Subjective Subjective Notes DAILY PROGRESS NOTE FOR SURGICAL ATTENDING, DR. KVNG CORDERO Patient seen more alert Objective Vitals/I&O Vital Signs Date Time Temp Pulse Resp B/P (MAP) Pulse Ox O2 Delivery O2 Flow Rate FiO2 08/09/17 16:14 98.4 87 18 136/75 (95) 100 08/09/17 07:00 Nasal Cannula 2.00 Labs Laboratory Tests Test 08/09/17 06:57 White Blood Count 11.5 Red Blood Count 3.68 Hemoglobin 11.2 Hematocrit 33.7 Mean Corpuscular Volume 91.4 Mean Corpuscular Hemoglobin 30.4 Mean Corpuscular Hemoglobin Concent 33.2 Red Cell Distribution Width 15.1 Platelet Count 319 Mean Platelet Volume 8.1 Neutrophils (%) (Auto) 72.4 Lymphocytes (%) (Auto) 17.0 Monocytes (%) (Auto) 9.9 Eosinophils (%) (Auto) 0.1 Basophils (%) (Auto) 0.6 Neutrophils # (Auto) 8.3 Lymphocytes # (Auto) 2.0 Monocytes # (Auto) 1.1 Eosinophils # (Auto) 0.0 Basophils # (Auto) 0.1 CBC Comment AUTO DIFF Differential Total Cells Counted 100 Neutrophils % (Manual) 53 Band Neutrophils % 18 Lymphocytes % 17 Monocytes % 8 Neutrophils # (Manual) 8.6 Metamyelocytes 3 Myelocytes 1 Nucleated Red Blood Cells 2 Differential Comment FINAL DIFF MANUAL Platelet Estimate NORMAL Platelet Morphology Comment CLUMPED Blood Urea Nitrogen 9 Creatinine 0.66 Random Glucose 88 Calcium Level 8.7 Sodium Level 142 Potassium Level 4.0 Chloride Level 109 Carbon Dioxide Level 25.2 Anion Gap 8 Estimat Glomerular Filtration Rate 112 Date/Time Source Procedure Growth Status 08/05/17 17:20 Blood Peripheral Aerobic Blood Culture - Preliminary NO GROWTH IN 4 DAYS Resulted 08/05/17 17:20 Blood Peripheral Anaerobic Blood Culture - Preliminary NO GROWTH IN 4 DAYS Resulted 08/06/17 17:42 Nasal Washing Influenza Types A,B Antigen (ERWIN) - Final NEGATIVE FOR FLU A AND B ANTIGEN.... Complete 08/05/17 18:21 Wound Leg Gram Stain - Final Complete 08/05/17 18:21 Wound Culture - Final S. Aureus Mrsa Complete Radiology Last Impressions Abdomen/Pelvis CT 08/06/17 0000 Signed Impressions: Service Date/Time: Sunday, August 06, 2017 21:09 - CONCLUSION: 1. Diffuse soft tissue swelling and some air within the left upper thigh posterior laterally. 2. Mild diffuse ileus. Ricardo Guthrie MD Chest X-Ray 08/05/17 0000 Signed Impressions: Service Date/Time: August 14:29 - CONCLUSION: No acute disease. El Mchugh MD Lungs: Clear Narrative Exam Wound to the left lateral posterior thigh seems less erythematous last indurated. CT scan reviewed the air is portion of the open wound that was debrided Continue improvement in erythema She appears to have some superficial necrosis of the skin where the I&D was performed Still has a fair amount of drainage A/P Problem List: (1) Cellulitis and abscess of left leg ICD Codes: L03.116 - Cellulitis of left lower limb; L02.416 - Cutaneous abscess of left lower limb Status: Acute (2) MRSA (methicillin resistant staph aureus) culture positive ICD Codes: Z22.322 - Carrier or suspected carrier of Methicillin resistant Staphylococcus aureus Status: Acute (3) Cellulitis of left thigh ICD Codes: L03.116 - Cellulitis of left lower limb Status: Acute (4) schizoaffective disorder depressed Status: Chronic (5) Schizoaffective disorder ICD Codes: F25.9 - Schizoaffective disorder, unspecified Status: Chronic (6) Obesity ICD Codes: E66.9 - Obesity Status: Chronic (7) HTN (hypertension) ICD Codes: I10 - HTN (hypertension) Status: Chronic Assessment and Plan 57-year-old female has a MRSA infection and cellulitis to the left lateral thigh. This was drained in the emergency room ears to have adequate drainage and erythema is improved on IV antibiotics. I suspect with her psychiatric derangement she was not able to take the appropriate antibiotics on an outpatient basis. Continue local wound care and continue aggressive antibiotic therapy Today we were planning to take her to the operating room When the OR staff came to the room to take her to the operating room they called me and said she refused surgery Will reevaluate possibly go to the OR Wednesday or Attending Statement NOTE FOR SURGICAL ATTENDING, DR. KVNG CORDERO I agree with above assessment and plan. The exam, history, and the medical decision-making described in the above note were completed with the assistance of the mid-level provider. I reviewed and agree with the findings presented. I attest that I had a [id number] encounter with the patient on the same day, and personally performed and documented my assessment and findings in the medical record. The following services were provided during this hospital visit: Chart data review, vital sign assessments/reviewing monitor data Review of consultations notes if present. Medication orders/review and/or management Ordering and/or reviewing lab tests Ordering and/or interpreting/reviewing x-rays and/or diagnostic studies Care of the patient and discussion of the patient with the care team Documentation time To help prompt me to consider important information that might be impacting today's encounter and assessment, information from prior notes written by myself or my colleagues may have been "brought forward/copy and pasted" into today's note. Problem Qualifiers (1) Schizoaffective disorder: Qualified Codes: F25.0 - Schizoaffective disorder, bipolar type (2) Obesity: (3) HTN (hypertension): Qualified Codes: I10 - Essential (primary) hypertension Kvng Cordero MD Aug 09, 2017 17:56
[2017-08-09] MEDS: VANCOMYCIN INJ 1,750 MG in SODIUM CHLORID 0.9% 500 ML INJ 500 ML IV SCH ×2 (18:00→23:14)
--- NOTE | 2017-08-09 19:07 | HHI.PR ---
Subjective Remarks Discussed with RN - patient states patient was very altered and surgery could not be done. As per RN patient has been agitated. Patient c/o pain on left thigh. Objective Vitals Vital Signs Date Time Temp Pulse Resp B/P (MAP) Pulse Ox O2 Delivery O2 Flow Rate FiO2 08/09/17 16:14 98.4 87 18 136/75 (95) 100 08/09/17 12:17 08/09/17 08:08 97.5 84 18 142/92 (109) 100 08/09/17 08:00 110 08/09/17 07:00 Nasal Cannula 2.00 08/09/17 04:57 98.6 84 18 134/74 (94) 100 08/09/17 03:56 86 08/09/17 00:57 98.3 92 18 120/71 (87) 99 08/09/17 00:00 Nasal Cannula 2.00 08/09/17 00:00 90 08/08/17 20:00 98.4 86 18 137/74 (95) 98 08/08/17 20:00 Nasal Cannula 2.00 08/08/17 20:00 84 I/O 08/08/17 08/08/17 08/08/17 08/09/17 08/09/17 08/09/17 07:00 15:00 23:00 07:00 15:00 23:00 Intake Total 380 ml 1712 ml 240 ml Output Total 550 ml 1400 ml Balance -550 ml 380 ml 312 ml 240 ml Intake Oral 380 ml 240 ml IV Total 1712 ml Output Urine Total 550 ml 1400 ml # Voids 3 4 # Bowel Movements 1 1 2 Result Diagram: 08/09/17 0657 08/09/17 0657 Imaging Last Impressions Abdomen/Pelvis CT 08/06/17 0000 Signed Impressions: Service Date/Time: Sunday, August 06, 2017 21:09 - CONCLUSION: 1. Diffuse soft tissue swelling and some air within the left upper thigh posterior laterally. 2. Mild diffuse ileus. Ricardo Guthrie MD Chest X-Ray 08/05/17 0000 Signed Impressions: Service Date/Time: August 14:29 - CONCLUSION: No acute disease. El Mchugh MD Objective Remarks GENERAL: Patient lying in bed. Sleeping, wakes up for exam. Appears comfortable. SKIN: Warm and dry. HEAD: Normocephalic. EYES: No scleral icterus. No injection or drainage. NECK: Supple, trachea midline. No JVD. CARDIOVASCULAR: Regular rate and rhythm without murmurs, gallops, or rubs. RESPIRATORY: Breath sounds equal bilaterally. No accessory muscle use. GASTROINTESTINAL: Abdomen soft, non-tender, nondistended. MUSCULOSKELETAL: No cyanosis, or edema. Left thigh erythema cont to improve, abscess draining yellow pus still. BACK: Nontender without obvious deformity. No CVA tenderness. Medications and IVs Current Medications Medications (Trade) Dose Ordered Sig/Jeremias Route Start Time Stop Time Status Last Admin (NS Flush) 2 ml UNSCH PRN IV FLUSH 08/05/17 20:00 08/09/17 11:40 (NS Flush) 2 ml BID IV FLUSH 08/05/17 21:00 08/09/17 09:00 (Tylenol) 650 mg Q4H PRN PO 08/05/17 20:00 08/06/17 06:03 (Zofran Inj) 4 mg Q6H PRN IVP 08/05/17 20:00 (Narcan Inj) 0.4 mg UNSCH PRN IV PUSH 08/05/17 20:00 (Milk Of Magnesia Liq) 30 ml Q12H PRN PO 08/05/17 20:00 (Senokot) 17.2 mg Q12H PRN PO 08/05/17 20:00 08/05/17 23:31 (Dulcolax Supp) 10 mg DAILY PRN RECTAL 08/05/17 20:00 (Lactulose Liq) 30 ml DAILY PRN PO 08/05/17 20:00 Pharmacy Profile Note 0 ml @ 0 mls/hr UNSCH OTHER 08/05/17 20:00 (Symmetrel Liq) 100 mg BID PO 08/05/17 21:00 08/08/17 20:44 (KlonoPIN) 1 mg DAILY PO 08/06/17 09:00 08/08/17 08:09 (KlonoPIN) 2 mg HS PO 08/05/17 21:00 08/08/17 20:44 (ZyPREXA) 30 mg HS PO 08/05/17 21:00 08/08/17 20:52 Patient Own Medication PT OWN MED: PERPHENAZINE 1... HS PO 08/05/17 21:00 Future Hold ([place] 5-325 Mg) 1 tab Q4H PRN PO 08/05/17 20:15 ([place] 10-325 Mg) 1 tab Q4H PRN PO 08/05/17 20:15 08/08/17 03:58 (Morphine Inj) 2 mg Q3H PRN IV PUSH 08/05/17 20:15 (Protonix) 20 mg DAILY PO 08/07/17 09:00 08/08/17 08:09 (Tessalon) 100 mg TID PRN PO 08/06/17 16:15 08/07/17 05:49 Sodium Chloride 1,000 ml @ 100 mls/hr Q10H IV 08/07/17 17:15 08/09/17 16:10 Miscellaneous Information SPECIFIC LAB TO BE DRAWN:PATIENCE THORPE DATE TO... ONCE ONCE .XX 08/10/17 05:45 08/10/17 05:46 (Toradol Inj) 30 mg Q6HR IV PUSH 08/08/17 12:00 08/13/17 11:59 08/09/17 14:40 Acetaminophen 100 ml @ 400 mls/hr Q6H IV 08/08/17 11:00 08/09/17 10:16 Lactated Ringer's 1,000 ml @ 30 mls/hr Q24H PRN IV 08/09/17 04:00 08/12/17 03:59 08/09/17 11:30 Sodium Chloride 500 ml @ 30 mls/hr [id number] PRN IV 08/09/17 04:00 08/12/17 03:59 (Lopressor) 25 mg SCREEN MAKING SUPERVISOR PRN PO 08/09/17 04:00 08/12/17 03:59 (Chlorhexidine 2% Cloth) 3 pack SCREEN MAKING SUPERVISOR PRN TOPICAL 08/09/17 04:00 08/12/17 03:59 Vancomycin HCl 1750 mg/Sodium Chloride 517.5 ml @ 250 mls/hr Q12H IV 08/09/17 18:00 A/P Assessment and Plan Severe sepsis - Present on admission. Left posterior thigh cellulitis/abscess, sepsis Patient tachycardic with leukocytosis Status post incision and drainage of left posterior thigh abscess in the emergency department -Acute kidney injury. Creatinine 1.36 from baseline of 0.8. Lactate 2.0 on admission Vancomycin and cefepime Infectious disease consulted, appreciate recommendations Monitor for signs of shock 2/2. Cultures positive for MRSA. Was on isolation. Continue antibiotics. ID following. Appreciate assistance. 2/3. Continues with sepsis, however white count improving 18.3 today. Continue vancomycin as per ID. Appreciate ID and surgery assistance. 08/08. Sepsis continues with tachycardia, low-grade fever 99.8 this morning. Leukocytosis down to 14.3. Continue IV antibiotics as per infectious disease. 08/09 Sepsis clinically improving with improving leukocytosis and resolving fevers. Continue IV antibiotics as per infectious disease. As per general surgery the patient refused surgery. Patient will be reevaluated to be taken to the OR on wednesday, or . Hyponatremia Normal saline Fluid restriction Monitor BMP 2/. Sodium 131. Improved from admission. Continue IV fluids. 2/. Sodium 142. Start one half normal saline. Today to monitor. 08/08. Hyponatremia has resolved. Sodium 141. Continue half normal saline. Acute kidney injury Creatinine 1.36, baseline 0.80 IV fluid hydration 08/09 Likely prerenal azotemia - resolved after IV fluids. Continue to monitor BUN and Creatinine. Schizophrenia Continue home medications Patient agitated - added Haldo PRN. Psychiatry consulted. Regular diet with fluid restriction Electrolytes: monitor and replete prn 1/2NS at 100 cc/hr Sarthak Parry MD Aug 09, 2017 19:07
[2017-08-09] MEDS ORDERED: HALOPERIDOL LACTATE 5 MG/ML AMP IM ONE (19:45)
[2017-08-09] MEDS ORDERED: HALOPERIDOL LACTATE 5 MG/ML AMP IM PRN (19:45)
--- NOTE | 2017-08-09 22:16 | EKG ---
Date Performed: 08/08/2017 Time Performed: 15:20:30 PTAGE: 57 years EKG: Sinus rhythm WITH SHORT AL INTERVAL LOW QRS VOLTAGE IN PRECORDIAL LEADS NONSPECIFIC ST & T-WAVE ABNORMALITY VIRAJ MARTÍNEZ ECG PREVIOUS TRACING : 12/19/2014 10.22 DOCTOR: Danial Rooney Interpretating Date/Time 08/09/2017 22:06:02
[2017-08-10] VITALS (7 sets, daily range): BP systolic 129–163; BP diastolic 67–85; PULSE 82–101; RESP 16–21; TEMP 98.3–99.3; O2SAT 94–99
[2017-08-10] MEDS: ACETAMINOPHEN 1000 MG/100 ML 100 ML IV SCH ×4 (04:52→21:38)
[2017-08-10] MEDS: KETOROLAC TROMETHAMINE 30 MG/ML (IVP) VIAL IV PUSH SCH ×4 (04:53→23:40)
[2017-08-10] MEDS: SODIUM CHLOR 0.45% 1000 ML INJ 1,000 ML IV SCH (04:53)
[2017-08-10] MEDS ORDERED: PHARMACY ORDERED LAB ONE (05:45)
[2017-08-10] MEDS: SODIUM CHLORIDE 0.9% FLUSH 10 ML FLUSH IV FLUSH SCH ×2 (08:55→21:00)
[2017-08-10] MEDS: clonazePAM 1 MG TAB PO SCH ×2 (08:56→21:42)
[2017-08-10] MEDS: PANTOPRAZOLE SOD 20 MG DELAYED RELEASE TAB PO SCH (08:56)
[2017-08-10] MEDS: AMANTADINE HCL SOLN 100 MG/10 ML UDC PO SCH ×2 (08:57→21:42)
[2017-08-10] MEDS: LINEZOLID 600 MG TAB PO SCH (14:24)
--- NOTE | 2017-08-10 14:32 | HHI.IDPN ---
Subjective Subjective Remarks Ms. Dean is a 57-year-old male with past medical history significant for frenulum was had multiple visits at the hospital. Other than that I could not find any other significant past medical history on brief review of records. With this background patient presents to the emergency department from her assisted living facility for evaluation of worsening of left posterior thigh wound. It is extremely difficult to obtain history from the patient has patient has schizophrenia as well as is currently in about of cough. Patient reports the area on the left thigh effectively got worse and started showing fluctuance so she presented to the ED. In the emergency department and incision and drainage of the abscess was performed the cultures from which are now growing MRSA susceptibility pending. Patient was initially prescribed Bactrim reportedly despite compliance has continued to worsen. Patient was started on empiric IV antibiotics for sepsis. Patient received fluid bolus and due to persistent hypotension this afternoon she again has received another bolus at this time. Patient denied any fever or chills on admission but throughout this admission she continues to have high-grade fevers with tachycardia and periods of low blood pressure suggestive of severe sepsis. Infectious disease is consulted for evaluation and management of severe sepsis secondary to left thigh abscess. Notes reviewed D/W RN d/w Dr.Bianchi reeder reportedly refused surgery. Psych consult placed. d.w : is not mentally competent to make medical decisions. He agrees. No fevers C/O pain L thigh C/S MRSA Persistent swelling and induration in thigh. RN informs me of plan to OR today. No IV access: DC vanco IV and start oral zyvox. Antibiotics Current Medications Vancomycin Cefepime Flagyl Medications (Trade) Dose Ordered Sig/Jeremias Route Start Time Stop Time Status Last Admin (NS Flush) 2 ml UNSCH PRN IV FLUSH 08/05/17 20:00 (NS Flush) 2 ml BID IV FLUSH 08/05/17 21:00 08/07/17 22:05 (Tylenol) 650 mg Q4H PRN PO 08/05/17 20:00 08/06/17 06:03 (Zofran Inj) 4 mg Q6H PRN IVP 08/05/17 20:00 (Narcan Inj) 0.4 mg UNSCH PRN IV PUSH 08/05/17 20:00 (Milk Of Magnesia Liq) 30 ml Q12H PRN PO 08/05/17 20:00 (Senokot) 17.2 mg Q12H PRN PO 08/05/17 20:00 08/05/17 23:31 (Dulcolax Supp) 10 mg DAILY PRN RECTAL 08/05/17 20:00 (Lactulose Liq) 30 ml DAILY PRN PO 08/05/17 20:00 Pharmacy Profile Note 0 ml @ 0 mls/hr UNSCH OTHER 08/05/17 20:00 (Symmetrel Liq) 100 mg BID PO 08/05/17 21:00 08/08/17 08:10 (KlonoPIN) 1 mg DAILY PO 08/06/17 09:00 08/08/17 08:09 (KlonoPIN) 2 mg HS PO 08/05/17 21:00 08/07/17 22:04 (ZyPREXA) 30 mg HS PO 08/05/17 21:00 08/07/17 21:00 Patient Own Medication PT OWN MED: PERPHENAZINE 1... HS PO 08/05/17 21:00 Future Hold Cefepime HCl 1000 mg/Sodium Chloride 100 ml @ 200 mls/hr Q8H IV 08/05/17 23:00 08/08/17 06:02 ([place] 5-325 Mg) 1 tab Q4H PRN PO 08/05/17 20:15 ([place] 10-325 Mg) 1 tab Q4H PRN PO 08/05/17 20:15 08/08/17 03:58 (Morphine Inj) 2 mg Q3H PRN IV PUSH 08/05/17 20:15 (Protonix) 20 mg DAILY PO 08/07/17 09:00 08/08/17 08:09 (Tessalon) 100 mg TID PRN PO 08/06/17 16:15 08/07/17 05:49 (Flagyl) 500 mg Q8HR PO 08/06/17 22:00 08/08/17 06:02 Sodium Chloride 1,000 ml @ 100 mls/hr Q10H IV 08/07/17 17:15 08/08/17 09:56 Vancomycin HCl 1750 mg/Sodium Chloride 517.5 ml @ 250 mls/hr Q18H IV 08/09/17 06:00 Miscellaneous Information SPECIFIC LAB TO BE DRAWN:[facility]... ONCE ONCE .XX 2/7/18 11:45 08/11/17 11:46 (Toradol Inj) 30 mg Q6HR IV PUSH 08/08/17 12:00 08/13/17 11:59 Acetaminophen 100 ml @ 400 mls/hr Q6H IV 08/08/17 11:00 Lines PIV Past Medical History Schizophrenia Allergies: Coded Allergies: iodine (Unverified Allergy, Unknown, 02/16/17) penicillin G (Unverified Allergy, Unknown, 02/16/17) potassium iodide (Unverified Allergy, Unknown, 02/16/17) povidone-iodine (Unverified Allergy, Unknown, 02/16/17) sodium iodide (Unverified Allergy, Unknown, 02/16/17) sodium iodide (Unverified Allergy, Unknown, 02/16/17) Objective . Vital Signs Date Time Temp Pulse Resp B/P (MAP) Pulse Ox O2 Delivery O2 Flow Rate FiO2 08/10/17 12:24 99.0 87 21 163/81 (108) 94 08/10/17 12:00 90 08/10/17 08:00 98.3 92 18 145/85 (105) 95 08/10/17 07:00 Room Air 08/10/17 04:00 98 08/10/17 04:00 99.2 95 18 140/72 (94) 95 08/10/17 00:00 99.3 101 16 129/67 (87) 99 08/10/17 00:00 101 08/09/17 20:00 98.5 97 16 151/83 (105) 99 08/09/17 20:00 Room Air 08/09/17 16:14 98.4 87 18 136/75 (95) 100 08/09/17 16:05 90 . Laboratory Tests Test 08/09/17 06:57 White Blood Count 11.5 TH/MM3 Red Blood Count 3.68 MIL/MM3 Hemoglobin 11.2 GM/DL Hematocrit 33.7 % Mean Corpuscular Volume 91.4 FL Mean Corpuscular Hemoglobin 30.4 PG Mean Corpuscular Hemoglobin Concent 33.2 % Red Cell Distribution Width 15.1 % Platelet Count 319 TH/MM3 Mean Platelet Volume 8.1 FL Neutrophils (%) (Auto) 72.4 % Lymphocytes (%) (Auto) 17.0 % Monocytes (%) (Auto) 9.9 % Eosinophils (%) (Auto) 0.1 % Basophils (%) (Auto) 0.6 % Neutrophils # (Auto) 8.3 TH/MM3 Lymphocytes # (Auto) 2.0 TH/MM3 Monocytes # (Auto) 1.1 TH/MM3 Eosinophils # (Auto) 0.0 TH/MM3 Basophils # (Auto) 0.1 TH/MM3 CBC Comment AUTO DIFF Differential Total Cells Counted 100 Neutrophils % (Manual) 53 % Band Neutrophils % 18 % Lymphocytes % 17 % Monocytes % 8 % Neutrophils # (Manual) 8.6 TH/MM3 Metamyelocytes 3 % Myelocytes 1 % Nucleated Red Blood Cells 2 /100 WBC Differential Comment FINAL DIFF MANUAL Platelet Estimate NORMAL Platelet Morphology Comment CLUMPED Laboratory Tests Test 08/09/17 06:57 Blood Urea Nitrogen 9 MG/DL Creatinine 0.66 MG/DL Random Glucose 88 MG/DL Calcium Level 8.7 MG/DL Sodium Level 142 MEQ/L Potassium Level 4.0 MEQ/L Chloride Level 109 MEQ/L Carbon Dioxide Level 25.2 MEQ/L Anion Gap 8 MEQ/L Estimat Glomerular Filtration Rate 112 ML/MIN Imaging Last Impressions Abdomen/Pelvis CT 08/06/17 0000 Signed Impressions: Service Date/Time: Sunday, August 06, 2017 21:09 - CONCLUSION: 1. Diffuse soft tissue swelling and some air within the left upper thigh posterior laterally. 2. Mild diffuse ileus. Ricardo Guthrie MD Chest X-Ray 08/05/17 0000 Signed Impressions: Service Date/Time: August 14:29 - CONCLUSION: No acute disease. El Mchugh MD Physical Exam GENERAL: obese female, NAD. woke her up from her sleep, sluggish SKIN: No rashes, ecchymoses or lesions. Cool and dry. HEAD: Atraumatic. Normocephalic. No temporal or scalp tenderness. EYES: Pupils equal round and reactive. Extraocular motions intact. No scleral icterus. No injection or drainage. ENT: Nose without bleeding, purulent drainage or septal hematoma. Throat without erythema, tonsillar hypertrophy or exudate. Uvula midline. Airway patent. NECK: Trachea midline. No JVD or lymphadenopathy. Supple, nontender, no meningeal signs. CARDIOVASCULAR: Regular rate and rhythm without murmurs, gallops, or rubs. RESPIRATORY: Clear to auscultation. Breath sounds equal bilaterally. No wheezes , rales, or rhonchi. GASTROINTESTINAL: Abdomen soft, non-tender, nondistended. MUSCULOSKELETAL: Left thigh posterior aspect with large area of erythema, induration noted. It looks worse compared to yesterday as far as intensity of color. However the erythema is still within the markings and less. 2 areas with slough that are both draining blood tinged purulent fluid. No odor NEUROLOGICAL: awaken from her sleep, sluggish/lethargic Psych lethargic today, although she answered all my questions. Not as bright as yesterday IV line sites with no e.o infection. Assessment & Plan Remarks IMPRESSION Severe Sepsis Present on admission. Hypotension: ongoing sepsis. Better Left thigh abscess, draining MRSA skin infection Schizophrenia Fevers Recs DC Vanco IV No IV access: DC vanco IV and start oral zyvox. d/w pharmacist: aware pt on Zyprexa and drug interaction with Zyvox. Zyprexa cannot be placed on hold as medically necessary. Follow cultures Follow clinically. d/w Angelic Gibson MD Aug 10, 2017 14:32
--- NOTE | 2017-08-10 14:43 | PD.PSY.CON ---
Provisional Diagnosis Admission Date Aug 05, 2017 at 18:29 [place]. Schizophrenia History of Present Illness Service Psychiatry Consult Requested By Medical team Reason for Consult Decision-making capacity Primary Care Physician Unknown HPI The patient is a 57-year-old woman, domiciled in a custodial , single, unemployed, supported by [facility], very poor family and social support, with extensive psychiatric history of schizophrenia, schizoaffective disorder bipolar type, multiple psychiatric hospitalizations, the last hospitalization was here at [facility] in 2017, documentation was reviewed, she has been treated in outpatient with olanzapine 30 mg at bedtime, clonazepam 1 mg a.m. and 2 mg p.m., patient doesn't have any previous suicidal attempt, no significant medical history, who came to the emergency department from her assisted living facility for evaluation of worsening of left posterior thigh wound. The patient can provide no meaningful history. Per ED notes, the patient developed a wound to her left posterior thigh yesterday and was started on Bactrim. The area of the wound was significantly increased today with surrounding erythema and fluctuance. An incision and drainage of the abscess was performed in the emergency department and the patient was started on IV antibiotics. This time, the patient denies fever/chills. She denies pain anywhere except for at the wound site itself. Consulted to psychiatry today to assess decision-making capacity to refuse treatment. On psychiatric evaluation today the patient is calm, cooperative, she is disorganized, delusional, but she is able to cooperate with the evaluation. The patient is well known by me, I know that the patient at baseline is delusional and a little bit disorganized, but usually redirectable. Today for psychiatric evaluation the patient is in good mood, she says that she is hopeful that everything is going to be okay "because I have Ten with me". Patient reports that she heard voices, "good voices, they're my family". She denies commanding type auditory hallucinations. The patient has the delusion of "I am going to get with my doctor". She is partially oriented, she knows that she is in the hospital, but she says that she is in 1965. Patient is not very sure about the reason she is in the hospital. She says that she was told that she needs a procedure,, "but I am very scared, I don't want to , and I am scared of pain". Patient is unable to verbalize a third understanding and appreciation of her medical condition at this moment. Past Family Social History Coded Allergies: iodine (Unverified Allergy, Unknown, 02/16/17) penicillin G (Unverified Allergy, Unknown, 02/16/17) potassium iodide (Unverified Allergy, Unknown, 02/16/17) povidone-iodine (Unverified Allergy, Unknown, 02/16/17) sodium iodide (Unverified Allergy, Unknown, 02/16/17) sodium iodide (Unverified Allergy, Unknown, 02/16/17) Active Scripts Clonazepam (Klonopin) 1 Mg Tab, 2 MG PO HS for health, #30 TAB 0 Refills Prov:Deacon Israel MD 11/25/16 Clonazepam (Klonopin) 1 Mg Tab, 1 MG PO DAILY for health, #30 TAB 0 Refills Prov:Deacon Israel MD 11/25/16 Reported Medications Olanzapine (Zyprexa) 15 Mg Tab, 30 MG PO HS, #30 TAB 0 Refills 08/05/17 Ascorbic Acid (Vitamin C) 250 Mg Chew, 250 MG CHEW DAILY for Nutritional Supplement, #30 TAB 0 Refills 18 Calcium Carbonate (Antacid) (Tums) 500 Mg Chew, 2 TAB CHEW Q4HR Y for HEARTBURN , TAB 0 Refills 08/05/17 Tramadol (Tramadol) 50 Mg Tab, 50 MG PO Q12HR Y for PAIN, TAB 0 Refills 08/05/17 Perphenazine (Perphenazine) 16 Mg Tab, 32 MG PO HS, #30 TAB 0 Refills 08/05/17 Multiple Vitamin (Multiple Vitamin) 1 Tab, 1 TAB PO DAILY for Nutritional Supplement, TAB 0 Refills 08/05/17 Meloxicam (Mobic) 7.5 Mg Tab, 7.5 MG PO DAILY for Pain, TAB 0 Refills 08/05/17 Sulfamethoxazole-Trimethoprim (Bactrim DS) 800-160 Mg Tab, 1 TAB PO BID for Infection, TAB 0 Refills 08/05/17 Lorazepam (Ativan) 1 Mg Tab, 1 MG PO Q8H Y for ANXIETY AND/OR AGITATION, TAB 0 Refills 08/05/17 Amantadine Liq (Amantadine Liq) 50 Mg/5 Ml Soln, 100 MG PO BID, #600 ML 0 Refills 08/05/17 Discontinued Reported Medications [Invega] No Conflict Check, IM MONTHLY 09/12/16 Pantoprazole (Pantoprazole) 40 Mg Tab, 40 MG PO DAILY for Reflux, #30 TAB 0 Refills 09/12/16 Discontinued Scripts Perphenazine (Perphenazine) 16 Mg Tab, 16 MG PO 2 hs for health, #30 TAB 0 Refills Prov:Deacon Israel MD 11/25/16 Pantoprazole (Pantoprazole) 40 Mg Tab, 40 MG PO DAILY for health, #30 TAB 0 Refills Prov:Deacon Israel MD 11/25/16 Olanzapine Odt (Zyprexa Zydis) 15 Mg Tab, 30 MG PO 2 po hs for health, #60 TAB 0 Refills Prov:Deacon Israel MD 11/25/16 Current Medications Medications (Trade) Dose Ordered Sig/Jeremias Route Start Time Stop Time Status Last Admin (NS Flush) 2 ml UNSCH PRN IV FLUSH 08/05/17 20:00 08/09/17 11:40 (NS Flush) 2 ml BID IV FLUSH 08/05/17 21:00 08/09/17 09:00 (Tylenol) 650 mg Q4H PRN PO 08/05/17 20:00 08/06/17 06:03 (Zofran Inj) 4 mg Q6H PRN IVP 08/05/17 20:00 (Narcan Inj) 0.4 mg UNSCH PRN IV PUSH 08/05/17 20:00 (Milk Of Magnesia Liq) 30 ml Q12H PRN PO 08/05/17 20:00 (Senokot) 17.2 mg Q12H PRN PO 08/05/17 20:00 08/05/17 23:31 (Dulcolax Supp) 10 mg DAILY PRN RECTAL 08/05/17 20:00 (Lactulose Liq) 30 ml DAILY PRN PO 08/05/17 20:00 (Symmetrel Liq) 100 mg BID PO 08/05/17 21:00 08/10/17 08:57 (KlonoPIN) 1 mg DAILY PO 08/06/17 09:00 08/10/17 08:56 (KlonoPIN) 2 mg HS PO 08/05/17 21:00 08/09/17 23:34 (ZyPREXA) 30 mg HS PO 08/05/17 21:00 08/09/17 23:33 Patient Own Medication PT OWN MED: PERPHENAZINE 1... HS PO 08/05/17 21:00 Future Hold ([place] 5-325 Mg) 1 tab Q4H PRN PO 08/05/17 20:15 ([place] 10-325 Mg) 1 tab Q4H PRN PO 08/05/17 20:15 08/08/17 03:58 (Morphine Inj) 2 mg Q3H PRN IV PUSH 08/05/17 20:15 (Protonix) 20 mg DAILY PO 08/07/17 09:00 08/10/17 08:56 (Tessalon) 100 mg TID PRN PO 08/06/17 16:15 08/07/17 05:49 Sodium Chloride 1,000 ml @ 100 mls/hr Q10H IV 08/07/17 17:15 08/09/17 16:10 (Toradol Inj) 30 mg Q6HR IV PUSH 08/08/17 12:00 08/13/17 11:59 08/09/17 14:40 Acetaminophen 100 ml @ 400 mls/hr Q6H IV 08/08/17 11:00 08/09/17 10:16 Lactated Ringer's 1,000 ml @ 30 mls/hr Q24H PRN IV 08/09/17 04:00 08/12/17 03:59 08/09/17 11:30 Sodium Chloride 500 ml @ 30 mls/hr [id number] PRN IV 08/09/17 04:00 08/12/17 03:59 (Lopressor) 25 mg FOOT ROENTGENOLOGIST PRN PO 08/09/17 04:00 08/12/17 03:59 (Chlorhexidine 2% Cloth) 3 pack FOOT ROENTGENOLOGIST PRN TOPICAL 08/09/17 04:00 08/12/17 03:59 (Haldol Inj) 5 mg Q4H PRN IM 08/09/17 19:45 (Zyvox) 600 mg Q12H PO 08/10/17 14:00 08/10/17 14:24 Physical Exam Vital Signs Vital Signs Date Time Temp Pulse Resp B/P (MAP) Pulse Ox O2 Delivery O2 Flow Rate FiO2 08/10/17 12:24 99.0 87 21 163/81 (108) 94 08/10/17 07:00 Room Air 08/09/17 07:00 2.00 Lab Results Date/Time Source Procedure Growth Status 08/05/17 17:20 Blood Peripheral Aerobic Blood Culture - Final NO GROWTH IN 5 DAYS Complete 08/05/17 17:20 Blood Peripheral Anaerobic Blood Culture - Final NO GROWTH IN 5 DAYS Complete 08/06/17 17:42 Nasal Washing Influenza Types A,B Antigen (ERWIN) - Final NEGATIVE FOR FLU A AND B ANTIGEN.... Complete 08/05/17 18:21 Wound Leg Gram Stain - Final Complete 08/05/17 18:21 Wound Culture - Final S. Aureus Mrsa Complete Mental Status Examination Appearance: Appropriate Consciousness: Alert Orientation: Person, Place Motor Activity: Normal gait Speech: Unremarkable Language: Adequate Fund of Knowledge: Adequate Attention and Concentration: Adequate Memory: Impaired Mood: Appropriate Affect: Labile Thought Process & Associations: Intact, Disorganized Thought Content: Appropriate, Delusional Hallucination Type: None Delusion Type: None, Other Suicidal Ideation: No Suicidal Plan: No Suicidal Intention: No Homicidal Ideation: No Homicidal Plan: No Homicidal Intention: No Insight: Fair Judgment: Impulsive Assessment & Plan Problem List: (1) Schizoaffective disorder ICD Codes: F25.9 - Schizoaffective disorder, unspecified Status: Chronic Assessment & Plan: At the moment of my psychiatric evaluation patient seems to be at baseline, which is chronic disorganization, delusions and tangential speech. She denies suicidal and homicidal ideation, she denies visual hallucinations, reports chronic auditory hallucinations "voices the are my family". The patient is unable to express a clear understanding and appreciation of her current medical conditions, and is unable to define and express the consequences of not having surgery at this moment. For this reason the patient does not have decision-making capacity to refuse medication at this moment. The patient has a high risk to become agitated, aggressive and acutely psychotic in the medical floor due to her history of schizoaffective disorder. Continue current psychotropic regimen. I agree Haldol 5 mg IM every 8 hours when necessary aggressive behavior and agitation. She might benefit of being placed in the med psych unit for better control and motorization of behavior and thought process. I will follow-up. Assessment & Plan Estimated LOS: days Problem Qualifiers (1) Schizoaffective disorder: Qualified Codes: F25.0 - Schizoaffective disorder, bipolar type Alejandro Rock MD Aug 10, 2017 14:43
--- NOTE | 2017-08-10 14:55 | HHI.PR ---
Subjective Remarks c/o pain on left post thigh seems more calmed. afebrile Objective Vitals Vital Signs Date Time Temp Pulse Resp B/P (MAP) Pulse Ox O2 Delivery O2 Flow Rate FiO2 08/10/17 12:24 99.0 87 21 163/81 (108) 94 08/10/17 12:00 90 08/10/17 08:00 98.3 92 18 145/85 (105) 95 08/10/17 07:00 Room Air 08/10/17 04:00 98 08/10/17 04:00 99.2 95 18 140/72 (94) 95 08/10/17 00:00 99.3 101 16 129/67 (87) 99 08/10/17 00:00 101 08/09/17 20:00 98.5 97 16 151/83 (105) 99 08/09/17 20:00 Room Air 08/09/17 16:14 98.4 87 18 136/75 (95) 100 08/09/17 16:05 90 I/O 08/09/17 08/09/17 08/09/17 08/10/17 08/10/17 08/10/17 07:00 15:00 23:00 07:00 15:00 23:00 Intake Total 1712 ml 240 ml Output Total 1400 ml Balance 312 ml 240 ml Intake Oral 240 ml IV Total 1712 ml Output Urine Total 1400 ml # Voids 4 # Bowel Movements 2 Result Diagram: 08/09/17 0657 08/09/17 0657 Imaging Last Impressions Abdomen/Pelvis CT 08/06/17 0000 Signed Impressions: Service Date/Time: Sunday, August 06, 2017 21:09 - CONCLUSION: 1. Diffuse soft tissue swelling and some air within the left upper thigh posterior laterally. 2. Mild diffuse ileus. Ricardo Guthrie MD Chest X-Ray 08/05/17 0000 Signed Impressions: Service Date/Time: August 14:29 - CONCLUSION: No acute disease. El Mchugh MD Objective Remarks GENERAL: Patient lying in bed. Sleeping, wakes up for exam. Appears comfortable. SKIN: Warm and dry. HEAD: Normocephalic. EYES: No scleral icterus. No injection or drainage. NECK: Supple, trachea midline. No JVD. CARDIOVASCULAR: Regular rate and rhythm without murmurs, gallops, or rubs. RESPIRATORY: Breath sounds equal bilaterally. No accessory muscle use. GASTROINTESTINAL: Abdomen soft, non-tender, nondistended. MUSCULOSKELETAL: No cyanosis, or edema. Left thigh erythema cont to improve, abscess draining yellow pus still. BACK: Nontender without obvious deformity. No CVA tenderness. Medications and IVs Current Medications Medications (Trade) Dose Ordered Sig/Jeremias Route Start Time Stop Time Status Last Admin (NS Flush) 2 ml UNSCH PRN IV FLUSH 08/05/17 20:00 08/09/17 11:40 (NS Flush) 2 ml BID IV FLUSH 08/05/17 21:00 08/09/17 09:00 (Tylenol) 650 mg Q4H PRN PO 08/05/17 20:00 08/06/17 06:03 (Zofran Inj) 4 mg Q6H PRN IVP 08/05/17 20:00 (Narcan Inj) 0.4 mg UNSCH PRN IV PUSH 08/05/17 20:00 (Milk Of Magnesia Liq) 30 ml Q12H PRN PO 08/05/17 20:00 (Senokot) 17.2 mg Q12H PRN PO 08/05/17 20:00 08/05/17 23:31 (Dulcolax Supp) 10 mg DAILY PRN RECTAL 08/05/17 20:00 (Lactulose Liq) 30 ml DAILY PRN PO 08/05/17 20:00 (Symmetrel Liq) 100 mg BID PO 08/05/17 21:00 08/10/17 08:57 (KlonoPIN) 1 mg DAILY PO 08/06/17 09:00 08/10/17 08:56 (KlonoPIN) 2 mg HS PO 08/05/17 21:00 08/09/17 23:34 (ZyPREXA) 30 mg HS PO 08/05/17 21:00 08/09/17 23:33 Patient Own Medication PT OWN MED: PERPHENAZINE 1... HS PO 08/05/17 21:00 Future Hold ([place] 5-325 Mg) 1 tab Q4H PRN PO 08/05/17 20:15 ([place] 10-325 Mg) 1 tab Q4H PRN PO 08/05/17 20:15 08/08/17 03:58 (Morphine Inj) 2 mg Q3H PRN IV PUSH 08/05/17 20:15 (Protonix) 20 mg DAILY PO 08/07/17 09:00 08/10/17 08:56 (Tessalon) 100 mg TID PRN PO 08/06/17 16:15 08/07/17 05:49 Sodium Chloride 1,000 ml @ 100 mls/hr Q10H IV 08/07/17 17:15 08/09/17 16:10 (Toradol Inj) 30 mg Q6HR IV PUSH 08/08/17 12:00 08/13/17 11:59 08/09/17 14:40 Acetaminophen 100 ml @ 400 mls/hr Q6H IV 08/08/17 11:00 08/09/17 10:16 Lactated Ringer's 1,000 ml @ 30 mls/hr Q24H PRN IV 08/09/17 04:00 08/12/17 03:59 08/09/17 11:30 Sodium Chloride 500 ml @ 30 mls/hr [id number] PRN IV 08/09/17 04:00 08/12/17 03:59 (Lopressor) 25 mg PAYROLL MASTER PRN PO 08/09/17 04:00 08/12/17 03:59 (Chlorhexidine 2% Cloth) 3 pack PAYROLL MASTER PRN TOPICAL 08/09/17 04:00 08/12/17 03:59 (Haldol Inj) 5 mg Q4H PRN IM 08/09/17 19:45 (Zyvox) 600 mg Q12H PO 08/10/17 14:00 08/10/17 14:24 A/P Problem List: (1) Sepsis ICD Code: A41.9 - Sepsis, unspecified organism Status: Resolved (2) Cellulitis and abscess of left leg ICD Code: L03.116 - Cellulitis of left lower limb; L02.416 - Cutaneous abscess of left lower limb Status: Acute (3) Cellulitis of left thigh ICD Code: L03.116 - Cellulitis of left lower limb Status: Acute (4) Schizoaffective disorder ICD Code: F25.9 - Schizoaffective disorder, unspecified Status: Chronic (5) Obesity ICD Code: E66.9 - Obesity Status: Chronic (6) AAKASH (acute kidney injury) ICD Code: N17.9 - Acute kidney failure, unspecified Status: Resolved Assessment and Plan Severe sepsis - Present on admission. Patient with tachycardia and leukocytosis. Sepsis secondary to left posterior thigh sialitis/abscess. The patient status post incision and drainage of left posterior thigh abscess in the emergency department. Initially the patient was started on IV vancomycin and IV cefepime. Sepsis this consulted and following the patient. Cultures positive for MRSA. Genral surgery consulted. 08/10 continue antibiotics as per ID. The patient does not have an IV axis given that she has been repeating the mouth. Vancomycin IV discontinued and the patient was started on oral Zyvox. for OR today. Hyponatremia Continue fluid restriction. Acute kidney injury Secondary to prerenal azotemia. Creatinine 1.36 on admission. Resolved after IV fluid administration. Schizophrenia Psychiatric consulted. Discussed the case with Dr. Rock. The patient is currently on Klonopin apex which at this time is medically necessary. Iron Haldol as needed for moderate to severe agitation. Regular diet with fluid restriction Electrolytes: monitor and replete prn DC 1/2 NS Discharge Planning Continue to monitor in the medical floor. Problem Qualifiers (1) Schizoaffective disorder: Qualified Codes: F25.0 - Schizoaffective disorder, bipolar type (2) Obesity: Sarthak Parry MD Aug 10, 2017 14:55
[2017-08-11 00:05] VITALS: BP 137/76; PULSE 97; RESP 20; TEMP 98.7; O2SAT 93
[2017-08-11] MEDS: LINEZOLID 600 MG TAB PO SCH ×2 (03:46→12:59)
[2017-08-11 03:48] VITALS: BP 147/75; PULSE 92; RESP 20; TEMP 98; O2SAT 93
[2017-08-11] MEDS: ACETAMINOPHEN 1000 MG/100 ML 100 ML IV SCH ×4 (04:14→22:02)
[2017-08-11] MEDS: KETOROLAC TROMETHAMINE 30 MG/ML (IVP) VIAL IV PUSH SCH ×3 (04:14→16:56)
[2017-08-11 06:00] LABS: BASOPHIL % 0.3 % (0.0-2.0); EOSINOPHIL % 0.1 % (0.0-4.0); HEMATOCRIT 32.1 % (35.0-46.0); HEMOGLOBIN 10.8 GM/DL (11.6-15.3); LYMPH % 21.1 % (9.0-44.0); LYMPHOCYTE # 2.7 TH/MM3 (1.0-4.8); MEAN CELL VOLUME 90.8 FL (80.0-100.0); MEAN CORPUSCULAR HEMOGLOBIN 30.6 PG (27.0-34.0); MEAN CORPUSCULAR HGB CONC 33.7 % (32.0-36.0); MONO % 7.9 % (0.0-8.0); NEUT % 70.6 % (16.0-70.0); PLATELET COUNT 316 TH/MM3 (150-450); RED BLOOD COUNT 3.54 MIL/MM3 (4.00-5.30); RED CELL DISTRIBUTION WIDTH 14.9 % (11.6-17.2); WHITE BLOOD COUNT 12.7 TH/MM3 (4.0-11.0)
[2017-08-11 06:26] LABS: CREATININE 0.8 MG/DL (0.50-1.00)
[2017-08-11 08:08] VITALS: BP 152/78; PULSE 88; RESP 18; TEMP 98.2; O2SAT 95
[2017-08-11 08:59] LABS: BANDS 5 % (0-6); LYMPHOCYTES 27 % (9-44); METAMYELOCYTES 4 % (0-1); MONOCYTES 3 % (0-8); MYELOCYTES 1 % (0-0); NEUTROPHIL # MANUAL DIFF 8.9 TH/MM3 (1.8-7.7); POLYS (SEG NEUTROPHILS) 60 % (16-70)
[2017-08-11] MEDS: SODIUM CHLORIDE 0.9% FLUSH 10 ML FLUSH IV FLUSH SCH ×2 (09:00→20:15)
[2017-08-11] MEDS: clonazePAM 1 MG TAB PO SCH ×2 (10:32→22:01)
[2017-08-11] MEDS: AMANTADINE HCL SOLN 100 MG/10 ML UDC PO SCH ×2 (10:32→22:01)
[2017-08-11] MEDS: PANTOPRAZOLE SOD 20 MG DELAYED RELEASE TAB PO SCH (10:32)
[2017-08-11 12:08] VITALS: BP 119/83; PULSE 83; RESP 18; TEMP 99; O2SAT 94
--- NOTE | 2017-08-11 12:57 | HHI.PYPN ---
Subjective Remarks Patient was seen today for psychiatric reevaluation. Chart was reviewed. On psychiatric evaluation the patient is calm, cooperative, pleasant. Recognized me from our encounter yesterday. He said that he feels much better today, and there are good voices inside her head telling her that everything is going to be okay. Patient reports that even though she is scared of the surgery, she wants to have it "because I want to be okay". The patient denies depression, she denies anxiety, she denies suicidal and homicidal ideation, she reports frequent auditory hallucination "good voices or my family". She reports good sleep, she is compliant with medications, no significant side effects reported. Review of Systems Psychiatric: COMPLAINS OF: Hallucinations Except as stated in HPI: all other systems reviewed are Neg Mental Status Examination Appearance: Appropriate Consciousness: Alert Orientation: Person, Place Motor Activity: Normal gait Speech: Unremarkable Language: Adequate Fund of Knowledge: Adequate Attention and Concentration: Adequate Memory: Impaired Mood: Appropriate Affect: Labile Thought Process & Associations: Intact, Disorganized Thought Content: Appropriate, Delusional Hallucination Type: None Delusion Type: None, Other Suicidal Ideation: No Suicidal Plan: No Suicidal Intention: No Homicidal Ideation: No Homicidal Plan: No Homicidal Intention: No Insight: Fair Judgment: Impulsive Results Labs Test 08/11/17 05:20 White Blood Count 12.7 TH/MM3 Red Blood Count 3.54 MIL/MM3 Hemoglobin 10.8 GM/DL Hematocrit 32.1 % Mean Corpuscular Volume 90.8 FL Mean Corpuscular Hemoglobin 30.6 PG Mean Corpuscular Hemoglobin Concent 33.7 % Red Cell Distribution Width 14.9 % Platelet Count 316 TH/MM3 Mean Platelet Volume 8.0 FL Neutrophils (%) (Auto) 70.6 % Lymphocytes (%) (Auto) 21.1 % Monocytes (%) (Auto) 7.9 % Eosinophils (%) (Auto) 0.1 % Basophils (%) (Auto) 0.3 % Neutrophils # (Auto) 9.0 TH/MM3 Lymphocytes # (Auto) 2.7 TH/MM3 Monocytes # (Auto) 1.0 TH/MM3 Eosinophils # (Auto) 0.0 TH/MM3 Basophils # (Auto) 0.0 TH/MM3 CBC Comment AUTO DIFF Differential Total Cells Counted 100 Neutrophils % (Manual) 60 % Band Neutrophils % 5 % Lymphocytes % 27 % Monocytes % 3 % Neutrophils # (Manual) 8.9 TH/MM3 Metamyelocytes 4 % Myelocytes 1 % Differential Comment FINAL DIFF MANUAL Atypical Lymphocytes % Platelet Estimate NORMAL Platelet Morphology Comment NORMAL Creatinine 0.80 MG/DL Estimat Glomerular Filtration Rate 89 ML/MIN Date/Time Source Procedure Growth Status 08/05/17 17:20 Blood Peripheral Aerobic Blood Culture - Final NO GROWTH IN 5 DAYS Complete 08/05/17 17:20 Blood Peripheral Anaerobic Blood Culture - Final NO GROWTH IN 5 DAYS Complete 08/06/17 17:42 Nasal Washing Influenza Types A,B Antigen (ERWIN) - Final NEGATIVE FOR FLU A AND B ANTIGEN.... Complete 08/05/17 18:21 Wound Leg Gram Stain - Final Complete 08/05/17 18:21 Wound Culture - Final S. Aureus Mrsa Complete Vitals/IOs Vital Signs Date Time Temp Pulse Resp B/P (MAP) Pulse Ox O2 Delivery O2 Flow Rate FiO2 08/11/17 12:08 99.0 83 18 119/83 (95) 94 08/11/17 02:23 Room Air 08/09/17 07:00 2.00 Assessment & Plan Problem List: (1) Schizoaffective disorder ICD Codes: F25.9 - Schizoaffective disorder, unspecified Status: Chronic Assessment & Plan: Patient seems to be at baseline at this moment. Willing to go to surgery and follow medical recommendations. Due to current psychotropic regimen. Psychoeducation and support provided. Assessment & Plan Estimated LOS: days Justification for Cont. Inpt. At some point the patient might benefit of med psych unit placement. We'll follow-up. Problem Qualifiers (1) Schizoaffective disorder: Qualified Codes: F25.0 - Schizoaffective disorder, bipolar type Alejandro Rock MD Aug 11, 2017 12:57
--- NOTE | 2017-08-11 13:42 | HHI.IDPN ---
Subjective Subjective Remarks Ms. Dean is a 57-year-old male with past medical history significant for frenulum was had multiple visits at the hospital. Other than that I could not find any other significant past medical history on brief review of records. With this background patient presents to the emergency department from her assisted living facility for evaluation of worsening of left posterior thigh wound. It is extremely difficult to obtain history from the patient has patient has schizophrenia as well as is currently in about of cough. Patient reports the area on the left thigh effectively got worse and started showing fluctuance so she presented to the ED. In the emergency department and incision and drainage of the abscess was performed the cultures from which are now growing MRSA susceptibility pending. Patient was initially prescribed Bactrim reportedly despite compliance has continued to worsen. Patient was started on empiric IV antibiotics for sepsis. Patient received fluid bolus and due to persistent hypotension this afternoon she again has received another bolus at this time. Patient denied any fever or chills on admission but throughout this admission she continues to have high-grade fevers with tachycardia and periods of low blood pressure suggestive of severe sepsis. Infectious disease is consulted for evaluation and management of severe sepsis secondary to left thigh abscess. Notes reviewed D/W RN d.w : is not mentally competent to make medical decisions. He agrees. No fevers C/O pain L thigh C/S MRSA Persistent swelling and induration in thigh. RN informs me of plan to OR today. Compliant with oral zyvox per RN Antibiotics Current Medications Zyvox oral Current Medications Medications (Trade) Dose Ordered Sig/Jeremias Route Start Time Stop Time Status Last Admin (NS Flush) 2 ml UNSCH PRN IV FLUSH 08/05/17 20:00 08/09/17 11:40 (NS Flush) 2 ml BID IV FLUSH 08/05/17 21:00 08/11/17 09:00 (Tylenol) 650 mg Q4H PRN PO 08/05/17 20:00 08/06/17 06:03 (Zofran Inj) 4 mg Q6H PRN IVP 08/05/17 20:00 (Narcan Inj) 0.4 mg UNSCH PRN IV PUSH 08/05/17 20:00 (Milk Of Magnesia Liq) 30 ml Q12H PRN PO 08/05/17 20:00 (Senokot) 17.2 mg Q12H PRN PO 08/05/17 20:00 08/05/17 23:31 (Dulcolax Supp) 10 mg DAILY PRN RECTAL 08/05/17 20:00 (Lactulose Liq) 30 ml DAILY PRN PO 08/05/17 20:00 (Symmetrel Liq) 100 mg BID PO 08/05/17 21:00 08/11/17 10:32 (KlonoPIN) 1 mg DAILY PO 08/06/17 09:00 08/11/17 10:32 (KlonoPIN) 2 mg HS PO 08/05/17 21:00 08/10/17 21:42 (ZyPREXA) 30 mg HS PO 08/05/17 21:00 08/10/17 21:42 Patient Own Medication PT OWN MED: PERPHENAZINE 1... HS PO 08/05/17 21:00 Future Hold ([place] 5-325 Mg) 1 tab Q4H PRN PO 08/05/17 20:15 ([place] 10-325 Mg) 1 tab Q4H PRN PO 08/05/17 20:15 08/08/17 03:58 (Morphine Inj) 2 mg Q3H PRN IV PUSH 08/05/17 20:15 (Protonix) 20 mg DAILY PO 08/07/17 09:00 08/11/17 10:32 (Tessalon) 100 mg TID PRN PO 08/06/17 16:15 08/07/17 05:49 (Toradol Inj) 30 mg Q6HR IV PUSH 08/08/17 12:00 08/13/17 11:59 08/09/17 14:40 Acetaminophen 100 ml @ 400 mls/hr Q6H IV 08/08/17 11:00 08/09/17 10:16 Lactated Ringer's 1,000 ml @ 30 mls/hr Q24H PRN IV 08/09/17 04:00 08/12/17 03:59 08/09/17 11:30 Sodium Chloride 500 ml @ 30 mls/hr [id number] PRN IV 08/09/17 04:00 08/12/17 03:59 (Lopressor) 25 mg HYDRAULIC PLUMBER PRN PO 08/09/17 04:00 08/12/17 03:59 (Chlorhexidine 2% Cloth) 3 pack HYDRAULIC PLUMBER PRN TOPICAL 08/09/17 04:00 08/12/17 03:59 (Haldol Inj) 5 mg Q4H PRN IM 08/09/17 19:45 (Zyvox) 600 mg Q12H PO 08/10/17 14:00 08/11/17 12:59 Lines PIV Past Medical History Schizophrenia Allergies: Coded Allergies: iodine (Unverified Allergy, Unknown, 02/16/17) penicillin G (Unverified Allergy, Unknown, 02/16/17) potassium iodide (Unverified Allergy, Unknown, 02/16/17) povidone-iodine (Unverified Allergy, Unknown, 02/16/17) sodium iodide (Unverified Allergy, Unknown, 02/16/17) sodium iodide (Unverified Allergy, Unknown, 02/16/17) Objective . Vital Signs Date Time Temp Pulse Resp B/P (MAP) Pulse Ox O2 Delivery O2 Flow Rate FiO2 08/11/17 12:08 99.0 83 18 119/83 (95) 94 08/11/17 08:08 98.2 88 18 152/78 (102) 95 08/11/17 03:48 98.0 92 20 147/75 (99) 93 08/11/17 02:23 Room Air 08/11/17 00:05 98.7 97 20 137/76 (96) 93 08/10/17 20:04 Room Air 08/10/17 20:01 98.3 92 20 139/69 (92) 98 08/10/17 16:33 98.4 82 18 154/78 (103) 97 . Laboratory Tests Test 08/11/17 05:20 White Blood Count 12.7 TH/MM3 Red Blood Count 3.54 MIL/MM3 Hemoglobin 10.8 GM/DL Hematocrit 32.1 % Mean Corpuscular Volume 90.8 FL Mean Corpuscular Hemoglobin 30.6 PG Mean Corpuscular Hemoglobin Concent 33.7 % Red Cell Distribution Width 14.9 % Platelet Count 316 TH/MM3 Mean Platelet Volume 8.0 FL Neutrophils (%) (Auto) 70.6 % Lymphocytes (%) (Auto) 21.1 % Monocytes (%) (Auto) 7.9 % Eosinophils (%) (Auto) 0.1 % Basophils (%) (Auto) 0.3 % Neutrophils # (Auto) 9.0 TH/MM3 Lymphocytes # (Auto) 2.7 TH/MM3 Monocytes # (Auto) 1.0 TH/MM3 Eosinophils # (Auto) 0.0 TH/MM3 Basophils # (Auto) 0.0 TH/MM3 CBC Comment AUTO DIFF Differential Total Cells Counted 100 Neutrophils % (Manual) 60 % Band Neutrophils % 5 % Lymphocytes % 27 % Monocytes % 3 % Neutrophils # (Manual) 8.9 TH/MM3 Metamyelocytes 4 % Myelocytes 1 % Differential Comment FINAL DIFF MANUAL Atypical Lymphocytes % Platelet Estimate NORMAL Platelet Morphology Comment NORMAL Laboratory Tests Test 08/11/17 05:20 Creatinine 0.80 MG/DL Estimat Glomerular Filtration Rate 89 ML/MIN Imaging Last Impressions Abdomen/Pelvis CT 08/06/17 0000 Signed Impressions: Service Date/Time: Sunday, August 06, 2017 21:09 - CONCLUSION: 1. Diffuse soft tissue swelling and some air within the left upper thigh posterior laterally. 2. Mild diffuse ileus. Ricardo Guthrie MD Chest X-Ray 08/05/17 0000 Signed Impressions: Service Date/Time: August 14:29 - CONCLUSION: No acute disease. El Mchugh MD Physical Exam GENERAL: obese female, NAD. woke her up from her sleep, sluggish SKIN: No rashes, ecchymoses or lesions. Cool and dry. HEAD: Atraumatic. Normocephalic. No temporal or scalp tenderness. EYES: Pupils equal round and reactive. Extraocular motions intact. No scleral icterus. No injection or drainage. ENT: Nose without bleeding, purulent drainage or septal hematoma. Throat without erythema, tonsillar hypertrophy or exudate. Uvula midline. Airway patent. NECK: Trachea midline. Supple, nontender, no meningeal signs. CARDIOVASCULAR: Heart sounds audible. RESPIRATORY: Clear to auscultation. Breath sounds equal bilaterally. GASTROINTESTINAL: Abdomen soft, non-tender, nondistended. MUSCULOSKELETAL: Left thigh posterior aspect with large area of erythema, induration noted. Area of induration persists although erythema has significantly reduced at this point. There is central opening with purulent appearing discharge. NEUROLOGICAL: Alert, answers questions although may not be appropriate at times No focal deficits noted Psych cooperative IV line sites with no e.o infection. Assessment & Plan Remarks IMPRESSION Severe Sepsis Present on admission. Hypotension: ongoing sepsis. Better Left thigh abscess, draining MRSA skin infection Schizophrenia Fevers Recs Continue oral Zyvox d/w pharmacist: aware pt on Zyprexa and drug interaction with Zyvox. Zyprexa cannot be placed on hold as medically necessary. Follow cultures Follow clinically. d/w RN If patient does give transferred to [facility] unit after the surgery today please consult infectious disease to help finalize a plan for antibiotics and for continuity of care. Discussed with Angelic Zarco MD Aug 11, 2017 13:42
--- NOTE | 2017-08-11 15:25 | HHI.PR ---
Subjective Remarks The foot eventually, the patient seen earlier at 10:30 AM. Patient c/o left thigh posterior pain. Denies cp, sob. Objective Vitals Vital Signs Date Time Temp Pulse Resp B/P (MAP) Pulse Ox O2 Delivery O2 Flow Rate FiO2 08/11/17 12:08 99.0 83 18 119/83 (95) 94 08/11/17 08:08 98.2 88 18 152/78 (102) 95 08/11/17 03:48 98.0 92 20 147/75 (99) 93 08/11/17 02:23 Room Air 08/11/17 00:05 98.7 97 20 137/76 (96) 93 08/10/17 20:04 Room Air 08/10/17 20:01 98.3 92 20 139/69 (92) 98 08/10/17 16:33 98.4 82 18 154/78 (103) 97 I/O 08/10/17 08/10/17 08/10/17 08/11/17 08/11/17 08/11/17 07:00 15:00 23:00 07:00 15:00 23:00 # Voids 2 Result Diagram: 08/11/17 0520 08/11/17 0520 Imaging Last Impressions Abdomen/Pelvis CT 08/06/17 0000 Signed Impressions: Service Date/Time: Sunday, August 06, 2017 21:09 - CONCLUSION: 1. Diffuse soft tissue swelling and some air within the left upper thigh posterior laterally. 2. Mild diffuse ileus. Ricardo Guthrie MD Chest X-Ray 08/05/17 0000 Signed Impressions: Service Date/Time: August 14:29 - CONCLUSION: No acute disease. El Mchugh MD Objective Remarks GENERAL: Patient lying in bed. Sleeping, wakes up for exam. Appears comfortable. SKIN: Warm and dry. HEAD: Normocephalic. EYES: No scleral icterus. No injection or drainage. NECK: Supple, trachea midline. No JVD. CARDIOVASCULAR: Regular rate and rhythm without murmurs, gallops, or rubs. RESPIRATORY: Breath sounds equal bilaterally. No accessory muscle use. GASTROINTESTINAL: Abdomen soft, non-tender, nondistended. MUSCULOSKELETAL: No cyanosis, or edema. Left thigh erythema cont to improve, abscess draining yellow pus still. BACK: Nontender without obvious deformity. No CVA tenderness. Medications and IVs Current Medications Medications (Trade) Dose Ordered Sig/Jeremias Route Start Time Stop Time Status Last Admin (NS Flush) 2 ml UNSCH PRN IV FLUSH 08/05/17 20:00 08/09/17 11:40 (NS Flush) 2 ml BID IV FLUSH 08/05/17 21:00 08/11/17 09:00 (Tylenol) 650 mg Q4H PRN PO 08/05/17 20:00 08/06/17 06:03 (Zofran Inj) 4 mg Q6H PRN IVP 08/05/17 20:00 (Narcan Inj) 0.4 mg UNSCH PRN IV PUSH 08/05/17 20:00 (Milk Of Magnesia Liq) 30 ml Q12H PRN PO 08/05/17 20:00 (Senokot) 17.2 mg Q12H PRN PO 08/05/17 20:00 08/05/17 23:31 (Dulcolax Supp) 10 mg DAILY PRN RECTAL 08/05/17 20:00 (Lactulose Liq) 30 ml DAILY PRN PO 08/05/17 20:00 (Symmetrel Liq) 100 mg BID PO 08/05/17 21:00 08/11/17 10:32 (KlonoPIN) 1 mg DAILY PO 08/06/17 09:00 08/11/17 10:32 (KlonoPIN) 2 mg HS PO 08/05/17 21:00 08/10/17 21:42 (ZyPREXA) 30 mg HS PO 08/05/17 21:00 08/10/17 21:42 Patient Own Medication PT OWN MED: PERPHENAZINE 1... HS PO 08/05/17 21:00 Future Hold ([place] 5-325 Mg) 1 tab Q4H PRN PO 08/05/17 20:15 ([place] 10-325 Mg) 1 tab Q4H PRN PO 08/05/17 20:15 08/08/17 03:58 (Morphine Inj) 2 mg Q3H PRN IV PUSH 08/05/17 20:15 (Protonix) 20 mg DAILY PO 08/07/17 09:00 08/11/17 10:32 (Tessalon) 100 mg TID PRN PO 08/06/17 16:15 08/07/17 05:49 (Toradol Inj) 30 mg Q6HR IV PUSH 08/08/17 12:00 08/13/17 11:59 08/09/17 14:40 Acetaminophen 100 ml @ 400 mls/hr Q6H IV 08/08/17 11:00 08/09/17 10:16 Lactated Ringer's 1,000 ml @ 30 mls/hr Q24H PRN IV 08/09/17 04:00 08/12/17 03:59 08/09/17 11:30 Sodium Chloride 500 ml @ 30 mls/hr [id number] PRN IV 08/09/17 04:00 08/12/17 03:59 (Lopressor) 25 mg [employer] SALESPERSON PRN PO 08/09/17 04:00 08/12/17 03:59 (Chlorhexidine 2% Cloth) 3 pack [employer] PRN TOPICAL 08/09/17 04:00 08/12/17 03:59 (Haldol Inj) 5 mg Q4H PRN IM 08/09/17 19:45 (Zyvox) 600 mg Q12H PO 08/10/17 14:00 08/11/17 12:59 Urinary Catheter: No Vascular Central Line Catheter: No A/P Problem List: (1) Sepsis ICD Code: A41.9 - Sepsis, unspecified organism Status: Resolved (2) Cellulitis and abscess of left leg ICD Code: L03.116 - Cellulitis of left lower limb; L02.416 - Cutaneous abscess of left lower limb Status: Acute (3) Cellulitis of left thigh ICD Code: L03.116 - Cellulitis of left lower limb Status: Acute (4) Schizoaffective disorder ICD Code: F25.9 - Schizoaffective disorder, unspecified Status: Chronic (5) Obesity ICD Code: E66.9 - Obesity Status: Chronic (6) AAKASH (acute kidney injury) ICD Code: N17.9 - Acute kidney failure, unspecified Status: Resolved Assessment and Plan Severe sepsis - Present on admission. Patient with tachycardia and leukocytosis. Sepsis secondary to left posterior thigh sialitis/abscess. The patient status post incision and drainage of left posterior thigh abscess in the emergency department. Initially the patient was started on IV vancomycin and IV cefepime. Sepsis this consulted and following the patient. Cultures positive for MRSA. Genral surgery consulted. 08/10 continue antibiotics as per ID. The patient does not have an IV axis given that she has been repeating the mouth. Vancomycin IV discontinued and the patient was started on oral Zyvox. for OR today. 08/11 the patient was scheduled to go to work yesterday, however did not. Continue antibiotics as per ID. The patient currently on Zyvox. Hyponatremia Continue fluid restriction. Acute kidney injury Secondary to prerenal azotemia. Creatinine 1.36 on admission. Resolved after IV fluid administration. Schizophrenia Psychiatric consulted. Discussed the case with Dr. Rock. The patient is currently on Klonopin apex which at this time is medically necessary. Continue Haldol as needed for moderate to severe agitation. 08/11 appreciate psychiatric consultation and recommendations. As per psychiatry and my opinion the patient does not have decision-making capacity to refuse medication at this moment. Regular diet with fluid restriction Electrolytes: monitor and replete prn DC 1/2 NS Discharge Planning Continue to monitor in the medical floor. Problem Qualifiers (1) Schizoaffective disorder: Qualified Codes: F25.0 - Schizoaffective disorder, bipolar type (2) Obesity: Sarthak Parry MD Aug 11, 2017 15:25
[2017-08-11 16:08] VITALS: BP 160/97; PULSE 96; RESP 19; TEMP 98.7; O2SAT 96
[2017-08-11 21:04] VITALS: BP 136/86; PULSE 79; RESP 16; TEMP 98.7; O2SAT 97
[2017-08-12 00:37] VITALS: BP 130/82; PULSE 76; RESP 16; TEMP 98.5; O2SAT 97
[2017-08-12] MEDS: LINEZOLID 600 MG TAB PO SCH ×2 (02:00→12:32)
[2017-08-12] MEDS: ACETAMINOPHEN 1000 MG/100 ML 100 ML IV SCH ×4 (05:00→23:00)
[2017-08-12] MEDS: KETOROLAC TROMETHAMINE 30 MG/ML (IVP) VIAL IV PUSH SCH ×4 (05:03→18:51)
[2017-08-12 06:51] VITALS: BP 128/77; PULSE 70; RESP 16; TEMP 98.5; O2SAT 97
[2017-08-12 08:08] VITALS: BP 153/83; PULSE 66; RESP 18; TEMP 97.8; O2SAT 96
[2017-08-12] MEDS: SODIUM CHLORIDE 0.9% FLUSH 10 ML FLUSH IV FLUSH SCH ×2 (08:17→21:51)
[2017-08-12] MEDS: AMANTADINE HCL SOLN 100 MG/10 ML UDC PO SCH ×2 (08:18→21:49)
[2017-08-12] MEDS: PANTOPRAZOLE SOD 20 MG DELAYED RELEASE TAB PO SCH (08:18)
[2017-08-12] MEDS: clonazePAM 1 MG TAB PO SCH ×2 (08:18→21:50)
[2017-08-12] MEDS ORDERED: PROPOFOL 200 MG/20 ML AMP IV ONE (12:00)
[2017-08-12] MEDS ORDERED: ROCURONIUM INJ 50 MG/5 ML SYRINGE IV PUSH ONE (12:00)
[2017-08-12] MEDS ORDERED: SUCCINYLCHOLINE CHLORIDE 200 MG/10 ML VIAL IV ONE (12:00)
[2017-08-12] MEDS ORDERED: LIDOCAINE HCL 1% PF 5 ML SYRINGE OTHER ONE (12:00)
[2017-08-12] MEDS ORDERED: GLYCOPYRROLATE 1 MG/5 ML SYRINGE IV PUSH ONE (12:00)
[2017-08-12 12:16] VITALS: BP 153/85; PULSE 78; RESP 18; TEMP 97.7; O2SAT 96
--- NOTE | 2017-08-12 14:13 | HHI.IDPN ---
Subjective Subjective Remarks Ms. Dean is a 57-year-old male with past medical history significant for frenulum was had multiple visits at the hospital. Other than that I could not find any other significant past medical history on brief review of records. With this background patient presents to the emergency department from her assisted living facility for evaluation of worsening of left posterior thigh wound. It is extremely difficult to obtain history from the patient has patient has schizophrenia as well as is currently in about of cough. Patient reports the area on the left thigh effectively got worse and started showing fluctuance so she presented to the ED. In the emergency department and incision and drainage of the abscess was performed the cultures from which are now growing MRSA susceptibility pending. Patient was initially prescribed Bactrim reportedly despite compliance has continued to worsen. Patient was started on empiric IV antibiotics for sepsis. Patient received fluid bolus and due to persistent hypotension this afternoon she again has received another bolus at this time. Patient denied any fever or chills on admission but throughout this admission she continues to have high-grade fevers with tachycardia and periods of low blood pressure suggestive of severe sepsis. Infectious disease is consulted for evaluation and management of severe sepsis secondary to left thigh abscess. Notes reviewed D/W RN d.w : is not mentally competent to make medical decisions. He agrees. No fevers C/O pain L thigh C/S MRSA Persistent swelling and induration in thigh. RN informs me of plan to OR today. Compliant with oral zyvox per RN Antibiotics Current Medications Zyvox oral Current Medications Medications (Trade) Dose Ordered Sig/Jeremias Route Start Time Stop Time Status Last Admin (NS Flush) 2 ml UNSCH PRN IV FLUSH 08/05/17 20:00 08/09/17 11:40 (NS Flush) 2 ml BID IV FLUSH 08/05/17 21:00 08/11/17 09:00 (Tylenol) 650 mg Q4H PRN PO 08/05/17 20:00 08/06/17 06:03 (Zofran Inj) 4 mg Q6H PRN IVP 08/05/17 20:00 (Narcan Inj) 0.4 mg UNSCH PRN IV PUSH 08/05/17 20:00 (Milk Of Magnesia Liq) 30 ml Q12H PRN PO 08/05/17 20:00 (Senokot) 17.2 mg Q12H PRN PO 08/05/17 20:00 08/05/17 23:31 (Dulcolax Supp) 10 mg DAILY PRN RECTAL 08/05/17 20:00 (Lactulose Liq) 30 ml DAILY PRN PO 08/05/17 20:00 (Symmetrel Liq) 100 mg BID PO 08/05/17 21:00 08/11/17 10:32 (KlonoPIN) 1 mg DAILY PO 08/06/17 09:00 08/11/17 10:32 (KlonoPIN) 2 mg HS PO 08/05/17 21:00 08/10/17 21:42 (ZyPREXA) 30 mg HS PO 08/05/17 21:00 08/10/17 21:42 Patient Own Medication PT OWN MED: PERPHENAZINE 1... HS PO 08/05/17 21:00 Future Hold ([place] 5-325 Mg) 1 tab Q4H PRN PO 08/05/17 20:15 ([place] 10-325 Mg) 1 tab Q4H PRN PO 08/05/17 20:15 08/08/17 03:58 (Morphine Inj) 2 mg Q3H PRN IV PUSH 08/05/17 20:15 (Protonix) 20 mg DAILY PO 08/07/17 09:00 08/11/17 10:32 (Tessalon) 100 mg TID PRN PO 08/06/17 16:15 08/07/17 05:49 (Toradol Inj) 30 mg Q6HR IV PUSH 08/08/17 12:00 08/13/17 11:59 08/09/17 14:40 Acetaminophen 100 ml @ 400 mls/hr Q6H IV 08/08/17 11:00 08/09/17 10:16 Lactated Ringer's 1,000 ml @ 30 mls/hr Q24H PRN IV 08/09/17 04:00 08/12/17 03:59 08/09/17 11:30 Sodium Chloride 500 ml @ 30 mls/hr [id number] PRN IV 08/09/17 04:00 08/12/17 03:59 (Lopressor) 25 mg AIRCRAFT MACHINIST PRN PO 08/09/17 04:00 08/12/17 03:59 (Chlorhexidine 2% Cloth) 3 pack AIRCRAFT MACHINIST PRN TOPICAL 08/09/17 04:00 08/12/17 03:59 (Haldol Inj) 5 mg Q4H PRN IM 08/09/17 19:45 (Zyvox) 600 mg Q12H PO 08/10/17 14:00 08/11/17 12:59 Lines PIV Past Medical History Schizophrenia Allergies: Coded Allergies: iodine (Unverified Allergy, Unknown, 02/16/17) penicillin G (Unverified Allergy, Unknown, 02/16/17) potassium iodide (Unverified Allergy, Unknown, 02/16/17) povidone-iodine (Unverified Allergy, Unknown, 02/16/17) sodium iodide (Unverified Allergy, Unknown, 02/16/17) sodium iodide (Unverified Allergy, Unknown, 02/16/17) Objective . Vital Signs Date Time Temp Pulse Resp B/P (MAP) Pulse Ox O2 Delivery O2 Flow Rate FiO2 08/12/17 12:16 97.7 78 18 153/85 (107) 96 08/12/17 08:08 97.8 66 18 153/83 (106) 96 08/12/17 08:00 Room Air 08/12/17 06:51 98.5 70 16 128/77 (94) 97 08/12/17 00:37 98.5 76 16 130/82 (98) 97 08/11/17 22:32 Room Air 08/11/17 21:04 98.7 79 16 136/86 (103) 97 08/11/17 16:08 98.7 96 19 160/97 (118) 96 . Laboratory Tests Test 08/11/17 05:20 White Blood Count 12.7 TH/MM3 Red Blood Count 3.54 MIL/MM3 Hemoglobin 10.8 GM/DL Hematocrit 32.1 % Mean Corpuscular Volume 90.8 FL Mean Corpuscular Hemoglobin 30.6 PG Mean Corpuscular Hemoglobin Concent 33.7 % Red Cell Distribution Width 14.9 % Platelet Count 316 TH/MM3 Mean Platelet Volume 8.0 FL Neutrophils (%) (Auto) 70.6 % Lymphocytes (%) (Auto) 21.1 % Monocytes (%) (Auto) 7.9 % Eosinophils (%) (Auto) 0.1 % Basophils (%) (Auto) 0.3 % Neutrophils # (Auto) 9.0 TH/MM3 Lymphocytes # (Auto) 2.7 TH/MM3 Monocytes # (Auto) 1.0 TH/MM3 Eosinophils # (Auto) 0.0 TH/MM3 Basophils # (Auto) 0.0 TH/MM3 CBC Comment AUTO DIFF Differential Total Cells Counted 100 Neutrophils % (Manual) 60 % Band Neutrophils % 5 % Lymphocytes % 27 % Monocytes % 3 % Neutrophils # (Manual) 8.9 TH/MM3 Metamyelocytes 4 % Myelocytes 1 % Differential Comment FINAL DIFF MANUAL Atypical Lymphocytes % Platelet Estimate NORMAL Platelet Morphology Comment NORMAL Laboratory Tests Test 08/11/17 05:20 Creatinine 0.80 MG/DL Estimat Glomerular Filtration Rate 89 ML/MIN Imaging Last Impressions Abdomen/Pelvis CT 08/06/17 0000 Signed Impressions: Service Date/Time: Sunday, August 06, 2017 21:09 - CONCLUSION: 1. Diffuse soft tissue swelling and some air within the left upper thigh posterior laterally. 2. Mild diffuse ileus. Ricardo Guthrie MD Chest X-Ray 08/05/17 0000 Signed Impressions: Service Date/Time: August 14:29 - CONCLUSION: No acute disease. El Mchugh MD Physical Exam GENERAL: obese female, NAD. woke her up from her sleep, sluggish SKIN: No rashes, ecchymoses or lesions. Cool and dry. HEAD: Atraumatic. Normocephalic. No temporal or scalp tenderness. EYES: Pupils equal round and reactive. Extraocular motions intact. No scleral icterus. No injection or drainage. ENT: Nose without bleeding, purulent drainage or septal hematoma. Throat without erythema, tonsillar hypertrophy or exudate. Uvula midline. Airway patent. NECK: Trachea midline. Supple, nontender, no meningeal signs. CARDIOVASCULAR: Heart sounds audible. RESPIRATORY: Clear to auscultation. Breath sounds equal bilaterally. GASTROINTESTINAL: Abdomen soft, non-tender, nondistended. MUSCULOSKELETAL: Left thigh posterior aspect with large area of erythema, induration noted. Area of induration persists although erythema has significantly reduced at this point. There is central opening with purulent appearing discharge. NEUROLOGICAL: Alert, answers questions although may not be appropriate at times No focal deficits noted Psych cooperative IV line sites with no e.o infection. Assessment & Plan Remarks IMPRESSION Severe Sepsis Present on admission. Hypotension: ongoing sepsis. Better Left thigh abscess, draining MRSA skin infection Schizophrenia Fevers Recs Continue Vanco IV (target sepsis) Continue oral Zyvox. DC flagyl no anaerobes identified so far. Reviewed Surgery notes. Follow cultures Follow clinically. d/w Angelic Gibson MD Aug 12, 2017 14:13
[2017-08-12] MEDS ORDERED: MIDAZOLAM HCL 2 MG/2 ML VIAL ONE (15:48)
[2017-08-12] MEDS ORDERED: fentaNYL CITRATE 250 MCG/5 ML AMP ONE (15:48)
[2017-08-12] MEDS ORDERED: DO NOT ADM ANY ANTICOAGULANT DRUGS PRN (16:56)
[2017-08-12] MEDS ORDERED: *RESP: ALBUTEROL 2.5 MG/3 ML NEB (PRN) PERIprocedural Use ONLY NEB ONE (17:01)
--- NOTE | 2017-08-12 18:40 | HHI.PR ---
Subjective Remarks The patient is status post left lateral posterior thigh abscess excision and drainage with wound VAC dressing. Patient states that she feels much better. Patient is complaining of cough. Afebrile. Objective Vitals Vital Signs Date Time Temp Pulse Resp B/P (MAP) Pulse Ox O2 Delivery O2 Flow Rate FiO2 08/12/17 18:00 100 18 167/74 (105) 99 Room Air 08/12/17 17:45 101 18 171/74 (106) 99 Room Air 08/12/17 17:30 104 18 170/76 (107) 95 Simple Mask 8 08/12/17 17:15 114 18 161/72 (101) 95 Simple Mask 8 08/12/17 16:57 99.4 105 18 174/74 (107) 98 Simple Mask 8 08/12/17 12:16 97.7 78 18 153/85 (107) 96 08/12/17 08:08 97.8 66 18 153/83 (106) 96 08/12/17 08:00 Room Air 08/12/17 06:51 98.5 70 16 128/77 (94) 97 08/12/17 00:37 98.5 76 16 130/82 (98) 97 08/11/17 22:32 Room Air 08/11/17 21:04 98.7 79 16 136/86 (103) 97 I/O 08/11/17 08/11/17 08/11/17 08/12/17 08/12/17 08/12/17 07:00 15:00 23:00 07:00 15:00 23:00 Intake Total 360 ml 200 ml Output Total 2 ml 20 ml Balance 358 ml 180 ml Intake Oral 360 ml Other 200 ml Output Urine Total 2 ml Estimated Blood Loss 20 ml # Bowel Movements 1 Result Diagram: 08/11/17 0520 08/11/17 0520 Imaging Last Impressions Abdomen/Pelvis CT 08/06/17 0000 Signed Impressions: Service Date/Time: Sunday, August 06, 2017 21:09 - CONCLUSION: 1. Diffuse soft tissue swelling and some air within the left upper thigh posterior laterally. 2. Mild diffuse ileus. Ricardo Guthrie MD Chest X-Ray 08/05/17 0000 Signed Impressions: Service Date/Time: August 14:29 - CONCLUSION: No acute disease. El Mchugh MD Objective Remarks GENERAL: Patient lying in bed. Sleeping, wakes up for exam. Appears comfortable. SKIN: Warm and dry. HEAD: Normocephalic. EYES: No scleral icterus. No injection or drainage. NECK: Supple, trachea midline. No JVD. CARDIOVASCULAR: Regular rate and rhythm without murmurs, gallops, or rubs. RESPIRATORY: Breath sounds equal bilaterally. No accessory muscle use. GASTROINTESTINAL: Abdomen soft, non-tender, nondistended. MUSCULOSKELETAL: No cyanosis, or edema. Left thigh erythema cont to improve, abscess draining yellow pus still. BACK: Nontender without obvious deformity. No CVA tenderness. Medications and IVs Current Medications Medications (Trade) Dose Ordered Sig/Jeremias Route Start Time Stop Time Status Last Admin (NS Flush) 2 ml UNSCH PRN IV FLUSH 08/05/17 20:00 08/09/17 11:40 (NS Flush) 2 ml BID IV FLUSH 08/05/17 21:00 08/11/17 09:00 (Tylenol) 650 mg Q4H PRN PO 08/05/17 20:00 08/06/17 06:03 (Zofran Inj) 4 mg Q6H PRN IVP 08/05/17 20:00 (Narcan Inj) 0.4 mg UNSCH PRN IV PUSH 08/05/17 20:00 (Milk Of Magnesia Liq) 30 ml Q12H PRN PO 08/05/17 20:00 (Senokot) 17.2 mg Q12H PRN PO 08/05/17 20:00 08/05/17 23:31 (Dulcolax Supp) 10 mg DAILY PRN RECTAL 08/05/17 20:00 (Lactulose Liq) 30 ml DAILY PRN PO 08/05/17 20:00 (Symmetrel Liq) 100 mg BID PO 08/05/17 21:00 08/12/17 08:18 (KlonoPIN) 1 mg DAILY PO 08/06/17 09:00 08/12/17 08:18 (KlonoPIN) 2 mg HS PO 08/05/17 21:00 08/11/17 22:01 (ZyPREXA) 30 mg HS PO 08/05/17 21:00 08/11/17 21:00 Patient Own Medication PT OWN MED: PERPHENAZINE 1... HS PO 08/05/17 21:00 Future Hold ([place] 5-325 Mg) 1 tab Q4H PRN PO 08/05/17 20:15 ([place] 10-325 Mg) 1 tab Q4H PRN PO 08/05/17 20:15 08/08/17 03:58 (Morphine Inj) 2 mg Q3H PRN IV PUSH 08/05/17 20:15 (Protonix) 20 mg DAILY PO 08/07/17 09:00 08/12/17 08:18 (Tessalon) 100 mg TID PRN PO 08/06/17 16:15 08/07/17 05:49 (Toradol Inj) 30 mg Q6HR IV PUSH 08/08/17 12:00 08/13/17 11:59 08/12/17 12:31 Acetaminophen 100 ml @ 400 mls/hr Q6H IV 08/08/17 11:00 08/09/17 10:16 (Haldol Inj) 5 mg Q4H PRN IM 08/09/17 19:45 (Zyvox) 600 mg Q12H PO 08/10/17 14:00 08/12/17 12:32 Miscellaneous Information ALL NURSING DEPARTME... UNSCH PRN .XX 08/12/17 16:56 08/13/17 16:55 A/P Problem List: (1) Sepsis ICD Code: A41.9 - Sepsis, unspecified organism Status: Resolved (2) Cellulitis and abscess of left leg ICD Code: L03.116 - Cellulitis of left lower limb; L02.416 - Cutaneous abscess of left lower limb Status: Acute (3) Cellulitis of left thigh ICD Code: L03.116 - Cellulitis of left lower limb Status: Acute (4) Schizoaffective disorder ICD Code: F25.9 - Schizoaffective disorder, unspecified Status: Chronic (5) Obesity ICD Code: E66.9 - Obesity Status: Chronic (6) AAKASH (acute kidney injury) ICD Code: N17.9 - Acute kidney failure, unspecified Status: Resolved Assessment and Plan Severe sepsis - Present on admission. Patient with tachycardia and leukocytosis. Sepsis secondary to left posterior thigh sialitis/abscess. The patient status post incision and drainage of left posterior thigh abscess in the emergency department. Initially the patient was started on IV vancomycin and IV cefepime. Sepsis this consulted and following the patient. Cultures positive for MRSA. Genral surgery consulted. 08/10 continue antibiotics as per ID. The patient does not have an IV axis given that she has been repeating the mouth. Vancomycin IV discontinued and the patient was started on oral Zyvox. for OR today. 08/11 the patient was scheduled to go to OR yesterday, however did not. Continue antibiotics as per ID. The patient currently on Zyvox. 08/12 the patient status post incision and drainage with wound VAC placement. Continue antibiotics as per ID. Continue Vanco IV and continue oral Zyvox. Flagyl discontinued given that no anaerobes have been identified so far. Hyponatremia Resolved. Continue fluid restriction. Continue to monitor BMP. Acute kidney injury Secondary to prerenal azotemia. Creatinine 1.36 on admission. Resolved after IV fluid administration. Schizophrenia Psychiatric consulted. Discussed the case with Dr. Rock. The patient is currently on Klonopin apex which at this time is medically necessary. Continue Haldol as needed for moderate to severe agitation. 08/11 appreciate psychiatric consultation and recommendations. As per psychiatry and my opinion the patient does not have decision-making capacity to refuse medication at this moment. 08/12 I will discharge the patient to the [facility] psychiatric unit in a.m. if stable. Regular diet with fluid restriction Electrolytes: monitor and replete prn DC 07/06 NS Discharge Planning Continue to monitor in the medical floor. Problem Qualifiers (1) Schizoaffective disorder: Qualified Codes: F25.0 - Schizoaffective disorder, bipolar type (2) Obesity: Sarthak Parry MD Aug 12, 2017 18:40
[2017-08-12 21:00] VITALS: BP 143/77; PULSE 85; RESP 20; TEMP 98.6; O2SAT 97
[2017-08-13] VITALS: BP 148/74; PULSE 79; RESP 20; TEMP 98.1; O2SAT 93
[2017-08-13] MEDS: LINEZOLID 600 MG TAB PO SCH ×2 (01:36→13:35)
[2017-08-13 04:00] VITALS: BP 140/77; PULSE 77; PULSE 85; RESP 22; TEMP 97.7; O2SAT 94
[2017-08-13 07:22] LABS: AUTOMATED NEUTROPHIL # 6.6 TH/MM3 (1.8-7.7); BASOPHIL % 0.3 % (0.0-2.0); EOSINOPHIL % 0.1 % (0.0-4.0); HEMOGLOBIN 11.8 GM/DL (11.6-15.3); LYMPH % 23.5 % (9.0-44.0); LYMPHOCYTE # 2.2 TH/MM3 (1.0-4.8); MEAN CELL VOLUME 90.5 FL (80.0-100.0); MEAN CORPUSCULAR HEMOGLOBIN 31.5 PG (27.0-34.0); MEAN CORPUSCULAR HGB CONC 34.8 % (32.0-36.0); MEAN PLATELET VOLUME 7.9 FL (7.0-11.0); MONO % 5.6 % (0.0-8.0); MONOCYTE # 0.5 TH/MM3 (0-0.9); NEUT % 70.5 % (16.0-70.0); PLATELET COUNT 315 TH/MM3 (150-450); RED BLOOD COUNT 3.75 MIL/MM3 (4.00-5.30); RED CELL DISTRIBUTION WIDTH 14.9 % (11.6-17.2); WHITE BLOOD COUNT 9.4 TH/MM3 (4.0-11.0)
[2017-08-13 07:43] LABS: ALBUMIN 2.4 GM/DL (3.4-5.0); AST (GOT) 45 U/L (15-37); BICARBONATE 27.8 MEQ/L (21.0-32.0); BLOOD UREA NITROGEN 7 MG/DL (7-18); CALCIUM 8.3 MG/DL (8.5-10.1); CHLORIDE 104 MEQ/L (98-107); CREATININE 0.73 MG/DL (0.50-1.00); GLOMERULAR FILTRATION RATE 99 ML/MIN (>89); GLUCOSE,RANDOM 74 MG/DL (74-106); SODIUM (NA) 142 MEQ/L (136-145)
[2017-08-13 07:46] LABS: ALKALINE PHOSPHATASE 76 U/L (45-117); ALT (GPT) 43 U/L (10-53); TOTAL BILIRUBIN ADULT 0.3 MG/DL (0.2-1.0); TOTAL PROTEIN 7.1 GM/DL (6.4-8.2)
[2017-08-13 08:00] VITALS: BP 139/80; PULSE 68; RESP 20; TEMP 98.2; O2SAT 95
[2017-08-13] MEDS: AMANTADINE HCL SOLN 100 MG/10 ML UDC PO SCH (08:22)
[2017-08-13] MEDS: PANTOPRAZOLE SOD 20 MG DELAYED RELEASE TAB PO SCH (08:22)
[2017-08-13] MEDS: SODIUM CHLORIDE 0.9% FLUSH 10 ML FLUSH IV FLUSH SCH (08:22)
[2017-08-13] MEDS: clonazePAM 1 MG TAB PO SCH (08:23)
[2017-08-13 12:00] VITALS: BP 110/66; PULSE 94; PULSE 99; RESP 20; TEMP 97.9; O2SAT 95
[2017-08-13] MEDS ORDERED: CLON1 PO ×2 (14:11)
[2017-08-13] MEDS ORDERED: ZYVO600T PO (14:11)
--- NOTE | 2017-08-13 14:12 | HHI.DCPOC ---
Discharge Care Plan Diagnosis: (1) Sepsis (2) AAKASH (acute kidney injury) (3) Schizoaffective disorder (4) Obesity (5) HTN (hypertension) (6) MRSA (methicillin resistant staph aureus) culture positive (7) Cellulitis and abscess of left leg (8) Cellulitis of left thigh Goals to Promote Your Health * To prevent worsening of your condition and complications * To maintain your health at the optimal level Directions to Meet Your Goals Take your medications as prescribed Follow your dietary instruction Follow activity as directed Keep your appointments as scheduled Take your immunizations and boosters as scheduled If your symptoms worsen call your PCP, if no PCP go to Urgent Care Center or Emergency Room Smoking is Dangerous to Your Health. Avoid second hand smoke Call the 24-hour hour crisis hotline for domestic abuse at Sarthak Parry MD Aug 13, 2017 14:12
--- NOTE | 2017-08-13 14:19 | HHI.PR ---
Subjective Remarks The patient states that the pain in left posterior left thigh is much improved. Denies chest pain or shortness of breath. Afebrile. Objective Vitals Vital Signs Date Time Temp Pulse Resp B/P (MAP) Pulse Ox O2 Delivery O2 Flow Rate FiO2 08/13/17 12:00 97.9 94 20 110/66 (81) 95 08/13/17 08:00 98.2 68 20 139/80 (99) 95 08/13/17 08:00 Room Air 08/13/17 04:00 85 08/13/17 04:00 97.7 77 22 140/77 (98) 94 08/13/17 00:00 98.1 79 20 148/74 (98) 93 08/12/17 21:00 98.6 85 20 143/77 (99) 97 08/12/17 20:15 Room Air 08/12/17 18:00 100 18 167/74 (105) 99 Room Air 08/12/17 17:45 101 18 171/74 (106) 99 Room Air 08/12/17 17:30 104 18 170/76 (107) 95 Simple Mask 8 08/12/17 17:15 114 18 161/72 (101) 95 Simple Mask 8 08/12/17 16:57 99.4 105 18 174/74 (107) 98 Simple Mask 8 I/O 08/12/17 08/12/17 08/12/17 08/13/17 08/13/17 08/13/17 07:00 15:00 23:00 07:00 15:00 23:00 Intake Total 200 ml Output Total 20 ml 600 ml Balance 180 ml -600 ml Other 200 ml Output Urine Total 600 ml Estimated Blood Loss 20 ml # Voids 3 # Bowel Movements 0 Result Diagram: 08/13/17 0633 08/13/17 0633 Imaging Last Impressions Abdomen/Pelvis CT 08/06/17 0000 Signed Impressions: Service Date/Time: Sunday, August 06, 2017 21:09 - CONCLUSION: 1. Diffuse soft tissue swelling and some air within the left upper thigh posterior laterally. 2. Mild diffuse ileus. Ricardo Guthrie MD Chest X-Ray 08/05/17 0000 Signed Impressions: Service Date/Time: August 14:29 - CONCLUSION: No acute disease. El Mchugh MD Objective Remarks GENERAL: Patient lying in bed. Sleeping, wakes up for exam. Appears comfortable. SKIN: Warm and dry. HEAD: Normocephalic. EYES: No scleral icterus. No injection or drainage. NECK: Supple, trachea midline. No JVD. CARDIOVASCULAR: Regular rate and rhythm without murmurs, gallops, or rubs. RESPIRATORY: Breath sounds equal bilaterally. No accessory muscle use. GASTROINTESTINAL: Abdomen soft, non-tender, nondistended. MUSCULOSKELETAL: No cyanosis, or edema. Left thigh erythema resolved. Wound VAC in place. BACK: Nontender without obvious deformity. No CVA tenderness. Procedures Status post left lateral posterior thigh abscess excision with wound VAC dressing. Medications and IVs Current Medications Medications (Trade) Dose Ordered Sig/Jeremias Route Start Time Stop Time Status Last Admin (NS Flush) 2 ml UNSCH PRN IV FLUSH 08/05/17 20:00 08/09/17 11:40 (NS Flush) 2 ml BID IV FLUSH 08/05/17 21:00 08/13/17 08:22 (Tylenol) 650 mg Q4H PRN PO 08/05/17 20:00 08/06/17 06:03 (Zofran Inj) 4 mg Q6H PRN IVP 08/05/17 20:00 (Narcan Inj) 0.4 mg UNSCH PRN IV PUSH 08/05/17 20:00 (Milk Of Magnesia Liq) 30 ml Q12H PRN PO 08/05/17 20:00 (Senokot) 17.2 mg Q12H PRN PO 08/05/17 20:00 08/05/17 23:31 (Dulcolax Supp) 10 mg DAILY PRN RECTAL 08/05/17 20:00 (Lactulose Liq) 30 ml DAILY PRN PO 08/05/17 20:00 (Symmetrel Liq) 100 mg BID PO 08/05/17 21:00 08/13/17 08:22 (KlonoPIN) 1 mg DAILY PO 08/06/17 09:00 08/13/17 08:23 (KlonoPIN) 2 mg HS PO 08/05/17 21:00 08/12/17 21:50 (ZyPREXA) 30 mg HS PO 08/05/17 21:00 08/12/17 21:50 Patient Own Medication PT OWN MED: PERPHENAZINE 1... HS PO 08/05/17 21:00 Future Hold ([place] 5-325 Mg) 1 tab Q4H PRN PO 08/05/17 20:15 ([place] 10-325 Mg) 1 tab Q4H PRN PO 08/05/17 20:15 08/08/17 03:58 (Morphine Inj) 2 mg Q3H PRN IV PUSH 08/05/17 20:15 (Protonix) 20 mg DAILY PO 08/07/17 09:00 08/13/17 08:22 (Tessalon) 100 mg TID PRN PO 08/06/17 16:15 08/07/17 05:49 (Haldol Inj) 5 mg Q4H PRN IM 08/09/17 19:45 (Zyvox) 600 mg Q12H PO 08/10/17 14:00 08/13/17 13:35 Miscellaneous Information ALL NURSING DEPARTME... UNSCH PRN .XX 08/12/17 16:56 08/13/17 16:55 Urinary Catheter: No Vascular Central Line Catheter: No A/P Problem List: (1) Sepsis ICD Code: A41.9 - Sepsis, unspecified organism Status: Resolved (2) Cellulitis and abscess of left leg ICD Code: L03.116 - Cellulitis of left lower limb; L02.416 - Cutaneous abscess of left lower limb Status: Acute (3) Cellulitis of left thigh ICD Code: L03.116 - Cellulitis of left lower limb Status: Acute (4) Schizoaffective disorder ICD Code: F25.9 - Schizoaffective disorder, unspecified Status: Chronic (5) Obesity ICD Code: E66.9 - Obesity Status: Chronic (6) AAKASH (acute kidney injury) ICD Code: N17.9 - Acute kidney failure, unspecified Status: Resolved Assessment and Plan Severe sepsis Severe sepsis was present on admission. The patient was tachycardic and with leukocytosis. Sepsis secondary to left posterior thigh cellulitis and abscess. The patient was started and IV antibiotics, initially IV vancomycin and IV cefepime. ID was consulted, cefepime discontinued by ID, vancomycin and IV cefepime were discontinued and the patient started on oral Zyvox. Sepsis resolved clinic today with some leukocytosis and tachycardia. The patient underwent incision and drainage with wound VAC placement. Discussed the case with Dr. Velez prior to discharge, she recommended 10 days of oral Zyvox. The patient also had been placed on IV Flagyl which was discontinued after there was no evidence of anaerobes been present on the infection. Hyponatremia Resolved. Continue fluid restriction. Continue to monitor BMP. Acute kidney injury Secondary to prerenal azotemia. Creatinine 1.36 on admission. Resolved after IV fluid administration. Schizophrenia Psychiatric consulted. Discussed the case with Dr. Rock. The patient is currently on Klonopin apex which at this time is medically necessary. Continue Haldol as needed for moderate to severe agitation. 08/11 appreciate psychiatric consultation and recommendations. As per psychiatry and my opinion the patient does not have decision-making capacity to refuse medication at this moment. Regular diet with fluid restriction Electrolytes: monitor and replete prn DC 1/2 NS Discharge Planning Dc to [facility]. Problem Qualifiers (1) Sepsis: Qualified Codes: A41.02 - Sepsis due to methicillin resistant Staphylococcus aureus (2) Schizoaffective disorder: Qualified Codes: F25.0 - Schizoaffective disorder, bipolar type (3) Obesity: Sarthak Parry MD Aug 13, 2017 14:19
--- NOTE | 2017-08-13 19:23 | HHI.PYPN ---
Subjective Remarks late entry note, patient seen today at 14:35 pm Patient seen for reevaluation today.Chart was reviewed. She continues to be disorganized and tangential. She reports auditory hallucinations of multiple voices making derogatory comments about her. She is oriented X3, compliant with medications. Mental Status Examination Appearance: Appropriate Consciousness: Alert Orientation: Person, Place Motor Activity: Normal gait Speech: Unremarkable Language: Adequate Fund of Knowledge: Adequate Attention and Concentration: Adequate Memory: Impaired Mood: Irritable Affect: Labile Thought Process & Associations: Loose associations, Disorganized Thought Content: Hallucinations, Thought blocking, Delusional Hallucination Type: Auditory Delusion Type: None, Other Suicidal Ideation: No Suicidal Plan: No Suicidal Intention: No Homicidal Ideation: No Homicidal Plan: No Homicidal Intention: No Insight: Fair Judgment: Impulsive Results Labs Test 08/13/17 06:33 White Blood Count 9.4 TH/MM3 Red Blood Count 3.75 MIL/MM3 Hemoglobin 11.8 GM/DL Hematocrit 34.0 % Mean Corpuscular Volume 90.5 FL Mean Corpuscular Hemoglobin 31.5 PG Mean Corpuscular Hemoglobin Concent 34.8 % Red Cell Distribution Width 14.9 % Platelet Count 315 TH/MM3 Mean Platelet Volume 7.9 FL Neutrophils (%) (Auto) 70.5 % Lymphocytes (%) (Auto) 23.5 % Monocytes (%) (Auto) 5.6 % Eosinophils (%) (Auto) 0.1 % Basophils (%) (Auto) 0.3 % Neutrophils # (Auto) 6.6 TH/MM3 Lymphocytes # (Auto) 2.2 TH/MM3 Monocytes # (Auto) 0.5 TH/MM3 Eosinophils # (Auto) 0.0 TH/MM3 Basophils # (Auto) 0.0 TH/MM3 CBC Comment AUTO DIFF Differential Comment AUTO DIFF CONFIRMED Blood Urea Nitrogen 7 MG/DL Creatinine 0.73 MG/DL Random Glucose 74 MG/DL Total Protein 7.1 GM/DL Albumin 2.4 GM/DL Calcium Level 8.3 MG/DL Alkaline Phosphatase 76 U/L Aspartate Amino Transf (AST/SGOT) 45 U/L Alanine Aminotransferase (ALT/SGPT) 43 U/L Total Bilirubin 0.3 MG/DL Sodium Level 142 MEQ/L Potassium Level 3.6 MEQ/L Chloride Level 104 MEQ/L Carbon Dioxide Level 27.8 MEQ/L Anion Gap 10 MEQ/L Estimat Glomerular Filtration Rate 99 ML/MIN Date/Time Source Procedure Growth Status 08/05/17 17:20 Blood Peripheral Aerobic Blood Culture - Final NO GROWTH IN 5 DAYS Complete 08/05/17 17:20 Blood Peripheral Anaerobic Blood Culture - Final NO GROWTH IN 5 DAYS Complete 08/06/17 17:42 Nasal Washing Influenza Types A,B Antigen (ERWIN) - Final NEGATIVE FOR FLU A AND B ANTIGEN.... Complete 08/05/17 18:21 Wound Leg Gram Stain - Final Complete 08/05/17 18:21 Wound Culture - Final S. Aureus Mrsa Complete Vitals/IOs Vital Signs Date Time Temp Pulse Resp B/P (MAP) Pulse Ox O2 Delivery O2 Flow Rate FiO2 08/13/17 12:00 99 08/13/17 12:00 97.9 20 110/66 (81) 95 08/13/17 08:00 Room Air 08/12/17 17:30 8 Intake and Output 08/13/17 08/13/17 08/14/17 08:00 16:00 00:00 Output Total 600 ml Balance -600 ml Assessment & Plan Problem List: (1) Schizoaffective disorder ICD Codes: F25.9 - Schizoaffective disorder, unspecified Status: Chronic Assessment & Plan Estimated LOS: days Justification for Cont. Inpt. patient needs psychiatric admission for stabilization and medication optimization. Problem Qualifiers (1) Schizoaffective disorder: Qualified Codes: F25.0 - Schizoaffective disorder, bipolar type Alejandro Rock MD Aug 13, 2017 19:23
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
== END 2017-08-13 16:00 | DRG 854 ==
LOC: NEPE 13:47 → NEDA 18:29 → N04A 21:21
PROVIDERS: ADMIT Hospitalist; ATTEND Hospitalist
PROC: 0H9JXZX Drainage of Left Upper Leg Skin, External Approach, Diagnostic (ICD-10-PCS; 2017-08-05)
PROC: 0JBM0ZZ Excision of Left Upper Leg Subcutaneous Tissue and Fascia, Open Approach (ICD-10-PCS; principal; 2017-08-12 15:49)
DX: A41.02 Sepsis due to Methicillin resistant Staphylococcus aureus (principal); N17.9 Acute kidney failure, unspecified; I96 Gangrene, not elsewhere classified; L02.416 Cutaneous abscess of left lower limb; E87.1 Hypo-osmolality and hyponatremia; L03.116 Cellulitis of left lower limb; Z68.42 Body mass index [BMI] 45.0-49.9, adult; F25.0 Schizoaffective disorder, bipolar type; R65.20 Severe sepsis without septic shock; K21.9 Gastro-esophageal reflux disease without esophagitis; I10 Essential (primary) hypertension; J02.9 Acute pharyngitis, unspecified; R79.89 Other specified abnormal findings of blood chemistry; M19.90 Unspecified osteoarthritis, unspecified site; E66.01 Morbid (severe) obesity due to excess calories; R05 Cough; Z88.0 Allergy status to penicillin
CPT/HCPCS: 10061; 71045; 74176; 76937; 80048; 80053; 80069; 80076; 80202; 82550; 82552; 82565; 83605; 83735; 85007; 85025; 85027; 86403; 87040; 87070; 87147; 87186; 87205; 87804; 88305; 93005; 94664; 96374; 96375; J0131; J0330; J0692; J1630; J1885; J2250; J3010; J3370; J7030; J7040; J7120; J7613

== ENCOUNTER 2017-08-13 16:15 | Inpatient (IN) | payer MEDICARE, OTHER ==
[2017-08-13 16:10] VITALS: BP 155/79; PULSE 89; RESP 18; TEMP 98.2; O2SAT 95
[~2017-08-13 16:15] MED LIST changes: +AMAN100UDC PO; +BACT800T5 PO; -INVEGA IM; +LORA-474 PO; +MOBI7.5T PO; +MULTTAB67 PO; -OLANZ15 PO; -PANT40TA3 PO; -PERP4TAB8 PO; +TRAM50TA PO; +TUMS500C CHEW; +VITA250C3 CHEW; +ZYPR15TA PO; +ZYVO600T PO
[2017-08-13] MEDS: MELOXICAM 7.5 MG TAB PO SCH (19:15)
[2017-08-13] MEDS ORDERED: LORazepam 0.5 MG TAB PO PRN (19:30)
[2017-08-13] MEDS ORDERED: LORazepam 2 MG/ML VIAL IM PRN ×2 (19:30)
[2017-08-13] MEDS ORDERED: ALUMINUM/MAGNESIUM/SIMETH 30 ML CUP PO PRN (19:30)
[2017-08-13] MEDS ORDERED: MAGNESIUM HYDROXIDE SUSP 30 ML CUP PO PRN (19:30)
[2017-08-13] MEDS ORDERED: ACETAMINOPHEN 325 MG TAB PO PRN (19:30)
--- NOTE | 2017-08-13 19:33 | HHI.HP ---
Provisional Diagnosis Admission Date Aug 13, 2017 at 16:15 [place] I. Schizophrenia Certification of Person's Competence To Provide Express and Informed Consent I have personally examined Sheila DeanJr , a person being served at [facility] on, Aug 13, 2017 19:26. Express and informed consent means consent voluntarily given in writing, by a competent person, after sufficient explanation and disclosure of the subject matter involved to enable the person to make a knowing and willful decision without any element of force, fraud, deceit, duress, or other form of constraint or coercion. This person is 18 years of age or older, is not now known to be incompetent to consent to treatment with a guardian advocate, and does not have a health care surrogate or proxy currently making medical treatment decisions. I have found this person to be one of the following: [] Competent to provide express and informed consent, as defined above, for voluntary admission to this facility and is competent to provide express and informed consent for treatment. He/she has the consistent capacity to make well reasoned, willful, and knowing decisions concerning his or her medical or mental health treatment. The person fully and consistently understands the purpose of the admission for examination/placement and is fully capable of personally exercising all rights assured under [place] [] Incompetent to provide express and informed consent to voluntary admission, and this is incompetent to provide express and informed consent to treatment. The person must be transferred to involuntary status and a petition for a guardian advocate filed with the Circuit Court. [x] Refusing to provide express and informed consent to voluntary admission but is competent to provide express and informed consent for treatment. The person must be discharged or transferred to involuntary status. Form shall be completed within 24 hours of a person's arrival at the receiving facility and filed in the clinical record of each person: 1. Admitted on a voluntary basis 2. Permitted to provide express and informed consent to his/her own treatment 3. Allowed to transfer from involuntary to voluntary status 4. Prior to permitting a person to consent to his or her own treatment after having been previously found incompetent to consent to treatment. History of Present Illness Capacity: Has Capacity HPI The patient is a 57-year-old woman, domiciled in a skilled nursing , single, unemployed, supported by [facility], very poor family and social support, with extensive psychiatric history of schizophrenia, schizoaffective disorder bipolar type, multiple psychiatric hospitalizations, the last hospitalization was here at [facility] in 2017, documentation was reviewed, she has been treated in outpatient with olanzapine 30 mg at bedtime, clonazepam 1 mg a.m. and 2 mg p.m., patient doesn't have any previous suicidal attempt, no significant medical history, who came to the emergency department from her assisted living facility for evaluation of worsening of left posterior thigh wound. The patient can provide no meaningful history. Per ED notes, the patient developed a wound to her left posterior thigh yesterday and was started on Bactrim. The area of the wound was significantly increased today with surrounding erythema and fluctuance. An incision and drainage of the abscess was performed in the emergency department and the patient was started on IV antibiotics. This time, the patient denies fever/chills. She denies pain anywhere except for at the wound site itself. Consulted to psychiatry today to assess decision-making capacity to refuse treatment. On psychiatric evaluation today the patient is calm, cooperative, she is disorganized, delusional, but she is able to cooperate with the evaluation. The patient is well known by me, I know that the patient at baseline is delusional and a little bit disorganized, but usually redirectable. Today for psychiatric evaluation the patient is in good mood, she says that she is hopeful that everything is going to be okay "because I have Ten with me". Patient reports that she heard voices, "good voices, they're my family". She denies commanding type auditory hallucinations. The patient has the delusion of "I am going to get with my doctor". She is partially oriented, she knows that she is in the hospital, but she says that she is in 1965. Patient is not very sure about the reason she is in the hospital. She says that she was told that she needs a procedure,, "but I am very scared, I don't want to , and I am scared of pain". Patient is unable to verbalize a third understanding and appreciation of her medical condition at this moment. Patient seen for reevaluation today.Chart was reviewed. She continues to be disorganized and tangential. She reports auditory hallucinations of multiple voices making derogatory comments about her. She is oriented X3, compliant with medications. Substance Abuse History Drugs/Alcohol past 12 months Denies Past Family Social History Coded Allergies: iodine (Unverified Allergy, Unknown, 02/16/17) penicillin G (Unverified Allergy, Unknown, 02/16/17) potassium iodide (Unverified Allergy, Unknown, 02/16/17) povidone-iodine (Unverified Allergy, Unknown, 02/16/17) sodium iodide (Unverified Allergy, Unknown, 02/16/17) sodium iodide (Unverified Allergy, Unknown, 02/16/17) Active Scripts Linezolid (Zyvox) 600 Mg Tab, 600 MG PO Q12H for Infection, #20 TAB Prov:Sarthak Parry MD 08/13/17 Clonazepam (Klonopin) 1 Mg Tab, 2 MG PO HS for Agitation, #30 TAB 0 Refills Prov:Sarthak Parry MD 08/13/17 Clonazepam (Klonopin) 1 Mg Tab, 1 MG PO DAILY for Agitation, #30 TAB 0 Refills Prov:Sarthak Parry MD 08/13/17 Reported Medications Olanzapine (Zyprexa) 15 Mg Tab, 30 MG PO HS, #30 TAB 0 Refills 08/05/17 Ascorbic Acid (Vitamin C) 250 Mg Chew, 250 MG CHEW DAILY for Nutritional Supplement, #30 TAB 0 Refills 08/05/17 Calcium Carbonate (Antacid) (Tums) 500 Mg Chew, 2 TAB CHEW Q4HR Y for HEARTBURN , TAB 0 Refills 08/05/17 Tramadol (Tramadol) 50 Mg Tab, 50 MG PO Q12HR Y for PAIN, TAB 0 Refills 08/05/17 Perphenazine (Perphenazine) 16 Mg Tab, 32 MG PO HS, #30 TAB 0 Refills 08/05/17 Multiple Vitamin (Multiple Vitamin) 1 Tab, 1 TAB PO DAILY for Nutritional Supplement, TAB 0 Refills 08/05/17 Meloxicam (Mobic) 7.5 Mg Tab, 7.5 MG PO DAILY for Pain, TAB 0 Refills 08/05/17 Lorazepam (Ativan) 1 Mg Tab, 1 MG PO Q8H Y for ANXIETY AND/OR AGITATION, TAB 0 Refills 08/05/17 Amantadine Liq (Amantadine Liq) 50 Mg/5 Ml Soln, 100 MG PO BID, #600 ML 0 Refills 08/05/17 Discontinued Reported Medications Sulfamethoxazole-Trimethoprim (Bactrim DS) 800-160 Mg Tab, 1 TAB PO BID for Infection, TAB 0 Refills 08/05/17 Current Medications Medications (Trade) Dose Ordered Sig/Jeremias Route Start Time Stop Time Status Last Admin (KlonoPIN) 1 mg DAILY PO 08/14/17 09:00 (KlonoPIN) 2 mg HS PO 08/13/17 21:00 (Mobic) 7.5 mg DAILY PO 08/13/17 19:15 (ZyPREXA) 30 mg HS PO 08/13/17 21:00 (Ultram) 50 mg Q12HR PRN PO 08/13/17 19:15 Physical Exam Vital Signs Vital Signs Date Time Temp Pulse Resp B/P (MAP) Pulse Ox O2 Delivery O2 Flow Rate FiO2 08/13/17 16:10 98.2 89 18 155/79 (104) 95 Mental Status Examination Appearance: Appropriate Consciousness: Alert Orientation: x4 Motor Activity: Normal gait Speech: Unremarkable Language: Adequate Fund of Knowledge: Adequate Attention and Concentration: Adequate Memory: Unremarkable Mood: Appropriate, Irritable Affect: Appropriate Thought Process & Associations: Loose associations, Disorganized Thought Content: Bizarre thinking, Hallucinations, Preoccupations Hallucination Type: Auditory Delusion Type: None Suicidal Ideation: No Suicidal Plan: No Suicidal Intention: No Homicidal Ideation: No Homicidal Plan: No Homicidal Intention: No Insight: Poor Judgment: Poor Assessment & Plan Problem List: (1) schizoaffective disorder depressed Status: Chronic Assessment & Plan: patient is disorganized, tangential, with simran loosening of associations, hearing derogatory voices making comments about her behavior. She needs admission for stabilization, medication adjustment and safety. Will order olanzapine 30 hs. medical consult to continue treatment of her underline infection and other medical conditions. Assessment & Plan Estimated LOS: Alejandro Allen MD Aug 13, 2017 19:33
[2017-08-13] MEDS: clonazePAM 1 MG TAB PO SCH (20:19)
[2017-08-13] MEDS: REMOVE OLD NICODERM (NICOTINE) PATCH T-DERMAL SCH (21:00)
[2017-08-14] MEDS: LORazepam 1 MG TAB PO PRN (01:51)
[2017-08-14] MEDS: traMADol HCL 50 MG TAB PO PRN ×2 (01:52→12:23)
[2017-08-14 06:02] VITALS: BP 159/86; PULSE 74; RESP 16; TEMP 98.3; O2SAT 97
[2017-08-14 08:53] LABS: BICARBONATE 29.5 MEQ/L (21.0-32.0); BLOOD UREA NITROGEN 7 MG/DL (7-18); CALCIUM 8.4 MG/DL (8.5-10.1); CHLORIDE 106 MEQ/L (98-107); CHOLESTEROL 90 MG/DL (120-200); CREATININE 0.81 MG/DL (0.50-1.00); GLOMERULAR FILTRATION RATE 88 ML/MIN (>89); GLUCOSE,RANDOM 91 MG/DL (74-106); MAGNESIUM 2.3 MG/DL (1.5-2.5); SODIUM (NA) 141 MEQ/L (136-145)
[2017-08-14 08:55] LABS: CHOLESTEROL/ HDL RATIO 3.06 RATIO; HDL CHOLESTEROL 29.4 MG/DL (40.0-60.0); LDL CHOLESTEROL 34 MG/DL (0-99); TRIGLYCERIDES 135 MG/DL (42-150)
[2017-08-14] MEDS: MELOXICAM 7.5 MG TAB PO SCH (09:00)
[2017-08-14] MEDS: NICOTINE 21 MG/24 HR PATCH T-DERMAL SCH (09:00)
[2017-08-14] MEDS: clonazePAM 1 MG TAB PO SCH ×2 (09:00→20:42)
--- NOTE | 2017-08-14 09:26 | HHI.PYPN ---
Subjective Remarks Patient is here for follow-up, chart reviewed. Discussion nursing staff reported the patient continued to be delusional, endorsing visual hallucinations and I seem to have removed her wound VAC as well as her IV. Patient was found lying in hospital bed, cooperative. Patient states that she has somewhat disturbed sleep last evening but feels rested. Patient noted to be disorganized during interview with flight of ideas. Patient states that she continued to have auditory hallucinations but not at time of interview but usually "good things". Patient also reported having visual hallucinations recently of statue the children but not during interview. Patient agreeable to continue treatment as well as agree to recommendations for management of her wound and agreed to not remove dressing nor IV line placed. Review of Systems Except as stated in HPI: all other systems reviewed are Neg Mental Status Examination Appearance: Disheveled Consciousness: Alert Orientation: x4 Motor Activity: Normal gait Speech: Unremarkable Language: Adequate Fund of Knowledge: Adequate Attention and Concentration: Adequate Memory: Unremarkable Mood: Appropriate Affect: Blunt Thought Process & Associations: Loose associations, Disorganized Thought Content: Bizarre thinking, Hallucinations, Preoccupations Hallucination Type: Auditory, Visual Delusion Type: None Suicidal Ideation: No Suicidal Plan: No Suicidal Intention: No Homicidal Ideation: No Homicidal Plan: No Homicidal Intention: No Insight: Poor Judgment: Poor Results Labs Labs reviewed Test 08/14/17 07:58 Blood Urea Nitrogen 7 MG/DL Creatinine 0.81 MG/DL Random Glucose 91 MG/DL Calcium Level 8.4 MG/DL Magnesium Level 2.3 MG/DL Sodium Level 141 MEQ/L Potassium Level 3.7 MEQ/L Chloride Level 106 MEQ/L Carbon Dioxide Level 29.5 MEQ/L Anion Gap 6 MEQ/L Estimat Glomerular Filtration Rate 88 ML/MIN Triglycerides Level 135 MG/DL Cholesterol Level 90 MG/DL LDL Cholesterol 34 MG/DL HDL Cholesterol 29.4 MG/DL Cholesterol/HDL Ratio 3.06 RATIO Vitals/IOs Vital Signs Date Time Temp Pulse Resp B/P (MAP) Pulse Ox O2 Delivery O2 Flow Rate FiO2 08/14/17 06:02 98.3 74 16 159/86 (110) 97 Assessment & Plan Problem List: (1) Schizoaffective disorder ICD Codes: F25.9 - Schizoaffective disorder, unspecified Status: Chronic Assessment & Plan Patient this time continues to be grossly psychotic, delusional, endorsing perceptual disturbances. Petition for involuntary hospitalization started. Will request second opinion. We will continue current treatment for now. Continue recommendations as per medical team. Discharge planning in progress. Justification for Cont. Inpt. At risk for further decompensation if at lower level of care Discharge Planning To be determined El Trimble MD Aug 14, 2017 09:26
[2017-08-14 11:14] LABS: HEMOGLOBIN A1C 5.9 % (4.3-6.0)
[2017-08-14 18:00] VITALS: BP_SYST 131; BP_DIAS 58; BP_DIAS 71; PULSE 92; RESP 18; TEMP 97.6; O2SAT 95
--- NOTE | 2017-08-14 19:21 | PD.CONS ---
HPI Service [facility] Consult Requested By Dr Trimble Reason for Consult Medical management Primary Care Physician No Primary Care Physician Diagnoses: History of Present Illness This is a 57-year-old female with past medical history significant for schizophrenia who presented to the emergency department on August 05, 2017 from her assisted living facility for evaluation of worsening left posterior thigh wound. Due to the patient's mental condition she is unable to provide a meaningful history. As per ED documentation the patient had developed a wound to her left posterior thigh 1 day prior to admission and was started on Bactrim. However the area and wound swelling significantly increased with surrounding erythema and fluctuance. The patient underwent an incision and drainage of the abscess performed emergency department and he was started on IV antibiotics. Patient states pain in posterior left thigh is improved. Denies nausea, vomiting or abdominal pain, fevers or chills. Severe sepsis was present on admission. The patient was tachycardic and with leukocytosis. Sepsis secondary to left posterior thigh cellulitis and abscess. The patient was started and IV antibiotics, initially IV vancomycin and IV cefepime. ID was consulted, cefepime discontinued by ID, vancomycin and IV cefepime were discontinued and the patient started on oral Zyvox. Sepsis resolved clinic today with some leukocytosis and tachycardia. The patient underwent incision and drainage with wound VAC placement. Discussed the case with Dr. Harrington prior to discharge, she recommended 10 days of oral Zyvox. The patient also had been placed on IV Flagyl which was discontinued after there was no evidence of anaerobes been present on the infection. Review of Systems As per HPI. Other systems reviewed by me and negative. Past Family Social History Allergies: Coded Allergies: iodine (Unverified Allergy, Unknown, 02/16/17) penicillin G (Unverified Allergy, Unknown, 02/16/17) potassium iodide (Unverified Allergy, Unknown, 02/16/17) povidone-iodine (Unverified Allergy, Unknown, 02/16/17) sodium iodide (Unverified Allergy, Unknown, 02/16/17) sodium iodide (Unverified Allergy, Unknown, 02/16/17) Past Medical History Schizophrenia Past Surgical History Unable to obtain secondary to patient's mental condition. Reported Medications Reported Meds & Active Scripts Active Zyvox (Linezolid) 600 Mg Tab 600 Mg PO Q12H Klonopin (Clonazepam) 1 Mg Tab 2 Mg PO HS Klonopin (Clonazepam) 1 Mg Tab 1 Mg PO DAILY Reported Zyprexa (Olanzapine) 15 Mg Tab 30 Mg PO HS Vitamin C (Ascorbic Acid) 250 Mg Chew 250 Mg CHEW DAILY Tums (Calcium Carbonate (Antacid)) 500 Mg Chew 2 Tab CHEW Q4HR PRN Tramadol (Tramadol HCl) 50 Mg Tab 50 Mg PO Q12HR PRN Perphenazine 16 Mg Tab 32 Mg PO HS Multiple Vitamin 1 Tab 1 Tab PO DAILY Mobic (Meloxicam) 7.5 Mg Tab 7.5 Mg PO DAILY Ativan (Lorazepam) 1 Mg Tab 1 Mg PO Q8H PRN Amantadine Liq (Amantadine HCl) 50 Mg/5 Ml Soln 100 Mg PO BID Active Ordered Medications Current Medications Medications (Trade) Dose Ordered Sig/Jeremias Route Start Time Stop Time Status Last Admin (KlonoPIN) 1 mg DAILY PO 08/14/17 09:00 08/14/17 09:00 (KlonoPIN) 2 mg HS PO 08/13/17 21:00 08/13/17 20:19 (Mobic) 7.5 mg DAILY PO 08/13/17 19:15 08/14/17 09:00 (ZyPREXA) 30 mg HS PO 08/13/17 21:00 08/13/17 20:19 (Ultram) 50 mg Q12HR PRN PO 08/13/17 19:15 08/14/17 12:23 (Ativan) 1 mg Q6H PRN PO 08/13/17 19:30 08/14/17 01:51 (Ativan Inj) 1 mg Q6H PRN IM 08/13/17 19:30 (Tylenol) 650 mg Q4H PRN PO 08/13/17 19:30 (Milk Of Magnesia Liq) 30 ml DAILY PRN PO 08/13/17 19:30 (Mag-Al Plus Susp Liq) 30 ml Q6H PRN PO 08/13/17 19:30 (Habitrol 21 Mg Patch.24 Hr) 1 patch DAILY T-DERMAL 08/14/17 09:00 Miscellaneous Information 1 HS T-DERMAL 08/13/17 21:00 08/13/17 21:00 Family History Unable to obtain due to patient's medical condition. Social History Denies alcohol, tobacco or illicit drug use. Physical Exam Vital Signs Vital Signs Date Time Temp Pulse Resp B/P (MAP) Pulse Ox O2 Delivery O2 Flow Rate FiO2 08/14/17 18:00 97.6 92 18 131/58 (82) 95 08/14/17 18:00 97.6 92 18 131/71 (91) 95 08/14/17 06:02 98.3 74 16 159/86 (110) 97 Physical Exam GENERAL: Patient lying in bed. Sleeping, wakes up for exam. Appears comfortable. SKIN: Warm and dry. HEAD: Normocephalic. EYES: No scleral icterus. No injection or drainage. NECK: Supple, trachea midline. No JVD. CARDIOVASCULAR: Regular rate and rhythm without murmurs, gallops, or rubs. RESPIRATORY: Breath sounds equal bilaterally. No accessory muscle use. GASTROINTESTINAL: Abdomen soft, non-tender, nondistended. MUSCULOSKELETAL: No cyanosis, or edema. Left thigh erythema resolved. Wound VAC in place. BACK: Nontender without obvious deformity. No CVA tenderness. Laboratory Laboratory Tests Test 08/14/17 07:58 Blood Urea Nitrogen 7 Creatinine 0.81 Random Glucose 91 Calcium Level 8.4 Magnesium Level 2.3 Sodium Level 141 Potassium Level 3.7 Chloride Level 106 Carbon Dioxide Level 29.5 Anion Gap 6 Estimat Glomerular Filtration Rate 88 Hemoglobin A1c 5.9 Triglycerides Level 135 Cholesterol Level 90 LDL Cholesterol 34 HDL Cholesterol 29.4 Cholesterol/HDL Ratio 3.06 Result Diagram: 08/14/17 0758 Assessment and Plan Problem List: (1) Schizoaffective disorder ICD Code: F25.9 - Schizoaffective disorder, unspecified Status: Chronic Plan: Management as per psychiatry. (2) Cellulitis of left thigh ICD Code: L03.116 - Cellulitis of left lower limb Status: Acute Plan: Start the patient on Zyvox oral for 10 days. Reconsult general surgery in am - Dr Nuñez. Assessment and Plan DVT prophylaxis: SCDs, encourage ambulation. Sarthak Parry MD Aug 14, 2017 19:21
[2017-08-14] MEDS ORDERED: LINEZOLID 600 MG TAB PO ONE (19:30)
[2017-08-14] MEDS: REMOVE OLD NICODERM (NICOTINE) PATCH T-DERMAL SCH (21:00)
[2017-08-14] MEDS: LINEZOLID 600 MG TAB PO SCH (22:34)
[2017-08-15] MEDS: ACETAMINOPHEN/HYDROcodone 325 MG/5 MG TAB PO PRN ×3 (03:47→21:55)
[2017-08-15 06:00] VITALS: BP 131/61; PULSE 84; RESP 20; TEMP 97.8; O2SAT 96
[2017-08-15] MEDS: NICOTINE 21 MG/24 HR PATCH T-DERMAL SCH (07:34)
[2017-08-15] MEDS: LINEZOLID 600 MG TAB PO SCH ×2 (09:00→21:53)
[2017-08-15] MEDS: clonazePAM 1 MG TAB PO SCH ×2 (09:00→21:53)
[2017-08-15] MEDS: MELOXICAM 7.5 MG TAB PO SCH (09:00)
--- NOTE | 2017-08-15 10:49 | HHI.PR ---
Subjective Remarks Pain controlled. Denies cp, sob. afebrile. Objective Vitals Vital Signs Date Time Temp Pulse Resp B/P (MAP) Pulse Ox O2 Delivery O2 Flow Rate FiO2 08/15/17 06:00 97.8 84 20 131/61 (84) 96 08/14/17 18:00 97.6 92 18 131/58 (82) 95 08/14/17 18:00 97.6 92 18 131/71 (91) 95 I/O 08/14/17 08/14/17 08/14/17 08/15/17 08/15/17 08/15/17 07:00 15:00 23:00 07:00 15:00 23:00 Intake Total 1440 ml 1200 ml 480 ml 240 ml Balance 1440 ml 1200 ml 480 ml 240 ml Intake Oral 1440 ml 1200 ml 480 ml 240 ml # Voids 1 1 # Bowel Movements 1 Result Diagram: 08/14/17 0758 Objective Remarks GENERAL: Patient lying in bed. Sleeping, wakes up for exam. Appears comfortable. SKIN: Warm and dry. HEAD: Normocephalic. EYES: No scleral icterus. No injection or drainage. NECK: Supple, trachea midline. No JVD. CARDIOVASCULAR: Regular rate and rhythm without murmurs, gallops, or rubs. RESPIRATORY: Breath sounds equal bilaterally. No accessory muscle use. GASTROINTESTINAL: Abdomen soft, non-tender, nondistended. MUSCULOSKELETAL: No cyanosis, or edema. Left thigh erythema resolved. Wound VAC in place. BACK: Nontender without obvious deformity. No CVA tenderness. Medications and IVs Current Medications Medications (Trade) Dose Ordered Sig/Jeremias Route Start Time Stop Time Status Last Admin (KlonoPIN) 1 mg DAILY PO 08/14/17 09:00 08/15/17 09:00 (KlonoPIN) 2 mg HS PO 08/13/17 21:00 08/14/17 20:42 (Mobic) 7.5 mg DAILY PO 08/13/17 19:15 08/15/17 09:00 (ZyPREXA) 30 mg HS PO 08/13/17 21:00 08/14/17 20:43 (Ultram) 50 mg Q12HR PRN PO 08/13/17 19:15 Future Hold 08/14/17 12:23 (Ativan) 1 mg Q6H PRN PO 08/13/17 19:30 08/14/17 01:51 (Ativan Inj) 1 mg Q6H PRN IM 08/13/17 19:30 (Tylenol) 650 mg Q4H PRN PO 08/13/17 19:30 (Milk Of Magnesia Liq) 30 ml DAILY PRN PO 08/13/17 19:30 (Mag-Al Plus Susp Liq) 30 ml Q6H PRN PO 08/13/17 19:30 (Habitrol 21 Mg Patch.24 Hr) 1 patch DAILY T-DERMAL 08/14/17 09:00 Miscellaneous Information 1 HS T-DERMAL 08/13/17 21:00 08/13/17 21:00 (Zyvox) 600 mg Q12HR PO 08/14/17 21:00 08/15/17 09:00 (Felt 5-325 Mg) 1 tab Q6H PRN PO 08/14/17 20:00 08/15/17 10:19 A/P Problem List: (1) Schizoaffective disorder ICD Code: F25.9 - Schizoaffective disorder, unspecified Status: Chronic Plan: Management as per psychiatry. (2) Cellulitis of left thigh ICD Code: L03.116 - Cellulitis of left lower limb Status: Acute Plan: Continue Zyvox x 10 more days Reconsult general surgery - Dr Nuñez. Wound vac as per recommendations. Sarthak Parry MD Aug 15, 2017 10:49
[2017-08-15] MEDS: OLANZapine 5 MG TAB PO SCH (14:30)
--- NOTE | 2017-08-15 14:31 | HHI.PYPN ---
Subjective Remarks Patient seen for follow-up, chart reviewed. Discussion nursing staff reported the patient noted to be with continued psychosis but pleasant, compliant with medication continues endorse visual hallucinations. Patient was found lying in hospital bed, cooperative. Patient states that she has been feeling okay denies any physical complaints, reports adhering to treatment. Patient denies any visual hallucinations at time of interview but states that she had continued to have them previously. Patient denies any auditory hallucinations at time of any with his state having them last evening and usually "good things ". Patient continues some bizarre delusions and at times and able to follow patient's thought processes that she is noted to be somewhat tangential. Patient agrees to continue compliance with medical treatment of her wound. Review of Systems Except as stated in HPI: all other systems reviewed are Neg Mental Status Examination Appearance: Disheveled Consciousness: Alert Orientation: x4 Motor Activity: Normal gait Speech: Unremarkable Language: Adequate Fund of Knowledge: Adequate Attention and Concentration: Adequate Memory: Unremarkable Mood: Appropriate Affect: Blunt Thought Process & Associations: Loose associations, Disorganized Thought Content: Bizarre thinking, Hallucinations, Preoccupations Hallucination Type: Auditory, Visual Delusion Type: None Suicidal Ideation: No Suicidal Plan: No Suicidal Intention: No Homicidal Ideation: No Homicidal Plan: No Homicidal Intention: No Insight: Poor Judgment: Poor Results Vitals/IOs Vital Signs Date Time Temp Pulse Resp B/P (MAP) Pulse Ox O2 Delivery O2 Flow Rate FiO2 08/15/17 06:00 97.8 84 20 131/61 (84) 96 Intake and Output 08/15/17 08/15/17 08/16/17 08:00 16:00 00:00 Intake Total 720 ml 720 ml Balance 720 ml 720 ml Assessment & Plan Problem List: (1) Schizoaffective disorder ICD Codes: F25.9 - Schizoaffective disorder, unspecified Status: Chronic Assessment & Plan Patient continues to have bizarre delusions as well as perceptual disturbances. M's a.m. and 30 mg at bedtime. We will order repeat EKG to get baseline QTc. Continue recommendations as her prior medical team. Continue to encourage patient to maintain personal hygiene. Discharge planning in progress Justification for Cont. Inpt. At risk for further decompensation if at lower level of care El Trimble MD Aug 15, 2017 14:31
[2017-08-15 18:50] VITALS: BP 135/70; PULSE 91; RESP 18; TEMP 98.1; O2SAT 100
[2017-08-15] MEDS: REMOVE OLD NICODERM (NICOTINE) PATCH T-DERMAL SCH (21:00)
[2017-08-15] MEDS: LORazepam 1 MG TAB PO PRN (21:54)
[2017-08-16 05:37] VITALS: BP 152/75; PULSE 88; RESP 18; TEMP 98.1; O2SAT 98
[2017-08-16] MEDS: NICOTINE 21 MG/24 HR PATCH T-DERMAL SCH (09:00)
[2017-08-16] MEDS: MELOXICAM 7.5 MG TAB PO SCH (10:48)
[2017-08-16] MEDS: LINEZOLID 600 MG TAB PO SCH ×2 (10:48→20:24)
[2017-08-16] MEDS: OLANZapine 5 MG TAB PO SCH (10:48)
[2017-08-16] MEDS: clonazePAM 1 MG TAB PO SCH ×2 (10:48→20:24)
--- NOTE | 2017-08-16 11:05 | EKG ---
Date Performed: 08/15/2017 Time Performed: 15:38:19 PTAGE: 57 years EKG: Sinus rhythm WITH SINUS ARRHYTHMIA WITH SHORT TN INTERVAL LATERAL MYOCARDIAL INFARCTION , PROBABLY OLD POSSIBLE I NFERIOR MYOCARDIAL INFARCTION , PROBABLY OLD ABNORMAL ECG Since the prior tracing, there has been no significant change PREVIOUS TRACING : 08/08/2017 15.20 DOCTOR: Ryley Alejandre Interpretating Date/Time 08/16/2017 11:01:59
--- NOTE | 2017-08-16 11:26 | HHI.PYPN ---
Subjective Remarks Patient seen for follow, chart reviewed. Discussion nursing staff reported that patient has continued with auditory visual hallucinations to be compliant with treatment and slept well. Patient was found lying in hospital bed, cooperative. Patient reports that she has been feeling "okay" was inconsistent with she stated that she would hear the voice of her family members as well as see them in the room along with dogs as part of her visual hallucinations. Patient was noted to be somewhat religiously preoccupied but denied any other delusions. Patient denies any physical complaints. Asked the patient have family or friends patient states that she had spoken to her Betito Glynn but unclear whether this is a person whom is actually involved in her care. Patient does not have any contact information for this person. Review of Systems Except as stated in HPI: all other systems reviewed are Neg Mental Status Examination Appearance: Disheveled Consciousness: Alert Orientation: x4 Motor Activity: Normal gait Speech: Unremarkable Language: Adequate Fund of Knowledge: Adequate Attention and Concentration: Adequate Memory: Unremarkable Mood: Appropriate Affect: Blunt Thought Process & Associations: Loose associations, Disorganized Thought Content: Bizarre thinking, Hallucinations, Preoccupations Hallucination Type: Auditory, Visual Delusion Type: None Suicidal Ideation: No Suicidal Plan: No Suicidal Intention: No Homicidal Ideation: No Homicidal Plan: No Homicidal Intention: No Insight: Poor Judgment: Poor Results Vitals/IOs Vital Signs Date Time Temp Pulse Resp B/P (MAP) Pulse Ox O2 Delivery O2 Flow Rate FiO2 08/16/17 05:37 98.1 88 18 152/75 (100) 98 Intake and Output 08/16/17 08/16/17 08/17/17 08:00 16:00 00:00 Intake Total 240 ml 360 ml Balance 240 ml 360 ml Assessment & Plan Problem List: (1) Schizoaffective disorder ICD Codes: F25.9 - Schizoaffective disorder, unspecified Status: Chronic Assessment & Plan Patient continues with bizarre delusion, somewhat religiously preoccupied, and continued auditory and visual hallucinations. Olanzapine recently increased. Will continue current medication regimen. Continue to monitor mood and behavior. Continue with wound care and recommendations as per primary medical team. Discharge planning in progress. Justification for Cont. Inpt. At risk for further decompensation at lower level of care. Discharge Planning To be determined El Trimble MD Aug 16, 2017 11:26
[2017-08-16] MEDS: ACETAMINOPHEN/HYDROcodone 325 MG/5 MG TAB PO PRN (11:38)
--- NOTE | 2017-08-16 12:32 | PD.PSY.CON ---
Provisional Diagnosis Admission Date Aug 13, 2017 at 16:15 [place]. Schizophrenia History of Present Illness Service Psychiatry Consult Requested By Dr. Trimble Reason for Consult Psychosis Primary Care Physician No Primary Care Physician HPI The patient is a 57-year-old woman, domiciled in a correction , single, unemployed, supported by [facility], very poor family and social support, with extensive psychiatric history of schizophrenia, schizoaffective disorder bipolar type, multiple psychiatric hospitalizations, the last hospitalization was here at [facility] in 2017, documentation was reviewed, she has been treated in outpatient with olanzapine 30 mg at bedtime, clonazepam 1 mg a.m. and 2 mg p.m., patient doesn't have any previous suicidal attempt, no significant medical history, who came to the emergency department from her assisted living facility for evaluation of worsening of left posterior thigh wound. The patient can provide no meaningful history. Per ED notes, the patient developed a wound to her left posterior thigh yesterday and was started on Bactrim. The area of the wound was significantly increased today with surrounding erythema and fluctuance. An incision and drainage of the abscess was performed in the emergency department and the patient was started on IV antibiotics. This time, the patient denies fever/chills. She denies pain anywhere except for at the wound site itself. Consulted to psychiatry today to assess decision-making capacity to refuse treatment. On psychiatric evaluation today the patient is calm, cooperative, she is disorganized, delusional, but she is able to cooperate with the evaluation. The patient is well known by me, I know that the patient at baseline is delusional and a little bit disorganized, but usually redirectable. Today for psychiatric evaluation the patient is in good mood, she says that she is hopeful that everything is going to be okay "because I have Ten with me". Patient reports that she heard voices, "good voices, they're my family". She denies commanding type auditory hallucinations. The patient has the delusion of "I am going to get with my doctor". She is partially oriented, she knows that she is in the hospital, but she says that she is in 1965. Patient is not very sure about the reason she is in the hospital. She says that she was told that she needs a procedure,, "but I am very scared, I don't want to , and I am scared of pain". Patient is unable to verbalize a third understanding and appreciation of her medical condition at this moment. Patient was seen today for second opinion.Chart was reviewed. She continues to be disorganized and tangential, but redirectable. She reports auditory hallucinations of multiple voices making derogatory comments about her. She is oriented X3, compliant with medications. No agitation or aggressive behavior reported. Review of Systems Constitutional: DENIES: Diaphoretic episodes, Fatigue, Fever, Weight gain, Weight loss, Chills, Dizziness, Change in appetite, Night Sweats Endocrine: DENIES: Abnorml menstrual pattern, Heat/cold intolerance, Polydipsia , Polyuria, Polyphagia Eyes: DENIES: Blurred vision, Diplopia, Eye inflammation, Eye pain, Vision loss , Photosensitivity, Double Vision Ears, nose, mouth, throat: DENIES: Tinnitus, Hearing loss, Vertigo, Nasal discharge, Oral lesions, Throat pain, Hoarseness, Ear Pain, Running Nose, Epistaxis, Sinus Pain, Toothache, Odynophagia Respiratory: DENIES: Apneas, Cough, Snoring, Wheezing, Hemoptysis, Sputum production, Shortness of breath Cardiovascular: DENIES: Chest pain, Palpitations, Syncope, Dyspnea on Exertion , PND, Lower Extremity Edema, Orthopnea, Claudication Gastrointestinal: DENIES: Abdominal pain, Black stools, Bloody stools, Constipation, Diarrhea, Nausea, Vomiting, Difficulty Swallowing, Anorexia Genitourinary: DENIES: Abnormal vaginal bleeding, Dysmenorrhea, Dyspareunia, Sexual dysfunction, Urinary frequency, Urinary incontinence, Urgency, Hematuria , Dysuria, Nocturia, Vaginal discharge Musculoskeletal: DENIES: Joint pain, Muscle aches, Stiffness, Joint Swelling, Back pain, Neck pain Integumentary: DENIES: Abnormal pigmentation, Pruritus, Rash, Nail changes, Breast masses, Breast skin changes, Nipple discharge Hematologic/lymphatic: DENIES: Bruising, Lymphadenopathy Immunologic/allergic: DENIES: Eczema, Urticaria Neurologic: DENIES: Abnormal gait, Headache, Localized weakness, Paresthesias, Seizures, Speech Problems, Tremor, Poor Balance Psychiatric: COMPLAINS OF: Confusion, Delusions, DENIES: Anxiety, Mood changes , Depression, Hallucinations, Agitation, Suicidal Ideation, Homicidal Ideation Past Family Social History Coded Allergies: iodine (Unverified Allergy, Unknown, 02/16/17) penicillin G (Unverified Allergy, Unknown, 02/16/17) potassium iodide (Unverified Allergy, Unknown, 02/16/17) povidone-iodine (Unverified Allergy, Unknown, 02/16/17) sodium iodide (Unverified Allergy, Unknown, 02/16/17) sodium iodide (Unverified Allergy, Unknown, 02/16/17) Active Scripts Linezolid (Zyvox) 600 Mg Tab, 600 MG PO Q12H for Infection, #20 TAB Prov:Sarthak Parry MD 08/13/17 Clonazepam (Klonopin) 1 Mg Tab, 2 MG PO HS for Agitation, #30 TAB 0 Refills Prov:Sarthak Parry MD 08/13/17 Clonazepam (Klonopin) 1 Mg Tab, 1 MG PO DAILY for Agitation, #30 TAB 0 Refills Prov:Sarthak Parry MD 08/13/17 Reported Medications Olanzapine (Zyprexa) 15 Mg Tab, 30 MG PO HS, #30 TAB 0 Refills 08/05/17 Ascorbic Acid (Vitamin C) 250 Mg Chew, 250 MG CHEW DAILY for Nutritional Supplement, #30 TAB 0 Refills 08/05/17 Calcium Carbonate (Antacid) (Tums) 500 Mg Chew, 2 TAB CHEW Q4HR Y for HEARTBURN , TAB 0 Refills 08/05/17 Tramadol (Tramadol) 50 Mg Tab, 50 MG PO Q12HR Y for PAIN, TAB 0 Refills 08/05/17 Perphenazine (Perphenazine) 16 Mg Tab, 32 MG PO HS, #30 TAB 0 Refills 08/05/17 Multiple Vitamin (Multiple Vitamin) 1 Tab, 1 TAB PO DAILY for Nutritional Supplement, TAB 0 Refills 08/05/17 Meloxicam (Mobic) 7.5 Mg Tab, 7.5 MG PO DAILY for Pain, TAB 0 Refills 08/05/17 Lorazepam (Ativan) 1 Mg Tab, 1 MG PO Q8H Y for ANXIETY AND/OR AGITATION, TAB 0 Refills 08/05/17 Amantadine Liq (Amantadine Liq) 50 Mg/5 Ml Soln, 100 MG PO BID, #600 ML 0 Refills 08/05/17 Discontinued Reported Medications Sulfamethoxazole-Trimethoprim (Bactrim DS) 800-160 Mg Tab, 1 TAB PO BID for Infection, TAB 0 Refills 08/05/17 Current Medications Medications (Trade) Dose Ordered Sig/Jeremias Route Start Time Stop Time Status Last Admin (KlonoPIN) 1 mg DAILY PO 08/14/17 09:00 08/16/17 10:48 (KlonoPIN) 2 mg HS PO 08/13/17 21:00 08/15/17 21:53 (Mobic) 7.5 mg DAILY PO 08/13/17 19:15 08/16/17 10:48 (ZyPREXA) 30 mg HS PO 08/13/17 21:00 08/15/17 21:53 (Ultram) 50 mg Q12HR PRN PO 08/13/17 19:15 Future Hold 08/14/17 12:23 (Ativan) 1 mg Q6H PRN PO 08/13/17 19:30 08/15/17 21:54 (Ativan Inj) 1 mg Q6H PRN IM 08/13/17 19:30 (Tylenol) 650 mg Q4H PRN PO 08/13/17 19:30 (Milk Of Magnesia Liq) 30 ml DAILY PRN PO 08/13/17 19:30 (Mag-Al Plus Susp Liq) 30 ml Q6H PRN PO 08/13/17 19:30 (Habitrol 21 Mg Patch.24 Hr) 1 patch DAILY T-DERMAL 08/14/17 09:00 Miscellaneous Information 1 HS T-DERMAL 08/13/17 21:00 08/13/17 21:00 (Zyvox) 600 mg Q12HR PO 08/14/17 21:00 08/16/17 10:48 ([place] 5-325 Mg) 1 tab Q6H PRN PO 08/14/17 20:00 08/16/17 11:38 (ZyPREXA) 5 mg DAILY PO 08/15/17 14:30 08/16/17 10:48 Physical Exam Vital Signs Vital Signs Date Time Temp Pulse Resp B/P (MAP) Pulse Ox O2 Delivery O2 Flow Rate FiO2 08/16/17 05:37 98.1 88 18 152/75 (100) 98 I/O 08/16/17 08/16/17 08/17/17 08:00 16:00 00:00 Intake Total 240 ml 360 ml Balance 240 ml 360 ml Mental Status Examination Appearance: Disheveled Consciousness: Alert Orientation: x4 Motor Activity: Normal gait Speech: Unremarkable Language: Adequate Fund of Knowledge: Adequate Attention and Concentration: Adequate Memory: Unremarkable Mood: Appropriate Affect: Blunt Thought Process & Associations: Loose associations, Disorganized Thought Content: Bizarre thinking, Hallucinations, Preoccupations Hallucination Type: Auditory, Visual Delusion Type: None Suicidal Ideation: No Suicidal Plan: No Suicidal Intention: No Homicidal Ideation: No Homicidal Plan: No Homicidal Intention: No Insight: Poor Judgment: Poor Assessment & Plan Problem List: (1) Schizoaffective disorder ICD Codes: F25.9 - Schizoaffective disorder, unspecified Status: Chronic Assessment & Plan: I have seen and examined this patient today. I have reviewed chart and discussed the case with Dr. Trimble. I agree and concur with his assessment and plan. Consult appreciated. Assessment & Plan Estimated LOS: Alejandro Allen MD Aug 16, 2017 12:32
--- NOTE | 2017-08-16 16:23 | PD.WCN.NOT ---
Wound Consult Description: Received consult from SARAH Spring for VAC placement of L hip wound today Communicated with: MARY JO Villegas [facility] unit and SARAH Spring Recommendation: Will change VAC dressing Wednesday - Wednesday and Wednesday Neg Pressure Wound Therapy Wound Location Wound Location: L Hip Wound Description Length: 4cm Width: 10cm Depth: 4.2cm Wound bed appearance: Wound bed presents with ~70% red granulation tissue and ~30% adipose tissue. Wound drainage is scant and sero-sanguinous with out odor. Wound bed is moist. Periwound appearance: Unremarkable Settings Suction: 125 mmHg, Continuous Intensity: Low Other Information: Bridged, Windowpaned Foam type: Black Number of pieces: 1 Additonal Information Patient seen on 4th floor [facility] unit for VAC dressing change at bedside. Removed VAC dressing. 1 piece of granufoam was removed to reveal wound to L hip. Wound was cleansed with wound cleanser. Skin prep was applied to periwound. Window paned wound with VAC drape and bridged drape to L anterior thigh. One piece of granufoam was applied to wound bed and secured with VAC drape. Hole was then cut to expose foam. one strip of granufoam was bridged from wound to L anterior thigh over bridged VAC drape. Mushroom cap of granufoam was applied to bridged area on L anterior thigh.Applied Sensi trac pad over bridged granufoam. Covered All exposed foam was the with VAC drape to seal dressing. Wound VAC is suctioning at 125 mm/hg continuous low suction with low leak rate. Patient tolerated dressing change well. Anamika Rossi [facility] Aug 16, 2017 16:23
--- NOTE | 2017-08-16 17:05 | HHI.PR ---
Subjective Remarks Pain controlled. Afebrile. Denies cp/sob. Denies diarrhea. Objective Vitals Vital Signs Date Time Temp Pulse Resp B/P (MAP) Pulse Ox O2 Delivery O2 Flow Rate FiO2 08/16/17 05:37 98.1 88 18 152/75 (100) 98 08/15/17 18:50 98.1 91 18 135/70 (91) 100 I/O 08/15/17 08/15/17 08/15/17 08/16/17 08/16/17 08/16/17 07:00 15:00 23:00 07:00 15:00 23:00 Intake Total 480 ml 960 ml 480 ml 240 ml 360 ml Balance 480 ml 960 ml 480 ml 240 ml 360 ml Intake Oral 480 ml 960 ml 480 ml 240 ml 360 ml # Voids 1 1 2 Result Diagram: 08/14/17 0758 Objective Remarks GENERAL: Patient lying in bed. Sleeping, wakes up for exam. Appears comfortable. SKIN: Warm and dry. HEAD: Normocephalic. EYES: No scleral icterus. No injection or drainage. NECK: Supple, trachea midline. No JVD. CARDIOVASCULAR: Regular rate and rhythm without murmurs, gallops, or rubs. RESPIRATORY: Breath sounds equal bilaterally. No accessory muscle use. GASTROINTESTINAL: Abdomen soft, non-tender, nondistended. MUSCULOSKELETAL: No cyanosis, or edema. Left thigh erythema resolved. Wound VAC in place. BACK: Nontender without obvious deformity. No CVA tenderness. Medications and IVs Current Medications Medications (Trade) Dose Ordered Sig/Jeremias Route Start Time Stop Time Status Last Admin (KlonoPIN) 1 mg DAILY PO 08/14/17 09:00 08/16/17 10:48 (KlonoPIN) 2 mg HS PO 08/13/17 21:00 08/15/17 21:53 (Mobic) 7.5 mg DAILY PO 08/13/17 19:15 08/16/17 10:48 (ZyPREXA) 30 mg HS PO 08/13/17 21:00 08/15/17 21:53 (Ultram) 50 mg Q12HR PRN PO 08/13/17 19:15 Future Hold 08/14/17 12:23 (Ativan) 1 mg Q6H PRN PO 08/13/17 19:30 08/15/17 21:54 (Ativan Inj) 1 mg Q6H PRN IM 08/13/17 19:30 (Tylenol) 650 mg Q4H PRN PO 08/13/17 19:30 (Milk Of Magnesia Liq) 30 ml DAILY PRN PO 08/13/17 19:30 (Mag-Al Plus Susp Liq) 30 ml Q6H PRN PO 08/13/17 19:30 (Habitrol 21 Mg Patch.24 Hr) 1 patch DAILY T-DERMAL 08/14/17 09:00 Miscellaneous Information 1 HS T-DERMAL 08/13/17 21:00 08/13/17 21:00 (Zyvox) 600 mg Q12HR PO 08/14/17 21:00 08/16/17 10:48 ([place] 5-325 Mg) 1 tab Q6H PRN PO 08/14/17 20:00 08/16/17 11:38 (ZyPREXA) 5 mg DAILY PO 08/15/17 14:30 08/16/17 10:48 A/P Problem List: (1) Schizoaffective disorder ICD Code: F25.9 - Schizoaffective disorder, unspecified Status: Chronic Plan: Management as per psychiatry. (2) Cellulitis of left thigh ICD Code: L03.116 - Cellulitis of left lower limb Status: Acute Plan: Continue Zyvox for a total of 10 days. Reconsult general surgery - Dr Nuñez. Wound vac as per recommendations. Sarthak Parry MD Aug 16, 2017 17:05
[2017-08-16 18:23] VITALS: BP 153/88; PULSE 89; RESP 16; TEMP 98.2; O2SAT 100
[2017-08-16] MEDS: REMOVE OLD NICODERM (NICOTINE) PATCH T-DERMAL SCH (20:27)
[2017-08-17] MEDS: ACETAMINOPHEN/HYDROcodone 325 MG/5 MG TAB PO PRN ×3 (01:15→16:24)
[2017-08-17 06:00] VITALS: BP 165/97; PULSE 105; RESP 18; TEMP 97.6; O2SAT 96
[2017-08-17] MEDS: NICOTINE 21 MG/24 HR PATCH T-DERMAL SCH (09:00)
--- NOTE | 2017-08-17 09:14 | HHI.PYPN ---
Subjective Remarks Patient is here for follow, chart reviewed. Discussion nursing staff reported the patient continues to disconnect the wound VAC and has to be reminded not to interfere with the device and was also noted to's be somewhat religiously preoccupied with denying any perceptual disturbances last evening. Patient was found lying in hospital bed, cooperative. Patient noted to be somewhat disorganized with flight of ideas speaking about different topics regarding her past also noted to be somewhat religiously preoccupied and vague about continue perceptual disturbances that she was not able to clearly endorse or deny having visual hallucinations but is endorsing auditory hallucinations recently. Agreeable to continue current treatment. Patient mentions that the person she had stated yesterday Betito was not her but her cousin states that a gentleman by the name of Alesha Long is her and states that she heard him talk to her in spirit. Review of Systems Except as stated in HPI: all other systems reviewed are Neg Mental Status Examination Appearance: Disheveled Consciousness: Alert Orientation: x4 Motor Activity: Normal gait Speech: Unremarkable Language: Adequate Fund of Knowledge: Adequate Attention and Concentration: Adequate Memory: Unremarkable Mood: Appropriate Affect: Blunt Thought Process & Associations: Loose associations, Disorganized Thought Content: Bizarre thinking, Hallucinations, Preoccupations Hallucination Type: Auditory, Visual Delusion Type: None Suicidal Ideation: No Suicidal Plan: No Suicidal Intention: No Homicidal Ideation: No Homicidal Plan: No Homicidal Intention: No Insight: Poor Judgment: Poor Results Vitals/IOs Vital Signs Date Time Temp Pulse Resp B/P (MAP) Pulse Ox O2 Delivery O2 Flow Rate FiO2 08/17/17 06:00 97.6 105 18 165/97 (119) 96 Assessment & Plan Problem List: (1) Schizoaffective disorder ICD Codes: F25.9 - Schizoaffective disorder, unspecified Status: Chronic Assessment & Plan Patient continues to be noted to be disorganized at times as well as continue to have auditory hallucinations of voices telling her "good things" as well as of people she knows. Unclear patient continues to endorse visual hallucinations and she is not clear when responding to this question. Patient had olanzapine increased yesterday, we will continue to monitor current symptoms with possible continued upward titration if needed. Continue recommendations as per prior medical team. Discharge planning in progress Justification for Cont. Inpt. At risk of further decompensation at lower level of care El Trimble MD Aug 17, 2017 09:14
[2017-08-17] MEDS: MELOXICAM 7.5 MG TAB PO SCH (11:35)
[2017-08-17] MEDS: LINEZOLID 600 MG TAB PO SCH ×2 (11:35→21:11)
[2017-08-17] MEDS: OLANZapine 5 MG TAB PO SCH (11:35)
[2017-08-17] MEDS: clonazePAM 1 MG TAB PO SCH ×2 (11:35→21:11)
--- NOTE | 2017-08-17 16:51 | HHI.PR ---
Subjective Remarks pain controlled afebrile denies cp/sob. Objective Vitals Vital Signs Date Time Temp Pulse Resp B/P (MAP) Pulse Ox O2 Delivery O2 Flow Rate FiO2 08/17/17 06:00 97.6 105 18 165/97 (119) 96 08/16/17 18:23 98.2 89 16 153/88 (109) 100 I/O 08/16/17 08/16/17 08/16/17 08/17/17 08/17/17 08/17/17 07:00 15:00 23:00 07:00 15:00 23:00 Intake Total 240 ml 360 ml 240 ml 360 ml 480 ml Balance 240 ml 360 ml 240 ml 360 ml 480 ml Intake Oral 240 ml 360 ml 240 ml 360 ml 480 ml # Voids 2 1 1 # Bowel Movements 1 Result Diagram: 08/14/17 0758 Objective Remarks GENERAL: Patient lying in bed. Sleeping, wakes up for exam. Appears comfortable. SKIN: Warm and dry. HEAD: Normocephalic. EYES: No scleral icterus. No injection or drainage. NECK: Supple, trachea midline. No JVD. CARDIOVASCULAR: Regular rate and rhythm without murmurs, gallops, or rubs. RESPIRATORY: Breath sounds equal bilaterally. No accessory muscle use. GASTROINTESTINAL: Abdomen soft, non-tender, nondistended. MUSCULOSKELETAL: No cyanosis, or edema. Left thigh erythema resolved. Wound VAC in place. BACK: Nontender without obvious deformity. No CVA tenderness. Medications and IVs Current Medications Medications (Trade) Dose Ordered Sig/Jeremias Route Start Time Stop Time Status Last Admin (KlonoPIN) 1 mg DAILY PO 08/14/17 09:00 08/17/17 11:35 (KlonoPIN) 2 mg HS PO 08/13/17 21:00 08/16/17 20:24 (Mobic) 7.5 mg DAILY PO 08/13/17 19:15 08/17/17 11:35 (ZyPREXA) 30 mg HS PO 08/13/17 21:00 08/16/17 20:24 (Ultram) 50 mg Q12HR PRN PO 08/13/17 19:15 Future Hold 08/14/17 12:23 (Ativan) 1 mg Q6H PRN PO 08/13/17 19:30 08/15/17 21:54 (Ativan Inj) 1 mg Q6H PRN IM 08/13/17 19:30 (Tylenol) 650 mg Q4H PRN PO 08/13/17 19:30 (Milk Of Magnesia Liq) 30 ml DAILY PRN PO 08/13/17 19:30 (Mag-Al Plus Susp Liq) 30 ml Q6H PRN PO 08/13/17 19:30 (Habitrol 21 Mg Patch.24 Hr) 1 patch DAILY T-DERMAL 08/14/17 09:00 Miscellaneous Information 1 HS T-DERMAL 08/13/17 21:00 08/13/17 21:00 (Zyvox) 600 mg Q12HR PO 08/14/17 21:00 08/17/17 11:35 ([place] 5-325 Mg) 1 tab Q6H PRN PO 08/14/17 20:00 08/17/17 16:24 (ZyPREXA) 5 mg DAILY PO 08/15/17 14:30 08/17/17 11:35 A/P Problem List: (1) Schizoaffective disorder ICD Code: F25.9 - Schizoaffective disorder, unspecified Status: Chronic Plan: Management as per psychiatry. (2) Cellulitis of left thigh ICD Code: L03.116 - Cellulitis of left lower limb Status: Acute Plan: Continue Zyvox for a total of 10 days. Reconsult general surgery - Dr Nuñez. Wound Vac changed 09/13. Assessment and Plan SCD's Sarthak Parry MD Aug 17, 2017 16:51
[2017-08-17 18:10] VITALS: BP 129/63; PULSE 109; RESP 18; TEMP 98.2; O2SAT 95
[2017-08-17] MEDS: REMOVE OLD NICODERM (NICOTINE) PATCH T-DERMAL SCH (21:00)
[2017-08-18 06:06] VITALS: BP 151/74; PULSE 85; RESP 17; TEMP 98.6; O2SAT 98
[2017-08-18 08:12] LABS: AUTOMATED NEUTROPHIL # 1.8 TH/MM3 (1.8-7.7); BASOPHIL % 1.1 % (0.0-2.0); EOSINOPHIL % 0.3 % (0.0-4.0); HEMATOCRIT 36.4 % (35.0-46.0); HEMOGLOBIN 12.2 GM/DL (11.6-15.3); LYMPH % 27.7 % (9.0-44.0); LYMPHOCYTE # 0.9 TH/MM3 (1.0-4.8); MEAN CELL VOLUME 92.6 FL (80.0-100.0); MEAN CORPUSCULAR HGB CONC 33.5 % (32.0-36.0); MEAN PLATELET VOLUME 8.4 FL (7.0-11.0); MONO % 14.4 % (0.0-8.0); MONOCYTE # 0.5 TH/MM3 (0-0.9); NEUT % 56.5 % (16.0-70.0); PLATELET COUNT 300 TH/MM3 (150-450); RED BLOOD COUNT 3.93 MIL/MM3 (4.00-5.30); RED CELL DISTRIBUTION WIDTH 15.4 % (11.6-17.2); WHITE BLOOD COUNT 3.2 TH/MM3 (4.0-11.0)
[2017-08-18 08:32] LABS: ALBUMIN 2.9 GM/DL (3.4-5.0); ALT (GPT) 24 U/L (10-53); AST (GOT) 24 U/L (15-37); BICARBONATE 27.1 MEQ/L (21.0-32.0); BLOOD UREA NITROGEN 7 MG/DL (7-18); CALCIUM 8.5 MG/DL (8.5-10.1); CHLORIDE 108 MEQ/L (98-107); CREATININE 0.76 MG/DL (0.50-1.00); GLOMERULAR FILTRATION RATE 95 ML/MIN (>89); GLUCOSE,RANDOM 90 MG/DL (74-106); SODIUM (NA) 141 MEQ/L (136-145)
[2017-08-18 08:35] LABS: ALKALINE PHOSPHATASE 75 U/L (45-117); TOTAL BILIRUBIN ADULT 0.2 MG/DL (0.2-1.0); TOTAL PROTEIN 7.8 GM/DL (6.4-8.2)
[2017-08-18] MEDS: clonazePAM 1 MG TAB PO SCH ×2 (09:00→21:35)
[2017-08-18] MEDS: OLANZapine 5 MG TAB PO SCH (09:00)
[2017-08-18] MEDS: LINEZOLID 600 MG TAB PO SCH ×2 (09:00→21:35)
[2017-08-18] MEDS: NICOTINE 21 MG/24 HR PATCH T-DERMAL SCH (09:00)
[2017-08-18] MEDS: MELOXICAM 7.5 MG TAB PO SCH (09:00)
--- NOTE | 2017-08-18 09:52 | HHI.PR ---
Subjective Remarks Follow-up visit on 57-year-old female with past medical history of schizophrenia s/p I&D of left buttocks/thigh abscess. Patient seen and examined in her room resting comfortably in no acute distress on her right side. She denies any fevers, chills, nausea, vomiting, diarrhea, headaches, shortness of breath, cough or chest pains. She reports that the pain on her left thigh/buttocks is better. Asked patient why she is removed wound VAC and states that she removed it because her skin was peeling. She reports that her sister has taken care of her mother in the past and that this is a reason why she cannot have wound VAC in place. Discussed with nurse, wound VAC nurse to stop by and reapply wound VAC today. Objective Vitals Vital Signs Date Time Temp Pulse Resp B/P (MAP) Pulse Ox O2 Delivery O2 Flow Rate FiO2 08/18/17 06:06 98.6 85 17 151/74 (99) 98 08/17/17 18:10 98.2 109 18 129/63 (85) 95 I/O 08/17/17 08/17/17 08/17/17 08/18/17 08/18/17 08/18/17 07:00 15:00 23:00 07:00 15:00 23:00 Intake Total 360 ml 1680 ml 240 ml Balance 360 ml 1680 ml 240 ml Intake Oral 360 ml 1680 ml 240 ml # Voids 1 1 2 # Bowel Movements 1 Result Diagram: 08/18/17 0711 08/18/17 0711 Objective Remarks GENERAL: Patient lying in bed on right side in no acute distress. Appears comfortable. SKIN: Warm and dry. Left thigh/buttocks with a dressing in place. Pulled back to no large open wound with granulated tissue at base, gauze with moderate amount of serous drainage, no foul odor. No surrounding warmth, redness, or drainage noted. HEAD: Normocephalic. EYES: No scleral icterus. No injection or drainage. NECK: Supple, trachea midline. No JVD. CARDIOVASCULAR: Regular rate and rhythm without murmurs, gallops, or rubs. RESPIRATORY: Breath sounds equal bilaterally. No accessory muscle use. GASTROINTESTINAL: Abdomen soft, obese, non-tender, nondistended. MUSCULOSKELETAL: No cyanosis, or edema. Moves all extremities without difficulties. NEUROLOGICAL: Awake and alert, following commands, speech is clear, thought process scattered. No facial drooping noted A/P Problem List: (1) Schizoaffective disorder ICD Code: F25.9 - Schizoaffective disorder, unspecified Status: Chronic (2) Cellulitis of left thigh ICD Code: L03.116 - Cellulitis of left lower limb Status: Acute Assessment and Plan 57-year-old female with past medical history of schizophrenia admitted to inpatient medical psychiatry unit, left posterior thigh cellulitis. Schizophrenia disorder -Management per psychiatry Left posterior thigh abscess -Patient is s/p I&D of abscess on 08/12 by - ID recommendations for Zyvox PO X10 days (started on 08/14) - Consult placed for GS, not yet seen, will place consult once again for further recommendations on wound VAC. -Wound care nurse following, nurses made wound care aware of needing to replace dressing today. -Briefly discussed with patient the importance of following instructions of general surgeon, patient continues to deny needing it. - Pain management with [place] as needed. DVT prophylaxis- ambulating Discussed with nurse. Christine Loja Aug 18, 2017 09:52
[2017-08-18] MEDS: ACETAMINOPHEN/HYDROcodone 325 MG/5 MG TAB PO PRN ×2 (10:17→16:35)
--- NOTE | 2017-08-18 11:57 | PD.WCN.NOT ---
Neg Pressure Wound Therapy Wound Location Wound Location: L Hip Wound Description Wound bed appearance: Wound bed presents with ~70% red granulation tissue and ~30% adipose tissue. Wound drainage is scant and sero-sanguinous with out odor. Wound bed is moist. Periwound appearance: Unremarkable Settings Suction: 125 mmHg, Continuous Intensity: Low Other Information: Bridged, Windowpaned Foam type: Black Number of pieces: 1 Additonal Information Patient seen on 4th floor Medical Psych unit for VAC dressing change at bedside.Patient seen with Mirlande SMITH for surgery.Patient removed VAC dressing last night and took a shower per report from RN .Removed wet to dry dressing in place. Wound was cleansed with wound cleanser. Skin prep was applied to periwound. Window paned wound with VAC drape and bridged drape to L anterior thigh. One piece of granufoam was applied to wound bed and secured with VAC drape. Hole was then cut to expose foam. one strip of granufoam was bridged from wound to L anterior thigh over bridged VAC drape. Mushroom cap of granufoam was applied to bridged area on L anterior thigh.Applied Sensi trac pad over bridged granufoam. Covered All exposed foam was the with VAC drape to seal dressing. Wound VAC is suctioning at 125 mm/hg continuous low suction with low leak rate. Patient tolerated dressing change well. Spoke with patient regarding therapeutic use of wound VAC. Instructed patient that wound VAC dressing must be left in place for 48 to 72 hours to be effective. Anamika Rossi [facility] Aug 18, 2017 11:57
--- NOTE | 2017-08-18 13:23 | HHI.PR ---
cc: Boubacar Cordero MD Subjective Subjective Notes DAILY PROGRESS NOTE FOR SURGICAL ATTENDING, DR. BOUBACAR CORDERO Up to chair Let me know she took a shower last night Objective Vitals/I&O Vital Signs Date Time Temp Pulse Resp B/P (MAP) Pulse Ox O2 Delivery O2 Flow Rate FiO2 08/18/17 06:06 98.6 85 17 151/74 (99) 98 Labs Laboratory Tests Test 08/18/17 07:11 White Blood Count 3.2 Red Blood Count 3.93 Hemoglobin 12.2 Hematocrit 36.4 Mean Corpuscular Volume 92.6 Mean Corpuscular Hemoglobin 31.0 Mean Corpuscular Hemoglobin Concent 33.5 Red Cell Distribution Width 15.4 Platelet Count 300 Mean Platelet Volume 8.4 Neutrophils (%) (Auto) 56.5 Lymphocytes (%) (Auto) 27.7 Monocytes (%) (Auto) 14.4 Eosinophils (%) (Auto) 0.3 Basophils (%) (Auto) 1.1 Neutrophils # (Auto) 1.8 Lymphocytes # (Auto) 0.9 Monocytes # (Auto) 0.5 Eosinophils # (Auto) 0.0 Basophils # (Auto) 0.0 CBC Comment DIFF FINAL Differential Comment Blood Urea Nitrogen 7 Creatinine 0.76 Random Glucose 90 Total Protein 7.8 Albumin 2.9 Calcium Level 8.5 Alkaline Phosphatase 75 Aspartate Amino Transf (AST/SGOT) 24 Alanine Aminotransferase (ALT/SGPT) 24 Total Bilirubin 0.2 Sodium Level 141 Potassium Level 3.9 Chloride Level 108 Carbon Dioxide Level 27.1 Anion Gap 6 Estimat Glomerular Filtration Rate 95 Cardiovascular: Regular Lungs: Clear Abdomen: Non-distended, Non-tender Extremities: Other (see below ) Narrative Exam LEFT hip--- wet to dry packing removed---- Anamika at bedside to replace Wound Vac A/P Assessment and Plan 57 year old female s/p I&D LEFT hip and Wound Vac placement -Continue Wound Vac changed MWF -Continue antibiotics -OOB and mobilize Attending Statement NOTE FOR SURGICAL ATTENDING, DR. BOUBACAR CORDERO I agree with above assessment and plan. The exam, history, and the medical decision-making described in the above note were completed with the assistance of the mid-level provider. I reviewed and agree with the findings presented. The following services were provided during this hospital visit: Chart data review, vital sign assessments/reviewing monitor data Review of consultations notes if present. Medication orders/review and/or management Ordering and/or reviewing lab tests Ordering and/or interpreting/reviewing x-rays and/or diagnostic studies Care of the patient and discussion of the patient with the care team Documentation time To help prompt me to consider important information that might be impacting today's encounter and assessment, information from prior notes written by myself or my colleagues may have been "brought forward/copy and pasted" into today's note. Mirlande Spring Aug 18, 2017 13:23 Boubacar Cordero MD Aug 18, 2017 17:58
--- NOTE | 2017-08-18 13:59 | HHI.PYPN ---
Subjective Remarks Patient seen for follow-up, chart reviewed. Discussion nursing staff reported the patient took dressing and disconnected wound VAC off of her wound last evening. Patient sister called and reported the patient did not have a as patient had stated yesterday during interview. Patient was found sitting hospital but after having breakfast noted, cooperative. Patient was noted to be more engaging and endorsing less delusional material as well as complex visual and auditory hallucinations although at times with state seeing eye dog would close her eyes and unable to differentiate whether this is something she was imagining when she closes her eyes were actually seeing them in the room. Patient continues to be somewhat disorganized in this aspect but noted to be more engaging and appropriate today. Review of Systems Except as stated in HPI: all other systems reviewed are Neg Mental Status Examination Appearance: Disheveled Consciousness: Alert Orientation: x4 Motor Activity: Normal gait Speech: Unremarkable Language: Adequate Fund of Knowledge: Adequate Attention and Concentration: Adequate Memory: Unremarkable Mood: Appropriate Affect: Blunt Thought Process & Associations: Loose associations, Disorganized Thought Content: Bizarre thinking, Hallucinations, Preoccupations Hallucination Type: Auditory, Visual Delusion Type: None Suicidal Ideation: No Suicidal Plan: No Suicidal Intention: No Homicidal Ideation: No Homicidal Plan: No Homicidal Intention: No Insight: Poor Judgment: Poor Results Labs Labs reviewed Test 08/18/17 07:11 White Blood Count 3.2 TH/MM3 Red Blood Count 3.93 MIL/MM3 Hemoglobin 12.2 GM/DL Hematocrit 36.4 % Mean Corpuscular Volume 92.6 FL Mean Corpuscular Hemoglobin 31.0 PG Mean Corpuscular Hemoglobin Concent 33.5 % Red Cell Distribution Width 15.4 % Platelet Count 300 TH/MM3 Mean Platelet Volume 8.4 FL Neutrophils (%) (Auto) 56.5 % Lymphocytes (%) (Auto) 27.7 % Monocytes (%) (Auto) 14.4 % Eosinophils (%) (Auto) 0.3 % Basophils (%) (Auto) 1.1 % Neutrophils # (Auto) 1.8 TH/MM3 Lymphocytes # (Auto) 0.9 TH/MM3 Monocytes # (Auto) 0.5 TH/MM3 Eosinophils # (Auto) 0.0 TH/MM3 Basophils # (Auto) 0.0 TH/MM3 CBC Comment DIFF FINAL Differential Comment Blood Urea Nitrogen 7 MG/DL Creatinine 0.76 MG/DL Random Glucose 90 MG/DL Total Protein 7.8 GM/DL Albumin 2.9 GM/DL Calcium Level 8.5 MG/DL Alkaline Phosphatase 75 U/L Aspartate Amino Transf (AST/SGOT) 24 U/L Alanine Aminotransferase (ALT/SGPT) 24 U/L Total Bilirubin 0.2 MG/DL Sodium Level 141 MEQ/L Potassium Level 3.9 MEQ/L Chloride Level 108 MEQ/L Carbon Dioxide Level 27.1 MEQ/L Anion Gap 6 MEQ/L Estimat Glomerular Filtration Rate 95 ML/MIN Vitals/IOs Vital Signs Date Time Temp Pulse Resp B/P (MAP) Pulse Ox O2 Delivery O2 Flow Rate FiO2 08/18/17 06:06 98.6 85 17 151/74 (99) 98 Intake and Output 08/18/17 08/18/17 08/19/17 08:00 16:00 00:00 Intake Total 240 ml 360 ml Balance 240 ml 360 ml Assessment & Plan Problem List: (1) Schizoaffective disorder ICD Codes: F25.9 - Schizoaffective disorder, unspecified Status: Chronic Assessment & Plan Patient noted to be less disorganized today, patient continues to have delusions and perceptual disturbances but less intense today. Patient appears to be responding to current dose we will continue current treatment for now. Continue recommendations as per prior medical team. Patient encouraged him not to interfere with dressings and wound care and she agreed. Patient will present to mental health court tomorrow and is aware. Discharge planning in progress Justification for Cont. Inpt. At risk of further decompensation of lower level of care El Trimble MD Aug 18, 2017 13:59
[2017-08-18 18:33] VITALS: BP 134/83; PULSE 112; RESP 18; TEMP 97.8; O2SAT 98
[2017-08-18] MEDS: REMOVE OLD NICODERM (NICOTINE) PATCH T-DERMAL SCH (21:00)
[2017-08-19 06:45] VITALS: BP 165/80; PULSE 83; RESP 19; TEMP 97.2; O2SAT 96
[2017-08-19] MEDS: LINEZOLID 600 MG TAB PO SCH (08:37)
[2017-08-19] MEDS: MELOXICAM 7.5 MG TAB PO SCH (08:37)
[2017-08-19] MEDS: clonazePAM 1 MG TAB PO SCH (08:37)
[2017-08-19] MEDS: OLANZapine 5 MG TAB PO SCH (08:37)
[2017-08-19] MEDS: NICOTINE 21 MG/24 HR PATCH T-DERMAL SCH (08:37)
--- NOTE | 2017-08-19 10:16 | HHI.PR ---
Subjective Remarks Follow-up visit on 57-year-old female with past medical history of schizophrenia s/p I&D of left buttocks/thigh abscess. Patient seen and examined in her room resting comfortably in no acute distress on her right side. She denies any fevers, chills, nausea, vomiting, diarrhea, headaches, shortness of breath, cough or chest pains. She reports that the pain on her left thigh/buttocks is better. Asked patient why she is removed wound VAC and states that she removed it because her skin was peeling. She reports that her sister has taken care of her mother in the past and that this is a reason why she cannot have wound VAC in place. Discussed with nurse, wound VAC nurse to stop by and reapply wound VAC today. 2-15 [address] wound VAC in place No current complaints Discussed with patient and RN Seen sitting in a chair Objective Vitals Vital Signs Date Time Temp Pulse Resp B/P (MAP) Pulse Ox O2 Delivery O2 Flow Rate FiO2 08/19/17 06:45 97.2 83 19 165/80 (108) 96 08/18/17 18:33 97.8 112 18 134/83 (100) 98 I/O 08/18/17 08/18/17 08/18/17 08/19/17 08/19/17 08/19/17 07:00 15:00 23:00 07:00 15:00 23:00 Intake Total 1200 ml 840 ml 480 ml Balance 1200 ml 840 ml 480 ml Intake Oral 1200 ml 840 ml 480 ml # Voids 2 1 1 Result Diagram: 08/18/17 0711 08/18/17 0711 Other Results Laboratory Tests Test 08/18/17 07:11 White Blood Count 3.2 TH/MM3 Red Blood Count 3.93 MIL/MM3 Hemoglobin 12.2 GM/DL Hematocrit 36.4 % Mean Corpuscular Volume 92.6 FL Mean Corpuscular Hemoglobin 31.0 PG Mean Corpuscular Hemoglobin Concent 33.5 % Red Cell Distribution Width 15.4 % Platelet Count 300 TH/MM3 Mean Platelet Volume 8.4 FL Neutrophils (%) (Auto) 56.5 % Lymphocytes (%) (Auto) 27.7 % Monocytes (%) (Auto) 14.4 % Eosinophils (%) (Auto) 0.3 % Basophils (%) (Auto) 1.1 % Neutrophils # (Auto) 1.8 TH/MM3 Lymphocytes # (Auto) 0.9 TH/MM3 Monocytes # (Auto) 0.5 TH/MM3 Eosinophils # (Auto) 0.0 TH/MM3 Basophils # (Auto) 0.0 TH/MM3 CBC Comment DIFF FINAL Differential Comment Blood Urea Nitrogen 7 MG/DL Creatinine 0.76 MG/DL Random Glucose 90 MG/DL Total Protein 7.8 GM/DL Albumin 2.9 GM/DL Calcium Level 8.5 MG/DL Alkaline Phosphatase 75 U/L Aspartate Amino Transf (AST/SGOT) 24 U/L Alanine Aminotransferase (ALT/SGPT) 24 U/L Total Bilirubin 0.2 MG/DL Sodium Level 141 MEQ/L Potassium Level 3.9 MEQ/L Chloride Level 108 MEQ/L Carbon Dioxide Level 27.1 MEQ/L Anion Gap 6 MEQ/L Estimat Glomerular Filtration Rate 95 ML/MIN Objective Remarks GENERAL: Patient lying in bed on right side in no acute distress. Appears comfortable. SKIN: Warm and dry. Left thigh/buttocks with a dressing in place. Wound VAC in place. Dressed HEAD: Normocephalic. Atraumatic EYES: No scleral icterus. No injection or drainage. Extraocular muscles intact -pupils equal round Reactive to light and accommodation tongue is midline oropharynx is clear NECK: Supple, trachea midline. No JVD. CARDIOVASCULAR: Regular rate and rhythm without murmurs, gallops, or rubs. S1 and S2 no S3-S4 RESPIRATORY: Breath sounds equal bilaterally. No accessory muscle use. GASTROINTESTINAL: Abdomen soft, obese, non-tender, nondistended. MUSCULOSKELETAL: No cyanosis, or edema. Moves all extremities without difficulties. Left thigh area dressed with VAC in place NEUROLOGICAL: Awake and alert, following commands, speech is clear, thought process scattered. No facial drooping noted Insight and judgment is limited Mood and behavior somewhat abnormal Medications and IVs Current Medications Clonazepam (KlonoPIN) 1 mg DAILY PO Last administered on 08/19/17at 08:37; Start 08/14/17 at 09:00 Clonazepam (KlonoPIN) 2 mg HS PO Last administered on 08/18/17at 21:35; Start at 21:00 Meloxicam (Mobic) 7.5 mg DAILY PO Last administered on 08/19/17at 08:37; Start 08/13/17 at 19:15 Olanzapine (ZyPREXA) 30 mg HS PO Last administered on 08/18/17at 21:35; Start at 21:00 Tramadol HCl (Ultram) 50 mg Q12HR PRN PO PAIN Last administered on 08/14/17at 12 :23; Start 08/13/17 at 19:15; Status Future Hold Lorazepam (Ativan) 1 mg Q6H PRN PO MODERATE TO SEVERE ANXIETY Last administered on 08/15/17at 21:54; Start 08/13/17 at 19:30 Lorazepam (Ativan Inj) 1 mg Q6H PRN IM MODERATE TO SEVERE ANXIETY; Start at 19:30 Lorazepam (Ativan) 0.5 mg Q12H PRN PO MODERATE TO SEVERE ANXIETY; Start at 19:30; Status Cancel Lorazepam (Ativan Inj) 0.5 mg Q12H PRN IM MODERATE TO SEVERE ANXIETY; Start 08/13/17 at 19:30; Status Cancel Acetaminophen (Tylenol) 650 mg Q4H PRN PO Pain 1-5 or Temp >101F; Start at 19:30 Magnesium Hydroxide (Milk Of Magnesia Liq) 30 ml DAILY PRN PO CONSTIPATION; Start 08/13/17 at 19:30 Al Hydrox/Mg Hydrox/Simethicone (Mag-Al Plus Susp Liq) 30 ml Q6H PRN PO DYSPEPSIA; Start 08/13/17 at 19:30 Nicotine (Habitrol 21 Mg Patch.24 Hr) 1 patch DAILY T-DERMAL ; Start 08/14/17 at 09:00 Miscellaneous Information 1 HS T-DERMAL Last administered on 08/13/17at 21:00; Start 08/13/17 at 21:00 Linezolid (Zyvox) 600 mg Q12HR PO Last administered on 08/19/17at 08:37; Start 08/14/17 at 21:00 Linezolid (Zyvox) 600 mg ONCE ONCE PO ; Start 08/14/17 at 19:30; Stop 08/14/17 at 19:31; Status UNV Acetaminophen/ Hydrocodone Bitart ([place] 5-325 Mg) 1 tab Q6H PRN PO pain > 5 Last administered on 08/18/17at 16:35; Start 08/14/17 at 20:00 Olanzapine (ZyPREXA) 5 mg DAILY PO Last administered on 08/19/17at 08:37; Start 08/15/17 at 14:30 A/P Problem List: (1) Schizoaffective disorder ICD Code: F25.9 - Schizoaffective disorder, unspecified Status: Chronic Plan: Management as per psychiatry. (2) Cellulitis of left thigh ICD Code: L03.116 - Cellulitis of left lower limb Status: Acute Plan: Continue Zyvox for a total of 10 days. Reconsult general surgery - Dr Nuñez. Wound Vac changed 09/13. Assessment and Plan 57-year-old female with past medical history of schizophrenia admitted to inpatient medical psychiatry unit, left posterior thigh cellulitis. Schizophrenia disorder -Management per psychiatry Left posterior thigh abscess -Patient is s/p I&D of abscess on 08/12 by - ID recommendations for Zyvox PO X10 days (started on 08/14) - Consult placed for GS, not yet seen, will place consult once again for further recommendations on wound VAC. -Wound care nurse following, currently has wound VAC in place -Briefly discussed with patient the importance of following instructions of general surgeon, patient continues to deny needing it. Currently has wound VAC in place - Pain management with [place] as needed. A.m. labs DVT prophylaxis- ambulating Discussed with nurse. Discharge Planning Pending psychiatric clearance Davon Iglesias DO Aug 19, 2017 10:16
[2017-08-19] MEDS ORDERED: OLAN15TA PO (11:08)
[2017-08-19] MEDS ORDERED: CLON1 PO (11:08)
[2017-08-19] MEDS ORDERED: CLON2TAB PO (11:08)
[2017-08-19] MEDS ORDERED: OLAN5TAB PO (11:08)
--- NOTE | 2017-08-19 11:09 | HHI.DS ---
Psychiatry Discharge Summary Inpatient Psychiatric care?: Yes Advance Directive: No Reason Not Provided: Declined Mental Health AdvanceDirective: No Health Care Proxy: No Admission Admission Date Aug 13, 2017 at 16:15 Admission Diagnosis: (1) Schizoaffective disorder ICD Code: F25.9 - Schizoaffective disorder, unspecified Brief History The patient is a 57-year-old woman, domiciled in a detention , single, unemployed, supported by [facility], very poor family and social support, with extensive psychiatric history of schizophrenia, schizoaffective disorder bipolar type, multiple psychiatric hospitalizations, the last hospitalization was here at [facility] in 2017, documentation was reviewed, she has been treated in outpatient with olanzapine 30 mg at bedtime, clonazepam 1 mg a.m. and 2 mg p.m., patient doesn't have any previous suicidal attempt, no significant medical history, who came to the emergency department from her assisted living facility for evaluation of worsening of left posterior thigh wound. The patient can provide no meaningful history. Per ED notes, the patient developed a wound to her left posterior thigh yesterday and was started on Bactrim. The area of the wound was significantly increased today with surrounding erythema and fluctuance. An incision and drainage of the abscess was performed in the emergency department and the patient was started on IV antibiotics. This time, the patient denies fever/chills. She denies pain anywhere except for at the wound site itself. Consulted to psychiatry today to assess decision-making capacity to refuse treatment. On psychiatric evaluation today the patient is calm, cooperative, she is disorganized, delusional, but she is able to cooperate with the evaluation. The patient is well known by me, I know that the patient at baseline is delusional and a little bit disorganized, but usually redirectable. Today for psychiatric evaluation the patient is in good mood, she says that she is hopeful that everything is going to be okay "because I have Ten with me". Patient reports that she heard voices, "good voices, they're my family". She denies commanding type auditory hallucinations. The patient has the delusion of "I am going to get with my doctor". She is partially oriented, she knows that she is in the hospital, but she says that she is in 1965. Patient is not very sure about the reason she is in the hospital. She says that she was told that she needs a procedure,, "but I am very scared, I don't want to , and I am scared of pain". Patient is unable to verbalize a third understanding and appreciation of her medical condition at this moment. Patient was seen today for second opinion.Chart was reviewed. She continues to be disorganized and tangential, but redirectable. She reports auditory hallucinations of multiple voices making derogatory comments about her. She is oriented X3, compliant with medications. No agitation or aggressive behavior reported. Tobacco Use In Past 30 Days: No Tobacco Past 30 Days Alcohol Use: Never Hospital Course The patient is a 57-year-old woman, domiciled in a detention , single, unemployed, supported by [facility], very poor family and social support, with extensive psychiatric history of schizophrenia, schizoaffective disorder bipolar type, multiple psychiatric hospitalizations, the last hospitalization was here at [facility] in 2017, documentation was reviewed, she has been treated in outpatient with olanzapine 30 mg at bedtime, clonazepam 1 mg a.m. and 2 mg p.m., patient doesn't have any previous suicidal attempt, no significant medical history, who came to the emergency department from her assisted living facility for evaluation of worsening of left posterior thigh wound and was found to be psychotic during medical admission which she was transferred to the inpatient psychiatry unit for further evaluation and management. Patient was continued on olanzapine and titrated up to 5mg daily and 30 at bedtime and clonazepam 1mg am/2mgHS which patient tolerated well and noted to be calm and cooperative with staff. She was noted to be disorganized initially with episodes of auditory and visual hallucinations but began to resolve with adherence to treatment. Patient was found to have MRSA of the left leg wound and was placed on antibiotics and wound vac. Patient was noted to have been compliant with treatment with encouragement, cooperative with staff. Patient presented to mental health court which she was determined to no longer fulfill criteria for further involuntary psychiatric admission and discharged through the court. Upon discharge patient stated that she was feeling good, noted with decreased psychotic symptoms, denied any SI, HI or delusions. Patient agreed to continue medication regimen and outpatient follow up for continuity of care. I have counseled the patient regarding warning signs for need to return to the psychiatric emergency room as part of a general safety plan. Patient advised to call 911 or go nearest ED in case of emergency. Patient agrees with plan. Results Blood Pressure 165 / 80 Vital Signs Date Time Temp Pulse Resp B/P (MAP) Pulse Ox O2 Delivery O2 Flow Rate FiO2 08/19/17 06:45 97.2 83 19 165/80 (108) 96 Laboratory Tests Test 08/18/17 07:11 White Blood Count 3.2 TH/MM3 (4.0-11.0) Red Blood Count 3.93 MIL/MM3 (4.00-5.30) Monocytes (%) (Auto) 14.4 % (0.0-8.0) Lymphocytes # (Auto) 0.9 TH/MM3 (1.0-4.8) Albumin 2.9 GM/DL (3.4-5.0) Chloride Level 108 MEQ/L (98-107) Laboratory Results Test 08/14/17 07:58 Cholesterol Level 90 MG/DL (120-200) HDL Cholesterol 29.4 MG/DL (40.0-60.0) Hemoglobin A1c 5.9 % (4.3-6.0) LDL Cholesterol 34 MG/DL (0-99) Triglycerides Level 135 MG/DL (42-150) Summary of Procedures None Pending results at discharge: No Medications # of Antipsychotic meds at D/C: 1 Approp Antipsych med options 1 - Minimum of three failed multiple trials of monotherapy. 2 - Documented plan to taper to monotherapy due to previous use of multiple meds OR cross-taper in progress at D/C. 3 - Documentation of augmentation of Clozapine. 4 - Justification other than those listed in allowable values 1-3, document here : Discharge Discharge Date: Aug 19, 2017 Discharge Diagnosis: (1) Schizoaffective disorder ICD Code: F25.9 - Schizoaffective disorder, unspecified Status: Chronic Pt Condition on Discharge: Stable Discharge Disposition: Discharge Home Discharge Instructions Diet Instructions: Heart Healthy Diet Activities you can perform: Regular-No Restrictions Discharge Time > 30 minutes Mental Status Examination Appearance: Disheveled Consciousness: Alert Orientation: x4 Motor Activity: Normal gait Speech: Unremarkable Language: Adequate Fund of Knowledge: Adequate Attention and Concentration: Adequate Memory: Unremarkable Mood: Appropriate Affect: Blunt Thought Process & Associations: Loose associations Thought Content: Bizarre thinking, Hallucinations, Preoccupations Hallucination Type: Auditory, Visual Delusion Type: None Suicidal Ideation: No Suicidal Plan: No Suicidal Intention: No Homicidal Ideation: No Homicidal Plan: No Homicidal Intention: No Insight: Poor Judgment: Poor Discharge/Advance Care Plan Health Problems: (1) Schizoaffective disorder Goals to promote your health * To prevent worsening of your condition and complications * To maintain your health at the optimal level Directions to meet your goals Take your medications as prescribed Follow your dietary instruction Follow activity as directed Keep your appointments as scheduled Take your immunizations and boosters as scheduled If your symptoms worsen call your PCP, if no PCP go to Urgent Care Center or Emergency Room For 25/01 questions related to your inpatient stay or results of tests pending at discharge, please contact Dr. El Trimble at Smoking is Dangerous to Your Health. Avoid second hand smoking El Trimble MD Aug 19, 2017 11:09
[2017-08-19] MEDS ORDERED: ZYVO600T PO (12:37)
[2017-08-19] MEDS ORDERED: NICO21DI25 T-DERMAL (12:37)
[2017-08-19] MEDS ORDERED: HYDR-3516 PO (12:37)
[2017-08-19] MEDS ORDERED: MOBI7.5T PO (12:37)
== END 2017-08-19 15:25 | disposition home or self-care (01) | DRG 885 ==
LOC: H4EA 16:15
PROVIDERS: ADMIT Student in an Organized Health Care Education/Training Program; ATTEND Student in an Organized Health Care Education/Training Program
DX: F25.9 Schizoaffective disorder, unspecified (principal); L03.116 Cellulitis of left lower limb
CPT/HCPCS: 80048; 80053; 80061; 83036; 83735; 85025; 93005